=== PATIENT | female | born 1970 | race Caucasian/White ===

== ENCOUNTER 2018-08-04 09:17 | Outpatient (CLI) | payer MEDICAID, SELFPAY ==
[2018-08-04 11:33] LABS: ALT 27 U/L (12-78); AST 22 U/L (15-37); Albumin 4.6 g/dL (3.4-5.0); Alkaline Phosphatase 36 U/L (46-116); Bilirubin, Total 0.3 mg/dL (0.2-1.0); Total Protein 8.3 g/dL (6.4-8.2)
[2018-08-06 09:00] LABS: HCV Genotype 2 (Undetected)
== END 2018-08-04 09:37 ==
LOC: LBO 09:29 → NCHCO 10:03
PROVIDERS: PCP Physician Assistant Medical; Visit Provider Physician Assistant Medical
DX: B19.20 Unspecified viral hepatitis C without hepatic coma (principal)
CPT/HCPCS: 36415; 80076; 87521; 87522

== ENCOUNTER 2018-08-10 09:17 | Outpatient (CLI) | payer MEDICAID, SELFPAY ==
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
== END 2018-08-10 09:37 ==
PROVIDERS: PCP Physician Assistant Medical; Visit Provider Student in an Organized Health Care Education/Training Program
DX: M25.562 Pain in left knee (principal)
CPT/HCPCS: 73562

== ENCOUNTER 2018-08-22 01:55 | Outpatient (CLI) | payer MEDICAID, SELFPAY ==
--- NOTE | 2018-08-22 14:26 | DI.MRI_ITS ---
SYMPTOM/DIAGNOSIS: NEW VISUAL DISTURBANCE, H53.9 BRAIN MRI: Routine noncontrast examination was performed. There are no priors for comparison. There is normal hightower white matter differentiation. No abnormal signal is seen in the brain parenchyma. The diffusion weighted images have a normal appearance. No intracranial hemorrhage is seen. There is a flow void in the [place] of [place]. The pituitary gland is unremarkable as is the suprasellar region. The visualized paranasal sinuses are clear. The left orbit is abnormal in shape with flattening of the contour of the orbit both medially and laterally. There is also decreased size of the lens compared to the right. The extraocular muscles appear symmetric as does the optic nerve. No orbital or retro-orbital soft tissues masses are appreciated. IMPRESSION: Abnormal appearance of the left orbit and decreased size of the left lens. Ophthalmic consult is recommended for further evaluation. No evidence of a left orbital or retro-orbital mass. No evidence of intracranial mass, infarct or hemorrhage.
== END 2018-08-22 02:15 ==
PROVIDERS: PCP Physician Assistant Medical; Visit Provider Nurse Practitioner Adult Health
DX: H53.8 Other visual disturbances (principal); H05.89 Other disorders of orbit; H27.8 Other specified disorders of lens
CPT/HCPCS: 70551

== ENCOUNTER 2018-12-09 01:31 | Outpatient (CLI) | payer MEDICAID, SELFPAY ==
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
== END 2018-12-09 01:51 ==
PROVIDERS: Visit Provider Student in an Organized Health Care Education/Training Program
DX: M23.92 Unspecified internal derangement of left knee (principal); M25.562 Pain in left knee; M22.42 Chondromalacia patellae, left knee
CPT/HCPCS: 73721

== ENCOUNTER 2022-07-14 15:19 | Outpatient (REF) | payer MEDICAID, SELFPAY ==
[2022-07-14 16:05] LABS: ALT 14 U/L (14-59); AST 21 U/L (15-37); Albumin 4.5 g/dL (3.4-5.0); Alkaline Phosphatase 62 U/L (46-116); Anion Gap 9.8 mmol/L (3-11); BUN 11 mg/dL (7-18); Bilirubin, Total 0.3 mg/dL (0.2-1.0); CO2 27.2 mmol/L (21.0-32.0); CREATININE 0.7 mg/dL (0.55-1.02); Calcium 9.6 mg/dL (8.5-10.1); Calculated LDL 185 mg/dL (<100); Chloride 101 mmol/L (98-107); Cholesterol 265 mg/dL (<200); Estimated GFR 104.65 (mL/min/1.73m2); Glucose 97 mg/dL (74-106); HDL Cholesterol 56 mg/dL (40-60); Potassium 4.3 mmol/L (3.5-5.1); Sodium 138 mmol/L (136-145); Total Protein 8.1 g/dL (6.4-8.2); Triglyceride 120 mg/dL (<150)
== END 2022-07-14 15:20 | disposition home or self-care (01) ==
LOC: NCHCN 15:19
PROVIDERS: Visit Provider Physician Assistant Medical
DX: Z13.228 Encounter for screening for other metabolic disorders (principal); E78.89 Other lipoprotein metabolism disorders; Z00.00 Encounter for general adult medical examination without abnormal findings
CPT/HCPCS: 80053; 80061

== ENCOUNTER 2023-01-22 10:09 | Outpatient (REF) | payer MEDICAID, SELFPAY ==
[2023-01-22 16:12] LABS: Vitamin D 25 Total 38.2 ng/mL (30-100)
[2023-01-22 16:19] LABS: Vitamin B12 796 pg/mL (193-986)
== END 2023-01-22 10:10 | disposition home or self-care (01) ==
LOC: NCHCN 10:09
PROVIDERS: PCP Physician Assistant Medical; Visit Provider Physician Assistant Medical
DX: E53.8 Deficiency of other specified B group vitamins (principal); E55.9 Vitamin D deficiency, unspecified
CPT/HCPCS: 82306; 82607

== ENCOUNTER 2024-07-25 15:58 | Outpatient (REF) | payer MEDICAID, SELFPAY ==
--- OUTSIDE RECORDS SUMMARY | 2024-07-25 16:05 | XMS_ITS | Encounter Summary ---
[place] [address] Care Team Providers Care Rn Document Improvement Name Role Phone Unknown Primary Care Provider Unavailabl e Encounter Details Date Type Department Care Team (Late st Contact Info) Description 09/08/2022 Interpretation Only [address] [id number] Doe Jenkins PA [address] [place] [id number] Social History Tobacco Use Types Packs/Day Years Used Date Smoking Tobacco: Every Day Cigarettes 1 18 Smokeless Tobacco: Never Alcohol Use Standard Drinks/Week Comments No 0 (1 standard drink = 0.6 oz pur e alcohol) Sex and Gender Information Value Date Recorded Sex Assigned at Not on file Gender Identity Not on file Sexual Orientation Not on file documented as of this encounter Plan of Treatment Not on file documented as of this encounter Goals Goal Patient Goal Type Associated Problems Recent Progress Patient-Stated? Author [facility] Medication Compliance and Understanding Patient Facing Action Plan No Thania Weston, [facility] Note: SVR12 through treatment with Mavyret. documented as of this encounter Procedures Procedure Name Priority Date/Time Associated Diagnosis Comments MAMMO SCREENING CAD BILATERAL Routine 09/08/2022 9:04 AM EDT documented in this encounter Results * Mammo Screening Cad Bilateral (09/08/2022 9:04 AM EDT) PT CLASS O RAD ADMITDTTM RAD PT RAFI ESCAMILLA INFO [id number]^RA THBURN^GINGER David [facility]SCREEN MAMMO BL INCLUDES CAD^RIS RAD Anatomical Region Laterality Modality Breast Bilateral Mammography Impressions 09/08/2022 2:05 PM EDT BI-RADS ??category 1: negative- No mammographic evidence of malignancy. RECOMMENDATION: * ??Regular screening mammograms starting between age 40 and 50 reduces the risk of from breast cancer. * ??All screening tests have both risks and benefits. These risks and benefits should be assessed for each individual patient through discussion with their provider to determine their preferred breast cancer screening schedule. * ??Women should report any breast changes to a health care provider right away. * ??Some women, because of their family history, a genetic tendency, or other factors, should be screened with annual breast MRI as well as with mammograms. (The number of women who fall into this category is very small). Patients and health care providers should discuss the history of each patient to decide if earlier screening and/or breast MRI are appropriate. * ??Screening should continue as long as a woman is in good health and is expected to live 10 years or longer. * ??Screening mammography may not detect 10-15% of breast cancers. Thank you for letting us participate in the care of this patient. ??If you are a health care provider and have any questions regarding this report, please contact the number below. ??For patients who have questions please contact the health daycare teacher that requested your imaging first. ? Narrative 09/08/2022 2:05 PM EDT EXAMINATION: BREAST SCREEN TOMOSYNTHESIS BI, SCREEN MAMMO BL INCLUDES CAD CLINICAL HISTORY: mammo screening for malignant neoplasm of breast Family history of breast cancer: None Reproductive history: Parous No personal history of breast cancer. COMPARISON: Previous mammograms were reviewed. TECHNIQUE: ??Bilateral MLO and CC digital mammograms were obtained and reviewed with CAD. ?? 2-D and 3-D tomosynthesis images were obtained. FINDINGS: There are no suspicious microcalcifications, masses, or areas of distortion. No changes compared to prior studies. Breast density: The breasts are heterogeneously dense, which may obscure small masses. Procedure Note Felipe Moss MD - 09/08/2022 EXAMINATION: BREAST SCREEN TOMOSYNTHESIS BI, SCREEN MAMMO BL INCLUDESCAD CLINICAL HISTORY: mammo screening for malignant neoplasm of breast Family history of breast cancer: None Reproductive history: Parous No personal history of breast cancer. COMPARISON: Previous mammograms were reviewed. TECHNIQUE: Bilateral MLO and CC digital mammograms were obtained andreviewed with CAD. 2-D and 3-D tomosynthesis images were obtained. FINDINGS: There are no suspicious microcalcifications, masses, or areasof distortion. No changes compared to prior studies. Breast density: The breasts are heterogeneously dense, which may obscuresmall masses. IMPRESSION BI-RADS category 1: negative- No mammographic evidence of malignancy. RECOMMENDATION: * Regular screening mammograms starting between age 40 and 50 reduces therisk of from breast cancer. * All screening tests have both risks and benefits. These risks andbenefits should be assessed for each individual patient through discussion withtheir provider to determine their preferred breast cancer screening schedule. * Women should report any breast changes to a health care provider rightaway. * Some women, because of their family history, a genetic tendency, orother factors, should be screened with annual breast MRI as well as withmammograms. (The number of women who fall into this category is very small). Patientsand health care providers should discuss the history of each patient to decideif earlier screening and/or breast MRI are appropriate. * Screening should continue as long as a woman is in good health and is expected to live 10 years or longer. * Screening mammography may not detect 10-15% of breast cancers. Thank you for letting us participate in the care of this patient. If youare a health care provider and have any questions regarding this report,please contact the number below. For patients who have questions please contactthe health daycare teacher that requested your imaging first. Doe GARY IMG MAMMO ORDERABL ES documented in this encounter Visit Diagnoses Not on filedocumented in this encounter Care Teams Rn Document Improvement Relationship Specialty Start Date End Date Unknown None PCP - General 01/31/20 documented as of this encounter
--- OUTSIDE RECORDS SUMMARY | 2024-07-25 16:05 | XMS_ITS | Encounter Summary ---
Author Organization [facility] [place] [address] Care Team Providers Care Creel Selector Name Role Phone Doe Jenkins Primary Care Provider +1- [phone] Encounter Details Date Type Department Care Team (Late st Contact Info) Description 12/06/2018 External Results [place] [address] Yariel Porter PA [address] [place] [address] [place] [address] Social History Tobacco Use Types Packs/Day Years [...] Type Associated Problems Recent Progress Patient-Stated? Author [facility] Medication Compliance and Understanding Patient Facing Action Plan No Thania Weston, [facility] Note: SVR12 through treatment with Mavyret. documented as of this encounter Procedures Procedure Name Priority Date/Time Associated Diagnosis Comments EXTERNAL LAB CBC CMP THYROID RESULTS PANEL Routine 12/05/2018 EXTERNAL LAB GI RESULTS PANEL Routine 12/05/2018 EXTERNAL LAB GI RESULTS PANEL Routine 11/06/2018 documented in this encounter Results * GI External Results (12/05/2018) Hepatitis B Surface Antigen Negative Historical Provider POINT OF CARE JOSÉ MIGUEL T ORDERABLES * CBC / CMP / Thyroid External Results (12/05/2018) Sodium 139 Potassium 3.9 Chloride 100 Carbon Dioxide 27 Blood Urea Nitrogen 8 Creatinine 0.78 Est Glomerular Filtration Rate 78.83 Glucose 109 Calcium 9.1 Protein, Total 7.7 Albumin 4.3 Bilirubin, Total 0.3 Alkaline Phosphatase 39 Aspartate Aminotransferase 14 Alanine Aminotransferase 12 Historical Provider EXTERNAL LAB ORDE RABLES * GI External Results (11/06/2018) Hepatitis B Surface Antigen Negative HCV Viral Load <15 Comment:not detected Historical Provider POINT OF CARE JOSÉ MIGUEL T ORDERABLES documented in this encounter Visit Diagnoses Not on filedocumented in this encounter Care Teams Creel Selector Relationship Specialty Start Date End Date Doe Jenkins PA [address] [place] [address] PCP - General 08/04/12 01/30/20 documented as of this encounter
--- OUTSIDE RECORDS SUMMARY | 2024-07-25 16:05 | XMS_ITS | Encounter Summary ---
[place] [address] Care Team Providers Care Financial Coach Name Role Phone Doe Jenkins Primary Care Provider [phone]- [phone] Reason for Visit * Reason Comments Medication Management Encounter Details Date Type Department Care Team (Late st Contact Info) Description 12/05/2018 Specialty [place] [phone] Thania Weston [facility] Social History Tobacco Use Types Packs/Day Years Used Date Smoking Tobacco: Every Day Cigarettes 1 18 Smokeless Tobacco: Never Alcohol Use Standard Drinks/Week Comments No 0 (1 standard drink = 0.6 oz pur e alcohol) Sex and Gender Information Value Date Recorded Sex Assigned at Not on file Gender Identity Not on file Sexual Orientation Not on file documented as of this encounter Progress Notes * Thania Jaimes RPH - 12/05/2018 10:08 AM EDT Clinical Management Plan: Transfer of Care/Discharge Specialty Services Specialty Pharmacy Consultation; Thania Jaimes [facility] Comprehensive Medication Management (CMM) Frances Rakesh Peggy [address] [facility] [address] Telephone Information: Work Phone Not on file. Summary: Frances was contacted for end of treatment follow-up on HCV treatment with Mavyret. She finished the treatment on Wed, 12/03 which is right on schedule based on her start date. She did not miss any doses, and says she tolerated the medication well. Frances does not report any changes in her other medications at this time. She got her end of treatment labs done this morning at [facility]. While she was there she inquired about her week 4 labs because she got a letter saying that only one result was received. [facility] told her that all four tests were done on her week 4 labs and they confirmed that all 4 tests were done this morning as well. These results should be coming to the clinic soon. Frances has gotten a new razor, toothbrush, and nail clippers and is aware that her labs willneed to be done again 3 and 6 months post-treatment. This concludes the specialty pharmacy's clinical follow-up schedule with the patient. Is the patient transferring services to a different Specialty Pharmacy or discontinuing the medication? Discontinuing medication- upcoming completion of treatment Medication: Mavyret Reason for discontinuation or transfer: completion of treatment Approximate date of discontinuation or transfer: patient will complete treatment on 12/03/18 Discontinued from Specialty Pharmacy Services on 12/05/18 Patient's response to therapy: End of treatment labs: to be determined Summary of services provided by [facility]: Initial pharmacist consult, day 3 follow-up, refill reminder and follow-up 10 days prior to refill, end of treatment follow-up Summary of on-going needs: Follow lab schedule provided by clinic for upcoming labs 3 and 6 months post-treatment. Referral for additional services (if applicable): n/a Instructions provided to patient about discharge/transfer: yes - patient aware this concludes our follow-up schedule and to reach out with any additional questions/concerns Provider aware of discontinuation or transfer: yes Patient understands no changes to current drug regimen were made at the appointment and that [facility] (summary located at top of note) for provider review and follow up. Thania Jaimes RPH 12/05/18 10:08 AM documented in this encounter Plan of Treatment Not on file documented as of this encounter Goals Goal Patient Goal Type Associated Problems Recent Progress Patient-Stated? Author Home Medication Compliance and Understanding Patient Facing Action Plan Thania Barrios RPH Note: SVR12 through treatment with Mavyret. documented as of this encounter Visit Diagnoses Not on filedocumented in this encounter Care Teams Financial Coach Relationship Specialty Start Date End Date Doe Jenkins PA [address] [place] [address] PCP - General 08/04/12 01/30/20 documented as of this encounter
--- OUTSIDE RECORDS SUMMARY | 2024-07-25 16:05 | XMS_ITS | Encounter Summary ---
[facility] [place] [address] Care Team Providers Care Automobile Parker Name Role Phone Doe Jenkins Primary Care Provider [phone]- [phone] Reason for Visit * Reason Onset Date Comments Prior Authorization 10/03/2018 Mavyret Encounter Details Date Type Department Care Team (Late st Contact Info) Description 10/03/2018 [place] [phone] Narcisa Antony, [facility] Prior Authorization (Mavyret) Social History Tobacco Use Types Packs/Day Years Used Date Smoking Tobacco: Every Day Cigarettes 1 18 Smokeless Tobacco: Never Alcohol Use Standard Drinks/Week Comments No 0 (1 standard drink = 0.6 oz pur e alcohol) Sex and Gender Information Value Date Recorded Sex Assigned at Not on file Gender Identity Not on file Sexual Orientation Not on file documented as of this encounter Miscellaneous Notes * Telephone Encounter - Narcisa Antony - 10/04/2018 12:06 PM EDT [facility], Prior Authorization Approval Medication Name: Mavyret FILLABLE AT [facility]? yes APPROVAL DATES: 10/03/18 - 12/03/18 SPECIFIC INS REQUIREMENT: CASE/REFERENCE # [id number] APPROVAL NOTIFICATION RECEIVED VIA: Fax COPAY: $3.00 COPAY ASSISTANCE NEEDED?: No * Telephone Encounter - Narcisa Antony - 10/03/2018 2:45 PM EDT [facility], Medication Prior Authorization Patient: Frances Woods Patient : 1970 Patient Address: [address] [facility] [address] (home) Medication: Mavyret Subscriber Insurance: [place] Medicaid Physician: Yariel [place] Sent Via: Fax Parikh: Ref/Rayshawn/PA#: Medication Strength Frequency Requested: Mavyret 100-40mg; 3 tablets daily Qty/Day Supply: days New Start: Yes Diagnosis & ICD-10 Code: Chronic hepatitis C without hepatic coma, B18.2 documented in this encounter Plan of Treatment Not on file documented as of this encounter Goals Goal Patient Goal Type Associated Problems Recent Progress Patient-Stated? Author [facility] Medication Compliance and Understanding Patient Facing Action Plan Thania Barrios, [facility] Note: SVR12 through treatment with Mavyret. documented as of this encounter Visit Diagnoses Not on filedocumented in this encounter Care Teams Automobile Parker Relationship Specialty Start Date End Date Doe Jenkins PA [address] [place] [address] PCP - General 08/04/12 01/30/20 documented as of this encounter
--- OUTSIDE RECORDS SUMMARY | 2024-07-25 16:05 | XMS_ITS | Encounter Summary ---
[place] [address] Care Team Providers Care Brine Maker Name Role Phone Doe Jenkins Primary Care Provider +1- [phone] Encounter Details Date Type Department Care Team (Late st Contact Info) Description 10/13/2018 Orders [place] [address] Yariel Porter PA [address] [place] [address] [place] [address] Chronic hepatitis C without hepatic coma; Exposure to hepatitis B Social History Tobacco Use Types Packs/Day Years [...] Type Associated Problems Recent Progress Patient-Stated? Author [facility] Medication Compliance and Understanding Patient Facing Action Plan No Thania Weston, [facility] Note: SVR12 through treatment with Mavyret. documented as of this encounter Visit Diagnoses Diagnosis Chronic hepatitis C without hepatic coma Exposure to hepatitis B Contact with or exposure to other viral diseases documented in this encounter Care Teams Brine Maker Relationship Specialty Start Date End Date Doe Jenkins PA [address] [place] [address] PCP - General 08/04/12 01/30/20 documented as of this encounter
--- OUTSIDE RECORDS SUMMARY | 2024-07-25 16:05 | XMS_ITS | Encounter Summary ---
Author Organization [facility] [place] [address] Care Team Providers Care Rooming House Inspector Name Role Phone Doe Jenkins Primary Care Provider +1- [phone] Reason for Visit * Reason Onset Date Comments Medication Refill 10/03/2018 Encounter Details Date Type Department Care Team (Late st Contact Info) Description 10/03/2018 Ref[place] [phone] Yariel Porter PA [address] [place] [address] Chronic hepatitis C without hepatic coma Social History Tobacco Use Types Packs/Day Years [...] encounter Miscellaneous Notes * Telephone Encounter - Annette Pringle RN - 10/03/2018 11:46 AM EDT HCV pt ready for treatment with Mavyret x 8 weeks: GT 2 VL 2,474,612 IU/mL on 08/04/18 F0-F1 on Fibroscan F0 on liver fibrosis panel HIV neg HBcAb pos - will need HBsAg testing She was denied due to low fibrosis back in 2017. She would like treatment labs done at [facility]. documented in this encounter Plan of Treatment Not on file documented as of this encounter Goals Goal Patient Goal Type Associated Problems Recent Progress Patient-Stated? Author [facility] Medication Compliance and Understanding Patient Facing Action Plan Thania Barrios, [facility] Note: SVR12 through treatment with Mavyret. documented as of this encounter Visit Diagnoses Diagnosis Chronic hepatitis C without hepatic coma documented in this encounter Care Teams Rooming House Inspector Relationship Specialty Start Date End Date Doe Jenkins PA [address] [place] [address] PCP - General 08/04/12 01/30/20 documented as of this encounter
--- OUTSIDE RECORDS SUMMARY | 2024-07-25 16:05 | XMS_ITS | Encounter Summary ---
Author Organization [facility] [place] [address] Care Team Providers Care Bell Neck Hammerer Name Role Phone Doe Jenkins Primary Care Provider +1- [phone] Encounter Details Date Type Department Care Team (Late st Contact Info) Description 03/02/2019 External [place] [phone] Yariel Porter PA [address] [place] [address] [place] [address] Social History Tobacco Use Types Packs/Day Years [...] Type Associated Problems Recent Progress Patient-Stated? Author [facility] Medication Compliance and Understanding Patient Facing Action Plan No Thania Weston, [facility] Note: SVR12 through treatment with Mavyret. documented as of this encounter Procedures Procedure Name Priority Date/Time Associated Diagnosis Comments EXTERNAL LAB CBC CMP THYROID RESULTS PANEL Routine 02/24/2019 EXTERNAL LAB GI RESULTS PANEL Routine 02/24/2019 documented in this encounter Results * GI External Results (02/24/2019) Bilirubin, Total 0.3 Alkaline Phosphatase 33 Aspartate Aminotransferase 12 Alanine Aminotransferase 10 HCV Viral Load <15 Comment:not detected Historical Provider POINT OF CARE JOSÉ MIGUEL T ORDERABLES * CBC / CMP / Thyroid External Results (02/24/2019) Sodium 142 Potassium 4.5 Chloride 104 Carbon Dioxide 30 Blood Urea Nitrogen 11 Creatinine 0.79 Est Glomerular Filtration Rate 77.68 Glucose 114 Calcium 9.8 Historical Provider EXTERNAL LAB JEFFERSON CRARENO documented in this encounter Visit Diagnoses Not on filedocumented in this encounter Care Teams Bell Neck Hammerer Relationship Specialty Start Date End Date Doe Jenkins PA [address] [place] [address] PCP - General 08/04/12 01/30/20 documented as of this encounter
--- OUTSIDE RECORDS SUMMARY | 2024-07-25 16:05 | XMS_ITS | Encounter Summary ---
Author Organization [facility] [place] [address] Care Team Providers Care Datapower Developer Name Role Phone Doe Jenkins Primary Care Provider [phone]- [phone] Reason for Visit * Reason Comments Medication Management Encounter Details Date Type Department Care Team (Late st Contact Info) Description 10/04/2018 Specialty Pharmacy [place] [phone] Thania Weston [facility] Social History Tobacco Use Types Packs/Day Years [...] Progress Notes * Thania Jaimes RPH - 10/04/2018 4:44 PM EDT Specialty Pharmacy Consultation; Thania Jaimes Angie Comprehensive Medication Management (CMM) Frances J Peggy Diagnosis: Hepatitis C Therapy Start Date: to be determined Contact in person or via telephone:telephone Ms. Frances Woods is a 47 y.o. (1970) female who was contacted in regard to specialty medication. Spoke with patient regarding Mavyret . A review of the medication therapy was performed. The medication was filled as scheduled, and all medication related questions and concerns were addressed. The specialty pharmacy staff will follow up with the patient around day 3 of therapy to assess tolerability and adherence. Is the patient willing to proceed with the Clinical Assessment? Yes Summary and Recommendations: Frances was contacted for initial review of the HepC treatment process with Mavyret. She seems very eager to start and was happy it was approved for her. We discussed the dosage of three tablets taken at once at the same time each day, with food. I recommended using a phone alarm or reminder to help with adherence. Frances seems as if she will be committed to the treatment. We reviewed common side effects and mitigation strategies. We reviewed to stay well hydrated and that acetaminophen in doses <2000mg/day is safe to take if needed while on treatment. She says she drinks water and juice often throughout the day so this should not be a problem for her. We also discussed the lab schedule and she would like to get the labs done at [facility] in [place], [place]. She was HepB coreAb positive so surface antigen will need to be monitored with labs. Frances will notify the pharmacyor clinic when she starts and we will follow-up with her about 3-5 days later. No recommendations at this time. Clinic Follow-up needed: no Allergies and Drug intolerance: Allergies Allergen Reactions ??? Prochlorperazine Special Dietary or Hydration Requirements: no There is no height or weight on file to calculate BMI. Medication Reconciliation Discrepancies (compared to [facility] med list) -not taking topiramate - Proair only as needed - takes Vitamin C 1000mg once daily Medication Adherence Demonstrates understanding of importance of adherence: yes Informant: patient Reliability of informant: reliable Provider-estimated medication adherence level: 90-100% Reasons for non-adherence: no problems identified Adherence tools used: directed education Support network for adherence: healthcare provider Confirmed plan for next specialty medication refill: delivery by pharmacy Refills needed for supportive medications: not needed Medication List: Current Outpatient Medications Medication Sig Note Dispense Refill ??? glecaprevir-pibrentasvir (MAVYRET) 100-40 mg Tablet Take 3 tablets by mouth daily. 84 tablet 1 ??? zolpidem (AMBIEN CR) 6.25 mg Tablet, Multiphasic Release TAKE ONE TABLET BY MOUTH EVERY DAY AT BEDTIME NEEDED FOR SLEEP 0 ??? prednisoLONE acetate (PRED FORTE) 1 % Drops, Suspension INSTILL 1 DROP INTO THE LEFT EYE TWO TIMES A DAY 3 ??? fish oil-omega-3 fatty acids 1,000 mg Capsule Take 2 g by mouth daily. ??? PROAIR HFA 90 mcg/actuation HFA Aerosol Inhaler INHALE TWO PUFFS BY MOUTH EVERY 4 TO 6 HOURS 10/04/2018: As needed only. 2 ??? topiramate (TOPAMAX) 25 mg Tablet TAKE ONE TABLET BY MOUTH EVERY DAY AT BEDTIME 10/04/2018: Not taking. 1 ??? NICOTROL 10 mg Cartridge USE ONE CARTRIDGE DIRECTED NEEDED WITH A MAXIMUM OF 16 CARTRIDGES PER DAY 0 ??? ibuprofen (ADVIL;MOTRIN) 400 mg Tablet Take 400 mg by mouth every 6 hours as needed for Pain. No current facility-administered medications for this visit. Most Recent Vitals: Ht Readings from Last 1 Encounters: 09/30/18 175.3 cm (5' 9) Wt Readings from Last 3 Encounters: 09/30/18 67.3 kg (148 lb 6.4 oz) 01/26/17 66 kg (145 lb 9.6 oz) 09/21/16 68.9 kg (152 lb) Temp Readings from Last 3 Encounters: 09/21/16 36.3 ??C (97.3 ??F) (Temporal) 04/03/13 37 ??C (98.6 ??F) (Oral) 11/14/12 36.6 ??C (97.9 ??F) BP Readings from Last 3 Encounters: 09/30/18 116/63 01/26/17 110/60 09/21/16 113/62 Pulse Readings from Last 3 Encounters: 09/30/18 79 01/26/17 59 09/21/16 93 Pertinent Lab values: Lab Results Component Value Date NA 141 09/30/2018 K 4.0 09/30/2018 CL 101 09/30/2018 CO2 27 09/30/2018 BUN 13 09/30/2018 CREATININE 0.67 (L) 09/30/2018 GLUCOSE 87 09/30/2018 CALCIUM 9.4 09/30/2018 Lab Results Component Value Date ALT 21 09/30/2018 AST 19 09/30/2018 ALKPHOS 33 (L) 09/30/2018 BILITOT 0.3 09/30/2018 BILIDIR 0.1 07/01/2012 ALBUMIN 4.7 09/30/2018 PROT 7.5 09/30/2018 Lab Results Component Value Date WBC 6.0 09/30/2018 HGB 13.5 09/30/2018 HCT 41.1 09/30/2018 MCV 88.0 09/30/2018 PLATELET 151 09/30/2018 No results found for: HA1C There is no immunization history on file for this patient. Assessment and Recommendations: Title Type of Medication Management: chronic disease management, targeted medication review Referred By: provider Recipient: beneficiary Provider: plan sponsor pharmacist [place] [facility] [place] Method of Contact: by telephone Cognitive Ability: good Drug Interactions Provided the patient with educational material regarding drug interactions: yes Patient Counseling Counseled the patient on the following: reviewed medication changes since last visit, medication safety precautions education provided, drug interaction education provided to patient, doses and administration discussed, safe handling, storage, and disposal discussed, possible adverse effects and management discussed, possible drug and prescription drug interactions discussed, possible drug and OTC drug and food interactions discussed, lab monitoring and follow-up discussed, therapeutic rationale discussed, cost of medications and cost implications discussed, adherence and missed doses discussed, pharmacy contact information discussed, health goals discussed, monitoring medication discussed, over the counter products discussed, preventative care discussed, self-monitoring discussed, start medication discussed, timing of medications discussed, lifestyle modification education Drug Medication Management Summary Topics discussed: reviewed medication changes since last visit, medication safety precautions education provided, drug interaction education provided to patient, doses and administration discussed, safe handling, storage, and disposal discussed, possible adverse effects and management discussed, possible drug and prescription drug interactions discussed, possible drug and OTC drug and food interactions discussed, lab monitoring and follow-up discussed, therapeutic rationale discussed, cost of medications and cost implications discussed, adherence and missed doses discussed, pharmacy contact information discussed, health goals discussed, monitoring medication discussed, over the counter products discussed, preventative care discussed, self-monitoring discussed, start medication discussed, timing of medications discussed, lifestyle modification education Time spent: 16-30 min Treatment Outcomes No data found. Reviewed in detail with patient: Dose appropriateness based on recommended standard dosing Current medication list including OTC medications Medication and disease problems Allergies Comorbid conditions/ Problem List Past adverse events if any Special needs of the patient including physical and cognitive limitations Goals of therapy and management strategies Warnings, precautions, and contraindications Side effects Drug-drug and drug-food interactions Administration instructions including dose, frequency and method Handling, storage, and disposal of the medication Relevant lab data Patient verbalizes understanding and is able to read-back instructions on self-administration/injection, proper storage, drug stability, importance of adherence and management strategies, side effectavoidance and mitigation strategies, and interruptions in therapy: yes Physical Assessment: Functional limitations identified: no Cognitive limitations identified: no Concern regarding orientation/memory: no Concern with reasoning/judgement: no Is patient a fall risk: no Other needed information: no Social Assessment: Does the patient have a primary team primary care physician? no Patient has emergency contact on file: Yes Does patient need referral to social sciences department chair: No Does patient need referral to advocacy group: No Physical and Home Health Assessment: Is the patient able to store their medication as directed? Yes Is the patient in a safe home environment? Yes Do you have a support network? Yes Reviewed potential home safety hazards: Yes Economic Assessment: Patient is agreeable to medication copay: Yes Copay Amount: $3 Day Supply: 28 Date Needed: as soon as possible- new start Copay assistance required: no Therapy Assessment: Current Medication Dosing/Route/Frequency: Mavyret 3 tab po qd x 8 weeks Appropriate Therapy: Yes Genotype: 2 Treatment Naive/Experienced: naive Fibrosis Score: F0-F1 on fibroscan HX of liver transplant: no HBV Coinfection: no but HepB core Ab positive- will need to monitor HepB surface Ag during treatment HIV Coinfection: no Lab schedule reviewed: Yes Educational information or adherence tools provided? Yes HCV therapy adherence: Yes HCV treatment response: Yes Verbalized understanding to call office before start: Yes Patient experienced change in condition that affects treatment: no Patient's Problems/Needs: Treatment of HepC - adherence to medication regimen and lab monitoring schedule Patient's goals: Patient's specific desired goal:??SVR12 Measured by:??HepC viral load 12 weeks post-treatment Time-frame to meet goal:??12 weeks post-treatment Expected Outcome: SVR12 Plan of Care Reviewed and Approved by Pharmacist and Patient: Yes Monitoring requirements for prescribed medication: Monitor efficacy, safety, tolerability Monitor CBC, CMP, HepC viral load week 4, end of treatment, 3 and 6 months post-treatment Interventions (if applicable): No Additional care/services needed: no Pharmacist Follow-up needed: Yes Informed patient of specialty pharmacy services: Yes -Patient will be provided with welcome packet: Yes Date to be provided: 10/04/18 Delivery Method: mail -Patient will be provided with Rights & Responsibilities: Yes Date to be provided: 10/04/18 Delivery Method: mail -Patient is aware a licensed pharmacist is available 24 hours a day, 7 days a week to discuss medication-related questions or concerns: Yes -Patient verbalizes understanding of the common side effect profile of their medication. The patient is able to call 911 or seek urgent care if signs/symptoms of allergy or harmful adverse reactions occur: Yes Patient understands no changes to current drug regimen were made at the appointment and that [facility] (summary located at top of note) for provider review and follow up. Thania Jaimes RPH 10/04/18 4:48 PM documented in this encounter Plan of Treatment Not on file documented as of this encounter Goals Goal Patient Goal Type Associated Problems Recent Progress Patient-Stated? Author DH Home Medication Compliance and Understanding Patient Facing Action Plan No Thania Weston RPH Note: SVR12 through treatment with Mavyret. documented as of this encounter Visit Diagnoses Not on filedocumented in this encounter Care Teams Datapower Developer Relationship Specialty Start Date End Date Doe Jenkins PA [address] [place] [address] PCP - General 08/04/12 01/30/20 documented as of this encounter
--- OUTSIDE RECORDS SUMMARY | 2024-07-25 16:05 | XMS_ITS | Encounter Summary ---
Author Organization [facility] [place] [address] Care Team Providers Care Furnace Worker Name Role Phone Doe Jenkins Primary Care Provider [phone]- [phone] Encounter Details Date Type Department Care Team (Latest Contact Info) Description 02/24/2019 9:27 PM EDT - 02/24/2019 11:59 PM EDT Hospital [place] [phone] Discharge Disposition: Home Social History Tobacco Use Types Packs/Day Years Used Date Smoking Tobacco: Every Day Cigarettes 1 18 Smokeless Tobacco: Never Alcohol Use Standard Drinks/Week Comments No 0 (1 standard drink = 0.6 oz pur e alcohol) Sex and Gender Information Value Date Recorded Sex Assigned at Not on file Gender Identity Not on file Sexual Orientation Not on file documented as of this encounter Medications at Time of Discharge Medication Sig Dispensed Refills Start Date End Date ascorbic acid, vitamin C, (VITAMIN C) 1,000 mg Tablet Take 1,000 mg by mouth daily. glecaprevir-pibrentasvi r (MAVYRET) 100-40 mg TabletIndications:Chron ic hepatitis C without hepatic coma Take 3 tablets by mouth daily. 84 tablet 1 10/03/2018 zolpidem (AMBIEN CR) 6.25 mg Tablet, Multiphasic Release TAKE ONE TABLET BY MOUTH EVERY DAY AT BEDTIME NEEDED FOR SLEEP 0 09/11/2018 prednisoLONE acetate (PRED FORTE) 1 % Drops, Suspension INSTILL 1 DROP INTO THE LEFT EYE TWO TIMES A DAY 3 09/14/2018 fish oil-omega-3 fatty acids 1,000 mg Capsule Take 2 g by mouth daily. PROAIR HFA 90 mcg/actuation HFA Aerosol Inhaler INHALE TWO PUFFS BY MOUTH EVERY 4 TO 6 HOURS 2 09/09/2018 topiramate (TOPAMAX) 25 mg Tablet TAKE ONE TABLET BY MOUTH EVERY DAY AT BEDTIME 1 09/08/2018 NICOTROL 10 mg Cartridge USE ONE CARTRIDGE DIRECTED NEEDED WITH A MAXIMUM OF 16 CARTRIDGES PER DAY 0 07/09/2018 ibuprofen (ADVIL;MOTRIN) 400 mg Tablet Take 400 mg by mouth every 6 hours as needed for Pain. documented as of this encounter Plan of Treatment Not on file documented as of this encounter Goals Goal Patient Goal Type Associated Problems Recent Progress Patient-Stated? Author DH Home Medication Compliance and Understanding Patient Facing Action Plan Thania Barrios, [facility] Note: SVR12 through treatment with Mavyret. documented as of this encounter Procedures Procedure Name Priority Date/Time Associated Diagnosis Comments HEPATITIS B SURFACE ANTIGEN Routine 02/24/2019 9:32 AM EDT documented in this encounter Results * Hepatitis B Surface Antigen (02/24/2019 9:32 AM EDT) Hepatitis B Surface Antigen Negative Negative [facility] Blood specimen (specimen) Venous Draw / Unknown 02/24/2019 9:32 AM EDT 02/24/2019 10:10 PM EDT Narrative Resulting Agency Comment Spec In Lab Yariel GARY CHEMISTRY ORDERABLES [facility] [place] [address] documented in this encounter Visit Diagnoses Not on filedocumented in this encounter Care Teams Furnace Worker Relationship Specialty Start Date End Date Doe Jenkins PA [address] [place] [address] PCP - General 08/04/12 01/30/20 documented as of this encounter
--- OUTSIDE RECORDS SUMMARY | 2024-07-25 16:05 | XMS_ITS | Encounter Summary ---
Author Organization [facility] Address [facility] [place] [address] Care Team Providers Care Senior Buyer Planner Name Role Phone Doe Jenkins Primary Care Provider [phone]- [phone] Encounter Details Date Type Department Care Team (Latest Contact Info) Description 11/06/2018 10:15 PM EDT - 11/06/2018 11:59 PM EDT Hospital [place] [phone] Discharge Disposition: Home Social History Tobacco Use [...] Understanding Patient Facing Action Plan Thania Barrios, [facility] Note: SVR12 through treatment with Mavyret. documented as of this encounter Procedures Procedure Name Priority Date/Time Associated Diagnosis Comments HEPATITIS B SURFACE ANTIGEN STAT 11/06/2018 8:49 AM EDT documented in this encounter Results * Hepatitis B Surface Antigen (11/06/2018 8:49 AM EDT) Hepatitis B Surface Antigen Negative Negative [facility] Blood specimen (specimen) Venous Draw / Unknown 11/06/2018 8:49 AM EDT 11/08/2018 10:28 PM EDT Narrative Resulting Agency Comment Spec In Lab Yariel GARY CHEMISTRY ORDERABLES [facility] [place] [address] documented in this encounter Visit Diagnoses Not on filedocumented in this encounter Care Teams Senior Buyer Planner Relationship Specialty Start Date End Date Doe Jenkins PA [address] [place] [address] PCP - General 08/04/12 01/30/20 documented as of this encounter
--- OUTSIDE RECORDS SUMMARY | 2024-07-25 16:05 | XMS_ITS | Clinical Summary ---
Author Organization [facility] Address One [facility] [place] [address] Care Team Providers Care Head Of Insight Name Role Phone Unknown Primary Care Provider Unavailabl e Allergies Active Allergy Reactions Criticality Noted Date Comments Prochlorperazine Medications Medication Sig Dispensed Refills Start Date End Date Status ibuprofen (ADVIL;MOTRIN) 400 mg Tablet Take 400 mg by mouth every 6 hours as needed for Pain. Active zolpidem (AMBIEN CR) 6.25 mg Tablet, Multiphasic Release TAKE ONE TABLET BY MOUTH EVERY DAY AT BEDTIME NEEDED FOR SLEEP 0 09/11/2018 Active prednisoLONE acetate (PRED FORTE) 1 % Drops, Suspension INSTILL 1 DROP INTO THE LEFT EYE TWO TIMES A DAY 3 09/14/2018 Active fish oil-omega-3 fatty acids 1,000 mg Capsule Take 2 g by mouth daily. Active PROAIR HFA 90 mcg/actuation HFA Aerosol Inhaler INHALE TWO PUFFS BY MOUTH EVERY 4 TO 6 HOURS 2 09/09/2018 Active topiramate (TOPAMAX) 25 mg Tablet TAKE ONE TABLET BY MOUTH EVERY DAY AT BEDTIME 1 09/08/2018 Active NICOTROL 10 mg Cartridge USE ONE CARTRIDGE DIRECTED NEEDED WITH A MAXIMUM OF 16 CARTRIDGES PER DAY 0 07/09/2018 Active glecaprevir-pibrenta svir (MAVYRET) 100-40 mg TabletIndications:Ch ronic hepatitis C without hepatic coma Take 3 tablets by mouth daily. 84 tablet 1 10/03/2018 Active ascorbic acid, vitamin C, (VITAMIN C) 1,000 mg Tablet Take 1,000 mg by mouth daily. 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 Plan: Continue the ciloxan drops until the bottle runs out Follow-up in [facility] for ongoing eye care - in 2-3 months Happy to see again if any problems in the future Assessment & Plan (10/29/2016 10:53 AM EDT): Assessment: Choroidal heme resolving and no wound leak today Plan: Continue ciloxan 4x/day until current bottle runs out Return as booked within the next 1-2 weeks FERNANDO if any problems Assessment & Plan (10/26/2016 4:02 PM EDT): Assessment: Now has wound leak from suture removal and developed a limited choroidal hemorrhage for 360 degrees Plan: Keep using the Ciloxan 4x/day to prevent infection and to encourage wound healing (sample given) Return by the end of the week to make sure not getting infected and see if choroidals are beginning to resolve No bending with head below heart and no lifting more than 10 lbs Assessment & Plan (10/23/2016 2:45 PM EDT): Things look good 4 weeks following secondary lens implant surgery in left eye. Remaining two sutures were removed today and cornea should stabilize over the next few weeks Return 2-4 weeks for final refraction Use the ciloxan or gentamycin drops supplied last time in the left eye 4x/day for 3 days Assessment & Plan (10/01/2016 9:51 AM EDT): Assessment: 10 days out from the secondary lens implant Vision still distorted and likely corneal sutures contributing to this Plan: Cut the central suture today to reduce the degree of distortion Use ciloxan drops 4x/day for 3 days to prevent infection (sample given) Assessment & Plan (09/25/2016 2:39 PM EDT): Things look great <=1 week following cataract surgery left eye Stop taking the ketorolac (bella top) and vigamox (beige top) drops at the 1 week higinio starting on Wednesday September 28, 2016 Taper the prednisolone acetate 1% after the 1 week higinio as follows starting on Wednesday September 28, 2016: 3x/day for 1 week 2x/day for 1 week 1x/day for 1 week Then STOP. Return 6 weeks post-op; sooner if vision worse, eye red or pain. Assessment & Plan (09/22/2016 9:12 AM EDT): Things look great 1 day following secondary lens insertion in the left eye Keep taking the Ketorolac (bella top) and Vigamox (beige top) drops 4x/day until the one week higinio on 09/28/16 then STOP Taper the prednisolone acetate 1% as follows: 4x/day for rest of first week then 3x/day for 1 week 2x/day for 1 week 1x/day for 1 week Then STOP. Start Alphagan P 3x daily in the left eye for 3 days Return 1 week post-op; sooner if vision worse, eye red or pain. Endophthalmitis, right eye. Acute. 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 06/23/2012 Resolved Problems Problem Noted Date Diagnosed Date Resolved Date Aphakia, left eye 07/29/2016 09/21/2016 Assessment & Plan (07/29/2016 2:16 PM EST): Assessment: Aphakic following endogenous endophthalmitis left eye Plan: Secondary lens implant into the anterior chamber left eye Warned that vision will not be back to 20/20 but should be much better than it is now Also, won't have image size discrepancy since will have a lens implant instead of glasses PATIENT NOT SEEN 08/10/2012 09/30/2018 Hepatitis C antibody test positive 07/12/2012 09/30/2018 Family History Medical History Relation Comments Diabetes Father Heart Disease Father Diabetes Maternal Aunt Diabetes Maternal Grandmother Cancer Maternal Uncle Diabetes Mother Breast Cancer Neg Hx Glaucoma Neg Hx Macular Degeneration Neg Hx Relation Status Comments Father Maternal Aunt Maternal Grandmother Maternal Uncle Mother Social History Tobacco Use Types Packs/Day Years Used Date Smoking Tobacco: Every Day Cigarettes 1 18 Smokeless Tobacco: Never Tobacco Cessation:Ready to Q uit: No; Counseling Given: Yes Alcohol Use Standard Drinks/Week Comments No 0 (1 standard drink = 0.6 oz pur e alcohol) Sex and Gender Information Value Date Recorded Sex Assigned at Not on file Gender Identity Not on file Sexual Orientation Not on file Last Filed Vital Signs Vital Sign Reading Time Taken Comments Blood Pressure 116/63 09/30/2018 1:53 PM EDT Pulse 79 09/30/2018 1:53 PM EDT Temperature 36.3 ??C (97.3 ??F) 09/21/2016 9:05 AM ED T Respiratory Rate 18 09/21/2016 9:10 AM EDT Oxygen Saturation 99% 09/21/2016 9:10 AM EDT Inhaled Oxygen Concentration - - Weight 67.3 kg (148 lb 6.4 oz) 09/30/2018 1:53 P M EDT Height 175.3 cm (5' 9) 09/30/2018 1:53 PM EDT Body Mass Index 21.91 09/30/2018 1:53 PM EDT Plan of Treatment Health Maintenance Due Date Last Done Comments CT Colonography 1970 Colonoscopy 1970 Colorectal Cancer Screening 1970 FIT DNA 1970 FIT 1970 Sigmoidoscopy (10 year) with FIT yearly 1970 Sigmoidoscopy 1970 Pneumoccocal Vaccine: 50+ (1 of 2 - PCV) 1989 Tetanus/Diphtheria/Pertussis Vaccines (1 - Tdap) 1989 HPV test 2000 PAP Smear 2000 Breast Cancer Share Decision Needed 2010 Zoster vaccine (1 of 2) 2020 Lipid Screening 01/04/2022 01/04/2017 Covid-19 Vaccine (1 - season) 2024 Influenza (Flu) vaccine (1 o f 1 - Influenza standard series) 02/13/2024 Breast Cancer screening 09/08/2024 09/09/19 23, 09/08/2022, 01/04/2017 HIV screen Completed 09/30/2018, 07/01/2012 Goals Goal Patient Goal Type Associated Problems Recent Progress Patient-Stated? Author Home Medication Compliance and Understanding Patient Facing Action Plan Thania Barrios, [facility] Note: SVR12 through treatment with Mavyret. Medical Devices Implanted Type Area Range Management Specialist Device Identifier Shelf Expiration Date Model / Serial / Lot Component,Buckl ing,#72 ([id number]) - [id number] Implanted:Qty: 1 on 09/01/2012 by Arjun Lockhart MD at [facility] IMPLANTS Left: Eye [employer] [facility] - [id number] 07/14/2019 [id number] / / [id number] Component,Buckl ing,#42 ([id number]) - [id number] Implanted:Qty: 1 on 09/01/2012 by Arjun Lockhart MD at [facility] IMPLANTS Left: Eye [employer] [facility] - [id number] 05/13/2019 [id number] / / [id number] Iol,Mta4u0,22.5 ([id number]) ([employer]) - [id number] Implanted:Qty: 1 on 09/21/2016 by Leonardo Castorena MD at [facility] IMPLANTS Left: Eye [employer] - [id number] 03/13/2020 MTA4U0 22.5 / [id number] / Procedures Procedure Name Priority Date/Time Associated Diagnosis Comments MAMMO SCREENING CAD BILATERAL Routine 09/08/2022 9:04 AM EDT HIV SCREEN, 4TH GENERATION ([facility] [place]PE RFORMABLE Routine 09/30/2018 2:45 PM EDT Chronic hepatitis C without hepatic coma LIPID PANEL (REFLEX DIRECT LDL) Routine 01/04/2017 11:15 AM EDT from Last 3 Months or Most Recently Relevant to Health Maintenance Results * Mammo Screening Cad Bilateral (09/08/2022 9:04 AM EDT) PT CLASS O RAD ADMITDTTM RAD PT RAD INFO [id number]^RA THBURN^JENIAN E RAD EXAM DESC [facility]^SCREEN MAMMO BL INCLUDES CAD^[facility] RAD Anatomical Region Laterality Modality Breast Bilateral [...] who have questions please contact the health vocational childcare teacher that requested your imaging first. ? [...] patients who have questions please contactthe health vocational childcare teacher that requested your imaging first. Doe GARY IMG MAMMO ORDERABL ES * HIV Screen, 4th Generation (09/30/2018 2:45 PM EDT) HIV Ab/Ag Screen Negative Negative [facility] Comment: This 4th Generation HIV test screens for the presence of the HIV-1 p24 antigen as well as antibodies reactive against HIV-1 and HIV-2. A negative screen does not rule out an acute HIV infection. If acute HIV infection is suspected, testing should be repeated in 2 - 3 weeks or HIV nucleic acid testing performed. Blood specimen (specimen) 09/30/2018 2:45 PM EDT 09/30/2018 3:06 PM EDT Narrative Resulting Agency Comment Spec In Lab Beata Rogers MD CHEMISTRY ORDERABLES [facility] [place] [id number] * Lipid Panel (01/04/2017 11:15 AM EDT) Cholesterol, Total 168 <=239 mg/dL [facility] Triglyceride 58 <=199 mg/dL [facility] HDL Cholesterol 49 >=40 mg/dL [facility] LDL Cholesterol 107 <=190 mg/dL [facility] Cholesterol/HDL Ratio 3.4 ratio [facility] Lipid Interpretation See Note [facility] Comment: Lipid management should be guided by a patient? s ASCVD risk, goals and preferences. ACC/AHA Guidelines recommend high intensity statin if clinical ASCVD or LDL greater than or equal to 190 mg/dL. http://NewCellurl.com/FVB-HMZ-Zecbdenao Adults aged 40-75 with LDL 70-189 mg/dL should have their 10 year ASCVD risk estimated with the ACC/AHA ASCVD risk agriculture science teacher http://tools.acc.org/EKPEB-Zqsj-Bqqrmkrzx/ Statin should be discussed if risk greater than or equal to 7.5% in non-diabetics. With diabetes, moderate intensity statin is recommended if risk less than 7.5%, high intensity if risk greater than or equal to 7.5%. Annual lipid monitoring on statins is not necessary. Evaluate secondary causes of Triglycerides greater than 500 mg/dL or LDL greater than 190 mg/dL: See table 6 of ACC/AHA Guideline. Lifestyle modification is a critical component of ASCVD risk reduction. Blood specimen (specimen) Venous Draw / Unknown 01/04/2017 11:15 AM EDT 01/04/2017 11:18 AM EDT Narrative Resulting Agency Comment Spec In Lab Doe GARY CHEMISTRY ORDERABL ES [facility] [place] [address] from Last 3 Months or Most Recently Relevant to Health Maintenance Care Teams Head Of Insight Relationship Specialty Start Date End Date Unknown None PCP - General 01/31/20
--- OUTSIDE RECORDS SUMMARY | 2024-07-25 16:05 | XMS_ITS | Encounter Summary ---
[facility] [place] [address] Care Team Providers Care Drivability Technician Name Role Phone Doe Jenkins Primary Care Provider +1- [phone] Reason for Visit * Reason Comments Medication Management Encounter Details Date Type Department Care Team (Late st Contact Info) Description 10/11/2018 Specialty [place] [phone] Thania Weston [facility] Social History Tobacco Use Types [...] Progress Notes * Thania Jaimes RPH - 10/11/2018 3:14 PM EDT Specialty Pharmacy Consultation; Thania Jaimes Angie Comprehensive Medication Management (CMM) Frances Sumnerpeyton Diagnosis: Hepatitis C Therapy Start Date: 10/08 Ms. Frances Woods is a 47 y.o. (1970) female who was contacted in regard to specialty medication. Spoke with patient regarding Mavyret. A review of the medication therapy was performed. Allmedication related questions and concerns were addressed. The specialty pharmacy staff will follow up with the patient 10 days prior to next refill. Is the patient willing to proceed with the Clinical Assessment? Yes Summary and Recommendations: Frances was contacted for early follow-up on treatment with Mavyret. She takes the medication daily at 7:30pm with food and has not missed any doses. Frances reports that other than some fatigue she has been tolerating the medication well. She says the fatigue is tolerable at this point and she is staying well hydrated. Frances would like lab orders sent to [facility] for her week four labs. We will be reaching out around day 18 of treatment for early refill reminder and lab reminder. No recommendations at this time. Clinic Follow-up needed: no Barriers to Adherence: no Adherence Tools Used by Patient: directed education Proper Hydration: Yes Side Effects: no Side Effect Mitigation Strategies Discussed: Yes Changes in other medications: no Interventions (if applicable): no n/a Any changes to the care plan? no Patient Satisfaction with Therapy: yes - patient seems satisfied with the treatment at this point. She says it is tolerable and she is staying on track with adherence. Patient understands no changes to current drug regimen were made at the appointment and that [facility] is[facility] (summary located at top of note) for provider review and follow up. Thania Jaimes RPH 10/11/18 3:15 PM documented in this encounter Plan of Treatment Not on file documented as of this encounter Goals Goal Patient Goal Type Associated Problems Recent Progress Patient-Stated? Author DH Home Medication Compliance and Understanding Patient Facing Action Plan Thania Barrios [facility] Note: SVR12 through treatment with Mavyret. documented as of this encounter Visit Diagnoses Not on filedocumented in this encounter Care Teams Drivability Technician Relationship Specialty Start Date End Date Doe eJnkins PA [address] [place] [address] PCP - General 08/04/12 01/30/20 documented as of this encounter
--- OUTSIDE RECORDS SUMMARY | 2024-07-25 16:05 | XMS_ITS | Encounter Summary ---
Author Organization [facility] [place] [address] Care Team Providers Care Adjunct Professor Of Law Name Role Phone Doe Jenkins Primary Care Provider +1- [phone] Encounter Details Date Type Department Care Team (Late st Contact Info) Description 03/10/2019 Telephone Gastroenterology at [facility] [place] [phone] Yariel Porter PA [address] [place] [address] [place] [address] Social History Tobacco Use Types Packs/Day Years [...] encounter Miscellaneous Notes * Telephone Encounter - Yariel Porter PA - 03/10/2019 10:23 AM EDT Called patient to review lab results from [facility] on 02/24 to establish SVR12. HCV RNA was undetected, LFTs were all slightly below normal range. She appreciates the call. She has it witting on her calendar to return in May for final blood draw, which is due after May 20 to confirm a cure. She would like labs mailed to her for her records. DG documented in this encounter Plan of Treatment [...] on filedocumented in this encounter Care Teams Adjunct Professor Of Law Relationship Specialty Start Date End Date Doe Jenkins PA [address] [place] [address] PCP - General 08/04/12 01/30/20 documented as of this encounter
--- OUTSIDE RECORDS SUMMARY | 2024-07-25 16:05 | XMS_ITS | Encounter Summary ---
Author Organization [facility] Address [facility] [place] [address] Care Team Providers Care Checkering Machine Adjuster Name Role Phone Doe Jenkins Primary Care Provider +1- [phone] Encounter Details Date Type Department Care Team (Latest Contact Info) Description 12/05/2018 9:40 PM EDT - 12/05/2018 11:59 PM EDT [place] [phone] Discharge Disposition: Home Social History Tobacco Use [...] Patient Facing Action Plan Thania Barrios, [facility] Note: SVR12 through treatment with Mavyret. documented as of this encounter Procedures Procedure Name Priority Date/Time Associated Diagnosis Comments HEPATITIS B SURFACE ANTIGEN Routine 12/05/2018 7:59 AM EDT documented in this encounter Results * Hepatitis B Surface Antigen (12/05/2018 7:59 AM EDT) Hepatitis B Surface Antigen Negative Negative [facility] Blood specimen (specimen) Venous Draw / Unknown 12/05/2018 7:59 AM EDT 12/05/2018 9:45 PM EDT Narrative Resulting Agency Comment Spec In Lab Yariel GARY CHEMISTRY ORDERABLES [facility] [place] [address] documented in this encounter Visit Diagnoses Not on filedocumented in this encounter Care Teams Checkering Machine Adjuster Relationship Specialty Start Date End Date Doe Jenkins PA [address] [place] [address] PCP - General 08/04/12 01/30/20 documented as of this encounter
--- OUTSIDE RECORDS SUMMARY | 2024-07-25 16:05 | XMS_ITS | Encounter Summary ---
[place] [address] Care Team Providers Care Vehicle Body Maker Name Role Phone Unknown Primary Care Provider Unavailabl e Encounter Details Date Type Department Care Team (Late st Contact Info) Description 09/08/2022 Interpretation Only [address] [phone] Doe Jenkins PA [address] [place] [address] Social History Tobacco Use Types Packs/Day Years [...] Type Associated Problems Recent Progress Patient-Stated? Author [facility] Medication Compliance and Understanding Patient Facing Action Plan No Thania Weston, [facility] Note: SVR12 through treatment with Mavyret. documented as of this encounter Procedures Procedure Name Priority Date/Time Associated Diagnosis Comments MAMMO SCREENING CAD AND BEN BILATERAL Routine 09/08/2022 9:04 AM EDT documented in this encounter Results * Mammo Screening Cad and Ben Bilateral (09/08/2022 9:04 AM EDT) PT CLASS O RAD ADMITDTTM RAD PT RAFI ESCAMILLA INFO [id number]^KRYSTEN RN^DOE RAD EXAM DESC [facility]^BREAST SCREEN TOMOSYNTHESIS BI^RIS RAD Anatomical Region Laterality Modality Breast Bilateral [...] who have questions please contact the health director of home care hospice that requested your imaging first. ? Electronically signed by: Felipe Moss MD, [facility] ([phone]), at 09/08/2022 2:05 PM Narrative 09/08/2022 2:05 PM EDT EXAMINATION: BREAST [...] patients who have questions please contactthe health director of home care hospice that requested your imaging first. Doe GARY IMG MAMMO ORDERABL ES documented in this encounter Visit Diagnoses Not on filedocumented in this encounter Care Teams Vehicle Body Maker Relationship Specialty Start Date End Date Unknown None PCP - General 01/31/20 documented as of this encounter
--- OUTSIDE RECORDS SUMMARY | 2024-07-25 16:05 | XMS_ITS | Encounter Summary ---
Author [facility] [place] [address] Care Team Providers Care Organic Chemistry Professor Name Role Phone Doe Jenkins Primary Care Provider +1- [phone] Encounter Details Date Type Department Care Team (Late st Contact Info) Description 12/21/2018 External Results [place] [phone] Yariel Porter PA [address] [place] [address] [place] [address] Social History Tobacco Use Types Packs/Day Years [...] Patient Facing Action Plan No Thania Weston, [facility] Note: SVR12 through treatment with Mavyret. documented as of this encounter Procedures Procedure Name Priority Date/Time Associated Diagnosis Comments EXTERNAL LAB GI RESULTS PANEL Routine 12/07/2018 documented in this encounter Results * GI External Results (12/07/2018) HCV Viral Load <15 Comment:not detected Historical Provider POINT OF CARE JOSÉ MIGUEL T ORDERABLES documented in this encounter Visit Diagnoses Not on filedocumented in this encounter Care Teams Organic Chemistry Professor Relationship Specialty Start Date End Date Doe Jenkins PA [address] [place] [address] PCP - General 08/04/12 01/30/20 documented as of this encounter
--- OUTSIDE RECORDS SUMMARY | 2024-07-25 16:05 | XMS_ITS | Encounter Summary ---
[facility] Organization [facility] [place] [address] Care Team Providers Care Oven Unloader Name Role Phone Doe Jenkins Primary Care Provider [phone]- [phone] Reason for Visit * Reason Comments Medication Management Encounter Details Date Type Department Care Team (Late st Contact Info) Description 10/26/2018 Specialty [place] [phone] Thania Weston [facility] Social History Tobacco Use Types Packs/Day [...] Progress Notes * Thania Jaimes RPH - 10/26/2018 11:13 AM EDT Specialty Pharmacy Consultation; Thania Jaimes Angie Comprehensive Medication Management (CMM) Frances Cameron Peggy Diagnosis: Hepatitis C Therapy Start Date: 10/08 Ms. Frances Woods is a 47 y.o. (1970) female who was contacted in regard to specialty medication. Spoke with patient regarding Mavyret. A review of the medication therapy was performed. Themedication was Refilled as scheduled, and all medication related questions and concerns were addressed. The specialty pharmacy staff will follow up with the patient toward end of treatment to review lab schedule and assess adherence. Is the patient willing to proceed with the Clinical Assessment? Yes Summary and Recommendations: Frances was contacted for refill reminder and follow-up on HCV treatment with Mavyret. She is taking the Mavyret each night and she has not missed any doses. Frances reports that she is tired, her joints feel achy, and her legs seem very heavy. She has been having trouble sleeping but that was a problem even before she started taking the Mavyret. She does not like melatonin because she feels that after a few days of taking it, it becomes ineffective for her and she has to take a higher dose. She describes herself as more grouchy than normal, which could in part be related to her fatigue anddifficulty sleeping. Overall though, she says that she is still committed to the treatment and feels these adverse effects are tolerable. We reviewed to stay hydrated, take brief rests during the dayif needed, and get regular exercise which could help minimize fatigue and help with sleeping pattern. She was reminded of her week four labs which she will have done either late next week (due 11/05) or early the following week at [facility]. We are refilling the Mavyret and mailing it out to her. No further recommendations at this time. Clinic Follow-up needed: no Allergies and Drug intolerance: Allergies Allergen Reactions ??? Prochlorperazine Special Dietary Requirements: no There is no height or weight on file to calculate BMI. Medication Reconciliation Discrepancies (compared to [facility] med list) -none Medication Adherence Patient reported X missed doses in the last month: 0 Any gaps in refill history greater than 2 weeks in the last 3 months: no Demonstrates understanding of importance of adherence: yes Informant: patient Reliability of informant: reliable Provider-estimated medication adherence level: 90-100% Reasons for non-adherence: no problems identified Adherence tools used: directed education Support network for adherence: healthcare provider Confirmed plan for next specialty medication refill: delivery by pharmacy Refills needed for supportive medications: not needed Medication List: Current Outpatient Medications Medication Sig Note Dispense Refill ??? ascorbic acid, vitamin C, (VITAMIN C) 1,000 mg Tablet Take 1,000 mg by mouth daily. ??? glecaprevir-pibrentasvir (MAVYRET) 100-40 mg Tablet Take [...] beneficiary Provider: plan sponsor pharmacist Visit Type: [facility] Follow-up Method of Contact: by telephone Cognitive [...] the counter products discussed, preventative care discussed, reminder to refill or sheepskin pickler medication discussed, self-monitoring discussed, timing of medications discussed, lifestyle modification [...] the counter products discussed, preventative care discussed, reminder to refill or sheepskin pickler medication discussed, self-monitoring discussed, timing of medications discussed, lifestyle modification education Time spent: 1-15 min Treatment Outcomes No data found. Reviewed [...] and mitigation strategies, and interruptions in therapy: Yes Physical Assessment: Functional limitations identified: no Cognitive limitations identified: no Concern regarding orientation/memory: no Concern with reasoning/judgement: no Is patient a fall risk: no Other needed information: no Social Assessment: Does the patient have a primary primary care sales representative? no Patient has emergency contact on file: Yes Does patient need referral to social services analyst: No Does patient need referral to advocacy [...] Amount: $3 Day Supply: 28 Date Needed: 11/05 Copay assistance required: no Patient's Problems/Needs: Treatment of HepC - adherence to medication regimen and lab monitoring schedule Therapy Assessment: Current Medication Dosing/Route/Frequency: Mavyret 3 tab po qd x 8 weeks Appropriate Therapy: Yes Genotype: 2 Treatment Naive/Experienced: naive Fibrosis Score: F0-F1 on fibroscan HX of liver transplant: no HBV Coinfection: no but HepB core Ab positive- will need to monitor HepB surface Ag during treatment HIV Coinfection: no Lab schedule reviewed: Yes Upcoming Lab Reminder Given: Yes Personal Hygiene Device Disposal Reminder Given: Yes Side Effects From Medication: yes fatigue, achiness in joints Side Effect Mitigation Strategies Discussed: Yes Proper Hydration: Yes Missed Doses: no Barriers to Adherence: no Adherence Tools Used by Patient: routine schedule Number of Days Supply Remaining from Prior Fill: 10 Recent Changes to Supplemental Medications: no Effectiveness: TBD Educational information or adherence tools provided? Yes HCV therapy adherence: Yes HCV treatment response: Yes Patient experienced change in condition that affects treatment: no Patient's goals: Patient's specific desired goal:??SVR12 Measured by:??HepC viral load 12 weeks post-treatment Time-frame to meet goal:??12 weeks post-treatment Is the patient on track to achieve goals of therapy? Yes Expected Outcome: SVR12 Plan of Care Reviewed and Approved by Patient: Yes Did Care Plan Change? No Interventions (if applicable): No n/a Additional care/services needed: no Pharmacist Follow-up needed: Yes Informed patient of specialty pharmacy services: Yes -Patient received welcome packet: Yes Date received: 10/08 Delivery Method: mail -Patient received and returned Rights & Responsibilities: Yes patient received, not returned yet Date received: 10/08 Delivery Method: mail -Patient is aware a licensed pharmacist is available 24 hours a day, 7 days a week to discuss medication-related questions or concerns: Yes -Patient verbalizes understanding of the common side effect profile of their medication. The patient is able to call 911 or seek urgent care if signs/symptoms of allergy or harmful adverse reactions occur: Yes Patient Satisfaction with Therapy: yes - Frances is experiencing fatigue, however she is committedto finishing the treatment. Patient understands no changes to current drug regimen were made at the appointment and that [facility] (summary located at top of note) for provider review and follow up. Thania Jaimes RPH 10/26/18 11:14 AM documented in this encounter Plan of Treatment Not on file documented as of this encounter Goals Goal Patient Goal Type Associated Problems Recent Progress Patient-Stated? Author DH Home Medication Compliance and Understanding Patient Facing Action Plan No Thania Weston RPH Note: SVR12 through treatment with Mavyret. documented as of this encounter Visit Diagnoses Not on filedocumented in this encounter Care Teams Oven Unloader Relationship Specialty Start Date End Date Doe Jenkins PA [address] [place] [address] PCP - General 08/04/12 01/30/20 documented as of this encounter
--- OUTSIDE RECORDS SUMMARY | 2024-07-25 16:06 | XMS_ITS | Encounter Summary ---
Author Organization [facility] [place] [address] Care Team Providers Care Special [employer] Medical Sergeant Name Role Phone Doe Jenkins Primary Care Provider +1- [phone] Encounter Details Date Type Department Care Team (Late st Contact Info) Description 09/20/2013 Telephone [place] [address] Arjun Lockhart MD [facility] [address] [place] [address] Social History Tobacco Use Types Packs/Day Years Used Date Smoking Tobacco: Every Day Cigarettes 1 18 Alcohol Use Standard Drinks/Week Comments Yes 0 (1 standard drink = 0.6 oz pur e alcohol) rarely Sex and Gender Information Value Date Recorded Sex Assigned at Not on file Gender Identity Not on file Sexual Orientation Not on file documented as of this encounter Miscellaneous Notes * Telephone Encounter - Eleonora De La Cruz - 09/20/2013 11:51 AM EDT She called today for an appointment with [facility]. [facility] told me that she should see Dr. Melara in [facility].He just doesn't have time to see her. documented in this encounter Plan of Treatment Not on file documented as of this encounter Visit Diagnoses Not on filedocumented in this encounter Care Teams [employer] Medical Sergeant Relationship Specialty Start Date End Date Doe Jenkins PA [address] [place] [address] PCP - General 08/04/12 01/30/20 documented as of this encounter
--- OUTSIDE RECORDS SUMMARY | 2024-07-25 16:06 | XMS_ITS | Encounter Summary ---
[facility] [place] [address] Care Team Providers Care Log Rafter Name Role Phone Doe Jenkins Primary Care Provider +1- [phone] Encounter Details Date Type Department Care Team (Latest Contact Info) Description 01/05/2017 10:47 AM EDT - 01/05/2017 11:59 PM EDT Hospital [place] [phone] Edwin Contreras MD Abnormal finding on breast imaging Discharge Disposition: Home Social History Tobacco Use Types Packs/Day Years Used Date Smoking Tobacco: Every Day Cigarettes 1 18 Alcohol Use Standard Drinks/Week Comments No 0 (1 standard drink = 0.6 oz pur e alcohol) Sex and Gender Information Value Date Recorded Sex Assigned at Not on file Gender Identity Not on file Sexual Orientation Not on file documented as of this encounter Medications at Time of Discharge Medication Sig Dispensed Refills Start Date End Date moxifloxacin (VIGAMOX) 0.5 % Drops 1 drop 4 times daily. 2016 acetaminophen (TYLENOL) 325 mg tablet Take 325 mg by mouth every 4 hours as needed. Reported on 09/25/2016 01/26/2017 documented as of this encounter Plan of Treatment Not on file documented as of this encounter Procedures Procedure Name Priority Date/Time Associated Diagnosis Comments MAMMO CALL BACK DIAGNOSTIC GRISELDA WITHOUT CAD LEFT Routine 01/05/2017 11:15 AM EDT Abnormal finding on breast imaging documented in this encounter Results * Mammo Call Back Dx Extra View Griselda Without Cad Left (01/05/2017 11:15 AM EDT) Anatomical Region Laterality Modality Breast Left Mammography Narrative 01/05/2017 12:14 PM EDT EXAMINATION: MAMMO CALL BACK DIGITAL DX EXTRA VIEW GRISELDA WITHOUT CAD LEFT, MAMMO BREAST US LIMITED LEFT DIAGNOSTIC MAMMOGRAPHY AND ULTRASOUND OF THE LEFT BREAST CLINICAL HISTORY: left axilla callback. ??2 cm of questionable asymmetric breast parenchyma LEFT axillary tail TECHNIQUE AND VIEWS OBTAINED: Images acquired with direct digital capture LEFT mL, LEFT MLO spot, LEFT X CC L spot. ??Tomographic imaging was performed The exam was evaluated by CAD version 8.3.17.. ??Ultrasound was performed of the upper and upper outer Quadrant COMPARISONS: None BREAST DENSITY: The breasts are extremely dense, which lowers the sensitivity of mammography FINDINGS: The questionable abnormality in the LEFT axillary tail effaced with the additional views and has the appearance of normal asymmetric breast parenchyma. Normal small prepectoral lymph nodes Ultrasound of the 12 to 2:00 position was normal. INTERPRETATION: BIRADS 1. Normal RECOMMENDATION: The [employer] and The Society of Breast Imaging recommend annual screening beginning at age 40 for the general female population. Screening should continue as long as a woman is in good health and is expected to live 10 more years or longer. All women should be familiar with the known benefits, limitations, and potential harms linked to breast cancer screening. They also should know how their breasts normally look and feel and report any breast changes to a health care provider right away. Some women, because of their family history, a genetic tendency, or certain other factors, should be screened with MRIs along with mammograms. (The number of women who fall into this category is very small.) The patient and health care provider should discuss the patient history and decide if earlier screening and breast MRI are appropriate. Edwin Contreras MD IMG MAMMO ORDERABLES documented in this encounter Visit Diagnoses Diagnosis Abnormal finding on breast imaging Other (abnormal) findings on radiological examination of breast documented in this encounter Care Teams Log Rafter Relationship Specialty Start Date End Date Doe Jenkins PA [address] [place] [address] PCP - General 08/04/12 01/30/20 documented as of this encounter
--- OUTSIDE RECORDS SUMMARY | 2024-07-25 16:06 | XMS_ITS | Encounter Summary ---
[facility] [place] [address] Care Team Providers Care Kiln Charger Name Role Phone Doe Jenkins Primary Care Provider +1- [phone] Reason for Visit * Reason Comments Aphakia OS Encounter Details Date Type Department Care Team (Late st Contact Info) Description 07/29/2016 1:15 PM EST Office [place] [phone] Leonardo Castorena MD Aphakia, left eye (Primary Dx) Social History Tobacco Use Types Packs/Day Years Used Date Smoking Tobacco: Every Day Cigarettes 1 18 Alcohol Use Standard Drinks/Week Comments Yes 0 (1 standard drink = 0.6 oz pur e alcohol) rarely Sex and Gender Information Value Date Recorded Sex Assigned at Not on file Gender Identity Not on file Sexual Orientation Not on file documented as of this encounter Patient Instructions * Patient Instructions* Leonardo Castorena MD - 07/29/2016 1:15 PM EST HPI Aphakia Additional comments: OS Comments Patient sent by Dr. Lockhart for anterior chamber cataract surgery left eye Patient states that the vision left eye is still awful New complaint of dry eyes, but this is minor Patient notes has very difficult time reading at near and distance, complains of light sensitivity right eye, walks around with sunglasses all the time Complains of problems with glare Denies eye pain NOTE: History of IV drug abuse, endogenous endophthalmitis both eyes Last edited by Leonardo Castorena MD on 07/29/2016 2:13 PM. 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 (Search for Glaucoma Patient Group and then ask to join.) documented in this encounter Progress Notes * Leonardo Castorena MD - 07/29/2016 1:15 PM EST Aphakia, left eye Assessment: Aphakic following endogenous endophthalmitis left eye Plan: Secondary lens implant into the anterior chamber left eye Warned that vision will not be back to 20/20 but should be much better than it is now Also, won't have image size discrepancy since will have a lens implant instead of glasses documented in this encounter Miscellaneous Notes * Assessment & Plan Note - Leonardo Castorena MD - 07/29/2016 2:15 PM EST Associated Problem(s): Aphakia, left eye (Resolved 09/21/2016) Assessment: Aphakic following endogenous endophthalmitis left eye Plan: Secondary lens implant into the anterior chamber left eye Warned that vision will not be back to 20/20 but should be much better than it is now Also, won't have image size discrepancy since will have a lens implant instead of glasses documented in this encounter Plan of Treatment Pending Results Name Type Priority Associated Diagnoses Date /Time [id number] CALC BY LASER [id number] H EYES Ophthalmology Routine Aphakia, left eye 09/08/2016 2:36 PM EDT Scheduled Orders Name Type Priority Associated Diagnoses Orde r Schedule [id number] CALC BY LASER [id number] H EYES Ophthalmology Routine Aphakia, left eye Expected: 08/28/2016 (Approximate), Expires: 07/29/2017 documented as of this encounter Procedures Procedure Name Priority Date/Time Associated Diagnosis Comments IOL INSERTION, SECONDARY Routine 07/29/2016 2:20 PM EST Aphakia, left eye documented in this encounter Visit Diagnoses Diagnosis Aphakia, left eye- Primary Aphakia documented in this encounter Care Teams Kiln Charger Relationship Specialty Start Date End Date Doe Jenkins PA [address] [place] [address] PCP - General 08/04/12 01/30/20 documented as of this encounter
--- OUTSIDE RECORDS SUMMARY | 2024-07-25 16:06 | XMS_ITS | Encounter Summary ---
[place] [address] Care Team Providers Care Web Communications Specialist Name Role Phone Doe Jenkins Primary Care Provider +1- [phone] Encounter Details Date Type Department Care Team (Late st Contact Info) Description 01/04/2017 11:10 AM EDT Laboratory Appointment Lab [address] [place] [id number] Social History Tobacco Use Types Packs/Day Years [...] Procedure Name Priority Date/Time Associated Diagnosis Comments LIPID PANEL (REFLEX DIRECT LDL) Routine 01/04/2017 11:15 AM EDT COMPREHENSIVE METABOLIC PANEL Routine 01/04/2017 11:15 AM EDT HEPATITIS C RNA, QUANTITATIVE, PCR Routine 01/04/2017 10:55 AM EDT documented in this encounter Results * Lipid Panel (01/04/2017 11:15 AM EDT) Cholesterol, Total 168 <=239 mg/dL [facility] Triglyceride 58 <=199 mg/dL [facility] HDL Cholesterol 49 >=40 mg/dL [facility] LDL Cholesterol 107 <=190 mg/dL [facility] Cholesterol/HDL Ratio 3.4 ratio [facility] Lipid Interpretation See Note [facility] Comment: Lipid management should be guided by a patient? s ASCVD risk, goals and preferences. ACC/AHA Guidelines recommend high intensity statin if clinical ASCVD or LDL greater than or equal to 190 mg/dL. [email or web address] Adults aged 40-75 with LDL 70-189 mg/dL should have their 10 year ASCVD risk estimated with the ACC/AHA ASCVD risk truck repair service estimator http://tools.acc.org/BNAOZ-Vjlx-Pgyckagmm/ Statin should be discussed if risk greater [...] In Lab Doe GARY CHEMISTRY ORDERABL ES [facility] [place] [address] * (ABNORMAL) Comprehensive metabolic panel (non-fasting) (01/04/2017 11:15 AM EDT) Glucose 99 65 - 199 mg/dL [facility] Comment:Diabetes: >=200 mg/d L plus symptoms Blood Urea Nitrogen 8 8 - 18 mg/dL [facility] Creatinine 0.65(L) 0.70 - 1.20 mg/dL [facility] Comment: Please note that the pediatric reference intervals supplied above were not validated at [facility]. Results from pediatric patients should be interpreted in conjunction to the patient's age, height and muscle mass. Sodium 140 135 - 145 mmol/L [facility] Potassium 4.0 3.5 - 5.0 mmol/L [facility] Comment: Please note: ??Patients with WBC >100,000 may have falsely elevated Potassium levels. ??For accurate Potassium quantification in these patients send serum separator tube (gold top) for subsequent determinations. ??Contact the Clinical Chemistry Laboratory if there are any questions. Chloride 101 98 - 107 mmol/L [facility] Carbon Dioxide 24 22 - 31 mmol/L [facility] Anion Gap 15 5 - 15 mmol/L [facility] Calcium 9.3 8.5 - 10.5 mg/dL [facility] Protein, Total 7.8 6.1 - 8.0 gm/dL [facility] Albumin 4.6 3.2 - 5.2 gm/dL [facility] Aspartate Aminotransferase 21 0 - 30 unit/L [facility] Alanine Aminotransferase 21 0 - 30 unit/L [facility] Alkaline Phosphatase 34(L) 40 - 104 unit/L [facility] Bilirubin, Total 0.3 0.2 - 1.3 mg/dL [facility] Est Glomerular Filtration Rate >60 >=60 [facility] Comment: This estimated GFR (eGFR) value was calculated using the MDRD equation which has been validated on patients between the ages of 18 and 70. The MDRD should not be used to assess kidney function in patients < 18 years of age or in patients with extremes of body mass, or in patients with acute kidney failure. This value should be multiplied by 1.2 for patients. For further information please copy and paste the following links into your internet browser. [email or web address] Blood specimen (specimen) Venous Draw / Unknown 01/04/2017 11:15 AM EDT 01/04/2017 11:18 AM EDT Narrative Resulting Agency Comment Spec In Lab Doe GARY CHEMISTRY ORDERABL ES Performing Organization Address [facility] Co de Phone Number [facility] [place] [address] * Hepatitis C RNA, quantitative, PCR (01/04/2017 10:55 AM EDT) HCV Viral Load 7,379,751 IU/mL [facility] HCV Viral Load Result: [id number] IU/mL Indication for Study: Hepatitis C Infection Analysis: A quantitiative real time reverse transcriptase PCR assay was performed on extracted viral RNA for the purpose of quantification. Sample: plasma (1 mL minimum volume) Method: Deonna Christiana TaqMAN 48 HCV Linear Range: 15 IU/mL - 100,000,000IU/mL (95% CI) Note: This assay is being performed in the [facility] Molecular Pathology Laboratory. Bry Hess, Ph.D. Director, Molecular Pathology [facility] Comment: [VERIFIED DATE]01.08.17 Verified By:Jhonathan Cha (Electronic Signature) Blood specimen (specimen) Venous Draw / Unknown 01/04/2017 10:55 AM EDT 01/06/2017 4:09 PM EDT Narrative Resulting Agency Comment Spec In Lab Doe GARY MOLECULAR ORDERABL ES Performing Organization Address [facility] Co de Phone Number [facility] [place] [address] documented in this encounter Visit Diagnoses Not on filedocumented in this encounter Care Teams Web Communications Specialist Relationship Specialty Start Date End Date Doe Jenkins PA [address] [place] [address] PCP - General 08/04/12 01/30/20 documented as of this encounter
--- OUTSIDE RECORDS SUMMARY | 2024-07-25 16:06 | XMS_ITS | Encounter Summary ---
[place] [address] Care Team Providers Care Trade Mark Attorney Name Role Phone Doe Jenkins Primary Care Provider [phone]- [phone] Reason for Visit * Reason Comments Post Op 3 day ck s/p CEIOL O S done 09/21/16, pt here today with red, swollen, irritated OS since Wednesday Encounter Details Date Type Department Care Team (Late st Contact Info) Description 10/26/2016 2:45 PM EDT Office [place] [address] Conner Castorena MD Secondary lens implant with Tramaine MTA4UO 22.5D AC IOL left eye 09/21/2016 Social History Tobacco Use Types Packs/Day Years [...] this encounter Patient Instructions * Patient Instructions* Conner Castorena MD - 10/26/2016 2:45 PM EDT HPI Post Op Additional comments: 3 day ck s/p CEIOL OS done 09/21/16, pt here today with red, swollen, irritatedOS since Wednesday Comments Patient was here on Wednesday and had 2 stitches removed from left eye Wednesday patient reports left eye is swollen, red, scratchy, burning and irritated. 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 I performed the above scribed service and agree with the accuracy of the documentation in this encounter. Last edited by Conner Castorena MD on 10/26/2016 3:46 PM. (History) Secondary lens implant with Tramaine MTA4UO 22.5D AC IOL left eye 09/21/2016 Assessment: Now has wound leak from suture removal and developed a limited choroidal hemorrhage for 360 degrees Plan: Keep using the Ciloxan 4x/day to prevent infection and to encourage wound healing (sample given) Return by the end of the week to make sure not getting infected and see if choroidals are beginningto resolve No bending with head below heart and no lifting more than 10 lbs For additional information about eye conditions, visit the Eye Facts portion of my website at http://HOSTING/eye-education/ and I also started a Glaucoma Patient Group on [employer] (htt [email or web address]/[email or web address]) for patients to seek help from one another. (Search for Glaucoma Patient Group and then ask to join.) documented in this encounter Progress Notes * Conner Castorena MD - 10/26/2016 2:45 PM EDT Secondary lens implant with Tramaine MTA4UO 22.5D AC IOL left eye 09/21/2016 Assessment: Now has wound leak from suture removal and developed a limited choroidal hemorrhage for 360 degrees Plan: Keep using the Ciloxan 4x/day to prevent infection and to encourage wound healing (sample given) Return by the end of the week to make sure not getting infected and see if choroidals are beginningto resolve No bending with head below heart and no lifting more than 10 lbs documented in this encounter Miscellaneous Notes * Assessment & Plan Note - Conner Castorena MD - 10/26/2016 3:57 PM EDT Associated Problem(s): Secondary lens implant with Tramaine MTA4UO 22.5D AC IOL left eye 09/21/2016 Assessment: Now has wound leak from suture removal and developed a limited choroidal hemorrhage for 360 degrees Plan: Keep using the Ciloxan 4x/day to prevent infection and to encourage wound healing (sample given) Return by the end of the week to make sure not getting infected and see if choroidals are beginningto resolve No bending with head below heart and no lifting more than 10 lbs documented in this encounter Plan of Treatment Not on file documented as of this encounter Visit Diagnoses Diagnosis Secondary lens implant with Tramaine MTA4UO 22.5D AC IOL left eye 09/21/2016 Lens replaced by other means documented in this encounter Care Teams Trade Mark Attorney Relationship Specialty Start Date End Date Doe Jenkins PA [address] [place] [address] PCP - General 08/04/12 01/30/20 documented as of this encounter
--- OUTSIDE RECORDS SUMMARY | 2024-07-25 16:06 | XMS_ITS | Encounter Summary ---
Author Organization [facility] [place] [address] Care Team Providers Care Corrosion Control Fitter Name Role Phone Doe Jenkins Primary Care Provider +1- [phone] Reason for Visit * Reason Comments Blurred Vision Patient presents wit h a chief complaint of postoperative pain and for followup. JUSTIN Moralez Encounter Details Date Type Department Care Team (Late st Contact Info) Description 11/09/2012 12:30 PM EDT Office [place] [address] Arjun Lockhart MD [facility] [place] [address] Tooth abscess following dental extraction 1-1/2 months ago per patient history (Primary Dx); Smoker; Retinal detachment, left; Hepatitis C antibody test positive; Cocaine use; Endophthalmitis, left eye. Left eye. Vitreous . Endogenous; Pain Discharge Disposition: Home Social History Tobacco Use Types Packs/Day Years Used Date Smoking Tobacco: Every Day Alcohol Use Standard Drinks/Week Comments Yes 0 (1 standard drink = 0.6 oz pur e alcohol) rarely Sex and Gender Information Value Date Recorded Sex Assigned at Not on file Gender Identity Not on file Sexual Orientation Not on file documented as of this encounter Progress Notes * Arjun Lockhart MD - 11/09/2012 1:20 PM EDT Patient is currently stable after retinal detachment repair in silicone oil placement. Small amountof epiretinal proliferation. Given pain and discomfort recommend removal of oil and membrane peeling under general anesthesia within the next 3-5 days especially given discomfort. Percocet provided. Pred forte and Cosopt twice a day. Return immediately for severe pain or other problems The extremely guarded prognosis was carefully reviewed with the patient including the risks and benefits of surgery. She understands applying this may develop antisepsis. She also understands that her prognosis is especially guarded. Opportunity secure second or third opinion [place] was also reviewed with the patient or with Dr. Montoya documented in this encounter Plan of Treatment Not on file documented as of this encounter Visit Diagnoses Diagnosis Tooth abscess following dental extraction 1-1/2 months ago per patient history- Primary Periapical abscess without sinus Smoker Tobacco use disorder Retinal detachment, left Unspecified retinal detachment Hepatitis C antibody test positive Other and unspecified nonspecific immunological findings Cocaine use Cocaine abuse, unspecified Endophthalmitis, left eye. Left eye. Vitreous . Endogenous Purulent endophthalmitis, unspecified Pain Generalized pain documented in this encounter Care Teams Corrosion Control Fitter Relationship Specialty Start Date End Date Doe Jenkins PA [address] [place] [address] PCP - General 08/04/12 01/30/20 documented as of this encounter
--- OUTSIDE RECORDS SUMMARY | 2024-07-25 16:06 | XMS_ITS | Encounter Summary ---
Author Organization [facility] [place] [address] Care Team Providers Care Reconditioner Name Role Phone Doe Jenkins Primary Care Provider +1- [phone] Encounter Details Date Type Department Care Team (Late st Contact Info) Description 08/05/2016 Telephone Ophthalmology at [facility] [place] [id number] Leonardo Castorena MD Social History Tobacco Use Types Packs/Day Years [...] encounter Miscellaneous Notes * Telephone Encounter - Dc Rodrigez - 08/05/2016 3:44 PM EST The Patient has left several messages the past few days to schedule surgery with Dr. Castorena, Sheknows the Police Manager was out on vacation. Can someone please call to follow up with her? Thank you for your help. documented in this encounter Plan of Treatment Not on file documented as of this encounter Visit Diagnoses Not on filedocumented in this encounter Care Teams Reconditioner Relationship Specialty Start Date End Date Doe Jenkins PA [address] [place] [address] PCP - General 08/04/12 01/30/20 documented as of this encounter
--- OUTSIDE RECORDS SUMMARY | 2024-07-25 16:06 | XMS_ITS | Encounter Summary ---
Author Organization [facility] [place] [address] Care Team Providers Care Computing Architect Name Role Phone Doe Jenkins Primary Care Provider +1- [phone] Reason for Visit * Reason Comments Blurred Vision The patient presents for postoperative evaluation. Arjun Lockhart M.D. Encounter Details Date Type Department Care Team (Late st Contact Info) Description 01/03/2013 2:15 PM EDT Office [place] [address] Arjun Lockhart MD [facility] [place] [address] Tooth abscess following dental extraction 1-1/2 months ago per patient history (Primary Dx); Smoker; Pain; Endophthalmitis, left eye. Left eye. Vitreous . Endogenous; Cocaine use Discharge Disposition: Home Social History Tobacco Use [...] Progress Notes * Arjun Lockhart MD - 01/03/2013 9:17 PM EDT January 03, 2013 Hay Melara M.D. Ophthalmology [address] [place] [address], [address] [place] [address] RE: Frances Woods A#: [id number] Dear Hay, I had the opportunity to evaluate Frances Woods for followup evaluation on 01/03/2013. 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 The abscess resulted in resultant tractional detachment for which complex membrane peeling and vitrectomy were performed. She also required removal of her intraocular lens and silicone oil was placed. She is now status post silicone oil removal and at least anatomically, she is perfectly stable. Frances presented today measuring 20/20 in the right eye. In the left eye, she measured count fingers at one foot. Intraocular pressures were 14 in the right eye and 11 in the left eye. Slit-lamp examination revealed deep, quiet, and clear anterior segment anatomy. In the left eye, she is aphakic with a patent peripheral iridectomy at 5:30. The vitreous cavity is quiet. Posteriorly, there is good buckle support with laser photocoagulation. The retina is perfectly attached and there are no signs of cystoidal macular edema or epiretinal membrane formation. A mild pallor of the optic nerve is seen. Impression: 1. 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 2. Secondary tractional retinal detachment status post complex repair including scleral buckle placement. 3. Status post pars plana lensectomy and silicone oil removal. 4. Guarded visual prognosis. Discussion: I have reviewed with Frances all of my findings and concerns today. From a retina vantage point, she is now perfectly stable. I explained to Frances that a contact lens or an intraocular lens might help, but that she should see you for continuity of care in the next three to four weeks. Throughout this year, I have explained to Frances that her visual prognosis is extremely guarded by virtue of the endogenous endophthalmitis and abscess, which occurred in her left eye. Nevertheless, she would like to do everything possible for visual zoroastrian. From a retina vantage point, there is nothing further, which requires management. I am confident that she will remain attached indefinitely in the left eye after her vitrectomy surgery and a buckle placement. I would be pleased to see her if there are specific retinal issues only. Respectfully, Arjun Lockhart M.D. documented in this encounter Plan of Treatment Not on file documented as of this encounter Visit Diagnoses Diagnosis Tooth abscess following dental extraction 1-1/2 months ago per patient history- Primary Periapical abscess without sinus Smoker Tobacco use disorder Pain Generalized pain Endophthalmitis, left eye. Left eye. Vitreous . Endogenous Purulent endophthalmitis, unspecified Cocaine use Cocaine abuse, unspecified documented in this encounter Care Teams Computing Architect Relationship Specialty Start Date End Date Doe Jenkins PA [address] [place] [address] PCP - General 08/04/12 01/30/20 documented as of this encounter
--- OUTSIDE RECORDS SUMMARY | 2024-07-25 16:06 | XMS_ITS | Encounter Summary ---
Author Organization [facility] Address [facility] [place] [address] Care Team Providers Care Technical Aid Name Role Phone Doe Jenkins Primary Care Provider +1- [phone] Reason for Visit * Reason Comments Spots and/or Floaters The patient presen for followup evaluation of her endogenous endophthalmitis in the right eye. CBC M.D. Flashes Of Light OU Encounter Details Date Type Department Care Team (Late st Contact Info) Description 04/03/2013 9:15 AM EDT [place] [address] Arjun Lockhart MD [facility] [address] [place] [address] Endophthalmitis, right eye. Acute. Possible bacterial versus fungal (Primary Dx); Endophthalmitis, left eye. Left eye. Vitreous . Endogenous; Hepatitis C antibody test positive; IV drug abuse Last 6 years ago; Cocaine use; Retinal detachment, left Discharge Disposition: Home Social History Tobacco Use [...] Progress Notes * Arjun Lockhart MD - 04/03/2013 10:10 AM EDT Followup ophthalmology consult note- expedited brief communication The patient returns here today for followup for her endogenous endophthalmitis in the right eye. She is noted a few more floaters in the right eye but no change in central visual acuity. Importantly,she had shaking chills and a migraine headache and fever several days ago. The macular infiltrate has not changed ODand there are no signs of vitreous involvement. Multiple small lesions are becoming more prominent at the level of the choroid and retinal pigment epithelium.The pattern is suggestive for fungal endogenous endophthalmitis but a bacterial process cannot be excluded. Examination is neither sensitive nor specific so as to distinguish between bacterial or fungal source of infection. There are no signs of vitreous involvement and therefore a diagnostic vitrectomy and intravitreal therapy is not warranted at t and is doing this very Joe rodríguez this regard gets a thorough K. time. Return to retina service one week Fundus photographs today Consultation today in the infectious disease clinic with strong consideration of antifungal and antibiotic therapy Addendum The best way to reach the patient for laboratory tests and other management concerns is best accomplished with her cell phone Patient failed to return for fundus photographs as planned documented in this encounter Plan of Treatment Not on file documented as of this encounter Visit Diagnoses Diagnosis Endophthalmitis, right eye. Acute. Possible bacterial versus fungal- Primary Purulent endophthalmitis, unspecified Endophthalmitis, left eye. Left eye. Vitreous . Endogenous Purulent endophthalmitis, unspecified Hepatitis C antibody test positive Other and unspecified nonspecific immunological findings IV drug abuse Last 6 years ago Other, mixed, or unspecified nondependent drug abuse, unspecified Cocaine use Cocaine abuse, unspecified Retinal detachment, left Unspecified retinal detachment documented in this encounter Care Teams Technical Aid Relationship Specialty Start Date End Date Doe Jenkins PA [address] [place] [address] PCP - General 08/04/12 01/30/20 documented as of this encounter
--- OUTSIDE RECORDS SUMMARY | 2024-07-25 16:06 | XMS_ITS | Encounter Summary ---
Author Organization [facility] [place] [address] Care Team Providers Care Newspaper Carrier Name Role Phone Doe Jenkins Primary Care Provider [phone] Encounter Details Date Type Department Care Team (Late st Contact Info) Description 11/14/2012 3:00 PM EDT - 11/14/2012 4:49 PM EDT Surgery [place] [id number] Bruno Osorio MD [facility] [place] [address] REMOVAL IMPLANTED MATERIAL, POSTERIOR SEGMENT, INTRAOCULAR (WRVU 12.25) Social History Tobacco Use Types Packs/Day Years Used Date Smoking Tobacco: Every Day Alcohol Use Standard Drinks/Week Comments Yes 0 (1 standard drink = 0.6 oz pur e alcohol) rarely Sex and Gender Information Value Date Recorded Sex Assigned at Not on file Gender Identity Not on file Sexual Orientation Not on file documented as of this encounter Last Filed Vital Signs Vital Sign Reading Time Taken Comments Blood Pressure 117/71 11/14/2012 4:36 PM EDT Pulse 73 11/14/2012 4:36 PM EDT Temperature 36.6 ??C (97.9 ??F) 11/14/2012 4:36 PM ED T Respiratory Rate 16 11/14/2012 4:36 PM EDT Oxygen Saturation 100% 11/14/2012 4:36 PM EDT Inhaled Oxygen Concentration - - Weight 67.1 kg (148 lb) 11/14/2012 1:36 PM EDT Height 175.3 cm (5' 9) 11/14/2012 1:36 PM EDT Body Mass Index 21.86 11/14/2012 1:36 PM EDT documented in this encounter Discharge Instructions * Discharge Instructions* Sai Lindo RN - 11/14/2012 5:08 PM EDT POST ANESTHESIA INSTRUCTIONS Go home, rest, use caution on stairs. Change positions slowly. Do not smoke if you are alone. Diet light to regular as tolerated today. If nausea occurs start with clear liquids and progress slowly. No driving, operating machinery, alcoholic beverages and no important decisions for 24 hours. Monitor IV site for signs and symptoms of infection: increasing redness, swelling, foul drainage, if occurs contact M.D. Patients who have had endotrachial tubes (this tube, used by anesthesia department, is passed down your throat after you are asleep, to ensure safe air passage during your operation). A sore throat is normal due to the tube. Cold liquids or soothing lozenges will help ease the discomfort. The generalized muscle aches are due to the medication given to you just before the tube is inserted. As the medication wears off, you may develop muscle soreness, which usually goes away in 12-24 hours. * Patient Instructions* Gregoria Viera PA - 11/14/2012 4:15 PM EDT Please keep patch and shield on operated eye until follow up appointment tomorrow. Ice packs over patch and shield as needed for pain. Tylenol 500 mg every four hours as needed for pain. Please bring eye kit and all eye drops to tomorrow's appointment. Call [phone] for all questions concerns. Right side down 95% of time. May ambulate to eat and use restroom. documented in this encounter Medications at Time of Discharge Medication Sig Dispensed Refills Start Date End Date HYDROmorphone (DILAUDID) 2 mg tablet Take 1 tablet by mouth every 3 hours as needed for Pain. 30 tablet 0 11/14/2012 11/22/2012 OXYcodone-acetaminophen (PERCOCET) 7.5-325 mg per tabletIndications:Pain Take 1 tablet by mouth every 6 hours as needed for Pain. 25 tablet 0 11/09/2012 11/22/2012 acetaminophen (TYLENOL) 325 mg tablet Take 325 mg by mouth every 4 hours as needed. Reported on 09/25/2016 01/26/2017 DILAUDID 2 mg tablet Take 1 tablet by mouth every 4 hours as needed for Pain. 20 tablet 0 09/14/2012 11/22/2012 dorzolamide-timolol (COSOPT) 2-0.5 % ophthalmic solution Place 1 drop into the left eye 2 times daily. 09/02/2012 03/28/2013 prednisoLONE acetate (PRED FORTE) 1 % ophthalmic suspension Place 1 drop into the left eye 4 times daily. 11/15/2012 03/28/2013 documented as of this encounter H&P Notes * Gregoria Viera PA - 11/14/2012 1:58 PM EDT No change from previous H+P. Source Note - Gregoria Viera PA - 11/14/2012 1:57 PM EDT Patient Name: Frances Woods Patient Age: 41 y.o. Birthdate: 1970 Admit date: 11/14/2012 Attending Physician: Bruno Osorio, * 41 year old female with multiple medical issues here for silicone oil removal. No current facility-administered medications on file prior to encounter. Current Outpatient Prescriptions on File Prior to Encounter Medication Sig Dispense Refill ??? OXYcodone-acetaminophen (PERCOCET) 7.5-325 mg per tablet Take 1 tablet by mouth every 6 hours as needed for Pain. 25 tablet 0 ??? dorzolamide-timolol (COSOPT) 2-0.5 % ophthalmic solution Place 1 drop into the left eye 2 timesdaily. ??? prednisoLONE acetate (PRED FORTE) 1 % ophthalmic suspension Place 1 drop into the left eye 2 times daily. ??? acetaminophen (TYLENOL) 325 mg tablet Take 325 mg by mouth every 4 hours as needed. ??? DILAUDID 2 mg tablet Take 1 tablet by mouth every 4 hours as needed for Pain. 20 tablet 0 Allergies Allergen Reactions ??? Prochlorperazine Past Medical History Diagnosis Date ??? Retinal detachment, left 08/23/2012 Past Surgical History Procedure Date ??? Intravitreal injection 06/23/2012 OS for endophthalmitis ??? Vitrectomy,mechanical 08/04/2012 VITRECTOMY, MECHANICAL PARS PLANA APPROACH performed by Bruno Osorio MD at [facility] MAIN OR ??? Retinal detachment surgery 09/01/12 OS cbc ??? Remove lens material; phacofragmentation technique, w aspiration 09/01/2012 REMOVE LENS MATERIAL, PHACOFRAGMENTATION performed by Bruno Osorio MD at [facility] MAIN OR ? ? Repair complex retina detach vitrectomy & memb peel 09/01/2012 REPAIR COMPLEX RETINAL DETACHMENT, W/ VITRECTOMY, MEMBRANE PEELING performed by Bruno Osorio MD at [facility] MAIN OR Review of Systems Constitutional: Negative for fever and chills. HENT: Negative for congestion. Eyes: Positive for visual disturbance. Negative for pain and discharge. Respiratory: Negative for shortness of breath and wheezing. Cardiovascular: Negative for chest pain and palpitations. Gastrointestinal: Negative for abdominal pain, diarrhea and constipation. Musculoskeletal: Negative for myalgias and joint swelling. Skin: Negative for rash. Neurological: Negative for dizziness and headaches. Hematological: Negative for adenopathy. Physical Exam Constitutional: She is oriented to person, place, and time. She appears well- developed and well-nourished. Eyes: EOM are normal. Pupils are equal, round, and reactive to light. Neck: Normal range of motion. Neck supple. Cardiovascular: Normal rate, regular rhythm and normal heart sounds. Exam reveals no gallop and no friction rub. No murmur heard. Pulmonary/Chest: Breath sounds normal. She has no wheezes. She has no rales. Abdominal: Soft. Bowel sounds are normal. She exhibits no mass. No tenderness. Musculoskeletal: Normal range of motion. Lymphadenopathy: She has no cervical adenopathy. Neurological: She is alert and oriented to person, place, and time. No cranial nerve deficit. Skin: Skin is warm and dry. No rash noted. Psychiatric: She has a normal mood and affect. Her behavior is normal. Judgment and thought contentnormal. 41 year old female stable for surgery. * Gregoria Viera PA - 11/14/2012 1:57 PM EDT Patient Name: Frances Woods Patient Age: 41 y.o. Birthdate: 1970 Admit date: 11/14/2012 Attending Physician: Bruno Osorio, * 41 year old female with multiple medical issues here for silicone oil removal. No current facility-administered medications on file prior to encounter. Current Outpatient Prescriptions on File Prior to Encounter Medication Sig Dispense Refill ??? OXYcodone-acetaminophen (PERCOCET) 7.5-325 mg per tablet Take 1 tablet by mouth every 6 hours as needed for Pain. 25 tablet 0 ??? dorzolamide-timolol (COSOPT) 2-0.5 % ophthalmic solution Place 1 drop into the left eye 2 timesdaily. ??? prednisoLONE acetate (PRED FORTE) 1 % ophthalmic suspension Place 1 drop into the left eye 2 times daily. ??? acetaminophen (TYLENOL) 325 mg tablet Take 325 mg by mouth every 4 hours as needed. ??? DILAUDID 2 mg tablet Take 1 tablet by mouth every 4 hours as needed for Pain. 20 tablet 0 Allergies Allergen Reactions ??? Prochlorperazine Past Medical History Diagnosis Date ??? Retinal detachment, left 08/23/2012 Past Surgical History Procedure Date ??? Intravitreal injection 06/23/2012 OS for endophthalmitis ??? Vitrectomy,mechanical 08/04/2012 VITRECTOMY, MECHANICAL PARS PLANA APPROACH performed by Bruno sOorio MD at [facility] MA[facility] OR ??? Retinal detachment surgery 09/01/12 OS cbc ??? Remove lens material; phacofragmentation technique, w aspiration 09/01/2012 REMOVE LENS MATERIAL, PHACOFRAGMENTATION performed by Bruno Osorio MD at [facility] MA[facility] OR ? ? Repair complex retina detach vitrectomy & memb peel 09/01/2012 REPAIR COMPLEX RETINAL DETACHMENT, W/ VITRECTOMY, MEMBRANE PEELING performed by Bruno Osorio MD at [facility] OR Review of Systems Constitutional: Negative for fever and chills. HENT: Negative for congestion. Eyes: Positive for visual disturbance. Negative for pain and discharge. Respiratory: Negative for shortness of breath and wheezing. Cardiovascular: Negative for chest pain and palpitations. Gastrointestinal: Negative for abdominal pain, diarrhea and constipation. Musculoskeletal: Negative for myalgias and joint swelling. Skin: Negative for rash. Neurological: Negative for dizziness and headaches. Hematological: Negative for adenopathy. Physical Exam Constitutional: She is oriented to person, place, and time. She appears well- developed and well-nourished. Eyes: EOM are normal. Pupils are equal, round, and reactive to light. Neck: Normal range of motion. Neck supple. Cardiovascular: Normal rate, regular rhythm and normal heart sounds. Exam reveals no gallop and no friction rub. No murmur heard. Pulmonary/Chest: Breath sounds normal. She has no wheezes. She has no rales. Abdominal: Soft. Bowel sounds are normal. She exhibits no mass. No tenderness. Musculoskeletal: Normal range of motion. Lymphadenopathy: She has no cervical adenopathy. Neurological: She is alert and oriented to person, place, and time. No cranial nerve deficit. Skin: Skin is warm and dry. No rash noted. Psychiatric: She has a normal mood and affect. Her behavior is normal. Judgment and thought contentnormal. 41 year old female stable for surgery. documented in this encounter Miscellaneous Notes * Miscellaneous - Provider, Scanning - 11/14/2012 11:18 PM EDT * Miscellaneous - Provider, Scanning - 11/14/2012 11:14 PM EDT * Op Note - Bruno Osorio MD - 11/14/2012 4:22 PM EDT [facility] Operative Note Patient Name: Frances Woods : [id number] MR#: [id number] Case Date: 11/14/2012 Surgeon: Surgeon(s) and Role: * Bruno Osorio MD - Primary * Gregoria Viera PA - Resident-Aircraft Engine Assembler SURGICAL STAFF/ASSISTANTS BRUNO OSORIO M.D. 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 OPERATIONS PERFORMED: 1. Membrane peeling, meticulous and complex, including delamination and segmentation of severe diffuse epiretinal membrane with contracted fold inferotemporally and central macular adhesion. 2. Pars plana vitrectomy. 3. Removal of silicone oil. 4. Peripheral iridectomy. 5. Fluid-air exchange. 6. Air-gas exchange (16% SF6). OPERATIVE INDICATIONS: The patient is a lady with endogenous endophthalmitis who later developed tractional detachment and has now manifested severe pain from silicone oil. Given the presence of preretinal fibrotic (chanel-silicone oil proliferation), she has given informed consent to proceed with vitrectomy and membrane peeling and related procedures to maximize visual outcome despite her guarded prognosis. All questions were answered satisfactorily. She understands the risks of glaucoma, endophthalmitis, redetachment,and any and all rare and unforeseen complications as well. OPERATIVE TECHNIQUE: The patient was ushered in the operating room. General anesthesia was safely established. A time-out was performed collectively by the surgical and anesthesia team with the second time-out after the drape was placed over the left eye. A divided three-port pars plana vitrectomy setup was accomplished and the silicone oil was removed using a trocar canula system. The retina was attached, however, a tractional detachment inferonasally was defined with the star fold, but no rhegmatogenous component could be ascertained. Using a Kahlil pick and Don forceps, the membrane was carefully and circumferentially removed slowly but despite this a small focal adhesion in the fovea created a small crescentic defect/break surrounding the central fovea. No subretinal fluid migration or hemorrhage was encountered. The membrane was removed in its entirety with excellent relaxation of the contracted folds and tractional detachment inferotemporally. Please note that this was meticulous and careful dissection which was very complex and required methodical dissection and undermining of complex PVR tissue. Inspection revealed no retained foreign body, silicone oil, or iatrogenic breaks at each sclerotomy site. There appeared to be good buckle support with marked preretinal fibrosis well supported. A fluid-air exchange was performed. Peripheral iridectomy was fashioned at about 6 o'clock and air-gas exchange was then performed using 16% SF6 to facilitate tamponade of the small crescentic foveal break. The dilution of the gas was monitored by the surgeon. The gas was then administered by the surgeon and diluted by the surgeon with a final closing pressure between 8 and 10 mm. With each sclerotomy site closed, 7-0 Vicryl suture was used to close the eye. Subconjunctival injection of supplement anesthetic was delivered followed by subconjunctival injections of dexamethasone and Ancef. Maxitrol was placed followed by Cosopt and Maxitrol ointment. Sterile eye patch and shield were placed. The patient is now being extubated and will be discharged to recovery room for observation. She is to return here postoperative day one. She is to not lie on the bed. Airway safety and venous thrombosis were carefully reviewed. She is not to use narcotics unless specifically directed to do so by a physician with great care and attention to airway safety to prevent obstructive apnea. She is to perform ankle exercises to minimize the risk of deep venous thrombosis in the postoperative period. She is to call the eye physician on-call with any questions or concerns including nausea, vomiting, pain, or other related concerns. She will return here tomorrow postoperative day one. Operating time, 3:24 p.m. until exactly 4:24 p.m., total operating time [id number] 60 minutes. General Estimated Blood Loss: 0 Drains: 0 Disposition: awakened from anesthesia, extubated and taken to the recovery room in a stable condition, having suffered no apparent untoward event. Condition: doing well without problems (Please see the Surgical Encounter Summary for any Implant and Specimen details pertinent to this patient.) * OR Attestation - Bruno Osorio MD - 11/14/2012 4:22 PM EDT Attestation: Case Date: 11/14/2012 I performed this procedure without the involvement of a resident. BRUNO OSORIO MD 11/14/2012 * Brief Op Note - Bruno Osorio MD - 11/14/2012 4:21 PM EDT Brief Operative Note Patient Name: Frances Woods : [id number] MR#: [id number] Case Date: 11/14/2012 Surgeon: Surgeon(s) and Role: * Bruno Osorio MD - Primary * Gregoria Viera PA - Resident-Aircraft Engine Assembler Preoperative diagnosis: Retinal detachment Postoperative diagnosis: retinal detachment and severe PVR Procedure(s): VITRECTOMY, W/ MEMBRANE STRIPPING REMOVAL IMPLANTED MATERIAL, POSTERIOR SEGMENT, INTRAOCULAR Anesthesia: General Findings: PVR Complications: 0 Fluids: 0 Estimated Blood Loss: 0 Drains: 0 Disposition: awakened from anesthesia, extubated and taken to the recovery room in a stable condition, having suffered no apparent untoward event. Condition: doing well without problems (Please see the Surgical Encounter Summary for any Implant and Specimen details pertinent to this patient.) * Miscellaneous - Brice, Priyanka - 11/14/2012 1:39 PM EDT * Brief Op Note - Bruno Osorio MD - 11/14/2012 11:37 AM EDT Brief Operative Note Patient Name: Frances Woods : [id number] MR#: [id number] Case Date: 11/14/2012 Surgeon: Surgeon(s) and Role: * Bruno Osorio MD - Primary Preoperative diagnosis: Retinal detachment Postoperative diagnosis: attached retina Procedure(s): VITRECTOMY Anesthesia: GA Findings:Attached Complications: 0 Fluids: LR 850cc Estimated Blood Loss: 0 Drains: 0 Disposition: awakened from anesthesia, extubated and taken to the recovery room in a stable condition, having suffered no apparent untoward event. Condition: doing well without problems (Please see the Surgical Encounter Summary for any Implant and Specimen details pertinent to this patient.) * OR Attestation - Bruno Osorio MD - 11/14/2012 11:37 AM EDT Attestation: Case Date: 11/14/2012 I performed this procedure without the involvement of a resident. BRUNO OSORIO MD 11/14/2012 documented in this encounter Plan of Treatment Not on file documented as of this encounter Procedures Procedure Name Priority Date/Time Associated Diagnosis Comments REPAIR COMPLEX RETINAL DETACH W/VITRECTOMY, MEMBRANE PEELING, DRAINAGE (WRVU 19) Yes 11/14/2012 2:51 PM EDT retinal detachment REMOVAL IMPLANTED MATERIAL, POSTERIOR SEGMENT, INTRAOCULAR (WRVU 12.25) Yes 11/14/2012 2:51 PM EDT retinal detachment documented in this encounter Visit Diagnoses Not on filedocumented in this encounter Administered Medications Inactive Administered Medications - up to 3 most recent administrations Medication Order MAR Action Action Date Dose Rate Site acetaminophen (TYLENOL) tablet 650 mg 650 mg, Oral, EVERY 4 HOURS PRN, Starting on Wed11/14/12 at 1614, Until Wed11/14/12 at 1933, Pain, for MILD pain, Do not exceed 4,000 mg in 24 hours, Routine Given 11/14/2012 5:00 PM EDT 650 mg atropine 1 % ophthalmic solution 1 drop 1 drop, Right Eye, EVERY 5 MIN, 3 doses, First dose on Wed11/14/12 at 1400, Last dose on Wed11/14/12 at 1410, Day of Surgery (Day of Procedure), Routine Given 11/14/2012 2:07 PM EDT 1 drop Given 11/14/2012 2:05 PM EDT 1 drop Given 11/14/2012 1:57 PM EDT 1 drop balanced salt (BSS PLUS) irrigation solution ONCE PRN, Starting on Wed11/14/12 at 1527, Until Wed11/14/12 at 1933, Intra-Operative (Intra-Procedure), Routine Given 11/14/2012 3:27 PM EDT 1 Bottle 19- Surgical Site balanced salt (BSS) irrigation solution ONCE PRN, Starting on Wed11/14/12 at 1527, Until Wed11/14/12 at 1933, Intra-Operative (Intra-Procedure), Routine Given 11/14/2012 3:27 PM EDT 3 mLs 19- Surgical Site balanced salt (BSS) irrigation solution ONCE PRN, Starting on Wed11/14/12 at 1527, Until Wed11/14/12 at 1933, Intra-Operative (Intra-Procedure), Routine Given 11/14/2012 3:27 PM EDT 1 Bottle 19- Surgical Site BUpivacaine (PF) (MARCAINE) 0.75 % (7.5 mg/mL) injection ONCE PRN, Starting on Wed11/14/12 at 1630, Until Wed11/14/12 at 1933, Intra-Operative (Intra-Procedure), Routine Given 11/14/2012 4:30 PM EDT 3.5 mLs 19- Surgical Site ceFAZolin (ANCEF) injection ONCE PRN, Starting on Wed11/14/12 at 1528, Until Wed11/14/12 at 1933, Intra-Operative (Intra-Procedure), Routine Given 11/14/2012 3:28 PM EDT 100 mg 19- Surgical Site dexamethasone (DECADRON) injection ONCE PRN, Starting on Wed11/14/12 at 1528, Until Wed11/14/12 at 1933, Intra-Operative (Intra-Procedure), Routine Given 11/14/2012 3:28 PM EDT 2 mg 19- Surgical Site dorzolamide-timolol (COSOPT) 2-0.5 % ophthalmic solution ONCE PRN, Starting on Wed11/14/12 at 1528, Until Wed11/14/12 at 1933, Intra-Operative (Intra-Procedure), Routine Given 11/14/2012 3:28 PM EDT 1 drop epiNEPHrine (PF) injection Soln ONCE PRN, Starting on Wed11/14/12 at 1528, Until Wed11/14/12 at 1933, Intra-Operative (Intra-Procedure), Routine Given 11/14/2012 3:28 PM EDT 0.5 mg 19- Surgical Site HYDROmorphone (DILAUDID) tablet 2 mg 2 mg, Oral, EVERY 4 HOURS PRN, Starting on Wed11/14/12 at 1614, Until Wed11/14/12 at 1933, Pain, May repeat once in 60 minutes if pain not relieved., Routine Given 11/14/2012 5:00 PM EDT 2 mg lidocaine (XYLOCAINE) 20 mg/mL (2 %) injection ONCE PRN, Starting on Wed11/14/12 at 1630, Until Wed11/14/12 at 1933, Intra-Operative (Intra-Procedure), Routine Given 11/14/2012 4:30 PM EDT 3.5 mLs 19- Surgical Site moxifloxacin (VIGAMOX) 0.5 % ophthalmic solution 1 drop 1 drop, Right Eye, EVERY 5 MIN, 3 doses, First dose on Wed11/14/12 at 1400, Last dose on Wed11/14/12 at 1410, Day of Surgery (Day of Procedure), Routine Given 11/14/2012 2:08 PM EDT 1 drop Given 11/14/2012 2:00 PM EDT 1 drop Given 11/14/2012 1:53 PM EDT 1 drop tlsbgovm-tsqpazofq-jukhknpuhfear (DEXACINE) 3.5-10,000-0.1 mg-unit/g-% ophthalmic ointment ONCE PRN, Starting on Wed11/14/12 at 1529, Until Wed11/14/12 at 1933, Intra-Operative (Intra-Procedure), Routine Given 11/14/2012 3:29 PM EDT 1 Tube PHENYLephrine (MYDFRIN) 2.5 % ophthalmic solution 1 drop 1 drop, Right Eye, EVERY 5 MIN, 3 doses, First dose on Wed11/14/12 at 1400, Last dose on Wed11/14/12 at 1410, Day of Surgery (Day of Procedure), Routine Given 11/14/2012 2:08 PM EDT 1 drop Given 11/14/2012 2:01 PM EDT 1 drop Given 11/14/2012 1:50 PM EDT 1 drop PHENYLephrine (MYDFRIN) 2.5 % ophthalmic solution 1 dose, Starting on Wed11/14/12 at 1348, Until Wed11/14/12 at 1350, MALIA MARES: cabinet override povidone-iodine 5 % ophthalmic solution ONCE PRN, Starting on Wed11/14/12 at 1529, Until Wed11/14/12 at 1933, Irritation, Intra-Operative (Intra-Procedure), Routine Given 11/14/2012 3:29 PM EDT 30 mLs 19- Surgical Site prednisoLONE acetate (PRED FORTE) 1 % ophthalmic suspension 1 drop 1 drop, Right Eye, ONCE, 1 dose, On Wed11/14/12 at 1400, Day of Surgery (Day of Procedure), Routine Given 11/14/2012 1:51 PM EDT 1 drop documented in this encounter Active and Recently Administered Medications Times are shown in EDT. Scheduled Medication Order 11/12/2012 11/13/2012 11/14/2012 atropine 1 % ophthalmic solution 1 drop (COMPLETED) 1 drop, Right Eye, EVERY 5 MIN, 3 doses, First dose on Wed11/14/12 at 1400, Last dose on Wed11/14/12 at 1410, Day of Surgery (Day of Procedure), Routine 1357 (Given - Provid er: Malia Mares RN - Comment: Left eye)1405 (Given - Provider: Malia Mares RN - Comment: LEFT EYE)1407 (Given - Provider: Malia Mares RN - Comment: LEFT EYE) moxifloxacin (VIGAMOX) 0.5 % ophthalmic solution 1 drop (COMPLETED) 1 drop, Right Eye, EVERY 5 MIN, 3 doses, First dose on Wed11/14/12 at 1400, Last dose on Wed11/14/12 at 1410, Day of Surgery (Day of Procedure), Routine 1353 (Given - Provid er: Malia Mares RN - Comment: placed in Left eye per pt and clarification with Carisa GARY)1400 (Given - Provider: Malia Mares RN - Comment: Left eye)1408 (Given - Provider: Malia Mares RN - Comment: LEFT EYE) PHENYLephrine (MYDFRIN) 2.5 % ophthalmic solution 1 drop (COMPLETED) 1 drop, Right Eye, EVERY 5 MIN, 3 doses, First dose on Wed11/14/12 at 1400, Last dose on Wed11/14/12 at 1410, Day of Surgery (Day of Procedure), Routine 1350 (Given - Provid er: Malia Mares RN - Comment: lEFT EYE)1401 (Given - Provider: Malia Mares RN - Comment: LEFT EYE)1408 (Given - Provider: Malia Mares RN - Comment: LEFT EYE) prednisoLONE acetate (PRED FORTE) 1 % ophthalmic suspension 1 drop (COMPLETED) 1 drop, Right Eye, ONCE, 1 dose, On Wed11/14/12 at 1400, Day of Surgery (Day of Procedure), Routine 1351 (Given - Provid er: Malia Mares RN - Comment: LEFT EYE) PRN Medication Order 11/12/2012 11/13/2012 11/14/2012 acetaminophen (TYLENOL) tablet 650 mg (CANCELED) 650 mg, Oral, EVERY 4 HOURS PRN, Starting on Wed11/14/12 at 1614, Until Wed11/14/12 at 1933, Pain, for MILD pain, Do not exceed 4,000 mg in 24 hours, Routine 1700 (Given - Provid er: Sai Lindo RN) balanced salt (BSS PLUS) irrigation solution (CANCELED) ONCE PRN, Starting on Wed11/14/12 at 1527, Until Wed11/14/12 at 1933, Intra-Operative (Intra-Procedure), Routine 1527 (Given - Provid er: Bruno Osorio MD) balanced salt (BSS) irrigation solution (CANCELED) ONCE PRN, Starting on Wed11/14/12 at 1527, Until Wed11/14/12 at 1933, Intra-Operative (Intra-Procedure), Routine 152 (Given - Provid er: Bruno Osorio MD) balanced salt (BSS) irrigation solution (CANCELED) ONCE PRN, Starting on Wed11/14/12 at 1527, Until Wed11/14/12 at 1933, Intra-Operative (Intra-Procedure), Routine 1527 (Given - Provid er: Bruno Osorio MD) BUpivacaine (PF) (MARCAINE) 0.75 % (7.5 mg/mL) injection (CANCELED) ONCE PRN, Starting on Wed11/14/12 at 1630, Until Wed11/14/12 at 1933, Intra-Operative (Intra-Procedure), Routine 1630 (Given - Provid er: Bruno Osorio MD) ceFAZolin (ANCEF) injection (CANCELED) ONCE PRN, Starting on Wed11/14/12 at 1528, Until Wed11/14/12 at 1933, Intra-Operative (Intra-Procedure), Routine 1528 (Given - Provid er: Bruno Osorio MD - Comment: sc post op) dexamethasone (DECADRON) injection (CANCELED) ONCE PRN, Starting on Wed11/14/12 at 1528, Until Wed11/14/12 at 1933, Intra-Operative (Intra-Procedure), Routine 1528 (Given - Provid er: Bruno Osorio MD) dorzolamide-timolol (COSOPT) 2-0.5 % ophthalmic solution (CANCELED) ONCE PRN, Starting on Wed11/14/12 at 1528, Until Wed11/14/12 at 1933, Intra-Operative (Intra-Procedure), Routine 152 (Given - Provid er: Bruno Osorio MD) epiNEPHrine (PF) injection Soln (CANCELED) ONCE PRN, Starting on Wed11/14/12 at 1528, Until Wed11/14/12 at 1933, Intra-Operative (Intra-Procedure), Routine 152 (Given - Provid er: Bruno Osorio MD) HYDROmorphone (DILAUDID) tablet 2 mg (CANCELED) 2 mg, Oral, EVERY 4 HOURS PRN, Starting on Wed11/14/12 at 1614, Until Wed11/14/12 at 1933, Pain, May repeat once in 60 minutes if pain not relieved., Routine 1700 (Given - Provid er: Sai Lindo RN) lidocaine (XYLOCAINE) 20 mg/mL (2 %) injection (CANCELED) ONCE PRN, Starting on Wed11/14/12 at 1630, Until Wed11/14/12 at 1933, Intra-Operative (Intra-Procedure), Routine 1630 (Given - Provid er: Bruno Osorio MD) evinbvoz-mpaqckivf-nbtgajbfykrt e (DEXACINE) 3.5-10,000-0.1 mg-unit/g-% ophthalmic ointment (CANCELED) ONCE PRN, Starting on Wed11/14/12 at 1529, Until Wed11/14/12 at 1933, Intra-Operative (Intra-Procedure), Routine 152 (Given - Provid er: Bruno Osorio MD - Comment: 0.25 ml) povidone-iodine 5 % ophthalmic solution (CANCELED) ONCE PRN, Starting on Wed11/14/12 at 1529, Until Wed11/14/12 at 1933, Irritation, Intra-Operative (Intra-Procedure), Routine 1529 (Given - Provid er: Bruno Osorio MD) documented in this encounter Care Teams [employer] Relationship Specialty Start Date End Date Doe Jenkins PA [address] [place] [address] PCP - General 08/04/12 01/30/20 documented as of this encounter
--- OUTSIDE RECORDS SUMMARY | 2024-07-25 16:06 | XMS_ITS | Encounter Summary ---
[facility] [place] [address] Care Team Providers Care [employer] Name Role Phone Doe Jenkins Primary Care Provider [phone] Encounter Details Date Type Department Care Team (Latest Contact Info) Description 01/05/2017 10:47 AM EDT - 01/05/2017 11:59 PM EDT Hospital [place] [id number] Edwin Contreras MD Abnormal finding on breast [...] Name Priority Date/Time Associated Diagnosis Comments MAMMO BREAST US LIMITED LEFT Routine 01/05/2017 11:42 AM EDT Abnormal finding on breast imaging documented in this encounter Results * Mammo Breast Us Limited Left (01/05/2017 11:42 AM EDT) Anatomical Region Laterality Modality Breast [...] normal. INTERPRETATION: BIRADS 1. Normal RECOMMENDATION: [employer] of [...] breast documented in this encounter Care Teams [employer] Relationship Specialty Start Date End Date Doe Jenkins PA [address] [place] [address] PCP - General 08/04/12 01/30/20 documented as of this encounter
--- OUTSIDE RECORDS SUMMARY | 2024-07-25 16:06 | XMS_ITS | Encounter Summary ---
[place] [address] Care Team Providers Care Mental Health Aide Name Role Phone Doe Jenkins Primary Care Provider [phone] Reason for Visit * Reason Comments GI Problem * Consultation (Routine) - Closed Specialty Diagnoses / Procedures Referred By Nanette downey Referred To Contact Gastroenterology Diagnoses Hepatitis C Doe Jenkins PA [address] [place] [address] [facility] [place] [address] [address] Referral ID Status Reason Start Date Expiration Date V isits Requested Visits Authorized [id number] Closed Consult, Test & Treat Connection Center 01/14/2017 01/14/2018 1 1 Encounter Details Date Type Department Care Team ([facility] st Contact Info) Description 01/26/2017 3:30 PM EDT Office Visit [place] [address] Yariel Porter PA [address] [place] [address] [place] [address] Chronic hepatitis C without hepatic coma (Primary Dx); Opioid abuse, in remission Social History Tobacco Use Types Packs/Day Years [...] Sign Reading Time Taken Comments Blood Pressure 110/60 01/26/2017 3:46 PM EDT Pulse 59 01/26/2017 3:46 PM EDT Temperature - - Respiratory Rate - - Oxygen Saturation - - Inhaled Oxygen Concentration - - Weight 66 kg (145 lb 9.6 oz) 01/26/2017 3:46 PM EDT w/ shoes Height 175.3 cm (5' 9) 01/26/2017 3:46 PM EDT Body Mass Index 21.5 01/26/2017 3:46 PM EDT documented in this encounter Progress Notes * Yariel Porter PA - 01/26/2017 3:30 PM EDT HEPATOLOGY NEW PATIENT CONSULTATION Patient: Frances Woods Sex: female Date of : 1970 HAIR BALER: Yariel Porter PA-C PCP: ABDIRAHMAN Valenzuela Requesting Provider: Doe Jenkins 01/26/17 REASON FOR CONSULTATION: Chronic hepatitis C infection, evaluation for treatment LIVER HISTORY: Chronic hepatitis C - Risk factors include IVDU, intranasal drug use, homemade tattoos - RNA [id number],608 on 07/14/2012 - Updated RNA 7,379,751 on 01/04/17 - Unknown genotype PROBLEM LIST Patient Active Problem List Diagnosis Code ??? Endophthalmitis, left eye. Left eye. Vitreous . Endogenous H44.002 ??? Hepatitis C antibody test positive R76.8 ??? PATIENT NOT SEEN ??? Retinal detachment, left H33.22 ??? Cocaine use F14.10 ??? Smoker F17.200 ??? Pain R52 ??? Endophthalmitis, right eye. Acute. Possible bacterial versus fungal H44.001 ??? IV drug abuse Last 6 years ago F19.10 ??? Secondary lens implant with Tramaine [id number] 22.5D AC IOL left eye 09/21/2016 Z96.1 HISTORY OF PRESENT ILLNESS Frances Woods is a 46 y.o. female referred to hepatology clinic for evaluation for treatment of hepatitis C. She also has endogenous endophthalmitis and is followed closely by ophthlamology hereat [place]. Ms. Woods states that she learned of her hepatitis C diagnosis a few years ago. She believes thisis from a history of intravenous drug use. She has been clean for approximately three years now after going through a rehab program. She decided recently with her PCP that now is the time to treat this infection before it causes significant damage to her liver. Her parents were both infected with HCV and she knows of the complications, as her father 3 years ago from liver cancer. She has never had a liver problem in the past, although had her gallbladder removed. She denies anysignificant icteric illness involving abdominal pain, nausea, vomiting, jaundice, raza-colored stools, and/or dark urine. She's never been treated in the past for hepatitis C. She is thinking about starting a daily multivitamin. REVIEW OF SYSTEMS General: Denies weight loss, fatigue, poor sleep, fever, chills, night sweats Skin: Denies new rashes, easy bruising, jaundice EENT: Admits chronic visual disturbance, hearing loss, sinus problems, dry eyes or mouth Endocrine: Denies change in tolerance to heat or cold, excessive thirst Cardiovascular: Denies chest pain, palpitations or irregular heart beat, pain in legs with walking,swelling in feet Pulmonary: Admits chronic cough, denies SOB, coughing up blood, asthma or wheezing Gastrointestinal: Admits some heartburn, denies poor appetite, abdominal pain, trouble swallowing, diarrhea, constipation, nausea/vomitting, rectal bleeding or blood in stools. Musculoskeletal: Denies pain in joints, back pain, neck or shoulder pain, muscle cramping, movementof legs at night. Neurologic: Denies blackouts or loss of consciousness, headache, weakness or numbness in legs or arms, tremor, worsening memory and concentration Genitourinary: Denies frequent urination, blood in urine Psychiatric: Denies changes in mood or behavior, anxiety MEDICATIONS Current Outpatient Prescriptions Medication Sig Dispense Refill ??? ibuprofen (ADVIL;MOTRIN) 400 mg Tablet Take 400 mg by mouth every 6 hours as needed for Pain. No current facility-administered medications for this visit. ALLERGIES Allergies Allergen Reactions ??? Prochlorperazine SOCIAL HISTORY Occupation: Unemployed Marital status: Single, in long-term relationship Smokin-1.5 ppd Alcohol: 4-6 beers per week Other drug: Marijuana daily Hepatitis C Risk Factors: IV drugs? Yes on and off couple years, last used 3 years ago Intranasal drugs? Yes, last used 3 years ago Tattoos? Yes, two, both homemade service? None Blood transfusions? None Close contact/relationship with known hepatitis? Both parents had HCV FAMILY HISTORY Negative except as noted below Medical problem Family member Medical Problem Family member Medical Problem Family member Alcohol drug Problem Both parents with drug addiction Kidney disease None Mental illness Anemia or Blood Disease Liver disease Parents had HCV Depression Diabetes Father Liver cancer Father, 3 years ago Seizure High blood pressure Stroke Lung disease Heart disease Father Clotting problems Colon Cancer High cholesterol Immune disorders Other Cancer Brother with lung cancer, ister with esophageal cancer PHYSICAL EXAM Vitals: 01/26/17 1546 BP: 110/60 Pulse: 59 Weight: 66 kg (145 lb 9.6 oz) Height: 175.3 cm (5' 9) Body mass index is 21.5 kg/(m^2). Constitutional: Well appearing, appropriate, no acute distress Skin: No cyanosis, no palmar erythema, no jaundice, no spider angiomata Head: Left pupil nonreactive (prior lens implant), normocephalic, sclerae anicteric, oropharynx within normal limits Neck: No adenopathy or thyromegaly CVS: RRR, normal S1/S2, no murmurs, rubs, or gallops, equal pulses in bilateral upper and lower extremities Lungs: Clear to auscultation bilaterally, no dullness to percussion, no wheezes, rales, or rhonci Abdomen: Liver palpable approx 1 cm below costal margin, positive bowel sounds, nontender, nondistended, no hepatosplenomegaly, no masses, no fluid wave, no umbilical hernia, no caput medussae Back: No pain with palpation of the vertebrae, no CVA tenderness Neurologic: Alert and oriented x 3, no asterixis or tremor Extremities: No edema, no clubbing, no muscle wasting, no joint swelling RESULTS Non-DH Laboratory: 01/04/17: HCV RNA 7,379,751 Ref. Range 01/04/2017 Sodium Latest Ref Range: 135 - 145 mmol/L 140 Potassium Latest Ref Range: 3.5 - 5.0 mmol/L 4.0 Chloride Latest Ref Range: 98 - 107 mmol/L 101 CO2 Latest Ref Range: 22 - 31 mmol/L 24 Anion Gap Latest Ref Range: 5 - 15 mmol/L 15 BUN Latest Ref Range: 8 - 18 mg/dL 8 Creatinine Latest Ref Range: 0.70 - 1.20 mg/dL 0.65 (L) Estimated GFR Latest Ref Range: >=60 >60 Glucose Lvl Latest Ref Range: 65 - 199 mg/dL 99 Calcium Latest Ref Range: 8.5 - 10.5 mg/dL 9.3 Total Protein Latest Ref Range: 6.1 - 8.0 gm/dL 7.8 Albumin Latest Ref Range: 3.2 - 5.2 gm/dL 4.6 Total Bilirubin Latest Ref Range: 0.2 - 1.3 mg/dL 0.3 Alk Phos Latest Ref Range: 40 - 104 unit/L 34 (L) AST Latest Ref Range: 0 - 30 unit/L 21 ALT Latest Ref Range: 0 - 30 unit/L 21 Imaging: No recent abdominal imaging on file Fibroscan Results: Mean kPa: 5.4 Mean IQR: 9% (goal is <30 %) Success rate: 100% (goal is >60%) Predicted fibrosis stage: F0-F1 ASSESSMENT/PLAN Frances Woods is a 46 y.o. female with chronic hepatitis C infection, recent viral load [id number],751, unknown genotype, treatment-naive, here for evaluation for treatment. Recent LFTs suggest no active inflammation with normal AST/ALT levels and Fibroscan suggests minimal fibrosis if present. Liver fibrosis panel will be performed to support this result. She likely acquired her infection from past IVDU. She is clean now of all drugs for 3 years. This patient is a candidate to begin direct-acting antiviral therapy now. We would like to treat the patient's chronic infection in order to prevent progression of any preexisting liver damage and decrease risk of developing other chronic diseases such as diabetes. We discussed the importance of abs tinence from all drug and alcohol use, as well as adherence to treatment regimen, once approved, with regular lab work, phone calls with nursing staff, and follow-up appointments post-treatment. Plan: - Labs today - HCV genotype, CBC, CMP, PT/INR, HAV Ab, HBsAg, HBsAb, HBcAb, liver fibrosis panel - Update abdominal imaging with RUQ ultrasound to be performed externally at [facility], with results faxed to [facility]. - Plan to submit for prior authorization for direct-acting antiviral therapy once all testing has returned. - Follow-up with primary care as needed 50 of this 60 minute visit was in [id number] discussion regarding disease, prognosis and treatment. This is exclusive of the time spent performing the Fibroscan procedure. Yariel Porter PA-C Section of Gastroenterology [place] [address] Copy: ABDIRAHMAN Valenzuela documented in this encounter Procedure Notes * Yariel Porter PA - 01/26/2017 3:30 PM EDTAssociated Order(s): FIBROSCAN Procedure(s): FIBROSCAN Pre-Procedure Diagnose(s): Chronic hepatitis C without hepatic coma [facility] Liver Fibrosis Assessment Report Indication: Chronic hepatitis C infection Performed by: ABDIRAHMAN Colunga Procedure: Vibration Controlled Transient Elastography (VCTE) or Fibroscan [place] Protocol: Patient's identity, procedure and site were verified, confirmatory pause performed. Discussed procedure including risks and potential complications. Questions answered. Patient verbalizes understanding and wishes to proceed with Fibroscan assessment. Patient was placed in the supine position with right arm in maximum abduction to allow optimal exposure of right lateral abdomen. Patient was briefly assessed. Testing was performed in the mid-axillary location. 50Hz Shear Wave pulses were applied and the resulting Shear Wave and Propagation Speed was detected with a 3.5MHz ultrasonic signal, using the Fibroscan probe. Skin to liver capsule distance and liver parenchyma were accessed during the entire examination with the Fibroscan probe. Patient was instructed to breathe normally and abstain from sudden movements during the procedure. At least ten Sheer Waves were produced; individual measurements of each Shear Wave were calculated. Patient tolerated the procedure well with no complications. Fibroscan Results: Median kPa: 5.4 Mean IQR: 9% (goal is <30 %) Number of valid measurements: 10 (at least 10 required) Number of invalid measurements: 0 Predicted fibrosis stage: F0-F1 Interpretation: Based on this Fibroscan result, history, clinical examination and review of laboratory and radiological data, this patient likely has stage F0-F1 liver fibrosis. documented in this encounter Plan of Treatment Pending Results Name Type Priority Associated Diagnoses Date /Time Hepatitis C genotype Lab Routine Chronic hepatitis C without hepatic coma 01/26/2017 5:42 PM EDT Scheduled Orders Name Type Priority Associated Diagnoses Orde r Schedule Hepatitis C genotype Lab Routine Chronic hepatitis C without hepatic coma Expected: 01/26/2017 (Approximate), Expires: 07/28/2017 documented as of this encounter Procedures Procedure Name Priority Date/Time Associated Diagnosis Comments LAVENDER TUBE HOLD Routine 01/26/2017 5: 42 PM EDT LIVER FIBROSIS PANEL Routine 01/26/2017 5:39 PM EDT Chronic hepatitis C without hepatic coma HEMOGRAM Routine 01/26/2017 5:39 PM EDT Chronic hepatitis C without hepatic coma DIFFERENTIAL, AUTOMATED Routine 01/26/2017 5:39 PM EDT Chronic hepatitis C without hepatic coma HEPATITIS A ANTIBODY, TOTAL Routine 01/26/2017 5:39 PM EDT Chronic hepatitis C without hepatic coma HEPATITIS B CORE ANTIBODY, TOTAL Routine 01/26/2017 5:39 PM EDT Chronic hepatitis C without hepatic coma HEPATITIS B SURFACE ANTIBODY Routine 01/26/2017 5:39 PM EDT Chronic hepatitis C without hepatic coma HEPATITIS B SURFACE ANTIGEN Routine 01/26/2017 5:39 PM EDT Chronic hepatitis C without hepatic coma PROTHROMBIN TIME Routine 01/26/2017 5:39 PM EDT Chronic hepatitis C without hepatic coma CBC (WITH DIFF) Routine 01/26/2017 5:39 PM EDT Chronic hepatitis C without hepatic coma COMPREHENSIVE METABOLIC PANEL Routine 01/26/2017 5:39 PM EDT Chronic hepatitis C without hepatic coma [id number] Routine 01/26/2017 5:30 PM EDT Chronic hepatitis C without hepatic coma documented in this encounter Results * Lavender Tube HOLD (01/26/2017 5:42 PM EDT) Pathologist [facility] Lavender Hold Sample in lab. [facility] Blood specimen (specimen) No Charge / Unknown 01/26/2017 5:42 PM EDT 01/26/2017 5:46 PM EDT Yariel GARY HEMATOLOGY ORDERABLE S [facility] [place] [address] * Differential, Automated (01/26/2017 5:39 PM EDT) Pathologist [facility] Neutrophil % 43.6 % [facility] Neutrophil Absolute 2.59 1.70 - 6.10 x10(3)/[facility] Lymph % 50.0 % [facility] Lymphocytes Abs 3.0 0.9 - 3.2 x10(3)/[facility] Monocyte % 4.7 % [facility] Monocyte Abs 0.3 0.3 - 0.9 x10(3)/[facility] Eos % 1.0 % [facility] Eosinophils Abs 0.1 0.0 - 0.4 x10(3)/[facility] Basophil % 0.5 % [facility] Baso Absolute 0.0 0.0 - 0.1 x10(3)/[facility] Immature Gran % 0.20 % [facility] Comment: Immature granulocytes(IG's)percentage and absolute count will include metamyelocytes, myelocytes, and promyelocytes. Blood smears from CBCs yielding IG's will be scanned manually for concordance. If this scan disagrees with the automated IG or if promyelocytes are noted, a manual differential will be performed. Immature Gran Absolute 0.01 0.00 - 0.04 x10(3)/[facility] Blood specimen (specimen) 01/26/2017 5:39 PM EDT 01/26/2017 5:46 PM EDT Narrative Resulting Agency Comment Spec In Lab Beata Rogers MD HEMATOLOGY ORDERABLE S [facility] [place] [address] * (ABNORMAL) Hemogram (01/26/2017 5:39 PM EDT) White Blood Cell 5.9 4.0 - 9.5 x10(3)/mc L [facility] Red Blood Cell 4.53 4.00 - 5.21 x10(6)/mc L [facility] Hemoglobin 13.2 11.7 - 15.5 gm/dL [facility] Hematocrit 39.3 35.7 - 45.8 % [facility] Mean Cell Volume 86.8 82.6 - 94.4 fL [facility] Mean Cell Hemoglobin 29.1 27.1 - 32.0 pg [facility] Mean Cell Hemoglobin Concentration 33.6 31.7 - 35.0 gm/dL [facility] Platelet 128(L) 145 - 357 x10(3)/mc L [facility] RDW Standard Deviation 42.8 37.0 - 46.0 [facility] RDW coefficient of variation 13.5 11.5 - 14.1 % [facility] Mean Platelet Volume 10.6 7.6 - 12.9 fL [facility] NRBC% auto 0.0 % [facility] NRBC Absolute 0.000 0.000 - 0.000 x10(3)/mc L [facility] Blood specimen (specimen) 01/26/2017 5:39 PM EDT 01/26/2017 5:46 PM EDT Narrative Resulting Agency Comment Spec In Lab Beata Rogers MD HEMATOLOGY ORDERABLE S [facility] [place] [address] * Prothrombin Time (01/26/2017 5:39 PM EDT) [facility] Prothrombin Time 14.0 12.0 - 15.0 sec [facility] Comment: An INR <2.0 indicates adequate procoagulant activity for hemostasis in most patients without underlying bleeding disorders, though the INR may not adequately reflect hemostatic capacity in patients with liver disease and synthetic impairment. The recommended target INR range for therapeutic anticoagulation is 2.0 ? 3.0 for most applications, though lower and higher ranges may be appropriate depending on clinical circumstances. International Normalization Ratio 1.0 0.9 - 1.1 [facility] Blood specimen (specimen) 01/26/2017 5:39 PM EDT 01/26/2017 5:46 PM EDT Narrative Resulting Agency Comment Spec In Lab Beata Rogers MD HEMATOLOGY ORDERABLE S Performing Organization Address [facility] Co de Phone Number [facility] [place] [address] * (ABNORMAL) Comprehensive metabolic panel (non-fasting) (01/26/2017 5:39 PM EDT) [facility] Glucose 84 65 - 199 mg/dL [facility] Comment:Diabetes: >=200 mg/d L plus symptoms Blood Urea Nitrogen 10 8 - 18 mg/dL [facility] Creatinine 0.73 0.70 - 1.20 mg/dL [facility] Comment: Please note that the pediatric reference intervals supplied above were not validated at [facility]. Results from pediatric patients should be interpreted in conjunction to the patient's age, height and muscle mass. Sodium 136 135 - 145 mmol/L [facility] Potassium 3.9 3.5 - 5.0 mmol/L [facility] Comment: Please note: ??Patients with WBC >100,000 may have falsely elevated Potassium levels. ??For accurate Potassium quantification in these patients send serum separator tube (gold top) for subsequent determinations. ??Contact the Clinical Chemistry Laboratory if there are any questions. Chloride 99 98 - 107 mmol/L [facility] Carbon Dioxide 23 22 - 31 mmol/L [facility] Anion Gap 14 5 - 15 mmol/L [facility] Calcium 9.8 8.5 - 10.5 mg/dL [facility] Protein, Total 8.1(H) 6.1 - 8.0 gm/dL [facility] Albumin 4.7 3.2 - 5.2 gm/dL [facility] Aspartate Aminotransferase 22 0 - 30 unit/L [facility] Alanine Aminotransferase 23 0 - 30 unit/L [facility] Alkaline Phosphatase 32(L) 40 - 104 unit/L [facility] Bilirubin, Total 0.5 0.2 - 1.3 mg/dL [facility] Est Glomerular Filtration Rate >60 >=60 [facility] Comment: This estimated GFR (eGFR) value [...] the following links into your internet browser. [email or web address] Blood specimen (specimen) 01/26/2017 5:39 PM EDT 01/26/2017 5:46 PM EDT Narrative Resulting Agency Comment Spec In Lab Beata Rogers MD CHEMISTRY ORDERABLES [facility] [place] [address] * Liver Fibrosis Panel (01/26/2017 5:39 PM EDT) Liver Fibrosis Panel FLEXITEST 3 [facility] Comment: FLEXITEST 3 TESTS RESULTS--------UNITS--REF. RANGE--- Fibrosis Score ? 0.12 Fibrosis Stage ? F0 Fibrosis Interpretation ? SEE NOTE no fibrosis Fibro Test Score ?? Metavir Score 0.00-0.21 ?F0 ? no fibrosis 0.22-0.27 ?F0-F1 0.28-0.31 ?F1 ? minimal fibrosis 0.32-0.48 ?F1-F2 0.49-0.58 ?F2 ? moderate fibrosis 0.59-0.72 ?F3 ? advanced fibrosis 0.73-0.74 ?F3-F4 0.75-1.00 ?F4 ? severe fibrosis Necroinflammat Act Score ? 0.06 Necroinflammat Act Grade ? A0 Necroinflammat Interp ? SEE NOTE no activity ActiTest Score ? Metavir Score 0.00-0.17 ?A0 ? no activity 0.18-0.29 ?A0-A1 0.30-0.36 ?A1 ? minimal activity 0.37-0.52 ?A1-A2 0.53-0.60 ?A2 ? significant activity 0.61-0.62 ?A2-A3 0.63-1.00 ?A3 ? severe activity [id number]-[id number] ? 215 ?mg/dL ??106-279 Haptoglobin ? 141 ?mg/dL ??43-212 Apolipoprotein A1 ? 151 ?mg/dL ??101-198 Total Bilirubin ? 0.5 ?mg/dL ??0.2-1.2 GGT ?14 ?U/L ??3- 55 ALT ?19 ?U/L ??6- 29 Reference ID ?[id number] Footnote ?SEE NOTE The reliability of results is dependent on compliance with the preanalytical and analytical conditions recommended by [employer]. The tests have to be deferred for: acute hemolysis, acute hepatitis, acute inflammation, extra hepatic cholestasis. The advice of a specialist should be sought for interpretation in chronic hemolysis and Gilbert's syndrome. The test interpretation is not validated in liver transplant patients. Isolated extreme values of one of the components should lead to caution in interpreting the results. In case of discordance between a biopsy result and a test, it is recommended to seek the advice of a specialist. The causes of these discordances could be due to a flaw of the test or to a flaw in the biopsy: i.e. a liver biopsy has a 33% variability rate for one fibrosis stage. FibroTest is interpretable for chronic hepatitis B and C, alcoholic and non alcoholic steatosis. ActiTest is interpretable for chronic hepatitis B and C. The performance characteristics have been determined by [employer], [place]. It has not been cleared or approved by the U.S. Food and Drug Administration. Performance characteristics refer to the analytical performance of the test. [employer], the associated logo, [employer] and all associated [employer] garrett are the registered trademarks of [employer]. All third alliance party garrett - (R) and (TM) - are the property of their respective owners. (C) [id number] [employer]. All rights reserved. Test performed by: ? [employer] ? [address] [facility] [place] ? [place] [address] ? Phone: ??[phone] Director: ??Gray Guillen M.D. Test Reported by [employer], [employer], [address] [place], [place] Jesus Pulido M.D., Ph.D., Director of Laboratories , [facility] [id number] Blood specimen (specimen) 01/26/2017 5:39 PM EDT 01/27/2017 11:28 AM EDT Narrative Resulting Agency Comment Spec In Lab Beata Rogers MD LAB SEND OUT ORDERAB LES [facility] [place] [address] * (ABNORMAL) Hepatitis B Core Antibody, Total (01/26/2017 5:39 PM EDT) Hepatitis B Core Antibody Positive(A ) Negative [facility] Blood specimen (specimen) 01/26/2017 5:39 PM EDT 01/26/2017 5:46 PM EDT Narrative Resulting Agency Comment Spec In Lab Beata Rogers MD CHEMISTRY ORDERABLES Performing Organization Address City/[facility]/ZIP Co de Phone Number [facility] [place] [address] * Hepatitis B Surface Antigen (01/26/2017 5:39 PM EDT) Hepatitis B Surface Antigen Negative Negative [facility] Blood specimen (specimen) 01/26/2017 5:39 PM EDT 01/26/2017 5:46 PM EDT Narrative Resulting Agency Comment Spec In Lab Beata Rogers MD CHEMISTRY ORDERABLES Performing Organization Address [facility] Co de Phone Number [facility] [place] [address] * Hepatitis B Surface Antibody (01/26/2017 5:39 PM EDT) Hepatitis B Surface Antibody, Quantitative 442.8 IU/L [facility] Comment: HepB Surface Ab Quant: Unvaccinated: < 8.5 IU/L Vaccinated: > 11.5 IU/L Hepatitis B Surface Antibody Positive [facility] Comment: Patient is considered to be immune to HBV infection. Expected Results: Vaccinated: Positive Unvaccinated: Negative Blood specimen (specimen) 01/26/2017 5:39 PM EDT 01/26/2017 5:46 PM EDT Narrative Resulting Agency Comment Spec In Lab Beata Rogers MD CHEMISTRY ORDERABLES Performing Organization Address City/[facility] Co de Phone Number [facility] [place] [address] * Hepatitis A Antibody, Total (01/26/2017 5:39 PM EDT) Hepatitis A ANTIBODY, TOTAL Negative Negative [facility] Blood specimen (specimen) 01/26/2017 5:39 PM EDT 01/26/2017 5:46 PM EDT Narrative Resulting Agency Comment Spec In Lab Beata Rogers MD CHEMISTRY ORDERABLES [facility] [place] [address] * [id number] (01/26/2017 5:30 PM EDT) Narrative Yariel Porter PA - 01/26/2017 5:30 PM EDT Yariel Porter PA ? 01/26/2017 ??5:30 PM [facility] Liver Fibrosis Assessment Report Indication: ?? Chronic hepatitis C infection Performed by: ??ABDIRAHMAN Colunga Procedure: Vibration Controlled Transient Elastography (VCTE) or Fibroscan [place] Protocol: Patient's identity, procedure and site were verified, confirmatory pause performed. Discussed procedure including risks and potential complications. Questions answered. Patient verbalizes understanding and wishes to proceed with Fibroscan assessment. Patient was placed in the supine position with right arm in maximum abduction to allow optimal exposure of right lateral abdomen. Patient was briefly assessed. Testing was performed in the mid-axillary location. 50Hz Shear Wave pulses were applied and the resulting Shear Wave and Propagation Speed was detected with a 3.5MHz ultrasonic signal, using the Fibroscan probe. Skin to liver capsule distance and liver parenchyma were accessed during the entire examination with the Fibroscan probe. Patient was instructed to breathe normally and abstain from sudden movements during the procedure. At least ten Sheer Waves were produced; individual measurements of each Shear Wave were calculated. Patient tolerated the procedure well with no complications. Fibroscan Results: Median kPa: 5.4 Mean IQR: 9% (goal is <30 %) Number of valid measurements: 10 (at least 10 required) Number of invalid measurements: 0 Predicted fibrosis stage: F0-F1 Interpretation: Based on this Fibroscan result, history, clinical examination and review of laboratory and radiological data, this patient likely has stage F0-F1 liver fibrosis. Beata Rogers MD PROCEDURE/MINOR SURG ICAL ORDERABLES documented in this encounter Visit Diagnoses Diagnosis Chronic hepatitis C without hepatic coma- Primary Opioid abuse, in remission documented in this encounter Care Teams Mental Health Aide Relationship Specialty Start Date End Date Doe Jenkins PA [address] [place] [address] PCP - General 08/04/12 01/30/20 documented as of this encounter
--- OUTSIDE RECORDS SUMMARY | 2024-07-25 16:06 | XMS_ITS | Encounter Summary ---
Author Organization [facility] [place] [address] Care Team Providers Care Litigation Secretary Name Role Phone Doe Jenkins Primary Care Provider +1- [phone] Reason for Visit * Reason Comments Post Op Encounter Details Date Type Department Care Team (Late st Contact Info) Description 10/29/2016 10:15 AM EDT Office [place] [id number] Leonardo Castorena MD Secondary lens implant with Tramaine [...] * Patient Instructions* Leonardo Castorena MD - 10/29/2016 10:15 AM EDT HPI Patient back 3 days post wound leak with choroidal hemorrhage after removing sutures from secondarylens implant that had been performed 09/21/2016 Not as scratchy feeling and vision slowly improving again Last edited by Leonardo Castorena MD on 10/29/2016 10:48 AM. Secondary lens implant with Tramaine MTA4UO 22.5D AC IOL left eye 09/21/2016 Assessment: Choroidal heme resolving and no wound leak today Plan: Continue ciloxan 4x/day until current bottle runs out Return as booked within the next 1-2 weeks FERNANDO if any problems For additional information about eye conditions, visit the Eye Facts portion of my website at [email or web address] and I also started a Glaucoma Patient Group on [employer] (htt ps://[employer].com/groups/glaucomapatientgroup) for patients to seek help from one another. (Search for Glaucoma Patient Group and then ask to join.) documented in this encounter Progress Notes * Leonardo Castorena MD - 10/29/2016 10:15 AM EDT Secondary lens implant with Tramaine MTA4UO 22.5D AC IOL left eye 09/21/2016 Assessment: Choroidal heme resolving and no wound leak today Plan: Continue ciloxan 4x/day until current bottle runs out Return as booked within the next 1-2 weeks FERNANDO if any problems documented in this encounter Miscellaneous Notes * Assessment & Plan Note - Leonardo Castorena MD - 10/29/2016 10:52 AM EDT Associated Problem(s): Secondary lens implant with Tramaine MTA4UO 22.5D AC IOL left eye 09/21/2016 Assessment: Choroidal heme resolving and no wound leak today Plan: Continue ciloxan 4x/day until current bottle runs out Return as booked within the next 1-2 weeks FERNANDO if any problems documented in this encounter Plan of Treatment Not on file documented as of this encounter Visit Diagnoses Diagnosis Secondary lens implant with Tramaine MTA4UO 22.5D AC IOL left eye 09/21/2016 Lens replaced by other means documented in this encounter Care Teams Litigation Secretary Relationship Specialty Start Date End Date Doe Jenkins PA [address] [place] [address] PCP - General 08/04/12 01/30/20 documented as of this encounter
--- OUTSIDE RECORDS SUMMARY | 2024-07-25 16:06 | XMS_ITS | Encounter Summary ---
Author Organization [facility] Address [facility] [place] [address] Care Team Providers Care Hot Metal Mixer Operator Helper Name Role Phone Doe Jenkins Primary Care Provider +1- [phone] Encounter Details Date Type Department Care Team (Late st Contact Info) Description 11/21/2012 [place] [address] Arjun Lockhart MD [facility] [address] [place] [address] Social History Tobacco Use Types Packs/Day Years [...] encounter Miscellaneous Notes * Telephone Encounter - Stephanie Mcbride, COT - 11/21/2012 4:05 PM EDT Pt called and spoke with Conor, reporting that her OS is swollen shut, has been tearing a lot, hasa yellowish d/c and the patient has noted a decrease in her energy level x 2-[address] Lockhart-have pt re-start/start vigamox 4xday OS, see Saritha today or come in tomorrow first thing in the am. Per Conor-Pt can not come in tomorrow due to transportation issues but is able to get to Saritha's office today. She will call and schedule an appt with Saritha and call us tomorrow to let us know what he says. documented in this encounter Plan of Treatment Not on file documented as of this encounter Visit Diagnoses Not on filedocumented in this encounter Care Teams Hot Metal Mixer Operator Helper Relationship Specialty Start Date End Date Doe Jenkins PA [address] [place] [address] PCP - General 08/04/12 01/30/20 documented as of this encounter
--- OUTSIDE RECORDS SUMMARY | 2024-07-25 16:06 | XMS_ITS | Encounter Summary ---
[place] [address] Care Team Providers Care Patient Accounts Coordinator Name Role Phone Doe Jenkins Primary Care Provider +1- [phone] Encounter Details Date Type Department Care Team (Late st Contact Info) Description 01/28/2017 Orders [place] [address] Yariel Porter PA [address] [place] [address] [place] [address] Chronic hepatitis C without hepatic coma Social [...] coma documented in this encounter Care Teams Patient Accounts Coordinator Relationship Specialty Start Date End Date Doe Jenkins PA [address] [place] [address] PCP - General 08/04/12 01/30/20 documented as of this encounter
--- OUTSIDE RECORDS SUMMARY | 2024-07-25 16:06 | XMS_ITS | Encounter Summary ---
Author Organization [facility] Address [facility] [place] [address] Care Team Providers Care Directional Driller Name Role Phone Doe Jenkins Primary Care Provider +1- [phone] Reason for Visit * Reason Comments Loss of Vision Encounter Details Date Type Department Care Team (Late st Contact Info) Description 04/03/2013 10:00 AM EDT Follow-[place] [address] Jaime Gomes MD [facility] [place] [address] Endophthalmitis, acute (Primary Dx); Hepatitis C; jail current use of antibiotics Discharge Disposition: Home Social History Tobacco Use Types Packs/Day Years Used Date Smoking Tobacco: Every Day Cigarettes 1 18 Tobacco Cessation:Ready to Q uit: No; Counseling Given: Yes Alcohol Use Standard Drinks/Week Comments Yes 0 (1 standard drink = 0.6 oz pur e alcohol) rarely Sex and Gender Information Value Date Recorded Sex Assigned at Not on file Gender Identity Not on file Sexual Orientation Not on file documented as of this encounter Last Filed Vital Signs Vital Sign Reading Time Taken Comments Blood Pressure 114/73 04/03/2013 10:28 AM EDT Pulse 71 04/03/2013 10:28 AM EDT Temperature 37 ??C (98.6 ??F) 04/03/2013 10:28 AM EDT Respiratory Rate - - Oxygen Saturation 100% 04/03/2013 10:28 AM EDT Inhaled Oxygen Concentration - - Weight 64.4 kg (142 lb) 04/03/2013 10:28 AM EDT Height 175.3 cm (5' 9) 04/03/2013 10:28 AM EDT Body Mass Index 20.97 04/03/2013 10:28 AM EDT documented in this encounter Progress Notes * Jaime Gomes MD - 04/03/2013 10:49 AM EDT Subjective: Patient ID: Frances Woods is a 42 y.o. female seen at request of Dr. Lockhart for new endophthalmitis. HPI Prior therapy for endophthalmitis, was seen in this clinic previously, this is a new problem. Her right eye is now involved, left eye had 3 surgeries. Prior dental infection. Denies any recent dental work lately, no painful teeth, no recent infections. This developed a couple of weeks ago. She developed tenderness of the right eye and it was tender. Came back to Dr. Lockhart. Began to lose vision. Was examined and found to have new abscess and endophthalmitis. This is progressively worse objectively and by examination. She denies recent infection.She developed floaters today. Lives in [facility]. 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 She lives in a house with a few dogs. Denies cat exposure, recently, but lived with acat at her prior appt. a few months ago. Denies any support system. Got here by [facility]. She has children, a son who is 18 years old. Denies any travel. No tb risks other than she was in a homeless snf in [place] for a while, about 2 weeks. About a month ago, she had the flu, and has a persistent cough. This has persisted. She brings upphlegm, mixed. Improved since ill, but persistent. When she had the flu, she had aches, cough, low grade fevers. Had ill contacts. Denies any mold exposures, no gardening. She has had some chills at night, a migraine [place]. Some sweats at night also. No episodes since. No rash. Not sexually active currently, a few months. Usually used protection, unless with longtime partner. Med hx, pmhx, social, fhx reviewed and updated. Review of Systems Constitutional: Positive for diaphoresis (one night, improved). HENT: Positive for postnasal drip. Eyes: Positive for visual disturbance (as in HPI). Respiratory: Positive for cough. Cardiovascular: Negative. Gastrointestinal: Negative. Genitourinary: Negative. Musculoskeletal: Negative. Skin: Negative. Neurological: Positive for headaches (migraines, typical. ). Hematological: Negative. Psychiatric/Behavioral: Positive for dysphoric mood (situational). Objective: Physical Exam Constitutional: She is oriented to person, place, and time. She appears well- developed and well-nourished. No distress. HENT: Mouth/Throat: Oropharynx is clear and moist. Eyes: Conjunctivae normal are normal. Pupils are equal, round, and reactive to light. No scleral icterus. Neck: Normal range of motion. Neck supple. Cardiovascular: Normal rate, regular rhythm and normal heart sounds. Exam reveals no gallop and no friction rub. No murmur heard. Pulmonary/Chest: Effort normal and breath sounds normal. No respiratory distress. She has no wheezes. She has no rales. Abdominal: Soft. Bowel sounds are normal. She exhibits no distension. There is no tenderness. Musculoskeletal: Normal range of motion. She exhibits no edema. Lymphadenopathy: She has no cervical adenopathy. Neurological: She is alert and oriented to person, place, and time. No cranial nerve deficit. Skin: Skin is warm and dry. No rash noted. Blood and fungal cultures negative to date. 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 She denies drug use adamantly. Nevertheless, this is her second episode this year, now affecting both eyes. She is at risk to lose her sight. Unfortunately we are unable to get good samples so we have no idea what the organism is. We will have to treat empirically. Concern for fungal, staph, MRSA, strep and possibly gram negatives or nocardia. I have written for Voriconazole, moxifloxacin and also bactrim (for MRSA and nocardia) . I am being aggressive due to her potential for blindness. I have ordered an ECHO, repeat blood cultures, to be held for fastidius organisms and alsowritten for fungitel and galactomannan tests. I ordered a cxr due to her cough. She states that shecannot stay here for these tests, so I gave her the orders and she plans to get the test at [facility] int next day or so. I would like to have the labs done so I can see how her LFT's are doing with her chronic hep c, given that I have prescribed voriconazole and bactrim. There is also the possibility of noninfectious etiologies, but we cannot make that call with the information we have. Spoke withDr. Lockhart about her also, reviewed all records. She was quite teary, and this is a major stress on her life, she lives on a couch, has no resources, had to quit her job, etc. It would be nice to get her set up with some social support. There is a high risk for failure due to her social situation. She gave me the following phone for messages, but I called it and the person who answered had no idea who Frances was. Her cell phone is disconnected. MESSAGE PHONE [phone]. Plan Blood Cx x 2 - to be held CBC, CRP, ESR, CMP, fungitel, galactomannan ECHO CXR Start: voriconazole 400bid for the first day followed by 200mg bid moxifloxacin 400mg po daily Bactrim DS 2 tabs bid Will need to follow labs on therapy. Addendum, day after visit: tried to reach her to discuss meds, getting labs, etc. Unable to get in contact. documented in this encounter Plan of Treatment Not on file documented as of this encounter Visit Diagnoses Diagnosis Endophthalmitis, acute- Primary Acute endophthalmitis Hepatitis C Unspecified viral hepatitis C without hepatic coma exterminator termite current use of antibiotics Encounter for long-term (current) use of antibiotics documented in this encounter Care Teams Directional Driller Relationship Specialty Start Date End Date Doe Jenkins PA [address] [place] [address] PCP - General 08/04/12 01/30/20 documented as of this encounter
--- OUTSIDE RECORDS SUMMARY | 2024-07-25 16:06 | XMS_ITS | Encounter Summary ---
Author Organization [facility] [address] Care Team Providers Care Sales Promotion Officer Name Role Phone Doe Jenkins Primary Care Provider +1- [phone] Encounter Details Date Type Department Care Team (Late st Contact Info) Description 11/14/2012 1:23 PM EDT - 11/14/2012 5:30 PM EDT Hospital Encounter [place] [id number] Bruno Osorio MD [facility] [address] [place] [address] Discharge Disposition: Home Social History Tobacco Use [...] Sign Reading Time Taken Comments Blood Pressure 127/71 11/14/2012 5:01 PM EDT Pulse 74 11/14/2012 5:01 PM EDT Temperature 36.6 ??C (97.9 ??F) 11/14/2012 4:36 PM ED T Respiratory Rate 16 11/14/2012 5:01 PM EDT Oxygen Saturation 100% 11/14/2012 5:01 PM EDT Inhaled Oxygen Concentration - - [...] all eye drops to tomorrow's appointment. Call [phone] for all questions concerns. Right side down [...] APPROACH performed by Bruno Osorio MD at [facility] MA[facility] OR ??? Retinal detachment surgery 09/01/12 OS cbc ??? Remove lens material; phacofragmentation technique, w aspiration 09/01/2012 REMOVE LENS MATERIAL, PHACOFRAGMENTATION performed by Bruno Osorio MD at [facility] MAIN OR ? ? Repair complex retina detach vitrectomy & memb peel 09/01/2012 REPAIR COMPLEX RETINAL DETACHMENT, W/ VITRECTOMY, MEMBRANE PEELING performed by Bruno Osorio MD at [facility] MAIN OR Review of Systems Constitutional: Negative [...] APPROACH performed by Bruno Osorio MD at [facility] MA[facility] OR ??? Retinal detachment surgery 09/01/12 OS cbc ??? Remove lens material; phacofragmentation technique, w aspiration 09/01/2012 REMOVE LENS MATERIAL, PHACOFRAGMENTATION performed by Bruno Osorio MD at [facility] MA[facility] OR ? ? Repair complex retina detach vitrectomy & memb peel 09/01/2012 REPAIR COMPLEX RETINAL DETACHMENT, W/ VITRECTOMY, MEMBRANE PEELING performed by Bruno Osorio MD at [facility] MA[facility] OR Review of Systems Constitutional: Negative [...] Osorio MD - 11/14/2012 4:22 PM EDT [facility] [place] Patient Name: Frances Woods : [id number] MR#: [id number] Case Date: 11/14/2012 Surgeon: Surgeon(s) and Role: * Bruno Osorio MD - Primary * Gregoria Viera PA - Resident-Cutting Machine Fixer SURGICAL STAFF/ASSISTANTS BRUNO OSORIO M.D. ABDIRAHMAN GRESHAM [...] until exactly 4:24 p.m., total operating time [id number] 60 minutes. General Estimated Blood Loss: 0 [...] PM EDT Brief Operative Note Patient Name: Frnaces Woods : [id number] MR#: [id number] Case Date: 11/14/2012 Surgeon: Surgeon(s) and Role: * Bruno Osorio MD - Primary * Gregoria Viera PA - Resident-Cutting Machine Fixer Preoperative diagnosis: Retinal detachment Postoperative diagnosis: retinal [...] pertinent to this patient.) * Miscellaneous - Provider, Priyanka - 11/14/2012 1:39 PM EDT * Brief Op Note - Bruno Osorio MD - 11/14/2012 11:37 AM EDT Brief Operative Note Patient Name: Frances Woods : [id number] MR#: [id number] Case Date: 11/14/2012 Surgeon: Surgeon(s) and Role: [...] Given 11/14/2012 1:57 PM EDT 1 drop HYDROmorphone (DILAUDID) tablet 2 mg 2 mg, Oral, EVERY 4 HOURS PRN, Starting on Wed11/14/12 at 1614, Until Wed11/14/12 at 1933, Pain, May repeat once in 60 minutes if pain not relieved., Routine Given 11/14/2012 5:00 PM EDT 2 mg moxifloxacin (VIGAMOX) 0.5 % ophthalmic solution 1 drop 1 drop, Right Eye, EVERY 5 MIN, 3 doses, First dose on Wed11/14/12 at 1400, Last dose on Wed11/14/12 at 1410, Day of Surgery (Day of Procedure), Routine Given 11/14/2012 2:08 PM EDT 1 drop Given 11/14/2012 2:00 PM EDT 1 drop Given 11/14/2012 1:53 PM EDT 1 drop PHENYLephrine (MYDFRIN) 2.5 [...] 1348, Until Wed11/14/12 at 1350, MALIA MARES: estella override prednisoLONE acetate (PRED FORTE) 1 % ophthalmic [...] Until Wed11/14/12 at 1933, Intra-Operative (Intra-Procedure), Routine 163 (Given - Provid er: Bruno Osorio MD) [...] (Given - Provid er: Bruno Osorio MD) hgqkxeao-bgnjgyjdk-qpviuzjroqdv e (DEXACINE) 3.5-10,000-0.1 mg-unit/g-% ophthalmic ointment (CANCELED) ONCE PRN, Starting on Wed11/14/12 at 1529, Until Wed11/14/12 at 1933, Intra-Operative (Intra-Procedure), Routine 1529 (Given - Provid er: Bruno Osorio MD - Comment: 0.25 ml) povidone-iodine 5 % ophthalmic solution (CANCELED) ONCE PRN, Starting on Wed11/14/12 at 1529, Until Wed11/14/12 at 1933, Irritation, Intra-Operative (Intra-Procedure), Routine 1529 (Given - Provid er: Bruno Osorio MD) documented in this encounter Care Teams Sales Promotion Officer Relationship Specialty Start Date End Date Doe Jenkins PA [address] [place] [address] PCP - General 08/04/12 01/30/20 documented as of this encounter
--- OUTSIDE RECORDS SUMMARY | 2024-07-25 16:06 | XMS_ITS | Encounter Summary ---
[place] [address] Care Team Providers Care Rod Filler Name Role Phone Doe Jenkins Primary Care Provider [phone]- [phone] Encounter Details Date Type Department Care Team (Latest Contact Info) Description 09/21/2016 6:42 AM EDT - 09/21/2016 9:35 AM EDT Hospital Encounter [place] [id number] Conner Castorena MD Aphakia, left eye Discharge Disposition: Home Social History Tobacco Use [...] Sign Reading Time Taken Comments Blood Pressure 113/62 09/21/2016 9:10 AM EDT Pulse 93 09/21/2016 9:10 AM EDT Temperature 36.3 ??C (97.3 ??F) 09/21/2016 9:05 AM ED T Respiratory Rate 18 09/21/2016 9:10 AM EDT Oxygen Saturation 99% 09/21/2016 9:10 AM EDT Inhaled Oxygen Concentration - - Weight 68.9 kg (152 lb) 09/21/2016 6:50 AM EDT Height 175.3 cm (5' 9) 09/21/2016 6:50 AM EDT Body Mass Index 22.45 09/21/2016 6:50 AM EDT documented in this encounter Discharge Instructions * Discharge Instructions* Thania Barber RN - 09/21/2016 9:11 AM EDT Instructions for the first day following CATARACT surgery Conner Castorena MD, [facility], [facility] Section of ophthalmology [facility] [phone] - Wear either the eye shield or glasses of any kind 24 hours per day for the first week following surgery. - The surgery center nurses should confirm time of your follow up appointment for tomorrow with . This appointment will be at the [facility] in the main building at [facility]. - Mild discomfort is normal, but if you have any severe eye pain or bleeding call [phone] and ask to speak to the eye doctor technology applications consultant. - Call you Primary Care Doctor or the Emergency Room for any non eye related medical issues. - Your eye will be red tomorrow - this is normal. - Start your post-op drops in 2 hours. Your post-op drops to take while awake are prednisolone acetate 1% (pink), Vigamox (grove) and Ketorolac (bella) each four times daily. - Be sure to wait 5 minutes between each drop so that they don't dilute each other. - The prednisolone acetate drops (pink) need to be shaken 30 times. - Some of the drops, especially the Ketorolac (bella), may sting. It can be helpful to refrigerate them to make them more comfortable. - If you are on glaucoma drops, it is very important that you keep taking these as usual. - After the first week, stop the vigamox and ketorolac drops and begin tapering your prednisolone drops to 3x/day for 1 week, then 2x/day for 1 week, then 1x/day for 1 week, then STOP. - Bring your Eye Kit to all postoperative visits. Moderate Sedation You may have received medication before and/or during your procedure, which affects your judgement and reaction time. Do not drive, operate machinery, drink alcoholic beverages, or make any legal decisions for 24 hours. Be careful on stairs, as you may be unsteady on your feet. You may eat a regular diet as tolerated. Do not smoke if you are alone. IV site -- slight redness, or tenderness is normal, you can use a warm compress. If tenderness and redness increases or foul drainage occurs, please contact your M. D. Questions or problems after 5pm or on a weekend: Call the [facility] rivet machine operator and ask for the physician technology applications consultant covering for your doctor. documented in this encounter Medications at Time of Discharge Medication Sig Dispensed Refills Start Date End Date acetaminophen (TYLENOL) 325 mg tablet Take 325 mg by mouth every 4 hours as needed. Reported on 09/25/2016 01/26/2017 documented as of this encounter H&P Notes * Conner Castorena MD - 09/21/2016 7:08 AM EDT Images from the original note were not included. Frances Woods was examined in the preoperative area. She reports no new symptoms or other change in her health since her preoperative history and physical exam was performed less than 30 days ago. Her exam reveals no significant changes. She is breathing comfortably, without cyanosis or use of accessory muscles. Vital signs are within acceptable parameters. The eyes are quiet without discharge or other signs of active infection. [place]amp[place]: 1 ASA: ii The sedation plan was reviewed with Frances Woods and she expressed understanding and agreement. REFERENCES: ASA Score: I. Patient is a completely healthy fit patient. II. Patient has mild systemic disease. III. Patient has severe systemic disease that is not incapacitating. IV. Patient has incapacitating disease that is a constant threat to life. V. A moribund patient who is not expected to live 24 hour with or without surgery. Source Note - Conner Castorena MD - 09/20/2016 5:17 PM EDT Patient Name: Frances Woods Patient Age: 45 y.o. Birthdate: 1970 Admit date: (Not on file) Attending Physician: Conner Castorena MD Patient seen 08/31/2016 for pre-op H & P by Doe Jenkins PA-C at [facility] and cleared for today's secondary lens implant surgery left eye with planned 22.5D Tramaine MTA4UO. * Conner Castorena MD - 09/20/2016 5:17 PM EDT Patient Name: Frances Woods Patient Age: 45 y.o. Birthdate: 1970 Admit date: (Not on file) Attending Physician: Conner Castorena MD Patient seen 08/31/2016 for pre-op H & P by Doe Jenkins PA-C at [facility] and cleared for today's secondary lens implant surgery left eye with planned 22.5D Tramaine MTA4UO. documented in this encounter Miscellaneous Notes * Op Note - Conner Castorena MD - 09/21/2016 8:59 AM EDT [facility] Operative Note Patient Name: Frances Woods : [id number] MR#: [id number] Case Date: 09/21/2016 Surgeon: Surgeon(s) and Role: * Conner Castorena MD - Primary Preoperative diagnosis: aphakia left Postoperative diagnosis: aphakia left Procedure(s) (LRB): IOL INSERTION, SECONDARY (WRVU 9.98) (Left) Anesthesia: General Estimated Blood Loss: nil Specimens removed during surgery: None Drains: nil Surgical Closure: Primary Closure - closure of ALL tissue levels during the original surgery regardless of wires, wickes, drains, or other devices extruding through the incision Disposition: awakened from anesthesia, extubated and taken to the recovery room in a stable condition, having suffered no apparent untoward event. 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 A lid speculum was inserted into the interperpebral fissure, lidocaine jellywas applied to the eye, a paracentesis was created infratemporally and a temporal clear corneal wound was fashioned. A 5.5mm beveled temporal clear corneal wound was created and a lens glide was inserted into the anterior chamber. The Tramaine MTA4UO 22.5D AC IOL SN [id number] was then placed atop the lens glide which was then pulled from the eye and the trailing haptic was then placed into the proximal angle. The wound was sutured with three 10-0 nylon sutures and the viscoelastic was flushed from the eye by injecting BSS on a canula. Six attempts were needed to get the central suture to not break, only succeeding after changing tying forceps. The speculum was removed and betadine, vigamox,and maxitrol were instilled into the eye. Infection Bundle used? N/A Attestation: Case Date: 09/21/2016 I performed this procedure without the involvement of a resident. CONNER CASTORENA MD 09/21/2016 documented in this encounter Plan of Treatment Not on file documented as of this encounter Procedures Procedure Name Priority Date/Time Associated Diagnosis Comments IOL INSERTION, SECONDARY (WRVU 9.98) 09/21/2016 8:12 AM EDT Aphakia, left eye documented in this encounter Visit Diagnoses Diagnosis Aphakia, left eye Aphakia Secondary lens implant with Tramaine MTA4UO 22.5D AC IOL left eye Lens replaced by other means documented in this encounter Administered Medications Inactive Administered Medications - up to 3 most recent administrations Medication Order MAR Action Action Date Dose Rate Site acetaminophen (TYLENOL) tablet 650 mg 650 mg, Oral, ONCE PRN, 1 dose, Starting on Wed09/21/16 at 0911, Until Wed09/21/16 at 0920, Pain, Maximum dose of acetaminophen is 4000 mg from all sources in 24 hours., Recovery (Recovery-Hospital Unit), Routine Given 09/21/2016 9:20 AM EDT 650 mg ketorolac tromethamine (ACULAR) 0.5 % ophthalmic solution 1 drop 1 drop, Left Eye, ONCE, 1 dose, On Wed09/21/16 at 0730, 1 drop to the operative eye once, start on day of surgery, Day of Surgery (Day of Procedure), Routine Given 09/21/2016 7:18 AM EDT 1 drop moxifloxacin (VIGAMOX) 0.5 % ophthalmic solution 1 drop 1 drop, Left Eye, EVERY 5 MIN, 3 doses, First dose on Wed09/21/16 at 0730, Last dose on Wed09/21/16 at 0740, 1 drop to the operative eye every 5 minutes times 3. Start on the day of surgery., Day of Surgery (Day of Procedure), Routine Given 09/21/2016 7:35 AM EDT 1 drop Given 09/21/2016 7:30 AM EDT 1 drop Given 09/21/2016 7:18 AM EDT 1 drop pilocarpine (PILOCAR) 2 % ophthalmic solution 1 drop 1 drop, Left Eye, EVERY 5 MIN, 3 doses, First dose on Wed09/21/16 at 0730, Last dose on Wed09/21/16 at 0740, Day of Surgery (Day of Procedure), Routine Given 09/21/2016 7:35 AM EDT 1 drop Given 09/21/2016 7:30 AM EDT 1 drop Given 09/21/2016 7:19 AM EDT 1 drop prednisoLONE acetate (PRED FORTE) 1 % ophthalmic suspension 1 drop 1 drop, Left Eye, ONCE, 1 dose, On Wed09/21/16 at 0730, 1 drop to the operative eye once, start on day of surgery, Day of Surgery (Day of Procedure), Routine Given 09/21/2016 7:18 AM EDT 1 drop documented in this encounter Active and Recently Administered Medications Times are shown in EDT. Scheduled Medication Order 09/19/2016 09/20/2016 09/21/2016 ketorolac tromethamine (ACULAR) 0.5 % ophthalmic solution 1 drop (COMPLETED) 1 drop, Left Eye, ONCE, 1 dose, On Wed09/21/16 at 0730, 1 drop to the operative eye once, start on day of surgery, Day of Surgery (Day of Procedure), Routine 07 (Given - Provid er: Thania Barber RN) moxifloxacin (VIGAMOX) 0.5 % ophthalmic solution 1 drop (COMPLETED) 1 drop, Left Eye, EVERY 5 MIN, 3 doses, First dose on Wed09/21/16 at 0730, Last dose on Wed09/21/16 at 0740, 1 drop to the operative eye every 5 minutes times 3. Start on the day of surgery., Day of Surgery (Day of Procedure), Routine 717 (Given - Provid er: Thania Barber RN)0730 (Given - Provider: Thania Barber RN)0735 (Given - Provider: Thania Barber RN) pilocarpine (PILOCAR) 2 % ophthalmic solution 1 drop (COMPLETED) 1 drop, Left Eye, EVERY 5 MIN, 3 doses, First dose on Wed09/21/16 at 0730, Last dose on Wed09/21/16 at 0740, Day of Surgery (Day of Procedure), Routine 718 (Given - Provid er: Thania Barber RN)07 (Given - Provider: Thania Barber RN)0735 (Given - Provider: Thania Barber RN) prednisoLONE acetate (PRED FORTE) 1 % ophthalmic suspension 1 drop (COMPLETED) 1 drop, Left Eye, ONCE, 1 dose, On Wed09/21/16 at 0730, 1 drop to the operative eye once, start on day of surgery, Day of Surgery (Day of Procedure), Routine 717 (Given - Provid er: Thania Barber RN) Continuous Medication Order 09/19/2016 09/20/2016 09/21/2016 lactated ringers infusion 1,000 mL (CANCELED) 1,000 mL, at 100 mL/hr, Intravenous, CONTINUOUS, Starting on Wed09/21/16 at 0730, Until Wed09/21/16 at 0912, Day of Surgery (Day of Procedure) 08 (New Bag - Prov ider: Annette Fields CRNA)09 (Stopped - Provider: Annette Fields CRNA) PRN Medication Order 09/19/2016 09/20/2016 09/21/2016 acetaminophen (TYLENOL) tablet 650 mg (COMPLETED) 650 mg, Oral, ONCE PRN, 1 dose, Starting on Wed09/21/16 at 0911, Until Wed09/21/16 at 0920, Pain, Maximum dose of acetaminophen is 4000 mg from all sources in 24 hours., Recovery (Recovery-Hospital Unit), Routine 919 (Given - Provid er: Thania Barber, BERNARDA) documented in this encounter Care Teams Rod Filler Relationship Specialty Start Date End Date Doe Jenkins PA [address] [place] [address] PCP - General 08/04/12 01/30/20 documented as of this encounter
--- OUTSIDE RECORDS SUMMARY | 2024-07-25 16:06 | XMS_ITS | Encounter Summary ---
Author Organization [facility] Address [place] [address] Care Team Providers Care Neurology Professor Name Role Phone Doe Jenkins Primary Care Provider [phone]- [phone] Reason for Visit * Reason Comments Eye Pain The patient notes th e acute onset of vision loss in the right eye beginning about 7 days ago. CBC M.D. Blurred Vision Encounter Details Date Type Department Care Team (Late st Contact Info) Description 03/28/2013 1:15 PM EDT [place] [address] Arjun Osorio MD [facility] [place] [address] Endophthalmitis, right eye. Acute-03/28/13. Possible bacterial versus fungal. One definite infiltrate with probable evolving constellation of multiple deep infiltrates (Primary Dx); Endophthalmitis, left eye. Left eye. Vitreous . Endogenous; Tooth abscess following dental extraction. late 2011; Smoker; IV drug abuse Last 6 years ago; Retinal detachment, left; Hepatitis C antibody test positive; Cocaine use Discharge Disposition: Home Social History [...] of this encounter Progress Notes * Arjun Osorio MD - 03/28/2013 2:12 PM EDT Dear Hay; Ish presents today for emergency evaluation of a subretinal infiltrate in the right eye which is similar to that which occurred in the left eye earlier this year. She has resultant poor vision in the left eye as a result of this u defined inflammatory infectious scar .The lesion in the right is a discrete small subretinal infiltrate without retinitis, vasculitis or vitreous seeding. This is clearly not a primary ocular process such as one of the white dot syndromes and appears to be an early fungal process or bacterial process. I've spoken with one of our infectious disease specialists who concurred that we should secure blood cultures including blood fungal cultures with fungal isolato r. They will help secure infectious disease consultation within the next 24-48 hours. Review of the patient's color photographs there signs be subretinal abscess just superonasal to themacula but there also appears to be an evolving constellation of subretinal infiltrates as well. I will forward to copies of these color photographs Given the absence of vitritis, a diagnostic vitreous biopsy would be negative or noncontributory atthis time. Also, the lesion is located in the subretinal space and systemic therapy appears to be the best therapeutic option. However, vitreous biopsy and intravitreal antibiotics or antifungal agents could be considered depending upon her clinical course. Patient will be returning to see me in 5 days. I've asked the patient to see me immediately if there are any problems or challenges Respectfully Arjun Impression: 41 F with h/o IVDU (last about 7 months ago ) and recent tooth extraction followed by febrile illness , now seen for subacute left sided visual changes and the findings of endopthalmitis , concerningfor endogenous endophthalmitis . # Blood cultures as well as cultures from eye ( including g/s, bacterial and fungal ) have remainednegative so far , with no evidence of endocarditis on TTE . Her symptoms remain stable save for thepain /photophobia , which opth is aware of . Overall Her endophthalmitis is unlikely to be infectious (considering negative work up so far ) and we will wait input from repeat opthalmology exam and f/u next week . If there are any signs of worsening she will need repeat cultures etc. # Hep C positive , with ALT 36 - PCR is pending , will plan further work up and f/u appointment based on the quant results Dr. Montoya is one Last note to referring physician I had the opportunity to evaluate Ish Frost for followup evaluation on 01/03/2013. As you [...] at least anatomically, she is perfectly stable. Ish presented today measuring 20/20 in the right [...] visual prognosis. Discussion: I have reviewed with Ish all of my findings and concerns today. From a retina vantage point, she is now perfectly stable. I explained to Ish that a contact lens or an intraocular lens might help, but that she should see you for continuity of care in the next three to four weeks. Throughout this year, I have explained to Ish that her visual prognosis is extremely guarded by virtue of the endogenous endophthalmitis and abscess, which occurred in her left eye. Nevertheless, she would like to do everything possible for visual taoism. From a retina vantage point, there is nothing further, which requires management. I am confident that she will remain attached indefinitely in the left eye after her vitrectomy surgery and a buckle placement. I would be pleased to see her if there are specific retinal issues only. documented in this encounter Plan of Treatment Not on file documented as of this encounter Procedures Procedure Name Priority Date/Time Associated Diagnosis Comments OCT RETINA - OU - BOTH EYES Routine 03/28/2013 10:45 PM EDT Endophthalmitis, right eye. Acute-03/28/13. Possible bacterial versus fungal. One definite infiltrate with probable evolving constellation of multiple deep infiltrates Endophthalmitis, left eye. Left eye. Vitreous . Endogenous FUNDUS PHOTOS - OU- BOTH EYES Routine 03/28/2013 10:45 PM EDT Endophthalmitis, right eye. Acute-03/28/13. Possible bacterial versus fungal. One definite infiltrate with probable evolving constellation of multiple deep infiltrates Endophthalmitis, left eye. Left eye. Vitreous . Endogenous BLOOD CULTURE STAT 03/28/2013 3:30 PM EDT Endophthalmitis, right eye. Acute-03/28/13. Possible bacterial versus fungal. One definite infiltrate with probable evolving constellation of multiple deep infiltrates FUNGUS CULTURE, BLOOD STAT 03/28/2013 3:30 PM EDT Endophthalmitis, right eye. Acute-03/28/13. Possible bacterial versus fungal. One definite infiltrate with probable evolving constellation of multiple deep infiltrates documented in this encounter Results * FUNDUS PHOTOS - OU- BOTH EYES (03/28/2013 10:45 PM EDT) Anatomical Region Laterality Modality Other Narrative 03/28/2013 10:45 PM EDT These photographs reveal a definite subretinal infiltrate just supranasal to the macula. There also appears to be an evolving pattern of multiple infiltrates surrounding the macula as well. Arjun Osorio M.D. Procedure Note Arjun Osorio MD - 03/28/2013 These photographs reveal a definite subretinal infiltrate just supranasalto the macula. There also appears to be an evolving pattern of multipleinfiltrates surrounding the macula as well. Arjun Osorio M.D. Arjun Osorio MD OPHTHALMOLOGY S [facility] ORDERABLES * OCT Olvykm-XP-LDOT EYES (03/28/2013 10:45 PM EDT) Anatomical Region Laterality Modality Other Arjun Osorio MD OPHTHALMOLOGY S [facility] ORDERABLES * Fungus Culture, Blood Blood (03/28/2013 3:30 PM EDT) Fungus Culture Blood ? Patient Name: ISH FROST ?Ordered By: VIGNESH OSORIO ? MR#: [id number] ?LOC: ??4B ? /Sex: ??1970 (42 years), ? Female ? PROCEDURE: Fungus Culture Blood ?SOURCE: Blood ? COLLECTED: 03/28/2013 15:30 ? STARTED: 03/28/2013 15:56 ? FINAL REPORT ? Final Report ? Verified:2012 07:24 ? No Fungus isolated ? PRELIMINARY REPORT ? Preliminary Report ? Verified:2012 07:57 ? No Fungus isolated to date ? [facility] Blood specimen (specimen) 03/28/2013 3:30 PM EDT 03/28/2013 3:56 PM EDT Narrative Resulting Agency Comment Spec In Lab Arjun Osorio MD MICROBIOLOGY - GENERAL ORDERABLES [facility] * Blood culture (03/28/2013 3:30 PM EDT) Blood Culture ? Patient Name: ISH FROST ?Ordered By: VIGNESH OSORIO ? MR#: [id number] ?LOC: ??4B ? /Sex: ??1970 (42 years), ? Female ? PROCEDURE: Blood Culture ?SOURCE: Blood ? COLLECTED: 03/28/2013 15:30 ? STARTED: 03/28/2013 15:56 ? FINAL REPORT ? Final Report ? Verified:2012 15:01 ? No growth at 5 days. ? PRELIMINARY REPORT ? Preliminary Report ? Verified:2012 23:01 ? No growth at 4 days. ? [facility] Blood specimen (specimen) 03/28/2013 3:30 PM EDT 03/28/2013 3:56 PM EDT Narrative Resulting Agency Comment Spec In Lab Arjun Osorio MD MICROBIOLOGY - BLOOD ORDERABLES [facility] documented in this encounter Visit Diagnoses Diagnosis Endophthalmitis, right eye. Acute-03/28/13. Possible bacterial versus fungal. One definite infiltrate with probable evolving constellation of multiple deep infiltrates- Primary Purulent endophthalmitis, unspecified Endophthalmitis, left eye. Left eye. Vitreous . Endogenous Purulent endophthalmitis, unspecified Tooth abscess following dental extraction. late 2011 Periapical abscess without sinus Smoker Tobacco use disorder IV drug abuse Last 6 years ago Other, mixed, or unspecified nondependent drug abuse, unspecified Retinal detachment, left Unspecified retinal detachment Hepatitis C antibody test positive Other and unspecified nonspecific immunological findings Cocaine use Cocaine abuse, unspecified documented in this encounter Care Teams Neurology Professor Relationship Specialty Start Date End Date Doe Jenkins PA [address] [place] [address] PCP - General 08/04/12 01/30/20 documented as of this encounter
--- OUTSIDE RECORDS SUMMARY | 2024-07-25 16:06 | XMS_ITS | Encounter Summary ---
[place] [address] Care Team Providers Care Boat Worker Name Role Phone Doe Jenkins Primary Care Provider [phone]- [phone] Reason for Visit * Reason Onset Date Comments Follow-up 04/12/2013 Encounter Details Date Type Department Care Team (Late st Contact Info) Description 04/12/2013 Telephone [place] [id number] Michelle Mccullough RN Follow-up Social History Tobacco Use Types Packs/Day Years [...] encounter Miscellaneous Notes * Telephone Encounter - Michelle Woods RN - 04/14/2013 12:49 PM EDT Have not heard back from Frances. Tried calling her emergency contacts. The number listed under a friend, Marlon, is on longer in service. The number listed under her child, Isaac, no one answered and there was no vm/answering machine. I will send a letter to her last known address on file. I will inform Dr. Gomes I was unable to get in touch with her. If she resurfaces, I will meet with her and provider her resources for social worker school. * Telephone Encounter - Michelle Woods RN - 04/12/2013 4:29 PM EDT Requested by Dr. Gomes to follow up with Frances for a no show today. I called the home, mobile, and alternate phone numbers listed in her chart. I was able to leave a message on her home and mobile phones and spoke with a friend at the alternate number. The friend informed me she had been living with her, but was not longer there at that her phone was out of minutes. I left my name and number with the friend and she was going to try and contact the patient through Facebook. At this point her living situation is unknown, but if I do not hear from her in the next two day I will send a letter out to her last known address. documented in this encounter Plan of Treatment Not on file documented as of this encounter Visit Diagnoses Not on filedocumented in this encounter Care Teams Boat Worker Relationship Specialty Start Date End Date Doe Jenkins PA [address] [place] [address] PCP - General 08/04/12 01/30/20 documented as of this encounter
--- OUTSIDE RECORDS SUMMARY | 2024-07-25 16:06 | XMS_ITS | Encounter Summary ---
[facility] [place] [address] Care Team Providers Care Permanent Mold Supervisor Name Role Phone Doe Jenkins Primary Care Provider +1- [phone] Reason for Visit * Reason Comments Post Op S/p AC IOL OS 017 Encounter Details Date Type Department Care Team (Late st Contact Info) Description 10/01/2016 9:15 AM EDT Office [place] [phone] Conner Castorena MD Secondary lens implant with [...] this encounter Patient Instructions * Patient Instructions* Connre Castorena MD - 10/01/2016 9:15 AM EDT HPI Post Op Additional comments: S/p AC IOL OS 09/21/2016 Comments Patient here today for 2 week check status post cataract surgery left eye done 09/21/16 (anterior chamber lens) Patient reports left eye is very irritated and tender to touch. No eye pain, but rates the discomfort at 5/10. She has more frequent headaches over the left eye increasing over past several days, and she is discouraged because nothing is any better. No vision improvement, and her eye is discolored. Currently using: prednisolone left eye 3 times daily, no other drops QUINN Cisneros has performed the documentation for this encounter acting as a scribe for CONNER CASTORENA MD. I performed the above scribed service and agree with the accuracy of the documentation in this encounter Last edited by Conner Castorena MD on 10/01/2016 9:49 AM. (History) Secondary lens implant with Tramaine MTA4UO 22.5D AC IOL left eye 09/21/2016 Assessment: 10 days out from the secondary lens implant Vision still distorted and likely corneal sutures contributing to this Plan: Cut the central suture today to reduce the degree of distortion Use ciloxan drops 4x/day for 3 days to prevent infection (sample given) For additional information about eye conditions, visit the Eye Facts portion of my website at http://[employer]/eye-education/ and I also started a Glaucoma Patient Group on [employer] (htt ps://[employer]/groups/glaucomapatientgroup) for patients to seek help from one another. (Search for Glaucoma Patient Group and then ask to join.) documented in this encounter Progress Notes * Conner Castorena MD - 10/01/2016 9:15 AM EDT Secondary lens implant with Tramaine MTA4UO 22.5D AC IOL left eye 09/21/2016 Assessment: 10 days out from the secondary lens implant Vision still distorted and likely corneal sutures contributing to this Plan: Cut the central suture today to reduce the degree of distortion Use ciloxan drops 4x/day for 3 days to prevent infection (sample given) documented in this encounter Miscellaneous Notes * Assessment & Plan Note - Conner Castorena MD - 10/01/2016 9:50 AM EDT Associated Problem(s): Secondary lens implant with Tramaine MTA4UO 22.5D AC IOL left eye 09/21/2016 Assessment: 10 days out from the secondary lens implant Vision still distorted and likely corneal sutures contributing to this Plan: Cut the central suture today to reduce the degree of distortion Use ciloxan drops 4x/day for 3 days to prevent infection (sample given) documented in this encounter Plan of Treatment Not on file documented as of this encounter Visit Diagnoses Diagnosis Secondary lens implant with Tramaine MTA4UO 22.5D AC IOL left eye 09/21/2016 Lens replaced by other means documented in this encounter Care Teams Permanent Mold Supervisor Relationship Specialty Start Date End Date Doe Jenkins PA [address] [place] [address] PCP - General 08/04/12 01/30/20 documented as of this encounter
--- OUTSIDE RECORDS SUMMARY | 2024-07-25 16:06 | XMS_ITS | Encounter Summary ---
Author Organization [facility] Address [facility] [place] [address] Care Team Providers Care Database Designer Name Role Phone Doe Jenkins Primary Care Provider +1- [phone] Encounter Details Date Type Department Care Team (Latest Contact Info) Description 02/03/2017 - 02/03/2017 11:59 PM EDT Hospital Encounter [facility] [place] [phone] Beata Rogers MD [facility] [address] Pain Discharge Disposition: Home Social History Tobacco [...] Sig Dispensed Refills Start Date End Date ibuprofen (ADVIL;MOTRIN) 400 mg Tablet Take 400 mg by mouth every 6 hours as needed for Pain. documented as of this encounter Plan of Treatment Not on file documented as of this encounter Procedures Procedure Name Priority Date/Time Associated Diagnosis Comments FILM LIBRARY STORAGE ONLY ULTRASOUND STUDY Routine 02/03/2017 12:00 AM EDT Pain documented in this encounter Results * Film Library- Storage Only Ultrasound Study (02/03/2017 12:00 AM EDT) Narrative [facility] - 02/03/2017 3:48 PM EDT This exam is for storage only and is auto-finalizing. Beata Rogers MD IMG FILM LIBRARY ORD ERABLES Performing Organization Address City/State/[facility] Co de Phone Number [place], [place] documented in this encounter Visit Diagnoses Diagnosis Pain Generalized pain documented in this encounter Care Teams Database Designer Relationship Specialty Start Date End Date Doe Jenkins PA [address] [place] [address] PCP - General 08/04/12 01/30/20 documented as of this encounter
--- OUTSIDE RECORDS SUMMARY | 2024-07-25 16:06 | XMS_ITS | Encounter Summary ---
[place] [address] Care Team Providers Care Analytical Lead Name Role Phone Doe Jenkins Primary Care Provider +1- [phone] Reason for Visit * Reason Onset Date Comments Eye Problem 09/30/2016 Patient s/p Seco ndary AC IOP OS 09/21/16 calling with continued symptoms Encounter Details Date Type Department Care Team (Late st Contact Info) Description 09/30/2016 [place] [address] Leonardo Castorena MD Eye Problem (Patient s/p Secondary AC IOP OS 09/21/16 calling with continued symptoms) Social History Tobacco Use Types Packs/Day Years [...] encounter Miscellaneous Notes * Telephone Encounter - Maria Victoria Roach COT - 09/30/2016 12:38 PM EDT Patient concerned as vision LE has not improved and reports increased redness with achy feeling. Scheduled appointment with Dr. Castorena for tomorrow, 10/01/16. * Telephone Encounter - Maria Victoria Roach COT - 09/30/2016 11:16 AM EDT Patient calling to report, vision LE continues to be blurred with new achy feeling and irritation. Leonardo Castorena MD at 09/25/2016 ??1:45 PM ? Author Type: Physician Status: Signed Luster Repairer: Leonardo Castorena MD (Physician) ?? Secondary lens implant with Tramaine MTA4UO 22.5D AC IOL left eye 09/21/2016 Things look great <=1 week following cataract surgery left eye ?? Stop taking the ketorolac (bella top) and vigamox (beige top) drops at the 1 week higinio starting on Wednesday September 28, 2016 Taper the prednisolone acetate 1% after the 1 week higinio as follows starting on Wednesday September 28, 2016: 3x/day for 1 week 2x/day for 1 week 1x/day for 1 week Then STOP. ?? Return 6 weeks post-op; sooner if vision worse, eye red or pain. documented in this encounter Plan of Treatment Not on file documented as of this encounter Visit Diagnoses Not on filedocumented in this encounter Care Teams Analytical Lead Relationship Specialty Start Date End Date Doe Jenkins PA [address] [place] [address] PCP - General 08/04/12 01/30/20 documented as of this encounter
--- OUTSIDE RECORDS SUMMARY | 2024-07-25 16:06 | XMS_ITS | Encounter Summary ---
Author Organization [facility] Address [facility] [place] [address] Care Team Providers Care Scaffold Erector Name Role Phone Doe Jenkins Primary Care Provider +1- [phone] Reason for Visit * Reason Onset Date Comments Post-op Problem 10/26/2016 Encounter Details Date Type Department Care Team (Late st Contact Info) Description 10/26/2016 Telephone [place] [phone] Jhonathan Tuttle MD [facility] [address] Post-op Problem Social History Tobacco Use Types Packs/Day Years [...] encounter Miscellaneous Notes * Telephone Encounter - Jhonathan Tuttle MD - 10/26/2016 8:39 AM EDT DOC call on Wednesday to report FBS OS follow suture removal on 10/23. Vision is stable. No excessivetearing. I explained that this is likely epithelial disruption following suture removal and discussed the possibility of a wound leak, but she strongly affirmed that there was not fluid coming out ofthe eye. I offered to see her but she indicated that she was reassured and would continue with current plan for follow up with Dr. Castorena and continue on ciloxan drops as instructed. Discussed with Schertzer documented in this encounter Plan of Treatment Not on file documented as of this encounter Visit Diagnoses Not on filedocumented in this encounter Care Teams Scaffold Erector Relationship Specialty Start Date End Date Doe Jenkins PA [address] [place] [address] PCP - General 08/04/12 01/30/20 documented as of this encounter
--- OUTSIDE RECORDS SUMMARY | 2024-07-25 16:06 | XMS_ITS | Encounter Summary ---
Author Organization [facility] [place] [address] Care Team Providers Care Director Private Music Therapy Agency Name Role Phone Doe Jenkins Primary Care Provider +1- [phone] Reason for Visit * Reason Comments Blurred Vision The patient presents for postoperative do want evaluation and has minimal pain only.. Very comfortable. JUSTIN Moralez Encounter Details Date Type Department Care Team (Late st Contact Info) Description 11/15/2012 10:00 AM EDT Office [place] [address] Arjun Lockhart MD [facility] 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 This was followed by gas exchange and creation of an additional peripheral iridectomy. I reviewed with the patient possible iatrogenic injury to the macula from membrane peeling with small crescenteric defect. Stable today. Pred forte and Vigamox each 4 times a day. Cosopt twice a day Position 75% a day for 7 days. Do not lay flat on back. Call if pain nausea vomiting. Patient to return in: 1 week For: dilate OS documented in this encounter Plan of Treatment Not on file documented as of this encounter Visit Diagnoses Diagnosis Endophthalmitis, left eye. Left eye. Vitreous . Endogenous- Primary Purulent endophthalmitis, unspecified Retinal detachment, left Unspecified retinal detachment Tooth abscess following dental extraction 1-1/2 months ago per patient history Periapical abscess without sinus Smoker Tobacco use disorder documented in this encounter Care Teams Director Private Music Therapy Agency Relationship Specialty Start Date End Date Doe Jenkins PA [address] [place] [address] PCP - General 08/04/12 01/30/20 documented as of this encounter
--- OUTSIDE RECORDS SUMMARY | 2024-07-25 16:06 | XMS_ITS | Encounter Summary ---
Author Organization [facility] Address [facility] [place] [address] Care Team Providers Care Bond Clerk Name Role Phone Doe Jenkins Primary Care Provider +1- [phone] Reason for Visit * Reason Comments Blurred Vision OS * Consultation (Routine) - Specialty Diagnoses / Procedures Referred By Nanette downey Referred To Contact Ophthalmology Diagnoses aphakic pt interpred in iol Procedures consult, test & treat Siva [place], OD [address] [place] [address] Arjun Lockhart MD [facility] [address] [place] [address] Referral ID Status Reason Start Date Expiration Date V isits Requested Visits Authorized [id number] 03/09/2016 03/09/2017 1 1 Encounter Details Date Type Department Care Team (Late st Contact Info) Description 04/28/2016 3:45 PM EST [place] [address] Arjun Lockhart MD [facility] [address] 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 Acute. Possible bacterial versus fungal; Retinal detachment, left Social History Tobacco Use Types Packs/Day Years [...] Progress Notes * Arjun Lockhart MD - 04/28/2016 3:45 PM EST History of endogenous endophthalmitis 2012 Small focal scar supranasal to macula right eye. Stable Left eye status post vitrectomy and intravitreal therapy for peripapillary abscess extending into central macular with folds. Excised surgically. Subsequent severe and profound PVR followed by complex surgery including membrane peeling silicone oil and lensectomy ultimately brought under control. Silicone oil removed. History of IV drug abuse and smoking history In the right eye, the patient is perfectly stable and no new pathology or complex anatomy as defined. In the left eye, remarkably, she remains attached without signs of recurrent membrane formation. Heis currently aphakic. The retinas perfectly attached and the macular anatomy looks quite good on examination as well as judged by spectral domain imaging. No edema or membrane is identified Visual potential is unclear, but will have the patient see one of our colleagues here for possible anterior chamber lens placement if benefits outweigh the risks. If anterior chamber lens surgery is not indicated, then the patient could return to see you for contact lens placement 41 F with h/o IVDU (last about 7 months ago ) and recent tooth extraction followed by febrile illness , now seen for subacute left sided visual changes and the findings of endopthalmitis , concerningfor endogenous endophthalmitis . ?? # Blood cultures as well as cultures [...] worsening she will need repeat cultures etc. ?? # Hep C positive , with ALT 36 - PCR is pending , will plan further work up and f/u appointment based on the quant results Dr. Montoya is one This patient was not seen in this encounter. 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 Acute. Possible bacterial versus fungal Retinal detachment, left documented in this encounter Results * OCT [id number] EYES (05/03/2016 1:12 PM EST) Anatomical Region Laterality Modality Other Narrative 05/03/2016 1:12 PM EST Good contour defined right eye but no evidence of macular pucker. Left eye surprisingly good contour despite removal of peripapillary abscess. No edema or membrane Arjun Lockhart MD OPHTHALMOLOGY S [facility] ORDERABLES documented in this encounter Visit Diagnoses Diagnosis IV drug abuse Last 6 years ago Other, mixed, or unspecified nondependent drug abuse, unspecified Endophthalmitis, left eye. Left eye. Vitreous . Endogenous Purulent endophthalmitis, unspecified Endophthalmitis, right eye. Acute. Possible bacterial versus fungal Purulent endophthalmitis, unspecified Retinal detachment, left Unspecified retinal detachment documented in this encounter Care Teams Bond Clerk Relationship Specialty Start Date End Date Doe Jenkins PA [address] [place] [address] PCP - General 08/04/12 01/30/20 documented as of this encounter
--- OUTSIDE RECORDS SUMMARY | 2024-07-25 16:06 | XMS_ITS | Encounter Summary ---
Author Organization [facility] [place] [address] Care Team Providers Care Traveling Storekeeper Name Role Phone Doe Jenkins Primary Care Provider +1- [phone] Reason for Visit * Reason Onset Date Comments Appointment 09/19/2018 Encounter Details Date Type Department Care Team (Late st Contact Info) Description 09/19/2018 Telephone [place] [phone] Eloisa Torrez Appointment Social History Tobacco Use Types Packs/Day Years [...] encounter Miscellaneous Notes * Telephone Encounter - Eloisa Torrez - 09/19/2018 10:20 AM EDT Caller and relationship to patient (if other than patient): PCP Office Best time to reach caller: Anytime Message or Reason for Call: Please contact patient at above number to schedule appointment, referral sent 08/17/18. Appt Needed and Reason: Yes Hepatitis Provider: TBD documented in this encounter Plan of Treatment Not on file documented as of this encounter Goals Goal Patient Goal Type Associated Problems Recent Progress Patient-Stated? Author [facility] Medication Compliance and Understanding Patient Facing Action Plan No Thania Weston, [facility] Note: SVR12 through treatment with Mavyret. documented as of this encounter Visit Diagnoses Not on filedocumented in this encounter Care Teams Traveling Storekeeper Relationship Specialty Start Date End Date Doe Jenkins PA [address] [place] [address] PCP - General 08/04/12 01/30/20 documented as of this encounter
--- OUTSIDE RECORDS SUMMARY | 2024-07-25 16:06 | XMS_ITS | Encounter Summary ---
[place] [address] Care Team Providers Care Billing Adjudicator Name Role Phone Doe Jenkins Primary Care Provider +1- [phone] Encounter Details Date Type Department Care Team (Late st Contact Info) Description 09/30/2018 2:00 PM EDT Office Visit [place] [id number] Yariel Porter PA [address] [place] [address] [place] [address] Chronic hepatitis C without hepatic coma (Primary Dx); Low serum alkaline phosphatase; Opioid abuse, in remission Social History Tobacco [...] Pulse 79 09/30/2018 1:53 PM EDT Temperature - - Respiratory Rate - - Oxygen Saturation - - Inhaled Oxygen Concentration - - Weight 67.3 kg (148 lb 6.4 oz) 09/30/2018 1:53 P M EDT Height 175.3 cm (5' 9) 09/30/2018 1:53 PM EDT Body Mass Index 21.91 09/30/2018 1:53 PM EDT documented in this encounter Progress Notes * Yariel Porter PA - 09/30/2018 2:00 PM EDT Images from the original note were not included. Gastroenterology and Hepatology Follow Up Note Patient: Frances Woods Sex: female : 1970 Provider: Yariel Porter PA-C PCP: ABDIRAHMAN Valenzuela LIVER HISTORY Chronic hepatitis C infection - Genotype 2 - Risk factors include IVDU, intranasal drug use, homemade tattoos, HCV+ parents - Clean from illicit drugs approximately 5 years - RNA 4,954,608 on 07/14/2012 - RNA 7,379,751 on 01/04/17 - Fibroscan 01/26/17: 5.4 kPa, 9% IQR; c/w F0-F1 fibrosis - F0 on liver fibrosis panel 01/26/17 - Additional infectious workup 01/26/17: HAV Ab neg, HBsAb pos, HBsAg neg, HBcAb pos (indicating prior natural infection/exposure) - Ultrasound 02/03/17 showed normal liver - Updated HCV RNA 08/04/18 = 2,474,612 IU/mL PROBLEM LIST Patient Active Problem List Diagnosis Code ??? Endophthalmitis, left eye. Left eye. Vitreous . Endogenous H44.002 ??? Retinal detachment, left H33.22 ??? Cocaine use F14.90 ??? Smoker F17.200 ??? Pain R52 ??? Endophthalmitis, right eye. Acute. Possible bacterial versus fungal H44.001 ??? Opioid abuse, in remission F11.11 ??? Secondary lens implant with Tramaine MTA4UO 22.5D AC IOL left eye 09/21/2016 Z96.1 ??? Chronic hepatitis C without hepatic coma B18.2 Interval History: Ms. Frances Woods is 47 y.o. with a history of chronic hepatitis C infection who returns to Hepatology clinic for follow-up regarding treatment options. I met with Ms. Woods in January 2017 forinitial consultation and unfortunately she was denied insurance coverage at that time for treatmentdue to low fibrosis. She states that she finally feels like she is getting effects from her infection. She is tired all the time no matter how long she sleeps, her hair is starting to fall out, and her headaches have been worsening. She recently saw a neurologist for her headaches as well as her visual issues and was advised to start Topamax though she is concerned that this might cause worsening vision so she has not started it yet. She is hoping that if she does start it that it would be safe to use if she is treated for her infection. She also notes that she has some issues with grabbing objects at times that her arm freezes up and she cannot grasp. She has not had any alcohol in the last 1-1/2 months, though she does think that she would have some beer here and there this summer because of the nice weather. She is still smoking marijuana, though she has a plan to quit next month on Mother's Day, since this would be the 5-year anniversary of her being sober from opiates. MEDICATIONS: Current Outpatient Medications Medication Sig Dispense Refill ??? zolpidem (AMBIEN CR) 6.25 mg Tablet, Multiphasic Release TAKE ONE TABLET BY MOUTH EVERY DAY AT BEDTIME NEEDED FOR SLEEP 0 ??? prednisoLONE acetate (PRED FORTE) 1 % Drops, Suspension INSTILL 1 DROP INTO THE LEFT EYE TWO TIMES A DAY 3 ??? fish oil-omega-3 fatty acids 1,000 mg Capsule Take 2 g by mouth daily. ??? ibuprofen (ADVIL;MOTRIN) 400 mg Tablet Take 400 mg by mouth every 6 hours as needed for Pain. ??? PROAIR HFA 90 mcg/actuation HFA Aerosol Inhaler INHALE TWO PUFFS BY MOUTH EVERY 4 TO 6 HOURS 2 ??? topiramate (TOPAMAX) 25 mg Tablet TAKE ONE TABLET BY MOUTH EVERY DAY AT BEDTIME 1 ??? NICOTROL 10 mg Cartridge USE ONE CARTRIDGE DIRECTED NEEDED WITH A MAXIMUM OF 16 CARTRIDGES PER DAY 0 No current facility-administered medications for this visit. ALLERGIES/ADR Allergies Allergen Reactions ??? Prochlorperazine PHYSICAL EXAMINATION: Vitals: 09/30/18 1353 BP: 116/63 Pulse: 79 Weight: 67.3 kg (148 lb 6.4 oz) Height: 175.3 cm (5' 9) Body mass index is 21.91 kg/m??. Constitutional: Well appearing, appropriate, no acute distress Skin: No cyanosis, no palmar erythema, no jaundice, no spider angiomata Head: Left pupil nonreactive (prior lens implant), normocephalic, sclerae anicteric, oropharynx within normal limits Abdomen: Nontender, nondistended Neurologic: Alert and oriented x 3, no tremor Extremities: No edema, no clubbing, no muscle wasting, no joint swelling PERTINENT LABS AND IMAGING: Recent Results (from the past 24 hour(s)) Ceruloplasmin Result Value Ref Range Ceruloplasmin 25.0 16.0 - 45.0 mg/dL HIV Screen, 4th Generation Result Value Ref Range HIV-1/2 Ab and Ag Negative Negative Comprehensive metabolic panel (non-fasting) Result Value Ref Range Glucose Lvl 87 65 - 199 mg/dL BUN 13 8 - 18 mg/dL Creatinine 0.67 (L) 0.70 - 1.20 mg/dL Sodium 141 135 - 145 mmol/L Potassium 4.0 3.5 - 5.0 mmol/L Chloride 101 98 - 107 mmol/L CO2 27 22 - 31 mmol/L Anion Gap 13 5 - 15 mmol/L Calcium 9.4 8.5 - 10.5 mg/dL Total Protein 7.5 6.1 - 8.0 gm/dL Albumin 4.7 3.2 - 5.2 gm/dL AST 19 0 - 30 unit/L ALT 21 0 - 30 unit/L Alk Phos 33 (L) 40 - 104 unit/L Total Bilirubin 0.3 0.2 - 1.3 mg/dL eGFR 105 >=60 mL/min/1.73 m?? eGFR 121 >=60 mL/min/1.73 m?? Hemogram Result Value Ref Range WBC 6.0 4.0 - 9.5 x10(3)/mcL RBC 4.67 4.00 - 5.21 x10(6)/mcL Hemoglobin 13.5 11.7 - 15.5 gm/dL Hematocrit 41.1 35.7 - 45.8 % MCV 88.0 82.6 - 94.4 fL MCH 28.9 27.1 - 32.0 pg MCHC 32.8 31.7 - 35.0 gm/dL Platelets 151 145 - 357 x10(3)/mcL RDWSD 43.4 37.0 - 46.0 fL RDWCV 13.4 11.5 - 14.1 % MPV 10.8 7.6 - 12.9 fL nRBC % Auto 0.0 % nRBC Abs Auto 0.000 0.000 - 0.000 x10(3)/mcL Differential, Automated Result Value Ref Range Neutrophils % 44.5 % Neutr Abs (ANC) 2.68 1.70 - 6.10 x10(3)/mcL Lymphocytes % 47.7 % Lymphocytes Abs 2.9 0.9 - 3.2 x10(3)/mcL Monocytes % 6.3 % Monocyte Abs 0.4 0.3 - 0.9 x10(3)/mcL Eosinophils % 0.8 % Eosinophils Abs 0.0 0.0 - 0.4 x10(3)/mcL Basophils % 0.5 % Basophils Abs 0.0 0.0 - 0.1 x10(3)/mcL Immature Gran % 0.20 % Karlene Gran Abs 0.01 0.00 - 0.04 x10(3)/mcL 08/04/18 @ [facility]: Imaging: Ultrasound 02/03/17 @ [facility]: ASSESSMENT & PLAN: Frances Woods is a 47 y.o. female with known chronic hepatitis C infection, genotype 2, with recent viral load in July of 2.74 million IU/mL. She was previously denied coverage through her insurance in 2017 due to low fibrosis. Fortunately, there have been changes in medication coverage and I do think that we will be successful in getting her approved now. She is continue to remain soberfrom all illicit drug use and has even cut out alcohol. She seems very much dedicated to this treatment and now is an appropriate time to treat her because she is now starting to feel clear symptoms of this infection with fatigue, headaches, and possible hair loss. We would like to treat the patient's chronic infection in order to prevent progression of any preexisting liver damage, and decrease risk of developing other chronic diseases such as diabetes. We discussed the importance of abstinence from all drug and alcohol use, as well as adherence to treatment regimen, once approved, with regular lab work, phone calls with nursing staff, and follow-up appointments post-treatment. The majority of pretreatment laboratory workup has been completed, notable for positive hep B core antibody though positive hep B surface antibody indicating possible exposure/infection with natural immunity. We will need to check hep B surface antigen test during treatment. An HIV screen today wasnegative. I also checked a ceruloplasmin level today to screen for Sam disease given her history of low alkaline phosphatase levels and neurologic issues such as neuropathy, headaches, and ocular inflammation. This was normal and so she does not need any further workup. Plan: -Submit prior authorization for direct acting antiviral therapy. This will very likely be an 8-weekcourse of glecaprevir (300 mg)/pibrentasvir (120 mg) (Mavyret) given genotype 2, treatment na??ve, and no cirrhosis. -Continue alcohol and drug abstinence. -Okay to start Topamax from a liver perspective and throughout treatment. -Provided contact and treatment process information today including laboratory schedule. She would [facility] go to [facility] for her treatment labs. -Follow-up with primary care as needed/planned. 23 of this 25 minute visit was in [id number] discussion regarding disease, prognosis and treatment. ABDIRAHMAN Cullen-C Section of Gastroenterology [place] [address] Cc: ABDIRAHMAN Valenzuela @[email or web address]@ documented in this encounter Plan of Treatment Not on file documented as of this encounter Procedures Procedure Name Priority Date/Time Associated Diagnosis Comments HEMOGRAM Routine 09/30/2018 2:45 PM EDT Chronic hepatitis C without hepatic coma DIFFERENTIAL, AUTOMATED Routine 09/30/2018 2:45 PM EDT Chronic hepatitis C without hepatic coma CERULOPLASMIN Routine 09/30/2018 2:45 PM EDT Low serum alkaline phosphatase HIV SCREEN, 4TH GENERATION ([facility]/CGP/APD/NLH)PERF ORMABLE Routine 09/30/2018 2:45 PM EDT Chronic hepatitis C without hepatic coma CBC (WITH DIFF) Routine 09/30/2018 2:45 PM EDT Chronic hepatitis C without hepatic coma COMPREHENSIVE METABOLIC PANEL Routine 09/30/2018 2:45 PM EDT Chronic hepatitis C without hepatic coma documented in this encounter Results * Differential, Automated (09/30/2018 2:45 PM EDT) Pathologist [facility] Neutrophil % 44.5 % [facility] Neutrophil Absolute 2.68 1.70 - 6.10 x10(3)/[facility] Lymph % 47.7 % [facility] Lymphocytes Abs 2.9 0.9 - 3.2 x10(3)/[facility] Monocyte % 6.3 % [facility] Monocyte Abs 0.4 0.3 - 0.9 x10(3)/[facility] Eos % 0.8 % [facility] Eosinophils Abs 0.0 0.0 - 0.4 x10(3)/[facility] Basophil % 0.5 % [facility] Baso Absolute 0.0 0.0 - 0.1 x10(3)/[facility] Immature Gran % 0.20 % [facility] Comment: Immature granulocytes(IG's)percentage and absolute count will include metamyelocytes, myelocytes, and promyelocytes. Blood smears from CBCs yielding IG's will be scanned manually for concordance. If this scan disagrees with the automated IG or if promyelocytes are noted, a manual differential will be performed. Immature Gran Absolute 0.01 0.00 - 0.04 x10(3)/[facility] Blood specimen (specimen) 09/30/2018 2:45 PM EDT 09/30/2018 3:06 PM EDT Narrative Resulting Agency Comment Spec In Lab Yariel GARY HEMATOLOGY ORDERABLE S [facility] [place] [address] * Hemogram (09/30/2018 2:45 PM EDT) Pathologist [facility] White Blood Cell 6.0 4.0 - 9.5 x10(3)/[facility] Red Blood Cell 4.67 4.00 - 5.21 x10(6)/[facility] Hemoglobin 13.5 11.7 - 15.5 gm/dL [facility] Hematocrit 41.1 35.7 - 45.8 % [facility] Mean Cell Volume 88.0 82.6 - 94.4 fL [facility] Mean Cell Hemoglobin 28.9 27.1 - 32.0 pg [facility] Mean Cell Hemoglobin Concentration 32.8 31.7 - 35.0 gm/dL [facility] Platelet 151 145 - 357 x10(3)/[facility] RDW Standard Deviation 43.4 37.0 - 46.0 fL [facility] RDW coefficient of variation 13.4 11.5 - 14.1 % [facility] Mean Platelet Volume 10.8 7.6 - 12.9 fL [facility] NRBC% auto 0.0 % [facility] NRBC Absolute 0.000 0.000 - 0.000 x10(3)/[facility] Blood specimen (specimen) 09/30/2018 2:45 PM EDT 09/30/2018 3:06 PM EDT Narrative Resulting Agency Comment Spec In Lab Yariel GARY HEMATOLOGY ORDERABLE S Performing Organization Address City/[facility]/ZIP Co de Phone Number [facility] [place] [address] * Ceruloplasmin (09/30/2018 2:45 PM EDT) Ceruloplasmin 25.0 16.0 - 45.0 mg/dL [facility] Blood specimen (specimen) 09/30/2018 2:45 PM EDT 09/30/2018 3:06 PM EDT Narrative Resulting Agency Comment Spec In Lab Beata Rogers MD CHEMISTRY ORDERABLES [facility] [place] [address] * HIV Screen, 4th Generation (09/30/2018 2:45 PM EDT) Pathologist [facility] HIV Ab/Ag Screen Negative Negative [facility] Comment: This 4th Generation HIV [...] In Lab Beata Rogers MD CHEMISTRY ORDERABLES [facility] [place] [address] * (ABNORMAL) Comprehensive metabolic panel (non-fasting) (09/30/2018 2:45 PM EDT) Pathologist [facility] Glucose 87 65 - 199 mg/dL [facility] Comment:Diabetes: >=200 mg/d L plus symptoms Blood Urea Nitrogen 13 8 - 18 mg/dL [facility] Creatinine 0.67(L) 0.70 - 1.20 mg/dL [facility] Sodium 141 135 - 145 mmol/L [facility] Potassium 4.0 3.5 - 5.0 mmol/L [facility] Comment: Please note: ??Patients with WBC >100,000 may have falsely elevated Potassium levels. ??For accurate Potassium quantification in these patients send serum separator tube (gold top) for subsequent determinations. ??Contact the Clinical Chemistry Laboratory if there are any questions. Chloride 101 98 - 107 mmol/L [facility] Carbon Dioxide 27 22 - 31 mmol/L [facility] Anion Gap 13 5 - 15 mmol/L [facility] Calcium 9.4 8.5 - 10.5 mg/dL [facility] Protein, Total 7.5 6.1 - 8.0 gm/dL [facility] Albumin 4.7 3.2 - 5.2 gm/dL [facility] Aspartate Aminotransferase 19 0 - 30 unit/L [facility] Alanine Aminotransferase 21 0 - 30 unit/L [facility] Alkaline Phosphatase 33(L) 40 - 104 unit/L [facility] Bilirubin, Total 0.3 0.2 - 1.3 mg/dL [facility] Est Glomerular Filtration Rate 105 >=60 mL/min/1. 73 m?? [facility] Comment: The eGFR was calculated using the CKD-EPI equation. As with all creatinine based estimates of kidney function, eGFR values calculated with the CKD-EPI equation are not accurate in patients with acute kidney failure, extremes of body mass or the acutely ill. http://[employer] Networknkf eGFR 121 >=60 mL/min/1. 73 m?? [facility] Comment: The eGFR was calculated using the CKD-EPI equation. As with all creatinine based estimates of kidney function, eGFR values calculated with the CKD-EPI equation are not accurate in patients with acute kidney failure, extremes of body mass or the acutely ill. http://[employer]/[facility]nkf Blood specimen (specimen) 09/30/2018 2:45 PM EDT 09/30/2018 3:06 PM EDT Narrative Resulting Agency Comment Spec In Lab Beata Rogers MD CHEMISTRY ORDERABLES [facility] [place] [address] documented in this encounter Visit Diagnoses Diagnosis Chronic hepatitis C without hepatic coma- Primary Low serum alkaline phosphatase Opioid abuse, in remission documented in this encounter Care Teams Billing Adjudicator Relationship Specialty Start Date End Date Doe Jenkins PA [address] [place] [address] PCP - General 08/04/12 01/30/20 documented as of this encounter
--- OUTSIDE RECORDS SUMMARY | 2024-07-25 16:06 | XMS_ITS | Encounter Summary ---
[place] [address] Care Team Providers Care Motor Electrician Name Role Phone Doe Jenkins Primary Care Provider +1- [phone] Encounter Details Date Type Department Care Team (Late st Contact Info) Description 09/21/2016 8:10 AM EDT - 09/21/2016 9:03 AM EDT Surgery [facility] [place] [id number] Conner Castorena MD IOL INSERTION, SECONDARY (WRVU 9.98) Social History Tobacco Use Types Packs/Day Years [...] Sign Reading Time Taken Comments Blood Pressure 110/70 09/21/2016 6:50 AM EDT Pulse 76 09/21/2016 6:50 AM EDT Temperature 37.1 ??C (98.8 ??F) 09/21/2016 6:50 AM ED T Respiratory Rate 18 09/21/2016 6:50 AM EDT Oxygen Saturation 100% 09/21/2016 6:50 AM EDT Inhaled Oxygen Concentration - - Weight 68.9 kg (152 lb) 09/21/2016 6:50 AM EDT Height 175.3 cm (5' 9) 09/21/2016 6:50 AM EDT Body Mass Index 22.45 09/21/2016 6:50 AM EDT documented in this encounter Discharge Instructions * Discharge Instructions* Thania Barber RN - 09/21/2016 9:11 AM EDT Instructions for the first day following CATARACT surgery Conner Castorena MD, [facility], [facility] Section of ophthalmology [facility] [phone] - Wear either the eye shield or glasses of any kind 24 hours per day for the first week following surgery. - The surgery center nurses should confirm time of your follow up appointment for tomorrow with . This appointment will be at the [facility] in the main building at [facility]. - Mild discomfort is normal, but if you have any severe eye pain or bleeding call [phone] and ask to speak to the eye doctor carbon brusher assembler. - Call you Primary Care Doctor or [...] 5pm or on a weekend: Call the [facility] heavy mobile equipment operator and ask for the physician carbon brusher assembler covering for your doctor. documented in this [...] Castorena MD - 09/21/2016 8:59 AM EDT [facility] Operative Note Patient Name: Frances Woods : [id number] MR#: [id number] Case Date: 09/21/2016 Surgeon: Surgeon(s) and Role: [...] The Tramaine MTA4UO 22.5D AC IOL SN [id number] was then placed atop the lens [...] Visit Diagnoses Diagnosis Aphakia, left eye Aphakia Aphakia, left eye Aphakia documented in this encounter Administered Medications Inactive [...] 717 (Given - Provid er: Thania Barber RN)07 (Given - Provider: Thania Barber RN)0735 (Given - Provider: Thania Barber, RN) pilocarpine (PILOCAR) 2 % ophthalmic solution 1 drop (COMPLETED) 1 drop, Left Eye, EVERY 5 MIN, 3 doses, First dose on Wed09/21/16 at 0730, Last dose on Wed09/21/16 at 0740, Day of Surgery (Day of Procedure), Routine 718 (Given - Provid er: Thania Barber RN)729 (Given - Provider: Thania Barber RN)07 (Given - Provider: Thania Barber RN) prednisoLONE [...] Routine 919 (Given - Provid er: Thania Barber RN) documented in this encounter Care Teams Motor Electrician Relationship Specialty Start Date End Date Doe Jenkins PA [address] [place] [address] PCP - General 08/04/12 01/30/20 documented as of this encounter
--- OUTSIDE RECORDS SUMMARY | 2024-07-25 16:06 | XMS_ITS | Encounter Summary ---
Author Organization [facility] [place] [address] Care Team Providers Care Golf Manager Name Role Phone Doe Jenkins Primary Care Provider +1- [phone] Reason for Visit * Reason Onset Date Comments Eye Problem 3 mo ck Endophth almitis OD Patient Not Seen 07/07/2013 Encounter Details Date Type Department Care Team (Late st Contact Info) Description 07/07/2013 8:00 AM EST Follow-[place] [address] Arjun Lockhart MD [facility] [place] [address] PATIENT NOT SEEN (Primary Dx) Discharge Disposition: Home Social History Tobacco Use [...] Progress Notes * Arjun Lockhart MD - 07/07/2013 9:22 AM EST This patient was not seen in this encounter. This patient was not seen in this encounter. documented in this encounter Plan of Treatment Not on file documented as of this encounter Visit Diagnoses Diagnosis PATIENT NOT SEEN- Primary documented in this encounter Care Teams Golf Manager Relationship Specialty Start Date End Date Doe Jenkins PA [address] [place] [address] PCP - General 08/04/12 01/30/20 documented as of this encounter
--- OUTSIDE RECORDS SUMMARY | 2024-07-25 16:06 | XMS_ITS | Encounter Summary ---
Author Organization [facility] Address [facility] [place] [address] Care Team Providers Care Wind Power Project Manager Name Role Phone Doe Jenkins Primary Care Provider +1- [phone] Reason for Visit * Reason Comments Post Op Encounter Details Date Type Department Care Team (Late st Contact Info) Description 10/07/2012 10:15 AM EDT [place] [address] Arjun Lockhart MD [facility] [place] [address] Retinal detachment, left (Primary Dx); Tooth abscess following dental extraction 1-1/2 months ago per patient history; Hepatitis C antibody test positive; Endophthalmitis, left eye. Left eye. Vitreous . [...] Progress Notes * Arjun Lockhart MD - 10/07/2012 11:30 AM EDT Stable under oil. Watch for PVR especially inferiorly Patient to return in: 4 weeks For:Dilated exam documented in this encounter Plan of Treatment Not on file documented as of this encounter Visit Diagnoses Diagnosis Retinal detachment, left- Primary Unspecified retinal detachment Tooth abscess following dental extraction 1-1/2 months ago per patient history Periapical abscess without sinus Hepatitis C antibody test positive Other and unspecified nonspecific immunological findings Endophthalmitis, left eye. Left eye. Vitreous . Endogenous Purulent endophthalmitis, unspecified Cocaine use Cocaine abuse, unspecified documented in this encounter Care Teams Wind Power Project Manager Relationship Specialty Start Date End Date Doe Jenkins PA [address] [place] [address] PCP - General 08/04/12 01/30/20 documented as of this encounter
--- OUTSIDE RECORDS SUMMARY | 2024-07-25 16:06 | XMS_ITS | Encounter Summary ---
[place] [address] Care Team Providers Care Load Out Supervisor Name Role Phone Doe Jenkins Primary Care Provider +1- [phone] Reason for Visit * Reason Onset Date Comments Eye Problem 10/26/2016 Patient calling to report increased irritation, redness swelling LE Encounter Details Date Type Department Care Team (Late st Contact Info) Description 10/26/2016 [place] [phone] Leonardo Castorena MD Eye Problem (Patient calling to report increased irritation, redness swelling LE) Social History Tobacco Use Types Packs/Day Years [...] Encounter - Maria Victoria Roach COT - 10/26/2016 11:35 AM EDT Patient confirmed 2:45PM with Dr. Castorena. * Telephone Encounter - Maria Victoria Roach COT - 10/26/2016 10:45 AM EDT LM for call back, will add to GIORGIO scheduled today at 2:45PM. Spoke with GIORGIO, if here before end of AM, will see then. * Telephone Encounter - Maria Victoria Roach COT - 10/26/2016 9:15 AM EDT Jhonathan Tuttle MD at 10/26/2016 ??8:39 AM ? Status: Signed ?? DOC call on Wednesday to report FBS [...] and continue on ciloxan drops as instructed. ?? Discussed with Leonardo Card MD at 10/23/2016 ??1:45 PM ? Author Type: Physician Status: Signed Helper Animal Laboratory: Leonardo Castorena MD (Physician) ?? Secondary lens implant with Tramaine MTA4UO 22.5D AC IOL left eye 09/21/2016 Things look good 4 weeks following secondary lens implant surgery in left eye. Remaining two sutures were removed today and cornea should stabilize over the next few weeks Return 2-4 weeks for final refraction Use the ciloxan or gentamycin drops supplied last time in the left eye 4x/day for 3 days ? documented in this encounter Plan of Treatment Not on file documented as of this encounter Visit Diagnoses Not on filedocumented in this encounter Care Teams Load Out Supervisor Relationship Specialty Start Date End Date Doe Jenkins PA [address] [place] [address] PCP - General 08/04/12 01/30/20 documented as of this encounter
--- OUTSIDE RECORDS SUMMARY | 2024-07-25 16:06 | XMS_ITS | Encounter Summary ---
Author Organization [facility] [place] [address] Care Team Providers Care State Archivist Name Role Phone Doe Jenkins Primary Care Provider +1- [phone] Encounter Details Date Type Department Care Team (Late st Contact Info) Description 11/14/2012 2:59 PM EDT Anesthesia Event [place] [phone] Jhonathan Harris MD [facility] [place] [address] Xiomara Suarez CRNA Anesthesia Record Procedure Summary Procedure Name Responsible Anesthesiologist Anesthesia Start Time Anesthesia Stop Time REMOVAL IMPLANTED MATERIAL, POSTERIOR SEGMENT, INTRAOCULAR (WRVU 12.25) (Left: Eye) Jhonathan Harris MD 11/14/12 1459 11/14/12 1641 Events Date Time Event Comment 11/14/2012 1351 1459 Start 1503 AN Verify 1503 An Start Data 1506 An Induction 1507 An Intubation 1511 Anesthesia Ready 1628 Extubation/LMA Out 1630 an stop data 1641 Stop Meds Name Total Midazolam 2 mg fentaNYL 100 mcg propofol 200 mg ePHEDrine 20 mg Ondansetron 4 mg Dexamethasone 4 mg lactated ringers 700 mL * Agents Name O2 Air Sevoflurane (et) * Blood No blood administrations on file. Lines, Drains, and Airways Type Details Placement Removal Incision 08/04/12; 1537; eye; 02/09/22 (LDA cleanup utility RA#[id number]); 1715 (LDA cleanup utility RA#[id number]) 08/04/12 1537 by Franklyn Guevara RN 02/09/22 1715 by Magali Reyes Incision 09/01/12; 1608; eye; 02/09/22 (LDA cleanup utility RA#[id number]); 1715 (LDA cleanup utility RA#[id number]) 09/01/12 1608 by Maliha Machuca RN 02/09/22 1715 by Magali Reyes Incision 11/14/12; eye; 02/09/22 (LDA cleanup utility RA#[id number]); 1715 (LDA cleanup utility RA#[id number]) 11/14/12 0000 by Kait Hernandez RN 02/09/22 1715 by Magali Reyes (RETIRED) Peripheral IV Line - Single Lumen 11/14/12 (placed by Erika Julien RN); 1355; 11/14/12; 1719 11/14/12 1355 by Malia Mares RN 11/14/12 1719 by Sai Lindo RN documented in this encounter Social History Tobacco Use Types Packs/Day Years Used Date Smoking Tobacco: Every Day Alcohol Use Standard Drinks/Week Comments Yes 0 (1 standard drink = 0.6 oz pur e alcohol) rarely Sex and Gender Information Value Date Recorded Sex Assigned at Not on file Gender Identity Not on file Sexual Orientation Not on file documented as of this encounter OR Notes * Anesthesia Postprocedure Evaluation - Jhonathan Harris MD - 11/14/2012 6:05 PM EDT Patient: Frances Woods Procedure(s) Performed: Procedure(s): REMOVAL IMPLANTED MATERIAL, POSTERIOR SEGMENT, INTRAOCULAR REPAIR COMPLEX RETINAL DETACHMENT, W/ VITRECTOMY, MEMBRANE PEELING Actual Anesthetic: general Patient location: PACU Post-op pain: Adequate analgesia Post-op nausea: no nausea or vomiting Last Vitals: Filed Vitals: 11/14/12 1701 BP: 127/71 Pulse: 74 Temp: Resp: 16 Post-op cardiovascular and respiratory status: is stable Level of consciousness: awake, alert and oriented Complications: no apparent complications and tolerated the procedure well Fluid Status: normal Happy with her anesthesia care * Anesthesia Preprocedure Evaluation - Jhonathan Harris MD - 11/14/2012 1:34 PM EDT Pre-Anesthesia Evaluation for: Frances Woods a 41 y.o. female. Procedure(s): VITRECTOMY, W/ MEMBRANE STRIPPING Patient Active Problem List Diagnoses ??? Pain ??? Cocaine use ??? Smoker ??? Retinal detachment, left ??? NO SHOW ??? Hepatitis C antibody test positive ??? Tooth abscess following dental extraction 1-1/2 months ago per patient history ??? 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 Retinal detachment, left 08/23/2012 Past Surgical History Procedure Date ??? Intravitreal injection 06/23/2012 OS for endophthalmitis ??? Vitrectomy,mechanical 08/04/2012 VITRECTOMY, MECHANICAL PARS PLANA APPROACH performed by Arjun Lockhart MD at [facility] MAIN OR ??? Retinal detachment surgery 09/01/12 OS cbc ??? Remove lens material; phacofragmentation technique, w aspiration 09/01/2012 REMOVE LENS MATERIAL, PHACOFRAGMENTATION performed by Arjun Lockhart MD at [facility] MAIN OR ? ? Repair complex retina detach vitrectomy & memb peel 09/01/2012 REPAIR COMPLEX RETINAL DETACHMENT, W/ VITRECTOMY, MEMBRANE PEELING performed by Arjun Lockhart MD at [facility] MAIN OR History Substance Use Topics ??? Smoking status: Current Everyday Smoker ??? Smokeless tobacco: Not on file ??? Alcohol Use: Yes rarely Allergies Allergen Reactions ??? Prochlorperazine Medications: MAR and/or home medications have been reviewed. Physical Exam: There were no vitals filed for this visit. There is no height or weight on file to calculate BMI. Airway Assessment: Mallampati: II TM distance: >3 FB Neck ROM: full Cardiovascular Assessment: Rhythm: regular Rate: normal Pulmonary Assessment: breath sounds clear to auscultation Dental Assessment: Misc Assessment: IV access: Peripheral line Anesthesia Plan: ASA 2 general, with a(n) intravenous induction Hx HEP C, Remote drug abuse hx, 1PPD smoker with hx left retinal detachment presents for left eye surgery Appropriately NPO No CP, SOB or recent URI, No GERD Risks and benefits of GA discussed with patient and all questions answered Plan: GA with LMA Informed Consent: Anesthetic plan and risks discussed with patient. Plan discussed with LEONOR. [facility]. Assessment: documented in this encounter Plan of Treatment Not on file documented as of this encounter Visit Diagnoses Not on filedocumented in this encounter Administered Medications Inactive Administered Medications - up to 3 most recent administrations Medication Order MAR Action Action Date Dose Rate Site dexamethasone (DECADRON) injection PRN, Starting on Wed11/14/12 at 1620, Until Wed11/14/12 at 1641, Anesthesia Intra-op, Routine Given 11/14/2012 4:20 PM EDT 4 mg ePHEDrine Sulfate in sodium chloride 0.9% (PF) 50 mg/10 mL (5 mg/mL) injection Syrg PRN, Starting on Wed11/14/12 at 1537, Until Wed11/14/12 at 1641, Anesthesia Intra-op Given 11/14/2012 3:39 PM EDT 10 mg Given 11/14/2012 3:37 PM EDT 10 mg fentaNYL 50mcg/mL injection PRN, Starting on Wed11/14/12 at 1517, Until Wed11/14/12 at 1641, Pain, Anesthesia Intra-op, Routine Given 11/14/2012 3:19 PM EDT 50 mcg Given 11/14/2012 3:17 PM EDT 50 mcg lactated ringers infusion CONTINUOUS PRN, Starting on Wed11/14/12 at 1459, Until Wed11/14/12 at 1641, Anesthesia Intra-op New Bag 11/14/2012 2:59 PM EDT mL midazolam (VERSED) injection PRN, Starting on Wed11/14/12 at 1503, Until Wed11/14/12 at 1641, Sleep, Anesthesia Intra-op, Routine Given 11/14/2012 3:03 PM EDT 2 mg ondansetron (ZOFRAN) injection PRN, Starting on Wed11/14/12 at 1620, Until Wed11/14/12 at 1641, Nausea, Anesthesia Intra-op, Routine Given 11/14/2012 4:20 PM EDT 4 mg propofol (DIPRIVAN) 10 mg/mL bolus injection (Anesthesia) PRN, Starting on Wed11/14/12 at 1506, Until 11/14/12 at 1641, Anesthesia Intra-op Given 11/14/2012 3:06 PM EDT 200 mg documented in this encounter Care Teams State Archivist Relationship Specialty Start Date End Date Doe Jenkins PA [address] [place] [address] PCP - General 08/04/12 01/30/20 documented as of this encounter
--- OUTSIDE RECORDS SUMMARY | 2024-07-25 16:06 | XMS_ITS | Encounter Summary ---
[place] [address] Care Team Providers Care Store Group Manager Name Role Phone Doe Jenkins Primary Care Provider +1- [phone] Reason for Visit * Reason Comments Procedure POM only Encounter Details Date Type Department Care Team (Late st Contact Info) Description 09/08/2016 1:15 PM EDT Procedure [place] [phone] Aphakia, left eye Social History Tobacco Use Types Packs/Day Years [...] as of this encounter Plan of Treatment Pending Results Name Type Priority Associated Diagnoses Date /Time [id number] CALC BY LASER [id number] H EYES Ophthalmology Routine Aphakia, left eye 09/08/2016 2:36 PM EDT documented as of this encounter Visit Diagnoses Diagnosis Aphakia, left eye Aphakia documented in this encounter Care Teams Store Group Manager Relationship Specialty Start Date End Date Doe Jenkins PA [address] [place] [address] PCP - General 08/04/12 01/30/20 documented as of this encounter
--- OUTSIDE RECORDS SUMMARY | 2024-07-25 16:06 | XMS_ITS | Encounter Summary ---
[place] [address] Care Team Providers Care Musical String Maker Name Role Phone Doe Jenkins Primary Care Provider +1- [phone] Reason for Visit * Reason Comments Post Op 5 day ck s/p CEIOL O S done 09/21/16 Encounter Details Date Type Department Care Team (Late st Contact Info) Description 09/25/2016 1:45 PM EDT Office [place] [phone] Conner Castorena MD Secondary lens implant with [...] * Patient Instructions* Conner Castorena MD - 09/25/2016 1:45 PM EDT HPI Post Op Additional comments: 5 day ck s/p CEIOL OS done 09/21/16 Comments Patient here for 5 day check status post insertion anterior intraocular lens left eye done 09/21/16 Patient complains that vision is still blurry Denies eye pain/headache Compliant with all surgical drops QUINN Cisneros has performed the documentation for this encounter acting as a scribe for CONNER CASTORENA MD. I performed the above scribed service and agree with the accuracy of the documentation in this encounter. Last edited by Conner Castorena MD on 09/25/2016 2:35 PM. (History) Secondary lens implant with Tramaine [...] if vision worse, eye red or pain. For additional information about eye conditions, visit the Eye Facts portion of my website at http://[employer]/eye-education/ and I also started a Glaucoma Patient Group on [employer] (htt [email or web address]/[email or web address]) for patients to seek help from one another. (Search for Glaucoma Patient Group and then ask to join.) documented in this encounter Progress Notes * Conner Castorena MD - 09/25/2016 1:45 PM EDT Secondary lens implant with Tramaine [...] red or pain. documented in this encounter Miscellaneous Notes * Assessment & Plan Note - Conner Castorena MD - 09/25/2016 2:36 PM EDT Associated Problem(s): Secondary lens implant [...] means documented in this encounter Care Teams Musical String Maker Relationship Specialty Start Date End Date Doe Jenkins PA [address] [place] [address] PCP - General 08/04/12 01/30/20 documented as of this encounter
--- OUTSIDE RECORDS SUMMARY | 2024-07-25 16:06 | XMS_ITS | Encounter Summary ---
Author Organization [facility] [place] [address] Care Team Providers Care Online Marketing Manager Name Role Phone Doe Jenkins Primary Care Provider +1- [phone] Reason for Visit * Reason Comments Eye Pain The patient presents for postoperative evaluation with chief complaint of pain in the left eye. JUSTIN ESCAMILLA Encounter Details Date Type Department Care Team (Late st Contact Info) Description 11/22/2012 8:00 AM EDT Follow-[place] [address] Arjun Lockhart MD [facility] [place] [address] Tooth abscess following dental extraction 1-1/2 months ago per patient history (Primary Dx); Smoker; Retinal detachment, left; Pain; Hepatitis C antibody test positive; Endophthalmitis, left [...] Progress Notes * Arjun Lockhart MD - 11/22/2012 9:02 AM EDT The patient is stable status post vitrectomy for silicone oil removal and membrane peeling of severe PVR. Stable with gas bubble. Normal surgical injection. Pain medicine 1 week Stat prn Tobradex qid ointment documented in this encounter Plan of Treatment Not on file documented as of this encounter Visit Diagnoses Diagnosis Tooth abscess following dental extraction 1-1/2 months ago per patient history- Primary Periapical abscess without sinus Smoker Tobacco use disorder Retinal detachment, left Unspecified retinal detachment Pain Generalized pain Hepatitis C antibody test positive Other and unspecified nonspecific immunological findings Endophthalmitis, left eye. Left eye. Vitreous . Endogenous Purulent endophthalmitis, unspecified Cocaine use Cocaine abuse, unspecified documented in this encounter Care Teams Online Marketing Manager Relationship Specialty Start Date End Date Doe Jenkins PA [address] [place] [address] PCP - General 08/04/12 01/30/20 documented as of this encounter
--- OUTSIDE RECORDS SUMMARY | 2024-07-25 16:06 | XMS_ITS | Encounter Summary ---
[place] [address] Care Team Providers Care Wire Coiner Name Role Phone Doe Jenkins Primary Care Provider +1- [phone] Encounter Details Date Type Department Care Team (Latest Contact Info) Description 01/04/2017 10:33 AM EDT - 01/04/2017 11:59 PM EDT Hospital [place] [phone] Doe Jenkins PA [address] [place] [address] Encounter for screening mammogram for malignant neoplasm of breast Discharge Disposition: Home Social History Tobacco Use [...] MAMMO SCREENING CAD AND BEN BILATERAL Routine 01/04/2017 10:50 AM EDT Encounter for screening mammogram for malignant neoplasm of breast documented in this encounter Results * Mammo Screen CAD and Ben Bilat (Generic) (01/04/2017 10:50 AM EDT) Anatomical Region Laterality Modality Breast Bilateral Mammography Impressions 01/04/2017 11:27 AM EDT BIRADS CATEGORY 0: Additional imaging required. Diagnostic imaging of the left breast/axilla, as above. Narrative 01/04/2017 11:27 AM EDT REASON FOR EXAM: Screening TECHNIQUE: CC and MLO views were obtained of the bilateral breasts. Computer aided detection was used. 3D tomosynthesis images were obtained in addition to 2D images. FINDINGS: Breast density: The breasts are extremely dense, which lowers the sensitivity of mammography. Right breast. ??There are no suspicious microcalcifications, masses, or areas of distortion. The Left breast is abnormal and additional imaging is required. There is a subtle asymmetry overlying the axilla on the MLO view, and not visualized on the CC view. While this favors accessory breast tissue, needs confirmation via diagnostic imaging. Doe GARY IMG MAMMO ORDERABL ES documented in this encounter Visit Diagnoses Diagnosis Encounter for screening mammogram for malignant neoplasm of breast Other screening mammogram documented in this encounter Care Teams Wire Coiner Relationship Specialty Start Date End Date Doe Jenkins PA [address] [place] [address] PCP - General 08/04/12 01/30/20 documented as of this encounter
--- OUTSIDE RECORDS SUMMARY | 2024-07-25 16:06 | XMS_ITS | Encounter Summary ---
Author Organization [facility] [place] [address] Care Team Providers Care Solder Sprayer Name Role Phone Doe Jenkins Primary Care Provider +1- [phone] Reason for Visit * Reason Comments Post Op 1 mo ck s/p ACIOL OS done 09/21/16 Encounter Details Date Type Department Care Team (Late st Contact Info) Description 11/17/2016 11:00 AM EDT [place] [phone] Leonardo Castorena MD Secondary lens implant with [...] * Patient Instructions* Leonardo Castorena MD - 11/17/2016 11:00 AM EDT HPI Post Op Additional comments: 1 mo ck s/p ACIOL OS done 09/21/16 Comments Frances Woods is a 45 year old female presenting today for a 6 week check status post Anterior Chamber Intraocular Lens Implant left eye done 09/21/16. Patient states that the vision is slowly improving, disappointed at first but happy it is getting better. Denies any kind of eye pain or ache, has a slight irritation/itchy feeling. Currently using Vigamox left eye 4 times daily, last drop was around 8:30ish Last edited by Leonardo Castorena MD on 11/17/2016 12:10 PM. 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 Plan: Continue the ciloxan drops until the bottle runs out Follow-up in [facility] for ongoing eye care - in 2-3 months Happy to see again if any problems in the future documented in this encounter Miscellaneous Notes * Assessment & Plan Note - Leonardo Castorena MD - 11/17/2016 12:13 PM EDT Associated Problem(s): Secondary lens implant with Tramaine MTA4UO 22.5D AC IOL left eye 09/21/2016 Assessment: Now two months since secondary lens implant left eye After suture lysis developed a wound leak that was treated with ciloxan In the end vision minimally improved with the lens implant therefore must have 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 Plan: Continue the ciloxan drops until the bottle runs out Follow-up in [facility] for ongoing eye care - in 2-3 months Happy to see again if any problems in the future documented in this encounter Plan of Treatment Not on file documented as of this encounter Visit Diagnoses Diagnosis Secondary lens implant with Tramaine MTA4UO 22.5D AC IOL left eye 09/21/2016 Lens replaced by other means documented in this encounter Care Teams Solder Sprayer Relationship Specialty Start Date End Date Doe Jenkins PA [address] [place] [address] PCP - General 08/04/12 01/30/20 documented as of this encounter
--- OUTSIDE RECORDS SUMMARY | 2024-07-25 16:06 | XMS_ITS | Encounter Summary ---
[place] [address] Care Team Providers Care First Aid Director Name Role Phone Doe Jenkins Primary Care Provider +1- [phone] Encounter Details Date Type Department Care Team (Late st Contact Info) Description 09/21/2016 8:13 AM EDT Anesthesia Event [facility] [place] [phone] Pastor Graff MD Ticknor, Ruth L, CRNA Anesthesia Record Procedure Summary Procedure Name Responsible Anesthesiologist Anesthesia Start Time Anesthesia Stop Time IOL INSERTION, SECONDARY (WRVU 9.98) (Left: Eye) Pastor Graff MD 09/21/16 0813 09/21/16 0906 Events Date Time Event Comment 09/21/2016 0708 0813 AN Verify 0813 Start 0813 An Start Data 0813 An Induction 0816 An Intubation 0818 Anesthesia Ready 0829 Procedure Start 0903 an stop data 0906 Stop 0908 Recovery or ICU Handoff Marta ent care was transferred to the destination unit staff after review of the patient's medical history, current anesthetic/surgical status and plan, according to the Provider Handoff Checklist. Meds Name Total Midazolam 2 mg IV Lidocaine 20 mg Propofol 200 mg Propofol INF 172.5 mg Dexamethasone 4 mg Ondansetron 4 mg ePHEDrine 15 mg lactated ringers infusion 1,000 mL 700 m L * Agents Name O2 Air N2O Sevoflurane (et) * Blood No blood administrations on file. Lines, Drains, and Airways Type Details Placement Removal Supraglottic Mask Ventilation: No t Attempted (0); LMA Type: air-Q; Inserted by: LEONOR Bell 09/21/16 0816 by Annette Fields, DIRECTOR OPERATIONS Incision 08/04/12; 1537; eye; 02/09/22 (LDA cleanup utility RA#[id number]); 1715 (LDA cleanup utility RA#[id number]) 08/04/12 1537 by Franklyn Guevara RN 02/09/22 1715 by Magali Reyes Incision 09/01/12; 1608; eye; 02/09/22 (LDA cleanup utility RA#[id number]); 1715 (LDA cleanup utility RA#[id number]) 09/01/12 1608 by Maliha Machuca RN 02/09/22 1715 by Magali Reyes L Incision 11/14/12; eye; 02/09/22 (LDA cleanup utility RA#[id number]); 1715 (LDA cleanup utility RA#[id number]) 11/14/12 0000 by Kait Hernandez RN 02/09/22 1715 by Magali Reyes Incision 09/21/16; eye; 02/09/22 (LDA cleanup utility RA#[id number]); 1715 (LDA cleanup utility RA#[id number]) 09/21/16 0000 by Maria Victoria Riggins RN 02/09/22 1715 by Magali Reyes (RETIRED) Peripheral IV Line - Single Lumen 09/21/16; 0809; metacarpal vein (top of hand), right; [id number] catheter system; 22 gauge; 09/21/16; 0912 09/21/16 0809 by Annette Fields, DIRECTOR OPERATIONS 09/21/16 0912 by Thania Barber RN documented in this encounter Social History [...] OR Notes * Anesthesia Postprocedure Evaluation - Pastor Graff MD - 09/21/2016 9:29 AM EDT [facility] Department of Anesthesiology Post-procedure Note Patient: Frances Woods Procedure Summary Date Anesthesia Start Anesthesia Stop Room / Location 09/21/16 0813 0906 [facility] OR [address] [place] [address] [facility] Procedure Diagnosis Surgeon Responsible Provider IOL INSERTION, SECONDARY (WRVU 9.98) (Left Eye) Aphakia, left eye (aphakia left) Leonardo Castorena MD Arbogast, John W, MD All Anesthesia Providers: Anesthesiologist: Pastor Graff MD DIRECTOR OPERATIONS: Annette Fields CRNA Last (1hr) Vitals: BP 98/56 (09/21/16904) Temp 36.3 ??C (97.3 ??F) (09/21/16904) Pulse 70 (09/21/16904) Resp 16 (09/21/16904) SpO2 99 % (09/21/16904) Patient Location: PACU/[facility] Level of Consciousness: Awake and Alert Pain Management: Satisfactory Analgesia PONV: None Cardiovascular Status: At Baseline and Hemodynamically Stable Respiratory Status: At Baseline and Room Air Postoperative Fluid Status: Intravascular EUvolemia Possible Anesthetic Complications: NONE apparent at time of evaluation Final Primary Anesthesia Type: General (The anesthetic type performed was the same as planned.) Comments: PASTOR GRAFF MD * Anesthesia Preprocedure Evaluation - Pastor Graff MD - 09/21/2016 7:07 AM EDT Pre-Anesthesia Evaluation for: Frances Woods a 45 y.o. female. Procedure(s): IOL INSERTION, SECONDARY (WRVU 9.98) Patient Active Problem List Diagnosis ??? Aphakia, left eye ??? Endophthalmitis, right eye. Acute. Possible bacterial versus fungal ??? IV drug abuse Last 6 years ago ??? Pain ??? Cocaine use ??? Smoker ??? Retinal detachment, left ??? PATIENT NOT SEEN ??? Hepatitis C antibody test positive ??? 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 Allergic state ??? Retinal detachment, left 08/23/2012 Past Surgical History: Procedure Laterality Date ??? INTRAVITREAL INJECTION 06/23/2012 OS for endophthalmitis ??? PRO REMOVE LENS MATERIAL; PHACOFRAGMENTATION TECHNIQUE, W ASPIRATION 09/01/2012 REMOVE LENS MATERIAL, PHACOFRAGMENTATION performed by Arjun Lockhart MD at [facility] OR ??? PRO REMV POST EYE IMPLNT MATER,INTRAOCUL 11/14/2012 REMOVAL IMPLANTED MATERIAL, POSTERIOR SEGMENT, INTRAOCULAR performed by Arjun Lockhart MD at [facility] OR ? ? PRO REPAIR COMPLEX RETINA DETACH VITRECTOMY & MEMB PEEL 09/01/2012 REPAIR COMPLEX RETINAL DETACHMENT, W/ VITRECTOMY, MEMBRANE PEELING performed by Arjun Lockhart MD at [facility] OR ? ? PRO REPAIR COMPLEX RETINA DETACH VITRECTOMY & MEMB PEEL 11/14/2012 REPAIR COMPLEX RETINAL DETACHMENT, W/ VITRECTOMY, MEMBRANE PEELING performed by Arjun Lockhart MD at [facility] OR ??? PRO VITRECTOMY,MECHANICAL 08/04/2012 VITRECTOMY, MECHANICAL PARS PLANA APPROACH performed by Arjun Lockhart MD at [facility] OR ??? RETINAL DETACHMENT SURGERY 09/01/12 OS cbc Social History Substance Use Topics ??? Smoking status: Current Every Day Smoker Packs/day: 1.00 Years: 18.00 Types: Cigarettes ??? Smokeless tobacco: Not on file ??? Alcohol use No History Drug Use ??? 7.00 per week ??? Special: Marijuana Allergies Allergen Reactions ??? Prochlorperazine Medications: MAR and/or home medications have been reviewed. Physical Exam: Vitals: 09/21/16 0650 BP: 110/70 Pulse: 76 Resp: 18 Temp: 37.1 ??C (98.8 ??F) Body mass index is 22.45 kg/(m^2). Height: 175.3 cm (5' 9) Weight - Scale: 68.9 kg (152 lb) Airway Assessment: Mallampati: I TM distance: >3 FB Neck ROM: full Cardiovascular Assessment: Pulmonary Assessment: Dental Assessment: Misc Assessment: Anesthesia Plan: ASA 2 general, with a(n) intravenous induction Anxious LMA Region - Other Informed Consent: Plan discussed with DIRECTOR OPERATIONS. PAT Staff Note documented in this encounter Plan of Treatment Not on file documented as of this encounter Visit Diagnoses Not on filedocumented in this encounter Administered Medications Inactive Administered Medications - up to 3 most recent administrations Medication Order MAR Action Action Date Dose Rate Site dexamethasone (DECADRON) injection PRN, Starting on Wed09/21/16 at 0820, Until Wed09/21/16 at 0908, Anesthesia Intra-op, Routine Given 09/21/2016 8:20 AM EDT 4 mg ePHEDrine 5 mg/mL multi-dose injection PRN, Starting on Wed09/21/16 at 0835, Until Wed09/21/16 at 0908, Anesthesia Intra-op, Routine Given 09/21/2016 8:47 AM EDT 5 mg Given 09/21/2016 8:35 AM EDT 10 mg lactated ringers infusion 1,000 mL 1,000 mL, at 100 mL/hr, Intravenous, CONTINUOUS, Starting on Wed09/21/16 at 0730, Until Wed09/21/16 at 0912, Day of Surgery (Day of Procedure) New Bag 09/21/2016 8:13 AM EDT lidocaine (PF) (XYLOCAINE) 100 mg/5 mL (2 %) injection PRN, Starting on Wed09/21/16 at 0813, Until Wed09/21/16 at 0908, Anesthesia Intra-op, Routine Given 09/21/2016 8:13 AM EDT 20 mg midazolam (PF) (VERSED) 1 mg/mL multi-dose injection PRN, Starting on Wed09/21/16 at 0813, Until Wed09/21/16 at 0908, Sleep, Anesthesia Intra-op, Routine Given 09/21/2016 8:13 AM EDT 2 mg ondansetron (ZOFRAN) injection PRN, Starting on Wed09/21/16 at 0820, Until Wed09/21/16 at 0908, Nausea, Anesthesia Intra-op, Routine Given 09/21/2016 8:20 AM EDT 4 mg propofol (DIPRIVAN) 10 mg/mL bolus injection (Anesthesia) PRN, Starting on Wed09/21/16 at 0814, Until Wed09/21/16 at 0908, Anesthesia Intra-op Given 09/21/2016 8:14 AM EDT 200 mg propofol (DIPRIVAN) infusion CONTINUOUS PRN, Starting on Wed09/21/16 at 0820, Until Wed09/21/16 at 0908, Anesthesia Intra-op, Routine Rate/Dose Change 09/21/2016 8:33 AM EDT 50 mcg/kg/min 20.7 mL/hr New Bag 09/21/2016 8:20 AM EDT 100 mcg/kg/min 41.4 mL/h r documented in this encounter Care Teams First Aid Director Relationship Specialty Start Date End Date Doe Jenkins PA [address] [place] [address] PCP - General 08/04/12 01/30/20 documented as of this encounter
--- OUTSIDE RECORDS SUMMARY | 2024-07-25 16:06 | XMS_ITS | Encounter Summary ---
Author Organization [facility] [place] [address] Care Team Providers Care Leveling Machine Operator Name Role Phone Doe Jenkins Primary Care Provider +1- [phone] Reason for Visit * Reason Comments Post Op Encounter Details Date Type Department Care Team (Late st Contact Info) Description 09/22/2016 8:15 AM EDT Office [place] [phone] Conner Castorena MD Secondary lens implant with [...] * Patient Instructions* Conner Castorena MD - 09/22/2016 8:15 AM EDT HPI Frances Woods is a 45 y.o. female here for a [address] day [address] visit [address] Dr. Castorena following secondary lens insertion of the left eye yesterday, as she was aphakic following endogenous endophthalmitis. She reports her vision was poor last night but is better this morning, and reports a tensions headache last night and a little bit today, but no pain. Current Drops (Post op, left eye): -Pred Forte QID OS (4x daily, left eye) -Vigamox QID OS (4x daily, left eye) -Ketorolac QID OS (4x daily, left eye) Patient denies any ocular pain or discomfort at today's visit. TAY Muro has performed the documentation for this encounter in the presence of and acting as a scribe for CONNER CASTORENA MD. I performed the above scribed service and agree with the accuracy of the documentation in this encounter. Last edited by Conner Castorena MD on 09/22/2016 9:04 AM. Secondary lens implant with Tramaine MTA4UO 22.5D AC IOL left eye 09/21/2016 Things look great 1 day following secondary [...] Eye Facts portion of my website at http://[email or web address]/eye-education/ and I also started a Glaucoma Patient Group on [employer] (htt [email or web address].com/groups/glaucomapatientgroup) for patients to seek help from one another. (Search for Glaucoma Patient Group and then ask to join.) documented in this encounter Progress Notes * Conner Castorena MD - 09/22/2016 8:15 AM EDT Secondary lens implant with Tramaine MTA4UO 22.5D AC IOL left eye 09/21/2016 Things look great 1 day following secondary [...] documented in this encounter Miscellaneous Notes * Addendum Note - Conner Castorena MD - 09/22/2016 10:07 AM EDTAddended by: CONNER CASTORENA on: 09/22/2016 10:07 AM Modules accepted: Orders * Assessment & Plan Note - Conner Castorena MD - 09/22/2016 9:01 AM EDT Associated Problem(s): Secondary lens implant with Tramaine MTA4UO 22.5D AC IOL left eye 09/21/2016 Things look great 1 day following secondary [...] means documented in this encounter Care Teams Leveling Machine Operator Relationship Specialty Start Date End Date Doe Jenkins PA [address] [place] [address] PCP - General 08/04/12 01/30/20 documented as of this encounter
--- OUTSIDE RECORDS SUMMARY | 2024-07-25 16:06 | XMS_ITS | Encounter Summary ---
[place] [address] Care Team Providers Care Ore Smelter Name Role Phone Doe Jenkins Primary Care Provider +1- [phone] Reason for Visit * Reason Comments Post Op 1 mo ck s/p secondar y lens implant ACIOL OS done 09/21/16 Encounter Details Date Type Department Care Team (Late st Contact Info) Description 10/23/2016 1:45 PM EDT Office [place] [address] Conner Castorena MD Secondary lens implant with [...] * Patient Instructions* Conner Castorena MD - 10/23/2016 1:45 PM EDT HPI Post Op Additional comments: 1 mo ck s/p secondary lens implant ACIOL OS done 09/21/16 Comments Patient here for 1 month check status post secondary anterior chamber intraocular lens left eye done 09/21/16 Things are no sharper at present with left eye. Things are all crooked and blurry. Keeps eye shut most of the day. Denies eye pain Done with all surgical drops Dinora Ramsay COA has performed the documentation for this encounter acting as a scribe for CONNER CASTORENA MD. I performed the above scribed service and agree with the accuracy of the documentation in this encounter Last edited by Conner Castorena MD on 10/23/2016 2:29 PM. (History) Secondary lens implant with Tramaine [...] the left eye 4x/day for 3 days For additional information about eye conditions, visit the Eye Facts portion of my website at http://[employer]/eye-education/ and I also started a Glaucoma Patient Group on [employer] (htt ps://[employer]/groups/glaucomapatientgroup) for patients to seek help from one another. (Search for Glaucoma Patient Group and then ask to join.) documented in this encounter Progress Notes * Conner Castorena MD - 10/23/2016 1:45 PM EDT Secondary lens implant with [...] the left eye 4x/day for 3 days documented in this encounter Miscellaneous Notes * Assessment & Plan Note - Conner Castorena MD - 10/23/2016 2:44 PM EDT Associated Problem(s): Secondary lens implant [...] the left eye 4x/day for 3 days documented in this encounter Plan of Treatment Not on file documented as of this encounter Visit Diagnoses Diagnosis Secondary lens implant with Tramaine MTA4UO 22.5D AC IOL left eye 09/21/2016 Lens replaced by other means documented in this encounter Care Teams Ore Smelter Relationship Specialty Start Date End Date Doe Jenkins PA [address] [place] [address] PCP - General 08/04/12 01/30/20 documented as of this encounter
--- OUTSIDE RECORDS SUMMARY | 2024-07-25 16:07 | XMS_ITS | Encounter Summary ---
Author Organization [facility] [place] [address] Care Team Providers Care Interior Design Professional Name Role Phone Doe Jenkins Primary Care Provider +1- [phone] Encounter Details Date Type Department Care Team (Late st Contact Info) Description 08/04/2012 3:00 PM EST Anesthesia Event [place] [phone] Jose L Fuentes MD Whittaker, [facility] [place] [address] Anesthesia Record Procedure Summary Procedure Name Responsible Anesthesiologist Anesthesia Start Time Anesthesia Stop Time VITRECTOMY, MECHANICAL PARS PLANA APPROACH (WRVU 12.13) (Left: Eye) Jose L Fuentes MD 08/04/12 1500 08/04/12 1648 Events Date Time Event Comment 08/04/2012 1431 1500 Start 1648 Stop Meds * Agents No agents on file. * Blood No blood administrations on file. Lines, Drains, and Airways Type Details Placement Removal Incision 08/04/12; 1537; eye; 02/09/22 (LDA cleanup utility RA#[id number]); 1715 (LDA cleanup utility RA#[id number]) 08/04/12 1537 by Franklyn Guevara RN 02/09/22 1715 by Magali Reyes documented in this encounter Social History Tobacco [...] OR Notes * Anesthesia Postprocedure Evaluation - Jose L Fuentes MD - 08/05/2012 7:16 AM EST Patient: Frances Woods Procedure(s) Performed: Procedure(s): VITRECTOMY, MECHANICAL PARS PLANA APPROACH Patient location: Telemetry/Step Down Unit Post-op pain: Adequate analgesia Post-op nausea: no nausea or vomiting Last Vitals: Filed Vitals: 08/04/12 1700 BP: 134/74 Pulse: 72 Temp: Resp: 16 Post-op cardiovascular and respiratory status: is stable Level of consciousness: awake Complications: no apparent complications Fluid Status: normal * Anesthesia Preprocedure Evaluation - Jose L Fuentes MD - 08/04/2012 8:16 AM EST Images from the original note were not included. Today I evaluated Frances Woods a 41 y.o. female. Procedure(s): VITRECTOMY, MECHANICAL PARS PLANA APPROACH Patient Active Problem List Diagnoses ??? Hepatitis C antibody test positive ??? Tooth abscess following dental extraction 1-1/2 months ago per patient history ??? 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 Past Surgical History Procedure Date ??? Intravitreal injection 06/23/2012 OS for endophthalmitis History Substance Use Topics ??? Smoking status: Current Everyday Smoker ??? Smokeless tobacco: Not on file ??? Alcohol Use: Yes Allergies Allergen Reactions ??? Prochlorperazine Medications: MAR and/or home medications have been reviewed. Physical Exam: There were no vitals filed for this visit. There is no height or weight on file to calculate BMI. Airway Assessment: Mallampati: II TM distance: >3 FB Neck ROM: full Cardiovascular Assessment: cardiovascular exam normal Pulmonary Assessment: pulmonary exam normal Dental Assessment: Misc Assessment: Anesthesia Plan: ASA 2 general and MAC, with a(n) intravenous induction 41yo for vitrectomy, mechanical [place] PMH: Hep C, tobacco abuse PSH: cholecystectomy, hysterectomy, laparoscopy Plan: GA Informed Consent: Anesthetic plan and risks discussed with patient. Use of blood products discussed with patient whom consented to blood products. Plan discussed with HERBARIUM CURATOR. Misc. Assessment: documented in this encounter Miscellaneous Notes * Addendum Note - Eloisa Bateman - 08/05/2012 9:54 AM EST Addendum created 08/05/12 0954 by Eloisa Bateman Modules edited:Anesthesia Events, Anesthesia Responsible Staff, SmartForms SmartFormsVN Section for SmartForms 266 documented in this encounter Plan of Treatment Not on file documented as of this encounter Visit Diagnoses Not on filedocumented in this encounter Care Teams Interior Design Professional Relationship Specialty Start Date End Date Doe Jenkins PA [address] [place] [address] PCP - General 08/04/12 01/30/20 documented as of this encounter
--- OUTSIDE RECORDS SUMMARY | 2024-07-25 16:07 | XMS_ITS | Encounter Summary ---
Author Organization [facility] [place] [address] Care Team Providers Care Quality Cloth Tester Name Role Phone Doe Jenkins Primary Care Provider +1- [phone] Reason for Visit * Reason Comments Post Op post op retinal deta chment repair OS Encounter Details Date Type Department Care Team (Late st Contact Info) Description 09/14/2012 11:15 AM EDT Office [place] [phone] Arjun Lockhart MD [facility] [address] [place] [address] Retinal detachment, left. The patient is stable after complex retinal detachment repair as of 09/14/12 (Primary Dx); Cocaine use; Endophthalmitis, left eye. Left eye. Vitreous . Endogenous; Hepatitis C antibody test positive; Smoker; Tooth abscess following dental extraction 1-1/2 months ago per patient history Discharge Disposition: Home Social History Tobacco Use [...] Progress Notes * Arjun Lockhart MD - 09/14/2012 9:26 PM EDT The patient is anatomically stable. A good silicone oil fill is noted. No inflammatory changes are evident No more narcotics after September 19. Will need to see primary care physician for this. Pred forte twice a day and Cosopt twice a day Return of severe pain or other related changes Dilated exam next visit documented in this encounter Plan of Treatment Not on file documented as of this encounter Visit Diagnoses Diagnosis Retinal detachment, left. The patient is stable after complex retinal detachment repair as of 09/14/12- Primary Unspecified retinal detachment Cocaine use Cocaine abuse, unspecified Endophthalmitis, left eye. Left eye. Vitreous . Endogenous Purulent endophthalmitis, unspecified Hepatitis C antibody test positive Other and unspecified nonspecific immunological findings Smoker Tobacco use disorder Tooth abscess following dental extraction 1-1/2 months ago per patient history Periapical abscess without sinus documented in this encounter Care Teams Quality Cloth Tester Relationship Specialty Start Date End Date Doe Jenkins PA [address] [place] [address] PCP - General 08/04/12 01/30/20 documented as of this encounter
--- OUTSIDE RECORDS SUMMARY | 2024-07-25 16:07 | XMS_ITS | Encounter Summary ---
Author Organization [facility] Address [facility] [place] [address] Care Team Providers Care Operations Coordinator Name Role Phone Doe Jenkins Primary Care Provider +1- [phone] Reason for Visit * Reason Onset Date Comments Eye Problem 07/11/2012 Encounter Details Date Type Department Care Team (Late st Contact Info) Description 07/11/2012 [place] [address] Arjun Lockhart MD [facility] [place] [address] Eye Problem Social History Tobacco Use Types Packs/Day [...] encounter Miscellaneous Notes * Telephone Encounter - Tali Gusman, QUINN - 07/11/2012 3:53 PM EST Called pt back, stating she woke up with red, swollen, pain to the touch 11 on a 10 scale. Pt states she using PF q2, ciloxan qid, homatropine qd. Talked to Dr. Ko advised pt to come in, pt stated she has no ride and she can not drive herself, she stated she is going to call [facility] to see if they have a Dr. outbound call center representative. She has an appointment tomorrow morning with Dr. Saritha at 9:00 * Telephone Encounter - Berenice Gtz - 07/11/2012 2:25 PM EST Frances Woods is a 41 y.o. female please call patient [phone] OS very red, very painful (1-10 = 11), woke up like this today. No discharge, has been using drops as prescribed documented in this encounter Plan of Treatment Not on file documented as of this encounter Visit Diagnoses Not on filedocumented in this encounter Care Teams Operations Coordinator Relationship Specialty Start Date End Date Doe Jenkins PA [address] [place] [address] PCP - General 08/04/12 01/30/20 documented as of this encounter
--- OUTSIDE RECORDS SUMMARY | 2024-07-25 16:07 | XMS_ITS | Encounter Summary ---
Author Organization [facility] [place] [address] Care Team Providers Care Hvac Project Engineer Name Role Phone Jaime Matos MD Primary Care Provider +1 -[phone] Encounter Details Date Type Department Care Team (Late st Contact Info) Description 07/12/2012 Orders Only Infectious Disease at [address] [address] Elisa Mistry MD HIV disease (Primary Dx) Social History Tobacco Use Types Packs/Day Years Used Date Smoking Tobacco: Every Day Alcohol Use Standard Drinks/Week Comments Yes 0 (1 standard drink = 0.6 oz pur e alcohol) Sex and Gender Information Value Date Recorded Sex Assigned at Not on file Gender Identity Not on file Sexual Orientation Not on file documented as of this encounter Progress Notes * Elisa Mistry MD - 07/12/2012 11:14 AM ESTAddended by: ELISA MISTRY on: 07/12/2012 11:14 AM Modules accepted: Orders documented in this encounter Plan of Treatment Not on file documented as of this encounter Visit Diagnoses Diagnosis HIV disease- Primary Human immunodeficiency virus [HIV] disease documented in this encounter Care Teams Hvac Project Engineer Relationship Specialty Start Date End Date Jaime Matos MD [address] [place] [address] PCP - General 05/06/10 08/03/12 documented as of this encounter
--- OUTSIDE RECORDS SUMMARY | 2024-07-25 16:07 | XMS_ITS | Encounter Summary ---
Author Organization [facility] Address [facility] [place] [address] Care Team Providers Care Drafter Marine Name Role Phone Jaime Matos MD Primary Care Provider [phone] [phone] Encounter Details Date Type Department Care Team (Latest Contact Info) Description 07/14/2012 10:36 AM EST - 07/14/2012 11:59 PM EST Hospital Encounter [place] [id number] CARDIO, ECHO SIXTY MIN APPT None Uzair Bunch MD [facility] [place] [address] Discharge Disposition: Home Social History Tobacco Use [...] Sig Dispensed Refills Start Date End Date ciprofloxacin (CILOXAN) 0.3 % ophthalmic solution 1 drop every 4 hours. Administer 1 drop, every 2 hours, while awake, for 2 days. Then 1 drop, every 4 hours, while awake, for the next 5 days. 07/22/2012 atropine 1 % ophthalmic ointment daily. 08/05/2012 prednisoLONE acetate (PRED FORTE) 1 % ophthalmic suspension Place 1 drop into the left eye 4 times daily. 11/15/2012 03/28/2013 documented as of this encounter Plan of Treatment Not on file documented as of this encounter Procedures Procedure Name Priority Date/Time Associated Diagnosis Comments ECHOCARDIOGRAM TRANSTHORACIC Routine 07/14/2012 11:51 AM EST Endophthalmitis left eye documented in this encounter Results * Echo Transthoracic (Complete) (07/14/2012 11:51 AM EST) EF 65 HEARTLAB SYSTEM Anatomical Region Laterality Modality Other 07/14/2012 Narrative 07/14/2012 11:57 AM EST Procedure: ? Transthoracic Echocardiogram Patient: ? SANTOSH Cameron ? (Age): 1970(41) Med Rec#: ?[id number] ? Sex: ?F ? Site Loc: ?[facility] ? Ht / Wt: ??175(cm)/61(kg) Pt. Loc: ? Echo Lab ? BSA: ?1.72 Study Date: ?07/14/2012 ? Pt. Type: Outpatient Tape: ? Referring: Uzair Bunch Lightout Examiner: Eleonora Tovar Diagnosis:CPT Code(s): ??Echo Full (05542), ??Spectral Doppler (06497), Color Doppler (55138), Indication(s): ??Endocarditis Rhythm: Sinus SUMMARY: 1. No valvular vegetations noted. Suggest a HUGH if clinically indicated. 2. Left ventricular chamber size, wall thickness, global and segmental systolic function are within normal limits. Ejection fraction is estimated to be 65%. 3. Right ventricular chamber size, wall thickness, and systolic function are within normal limits. 4. The cardiac valves appear structurally and functionally normal. 5. See remainder of report for additional findings. FINDINGS: Left Ventricle ?Left ventricular chamber size, wall thickness, global and segmental systolic function are within normal limits. Ejection fraction is estimated to be 65%. ?There are no left ventricular segmental wall motion abnormalities. ?Doppler assessment is consistent with normal left sided filling pressure. Left Atrium ?The left atrium is normal in size. Right Ventricle ?Right ventricular chamber size, wall thickness, and systolic function are within normal limits. ?The estimated pulmonary artery systolic pressure is 33 mmHg. ?The estimated right atrial pressure is 8 mmHg. Right Atrium ?The right atrium is normal in size. Aortic Valve ?The aortic valve is trileaflet. The leaflets are thin with normal excursion. There is no aortic stenosis or regurgitation present. ?No vegetation is observed on the aortic valve. Mitral Valve ?The mitral valve appears normal in structure and function. ?There is trace mitral regurgitation present. ?No vegetation is observed on the mitral valve. Tricuspid Valve ?The tricuspid valve appears normal in structure and function. ?There is trace tricuspid regurgitation present. ?No vegetation is observed on the tricuspid valve. Pulmonic Valve ?The pulmonic valve appears normal in structure and function. ?There is trace pulmonic regurgitation present. ?No vegetation is observed on the pulmonic valve. Pericardium ?The pericardium appears normal and there is no evidence of a pericardial effusion. Aorta ?The aortic root is normal in size. ?The ascending aorta is normal in size. Pulmonary Artery ?The main pulmonary artery appears normal. Venous ?The inferior vena cava appears dilated. ?There is a greater than 50% respiratory change in the inferior vena cava dimension. Misc ?The cardiac valves appear structurally and functionally normal. ?See remainder of report for additional findings. ?Two-dimensional echo, spectral Doppler and color Doppler performed. Wall Motion: Segment Name ?Rest ? Base-Anteroseptal ?? Normal ? Base-Anterior ? Normal ? Base-Anterolateral ??Normal ? Base-Posterolateral Normal ? Base-Inferior ? Normal ? Base-Inferoseptal ?? Normal ? Mid-Anteroseptal ?Normal ? Mid-Anterior ?Normal ? Mid-Anterolateral ?? Normal ? Mid-Posterolateral ??Normal ? Mid-Inferior ?Normal ? Mid-Inferoseptal ?Normal ? Desdemona-Septal ? Normal ? Desdemona-Anterior ? Normal ? Desdemona-Lateral ?Normal ? Desdemona-Inferior ? Normal ? Desdemona-Tip ?Normal ? Chambers ?Value ?Units (Range) ? LV EF Est ? 65 ? % (55 to 80) ? IVSd 2D ? 0.6 ?cm ? LVIDd 2D ?5.1 ?cm ? PWd 2D ?0.7 ?cm ? LVIDs 2D ?3.3 ?cm ? LVFS 2D ? 35 ? % ? LA area ? 20 ? cm2 (<21) ? RA area ? 17 ? cm2 (<18) ? Ao root ? 2.8 ?cm (2.1 to 3.6) ? Asc Ao ?2.6 ?cm (2 to 3.5) ? Mitral Valve ?Value ?Units (Range) ? E peak ?0.76 ? m/sec ? E/A ratio ? 1.7 ?ratio ? MVDT ?215 ?msec ? E1 ?0.14 ? m/sec ? E/E1 ?5 ?ratio ? Tricuspid/Pulmonic Valves ?Value ?Units (Range) ? TR peak luis fernando ? 2.5 ?m/sec ? RAP ? 8 ?mmHg ? RVSP/PASP ? 33 ? mmHg ? This report has been electronically signed by: Edwin Cali M.D. ? 07/14/2012 11:56:36 Images reviewed and interpretation verified [facility] Cardiac Ultrasound Laboratory Procedure Note Edwin Cali MD - 07/14/2012 Procedure: Transthoracic Echocardiogram Patient: SANTOSH CABRERA(Age): 1970(41) Med Rec#: [id number] Sex: F Site Loc: [facility] Ht / Wt: 175(cm)/61(kg) Pt. Loc: Echo Lab BSA: 1.72 Study Date: 07/14/2012 Pt. Type: Outpatient Tape: Referring: Uzair Bunch Lightout Examiner: Eleonora Tovar Diagnosis:CPT Code(s): Echo Full (29614), Spectral Doppler (43676), Color Doppler (17426), Indication(s): Endocarditis Rhythm: Sinus SUMMARY: 1. No valvular vegetations noted. Suggest a HUGH if clinically indicated. 2. Left ventricular chamber size, wall thickness, global and segmental systolic function are within normal limits. Ejection fraction is estimated to be 65%. 3. Right ventricular chamber size, wall thickness, and systolic function are within normal limits. 4. The cardiac valves appear structurally and functionally normal. 5. See remainder of report for additional findings. FINDINGS: Left Ventricle Left ventricular chamber size, wall thickness, global and segmental systolic function are within normal limits. Ejection fraction is estimated to be 65%. There are no left ventricular segmental wall motion abnormalities. Doppler assessment is consistent with normal left sided filling pressure. Left Atrium The left atrium is normal in size. Right Ventricle Right ventricular chamber size, wall thickness, and systolic function are within normal limits. The estimated pulmonary artery systolic pressure is 33 mmHg. The estimated right atrial pressure is 8 mmHg. Right Atrium The right atrium is normal in size. Aortic Valve The aortic valve is trileaflet. The leaflets are thin with normal excursion. There is no aortic stenosis or regurgitation present. No vegetation is observed on the aortic valve. Mitral Valve The mitral valve appears normal in structure and function. There is trace mitral regurgitation present. No vegetation is observed on the mitral valve. Tricuspid Valve The tricuspid valve appears normal in structure and function. There is trace tricuspid regurgitation present. No vegetation is observed on the tricuspid valve. Pulmonic Valve The pulmonic valve appears normal in structure and function. There is trace pulmonic regurgitation present. No vegetation is observed on the pulmonic valve. Pericardium The pericardium appears normal and there is no evidence of a pericardial effusion. Aorta The aortic root is normal in size. The ascending aorta is normal in size. Pulmonary Artery The main pulmonary artery appears normal. Venous The inferior vena cava appears dilated. There is a greater than 50% respiratory change in the inferior vena cava dimension. Misc The cardiac valves appear structurally and functionally normal. See remainder of report for additional findings. Two-dimensional echo, spectral Doppler and color Doppler performed. Wall Motion: Segment Name Rest Base-Anteroseptal Normal Base-Anterior Normal Base-Anterolateral Normal Base-Posterolateral Normal Base-Inferior Normal Base-Inferoseptal Normal Mid-Anteroseptal Normal Mid-Anterior Normal Mid-Anterolateral Normal Mid-Posterolateral Normal Mid-Inferior Normal Mid-Inferoseptal Normal Desdemona-Septal Normal Desdemona-Anterior Normal Desdemona-Lateral Normal Desdemona-Inferior Normal Desdemona-Tip Normal Chambers Value Units (Range) LV EF Est 65 % (55 to 80) IVSd 2D 0.6 cm LVIDd 2D 5.1 cm PWd 2D 0.7 cm LVIDs 2D 3.3 cm LVFS 2D 35 % LA area 20 cm2 (<21) RA area 17 cm2 (<18) Ao root 2.8 cm (2.1 to 3.6) Asc Ao 2.6 cm (2 to 3.5) Mitral Valve Value Units (Range) E peak 0.76 m/sec E/A ratio 1.7 ratio MVDT 215 msec E1 0.14 m/sec E/E1 5 ratio Tricuspid/Pulmonic Valves Value Units (Range) TR peak luis fernando 2.5 m/sec RAP 8 mmHg RVSP/PASP 33 mmHg This report has been electronically signed by: Edwin Cali M.D. 07/14/2012 11:56:36 Images reviewed and interpretation verified [facility] Cardiac Ultrasound Laboratory Uzair Bunch MD ECHO ORDERABLES documented in this encounter Visit Diagnoses Not on filedocumented in this encounter Care Teams Drafter Marine Relationship Specialty Start Date End Date Jaime Matos MD [address] [place] [address] PCP - General 05/06/10 08/03/12 documented as of this encounter
--- OUTSIDE RECORDS SUMMARY | 2024-07-25 16:07 | XMS_ITS | Encounter Summary ---
[facility] [place] [address] Care Team Providers Care Reticle Printer Name Role Phone Jaime Matos MD Primary Care Provider [phone] [phone] Reason for Visit * Reason Comments Procedure vit tap/endoph injec tions OS Encounter Details Date Type Department Care Team (Late st Contact Info) Description 06/23/2012 11:30 AM EST Procedure [place] [address] Bruno Osorio MD [facility] DR OPHTHALMOLOGY [place] [address] Endophthalmitis, left eye. Left eye. Vitreous . Endogenous (Primary Dx); Endophthalmitis; Tooth abscess following dental extraction 1-1/2 months [...] as of this encounter Progress Notes * Bruno Osorio MD - 06/23/2012 6:52 PM EST PREOPERATIVE DIAGNOSIS: Endogenous endophthalmitis, left eye. POSTOPERATIVE DIAGNOSIS: Endogenous endophthalmitis, left eye. SURGEON: BRUNO OSORIO M.D. ANESTHESIA: Topical lidocaine 4%. OPERATION PERFORMED: 1. Vitreous aspiration with 20-gauge needle. 2. Intravitreal injections of voriconazole 100 mcg combined with ceftazidime 2.25 mg and vancomycin 1.0 mg. OPERATIVE INDICATIONS: The patient is a lady who had a tooth extracted followed by spontaneous resolution of abscess by her account. She has noted progressive vision loss since May. She now presents with few days of more acute visual loss. Examination findings were notable for vitritis and a vitreous infiltrate, but no discrete retinal abscess or seeding site was ascertained. After thorough review of the guarded prognosis as well as the risks and benefits of such surgery including retinal detachment, glaucoma, cataract, lack of therapeutic response, and other benson considerations, she was given informed consent after demonstrating excellent insight and having answered all questions satisfactorily. OPERATIVE TECHNIQUE: The patient was ushered to the treatment suite. She was prepped and draped in the usual sterile manner for ophthalmic surgery including Betadine solution and sterile field technique. The left eye was addressed with a sterile draped and lid speculum. Anesthesia was tested and found to be adequate. A site 4.0 mm posterior to the surgical limbus on the inferotemporal quadrant was selected and an MVR blade was placed into the anterior vitreous cavity directing the MVR blade towards the very central of the eye. This was followed by introduction of a 20-gauge needle which allowed for removal of greater than or equal to 0.1 mL of essentially clear intraocular fluid but liquefied. This was aspirated very carefully under controlled aspiration. The specimen was set aside carefully for microbiologic preparation. Following this, a 30-gauge needle was used to inject 100 mcg of voriconazole followed by ceftazidime 2.25 mg and vancomycin 1.0 mg each in the volume of 0.1 mL. This was performed atraumatically. Final intraocular pressure was approximately 10 mm. Good perfusion was confirmed and there were no complications. The eye was patched with antibiotic ointment and she was discharged home with instructions regarding medication to begin tomorrow and follow up with Dr. Funez. She will return here in four to five days. Please note also that the infectious disease attending was contacted regarding followup and they will contact the patient for followup visit within the next several days. The patient is to call immediately with any ocular systemic side effects or problems or issues including fever, shortness of breath, severe eye pain or other related issues. Please note that the microbiological specimens were carefully prepared and four standard plates were used. Thioglycolate was also used. Two microbiologic slides were prepared for Gram stain and examination for yeast or hyphae. The plates included a Chocolate, blood, C-G blood, and Sabouraud. DISPOSITION: The patient was discharged to home in excellent condition with proper instructions and indications for followup as well as plan followup. documented in this encounter Plan of Treatment Not on file documented as of this encounter Procedures Procedure Name Priority Date/Time Associated Diagnosis Comments INTRAVITREAL INJECTION PHARMACOLOGIC AGENT - OS - LEFT EYE Routine 06/23/2012 6:52 PM EST Endophthalmitis FUNGAL STAIN Routine 06/23/2012 2:05 PM EST FUNGUS CULTURE Routine 06/23/2012 2:05 PM EST EYE CULTURE Routine 06/23/2012 2:01 PM EST Endophthalmitis documented in this encounter Results * Intravitreal Injection of Pharmacologic Agent - OS - LEFT EYE (06/23/2012 6:52 PM EST) Anatomical Region Laterality Modality Other Narrative 06/23/2012 6:52 PM EST See dictated operative report from 06/23/12. Procedure Note Bruno Osorio MD - 06/23/2012 See dictated operative report from 06/23/12. Bruno Osorio MD OPHTHALMOLOGY [facility] ORDERABLES * Calcofluor White Stain (06/23/2012 2:05 PM EST) Calcofluor White Stain ? Patient Name: ISH FROST ?Ordered By: VIGNESH OSORIO ? MR#: [id number] ?LOC: ??4B ? /Sex: ??1970 (41 years), ? Female ? PROCEDURE: Calcofluor White Stain ?SOURCE: Eye Fl ? COLLECTED: 06/23/2012 14:05 ? BODY SITE: Left Eye ? STARTED: 06/23/2012 14:05 ? STAINS / PREPARATIONS ? Calcofluor Stain Report ? Verified: 013 00:00 ? Calcofluor White Preparation: Negative ? CLAIR PI[facility]A Structure of aqueous humor (body structure) LEFT EYE STRUCTURE / Unknown 06/23/2012 2:05 PM EST 06/23/2012 2:05 PM EST Narrative Resulting Agency Comment Spec In Lab Bruno Osorio MD MICROBIOLOGY - GENERAL ORDERABLES CLAIR [facility]A * Fungus culture (06/23/2012 2:05 PM EST) Fungus Culture ? Patient Name: ISH FROST ?Ordered By: VIGNESH OSORIO ? MR#: [id number] ?LOC: ??4B ? /Sex: ??1970 (41 years), ? Female ? PROCEDURE: Fungus Culture ?SOURCE: Eye Fl ? COLLECTED: 06/23/2012 14:05 ? BODY SITE: Left Eye ? STARTED: 06/23/2012 14:05 ? FINAL REPORT ? Final Report ? Verified:2012 08:11 ? No Fungus isolated ? PRELIMINARY REPORT ? Preliminary Report ? Verified:2012 08:00 ? No Fungus isolated to date ? CLAIR PI[facility]A Structure of aqueous humor (body structure) LEFT EYE STRUCTURE / Unknown 06/23/2012 2:05 PM EST 06/23/2012 2:05 PM EST Narrative Resulting Agency Comment Spec In Lab Bruno Osorio MD MICROBIOLOGY - GENERAL ORDERABLES [facility] * Eye culture Intraocular Fluid; Eye, Left (06/23/2012 2:01 PM EST) Eye Culture ? Patient Name: ISH FROST ?Ordered By: VIGNESH OSORIO ? MR#: [id number] ?LOC: ??4B ? /Sex: ??1970 (41 years), ? Female ? PROCEDURE: Eye Culture ?SOURCE: Eye Fl ? COLLECTED: 06/23/2012 14:01 ? BODY SITE: Left Eye ? STARTED: 06/23/2012 14:01 ? STAINS / PREPARATIONS ? Gram Stain Report ? Verified: 3 16:48 ? Few White Blood Cells seen ? No microorganisms seen. ? FINAL REPORT ? Final Report ? Verified: 3 10:28 ? No growth ? PRELIMINARY REPORT ? Preliminary Report ? Verified: 3 08:55 ? No growth to date. ? ___ ? CLAIR PI[facility]A Structure of aqueous humor (body structure) LEFT EYE STRUCTURE / Unknown 06/23/2012 2:01 PM EST 06/23/2012 2:01 PM EST Narrative Resulting Agency Comment Spec In Lab Bruno Osorio MD MICROBIOLOGY - GENERAL ORDERABLES CLAIR [place]A documented in this encounter Visit Diagnoses Diagnosis Endophthalmitis, left eye. Left eye. Vitreous . Endogenous- Primary Purulent endophthalmitis, unspecified Endophthalmitis Purulent endophthalmitis, unspecified Tooth abscess following dental extraction 1-1/2 months ago per patient history Periapical abscess without sinus documented in this encounter Administered Medications Inactive Administered Medications - up to 3 most recent administrations Medication Order MAR Action Action Date Dose Rate Site ceftaZIDime 2.25mg/ 0.1mL Endophthalmitis Protocol 2.25 mg, Intravitreal, ONCE, 1 dose, On Sara 06/23/12 at 1015, Syringe contains 0.1mL of overfill, STAT, Indication for (Active or Suspected): Other (See Comment) / endophthalmitis Given 06/23/2012 10:15 AM EST 2.25 mg Left Eye vancomycin 1mg/ 0.1mL Endophthalmitis Protocol 1 mg, Intravitreal, ONCE, 1 dose, On Sara 06/23/12 at 1015, Syringe contains 0.1mL of overfill, STAT, Indication for (Active or Suspected): Other (See Comment) / endophthalmitis Given 06/23/2012 10:15 AM EST 1 mg Left Eye voriconazole (VFEND) 100 mcg/0.1 mL Endophthalmitis 100 mcg, Intravitreal, ONCE, 1 dose, On Sara 06/23/12 at 1015, Syringe contains 0.1 mL of overfill, STAT, Indication for (Active or Suspected): Other (See Comment) / endophthalmitis Given 06/23/2012 10:15 AM EST 100 mcg Left Eye documented in this encounter Care Teams Reticle Printer Relationship Specialty Start Date End Date Jaime Matos MD [address] [place] [address] PCP - General 05/06/10 08/03/12 documented as of this encounter
--- OUTSIDE RECORDS SUMMARY | 2024-07-25 16:07 | XMS_ITS | Encounter Summary ---
Author Organization [facility] [place] [address] Care Team Providers Care Saw Operator Name Role Phone Doe Jenkins Primary Care Provider +1- [phone] Encounter Details Date Type Department Care Team (Late st Contact Info) Description 09/01/2012 3:30 PM EDT Anesthesia Event [place] [id number] Edwin Black MD Birner, Brian P, CRNA Anesthesia Record Procedure Summary Procedure Name Responsible Anesthesiologist Anesthesia Start Time Anesthesia Stop Time REMOVE LENS MATERIAL, PHACOFRAGMENTATION (WRVU 10.55) (Left: Eye) Edwin Balck MD 09/01/12 1530 09/01/12 1845 Events Date Time Event Comment 09/01/2012 1530 Start 1845 Stop Meds * Agents No agents on file. * Blood No blood administrations on file. Lines, Drains, and Airways Type Details Placement Removal Incision 08/04/12; 1537; eye; 02/09/22 (LDA cleanup utility RA#[id number]); 1715 (LDA cleanup utility RA#[id number]) 08/04/12 1537 by Franklyn Guevara RN 02/09/22 1715 by Magali Reyes (RETIRED) Peripheral IV Line - Single Lumen 09/01/12; 1426; 09/01/12; 1857 09/01/12 1426 by Malia Mares RN 09/01/12 1857 by Negrita Sarabia RN Incision 09/01/12; 1608; eye; 02/09/22 (LDA cleanup utility RA#[id number]); 1715 ([facility] cleanup utility RA#[id number]) 09/01/12 1608 by Maliha Machuca RN 02/09/22 1715 by Magali Reyes documented [...] OR Notes * Anesthesia Postprocedure Evaluation - Edwin Black MD - 09/02/2012 6:55 AM EDT Patient: Frances Woods Procedure(s) Performed: Procedure(s): REMOVE LENS MATERIAL, PHACOFRAGMENTATION REPAIR COMPLEX RETINAL DETACHMENT, W/ VITRECTOMY, MEMBRANE PEELING Patient location: PACU Post-op pain: Adequate analgesia Post-op nausea: no nausea or vomiting Last Vitals: Filed Vitals: 09/01/12 1835 BP: 123/72 Pulse: 98 Temp: 36.8 ??C (98.2 ??F) Resp: 16 Post-op cardiovascular and respiratory status: is stable Level of consciousness: awake Complications: no apparent complications Fluid Status: normal * Anesthesia Preprocedure Evaluation - Edwin Black MD - 09/01/2012 2:02 PM EDT Images from the original note were not included. Today I evaluated Frances Woods a 41 y.o. female. Procedure(s): VITRECTOMY, MECHANICAL PARS PLANA APPROACH Patient Active Problem List Diagnoses ??? Retinal detachment, left ??? NO SHOW [...] APPROACH performed by Arjun Lockhart MD at [facility] MAIN OR History Substance Use Topics ??? [...] abuse PSH: cholecystectomy, hysterectomy, laparoscopy Plan: GA Previous procedure OS 08/04/2012 well tolerated LMA GA Informed Consent: Anesthetic plan and risks discussed with patient. Use of blood products discussed with patient whom consented to blood products. Plan discussed with DEPUTY COMMISSIONER. Misc. Assessment: documented in this encounter Miscellaneous Notes * Addendum Note - Eloisa Bateman - 09/02/2012 11:47 AM EDT Addendum created 09/02/12 1147 by Eloisa Bateman Modules edited:Anesthesia Events, Anesthesia Responsible Staff, SmartForms SmartFormsVN Section for SmartForms 266 documented in this encounter Plan of Treatment Not on file documented as of this encounter Visit Diagnoses Not on filedocumented in this encounter Care Teams Saw Operator Relationship Specialty Start Date End Date Doe Jenkins PA [address] [place] [address] PCP - General 08/04/12 01/30/20 documented as of this encounter
--- OUTSIDE RECORDS SUMMARY | 2024-07-25 16:07 | XMS_ITS | Encounter Summary ---
Author Organization [facility] [address] Care Team Providers Care Field Advisor Name Role Phone Doe Jenkins Primary Care Provider +1- [phone] Reason for Visit * Reason Onset Date Comments Patient Not Seen 09/04/2012 Encounter Details Date Type Department Care Team (Late st Contact Info) Description 09/01/2012 12:45 PM EDT Office [place] [address] Arjun Lockhart MD [facility] [place] [address] NO SHOW (Primary Dx) Discharge Disposition: Home Social History [...] Progress Notes * Arjun Lockhart MD - 09/04/2012 8:45 PM EDT This patient was not seen in this encounter. documented in this encounter Plan of Treatment Not on file documented as of this encounter Visit Diagnoses Diagnosis PATIENT NOT SEEN- Primary documented in this encounter Care Teams Field Advisor Relationship Specialty Start Date End Date Doe Jenkins PA [address] [place] [address] PCP - General 08/04/12 01/30/20 documented as of this encounter
--- OUTSIDE RECORDS SUMMARY | 2024-07-25 16:07 | XMS_ITS | Encounter Summary ---
Author Organization Formerly [facility] [place] [address] Care Team Providers Care Visual Display Associate Name Role Phone Jaime Matos MD Primary Care Provider [phone] Reason for Visit * Reason Comments Post Op 1 week P/O Endogenou s endophthalmitis, OS Encounter Details Date Type Department Care Team (Late st Contact Info) Description 07/01/2012 10:45 AM EST [place] [address] Arjun Lockhart MD [facility] [place] [address] Tooth abscess following dental extraction 1-1/2 months ago per patient history; Endophthalmitis, left eye. Left eye. Vitreous . Endogenous Discharge Disposition: Home Social History Tobacco Use [...] Progress Notes * Arjun Lockhart MD - 07/02/2012 2:40 PM EST The patient is doing very well after vitreous aspiration followed by antibiotic injections with ceftazidime and vancomycin. Patient also received voriconazole. There no signs of progression and thereare no signs of traction. Laboratory studies have been negative or noncontributory. Infectious disease consultation is currently in progress. Return 2 weeks. If slow resolution or signs of early traction strongly consider vitrectomy. Return immediately if severe eye pain or other ocular concerns or complaints documented in this encounter Plan of Treatment Not on file documented as of this encounter Visit Diagnoses Diagnosis Tooth abscess following dental extraction 1-1/2 months ago per patient history Periapical abscess without sinus Endophthalmitis, left eye. Left eye. Vitreous . Endogenous Purulent endophthalmitis, unspecified documented in this encounter Care Teams Visual Display Associate Relationship Specialty Start Date End Date Jaime Matos MD [address] [place] [address] PCP - General 05/06/10 08/03/12 documented as of this encounter
--- OUTSIDE RECORDS SUMMARY | 2024-07-25 16:07 | XMS_ITS | Encounter Summary ---
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 CBC M.D. Eye Pain sent by himanshu fong Encounter Details Date Type Department Care Team (Late st Contact Info) Description 06/23/2012 8:00 AM EST Office [place] [address] Arjun Lockhart MD [facility] [address] [place]AL[place] [address] Endophthalmitis, left eye. Left eye. Vitreous . Endogenous (Primary Dx); Tooth abscess following dental extraction [...] Progress Notes * Arjun Lockhart MD - 06/23/2012 4:57 PM EST The patient demonstrates iris synechiae with 2+ vitreous cell and a vitreous infiltrate hovering over the posterior pole. No jesus abscess is seen and there are no choroidal or retinal infiltrates. No vasculitis or necrosis is seen. The configuration of the infiltrate is not specific for bacterial or fungal infection. This process appears to have been developing slowly over the past several weeks with more acute loss of vision beginning 3 days ago. She denies fever or other systemic symptoms. The risks and benefits of a vitreous tap and antibiotic and antifungal injection were reviewed withthe patient. An adequate specimen from the vitreous in the left eye was secured and sent to microbiology. 4 plates and thioglycolate were sent in addition to 2 Gram stain slides. Voriconazole, ceftazidime and vancomycin were injected without difficulty The patient will leave the patch on until tomorrow. She will begin Pred Forte four. times a day, Vigamox 4 times a day and atropine once a day. She will see Dr. Sawant tomorrow. She will return here in one week or sooner as needed The infectious disease team was contacted and they will arrange for the patient to be seen within the next several days. Arjun Lockhart M.D. documented in this encounter Plan of Treatment Not on file documented as of this encounter Visit Diagnoses Diagnosis Endophthalmitis, left eye. Left eye. Vitreous . Endogenous- Primary Purulent endophthalmitis, unspecified Tooth abscess following dental extraction 1-1/2 months ago per patient history Periapical abscess without sinus documented in this encounter Care Teams Scallop Dredger Relationship Specialty Start Date End Date Jaime Matos MD [address] [place] [address] PCP - General 05/06/10 08/03/12 documented as of this encounter
--- OUTSIDE RECORDS SUMMARY | 2024-07-25 16:07 | XMS_ITS | Encounter Summary ---
Author Organization [facility] [place] [address] Care Team Providers Care Tipping Machine Operator Automatic Name Role Phone Doe Jenkins Primary Care Provider [phone] Reason for Visit * Reason Comments Post Op Patient indicates th at she did not have any pain in the overhead.. JUSTIN Moralez Encounter Details Date Type Department Care Team (Late st Contact Info) Description 08/05/2012 10:30 AM EST Office [place] [address] Arjun Lockhart MD [facility] [place] [address] Tooth abscess following dental extraction 1-1/2 months ago per patient history (Primary Dx); Endophthalmitis, left eye. Left eye. Vitreous . 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 Tooth abscess following dental extraction 1-1/2 months ago per patient history 2. Endophthalmitis, left eye. Left eye. Vitreous . Endogenous 3. Hepatitis C antibody test positive The patient is postop day one status post removal of vitreous membranes and an epipapillary abscess. Anatomically, she is stable and there no complications. Laboratory studies have been negative or noncontributory Atropine once daily for synechiae. Pred forte 4 times a day. Vigamox 4 times a day Return one week or immediately if any pain or decrease in vision documented in this encounter Plan of Treatment Not on file documented as of this encounter Visit Diagnoses Diagnosis Tooth abscess following dental extraction 1-1/2 months ago per patient history- Primary Periapical abscess without sinus Endophthalmitis, left eye. Left eye. Vitreous . Endogenous Purulent endophthalmitis, unspecified Hepatitis C antibody test positive Other and unspecified nonspecific immunological findings documented in this encounter Care Teams Tipping Machine Operator Automatic Relationship Specialty Start Date End Date Doe Jenkins PA [address] [place] [address] PCP - General 08/04/12 01/30/20 documented as of this encounter
--- OUTSIDE RECORDS SUMMARY | 2024-07-25 16:07 | XMS_ITS | Encounter Summary ---
Author Organization [facility] Address [facility] [place] [address] Care Team Providers Care Head Irrigator Name Role Phone Jaime Matos MD Primary Care Provider [phone] Reason for Visit * Reason Comments Illness Encounter Details Date Type Department Care Team (Late st Contact Info) Description 07/01/2012 9:15 AM EST Office [place] [id number] Abena Lopez MD Chapman, Christopher B, MD [facility] [place] [address] Endophthalmitis (Primary Dx); Endocarditis, suspected; Hepatitis C reactive Discharge Disposition: Home Social History Tobacco Use [...] Sign Reading Time Taken Comments Blood Pressure 119/78 07/01/2012 9:00 AM EST Pulse 89 07/01/2012 9:00 AM EST Temperature 36.8 ??C (98.3 ??F) 07/01/2012 9:00 AM ES T Respiratory Rate 16 07/01/2012 9:00 AM EST Oxygen Saturation 100% 07/01/2012 9:00 AM EST Inhaled Oxygen Concentration - - Weight 61.2 kg (135 lb) 07/01/2012 9:00 AM EST Height - - Body Mass Index - - documented in this encounter Progress Notes * Uzair Rick MD - 07/05/2012 11:22 AM EST I interviewed, examined and discussed the patient with Dr. Lopez, with whose findings and recommendations I concur. Very concerning intra-ocular infection of unclear etiology in an otherwise previously healthy woman; and who thus needs very close monitoring and aggressive w/u. No suggestion of viral infection, and negative cultures reassuring for bacterial infection; leaving us quite concerned about fungal infection. Plans as per Dr. Lopez. Uzair Rick MD * Abena Lopez MD - 07/01/2012 10:16 AM EST Outpatient Infectious Disease Consultation Note Consulting Physician: Dr. Lockhart, Ophthalmology Reason for Consultation: Evaluation for endophthalmitis. HPI: This is a 41-year-old female with otherwise no known medical morbidities (IVDU- last use 7 months ago )who was recently seen by Ophthalmology at [facility] for worsening left-sided decreasing vision and floaters and there was a concern of an endophthalmitis for which she is referred to ID for further evaluation. According to the patient, she was in her usual state of health until around gi when she underwent a dental tooth extraction for treatment of dental abscess, which was not responding to oral penicillin for two weeks. Just about a day after her tooth extraction she started having intermittent fevers ranging from 99 to 101 associated with shakes, night sweats, as well as extreme fatigue. She did not seek any medical attention for her fevers. Fevers resolved after about two and a half weeks after which she noted the floaters in her left eye associated with some photophobia and decreased vision. Around the same time she developed a rash on the left side of her scalp. She was evaluated at [facility] where initially she was told that she might have shingles but later she was informed that it was probably folliculitis. There was no involvement of her left eye with any rash or any vesicles. She describes the rash as fluid/vesicle pustules involving the left side of her scalp but no involvement of forehead or eye. There were a few lesions on the right side as well. There were no associated constitutional symptoms at that time. The rash resolved about a week afterwards (No Abx or antivirals given). Since then she has this gradually worsening vision in her left eye associated with photophobia as well as pain. There was no obvious swelling or redness involving the left eye. She was evaluated by Ophthalmology at [facility] and was later sent to [facility] where she was examined by Ophthalmology but no procedures were done and no cultures were obtained. She did not receive any antibiotic treatment (topical or oral at that time). Her vision was not improving so she was sent to [facility] for further evaluation. On June [address] by [address] Lockhart in Ophthalmology where she was noted to have iritis synechiae with 2+ vitreous cells and vitreous infiltrate with no jesus abscess and there was no involvement of corneal or retinal areas noted. No vasculitis or necrosis was noted. She underwent a vitreous sampling and intravitreal Ceftaz, vancomycin and voriconazole. Patient was sent home on steroid as well as ciprofloxacin topical drops. She reports overall improvement in her vision, which she describes as improved from being able to see to about four feet, as compared to 2 feet previously. Her peripheral vision is also improving. Overall, she is not having any more fever, chills, or other systemic complaints. The vitreal cultures obtained on June 23 remain negative for any bacterial or fungal growth. ID consultation is requested for further evaluation of possibility of infectious ideology and ophthalmitis. Patient overall expresses frustration on ongoing events. She still feels weak overall but has no ongoing fever or chills, chest pain, shortness of breath, cough, or rashes. No h/o trauma to eyes. Past Medical History: No known medical problems. She reports three days of ICU stay in [place] after a complicated left-sided dental abscess a few years ago. Medications: Reviewed, steroid, ciprofloxacin, and atropine drops. Allergies to PROCHLORPERAZINE and no known antibiotic allergies. Review of Systems: Detailed review of systems was obtained and as mentioned in HPI and is additionally negative for headaches, ear pain, ear discharge, lymphadenopathy, chest pain, cough, shortness of breath, abdominal pain, nausea, vomiting, diarrhea, loss of appetite, any joint pain or joint swelling, rashes, lower extremity swelling, or pain. No urinary symptoms. Social History: She was born and raised in [place] and then stayed in [place] for some time and is now living in [place] with one of her best friends. She has grown up kids. No international traveling or significant environmental exposures. She has two pet cats at home. She is currently smoking, occasionally drinks alcohol as well as marijuana. She gives a history of IVDU use briefly in the past with reported last use of IV cocaine about seven months ago. Denies any previous infections related to her intravenous drug use. Currently sexually active with a single male partner for about five months. Reports a negative testing for HIV about two years ago. Family History: Mom and had a history of diabetes. Dad also has diabetes. She is unsure of other medical problems in her parents. On examination, vitals are stable. General: Well appearing. No distress. HEENT: Poor oral dental hygiene with dental caries on the left upper molar. No other oral lesions noted. Eyes: No obvious conjunctival injection. Dilated left pupil. Detailed eye examination was not performed. Neck: No JVD or lymphadenopathy. Chest: Bilaterally clear to auscultation. CVS: S1, S2, questionable split second heart sound versus S3. Abdomen: No hepatosplenomegaly noted. Nontender. Nondistended. Extremities: No swelling joint, edema, or rashes. She has a tattoo on the anterior chest as well as a few track garrett on the left arm. Labs: Cultures obtained from the left eye on June 23, gram stain positive for a few WBCs with no microorganisms, no growth on the bacterial cultures, fungal stains negative, no growth on the fungal cultures so far. Assessment and Plan: This is a 41-year-old female with a subacute onset of endophthalmitis in the setting of recent dental extraction followed by fevers as well as history of IV drug use with no current constitutional signs or symptoms of infection, evaluated for possibility of infectious causes of endophthalmitis. Her history is not consistent with exogenous causes of endophthalmitis with no history of traumas or cornea abrasions recently. With the history of her recent dental extraction as well as IV drug use there is a possibility of transient bacteremia/fungemia with the secondary seeding of her left eye. Her eye cultures have remained negative so far and examination was not concerning for viral causes of retinitis. At this point we will check her basic labs including CBC for leukocytosis, CMP including LFTs, ESR, CRP, as well as send off bacterial blood cultures and the fungal blood cultures to rule out any possibility of occult fungemia (very less likely since the patient is asymptomatic). With her above-mentioned history there is a possibility of endocarditis as well so we will check a TTE to rule out any cardiac valvular involvement with secondary involvement of her eye. Patient is having an Ophthalmology appointment today and we will follow up on that. We will see her back in about one week's time and try to coordinate appointments with Ophthalmology. We will test her for HIV and hepatitis C. Patient verbalized understanding of the above said plan. Plan: 1. Check blood for CBC, CMP, ESR, CRP, HIV, and hepatitis C today. 2. TTE for evaluation of possibility of endocarditis. 3. Sent off blood cultures as well as fungal blood cultures. 4. Follow up with ID in one week. Plan was discussed with Dr. Uzair Rick and he is in agreement with the plan. documented in this encounter Plan of Treatment Not on file documented as of this encounter Procedures Procedure Name Priority Date/Time Associated Diagnosis Comments DIFFERENTIAL, AUTOMATED Routine 07/01/2012 12:05 PM EST SEDIMENTATION RATE Routine 07/01/2012 12 :05 PM EST Endophthalmitis CBC (WITH DIFF) Routine 07/01/2012 12:05 PM EST Endophthalmitis FUNGUS CULTURE, BLOOD Routine 07/01/2012 12:05 PM EST Endophthalmitis BLOOD CULTURE Routine 07/01/2012 12:04 PM EST Endophthalmitis HEPATITIS C ANTIBODY Routine 07/01/2012 10:42 AM EST Endophthalmitis HIV SCREEN, 4TH GENERATION ([facility]/CGP/APD/[facility])PERF ORMABLE Routine 07/01/2012 10:42 AM EST Endophthalmitis BLOOD CULTURE Routine 07/01/2012 10:42 AM EST Endophthalmitis CRP, CARDIAC RISK (HS CRP) Routine 07/01/2012 10:42 AM EST Endophthalmitis COMPREHENSIVE METABOLIC PANEL Routine 07/01/2012 10:42 AM EST Endophthalmitis documented in this encounter Results * Echo Transthoracic (Complete) (07/14/2012 11:51 AM EST) EF 65 HEARTLAB SYSTEM Anatomical Region Laterality Modality Other 07/14/2012 Narrative 07/14/2012 11:57 AM EST Procedure: ? Transthoracic Echocardiogram Patient: ? PEGGY Cameron ? (Age): 1970(41) Med Rec#: ?[id number] ? Sex: ?F ? Site Loc: ?[facility] ? Ht / Wt: ??175(cm)/61(kg) Pt. Loc: ? Echo Lab ? BSA: ?1.72 Study Date: ?07/14/2012 ? Pt. Type: Outpatient Tape: ? Referring: Uzair Rick Lead Business Systems Analyst: Eleonora Tovar Diagnosis:CPT Code(s): ??Echo Full (03660), ??Spectral Doppler (82160), Color Doppler (28582), Indication(s): ??Endocarditis Rhythm: Sinus SUMMARY: 1. No [...] ? Mid-Inferior ?Normal ? Mid-Inferoseptal ?Normal ? [place]-Septal ? Normal ? [place]-Anterior ? Normal ? [place]-Lateral ?Normal ? [place]-Inferior ? Normal ? [place]-Tip ?Normal ? Chambers ?Value ?Units (Range) ? [...] 07/14/2012 11:56:36 Images reviewed and interpretation verified [facility] Cardiac Ultrasound Laboratory Procedure Note Edwin Cali MD - 07/14/2012 Procedure: Transthoracic Echocardiogram Patient: PEGGY CABRERA(Age): 1970(41) Med Rec#: [id number] Sex: F Site Loc: [facility] Ht / Wt: 175(cm)/61(kg) Pt. Loc: Echo Lab BSA: 1.72 Study Date: 07/14/2012 Pt. Type: Outpatient Tape: Referring: Uzair Rick Lead Business Systems Analyst: Eleonora Tovar Diagnosis:CPT Code(s): Echo Full (10485), Spectral Doppler (02476), Color Doppler (59110), Indication(s): Endocarditis Rhythm: Sinus SUMMARY: 1. No [...] Normal Mid-Posterolateral Normal Mid-Inferior Normal Mid-Inferoseptal Normal [place]-Septal Normal [place]-Anterior Normal [place]-Lateral Normal [place]-Inferior Normal [place]-Tip Normal Chambers Value Units (Range) LV EF [...] 07/14/2012 11:56:36 Images reviewed and interpretation verified [facility] Cardiac Ultrasound Laboratory Uzair Rick MD ECHO ORDERABLES * (ABNORMAL) Differential, Automated (07/01/2012 12:05 PM EST) Neutrophil % 47.2 34.0 - 71.0 % CERNER MILLENNIUM Neutrophil Absolute 3.94 1.50 - 6.30 x10(3)/mc L CERNER MILLENNIUM Lymph % 47.4 19.0 - 53.0 % CERNER MILLENNIUM Lymphocytes Abs 4.0(H) 1.0 - 3.6 x10(3)/mc L CERNER MILLENNIUM Monocyte % 4.2 4.0 - 13.0 % CERNER MILLENNIUM Monocyte Abs 0.4 0.2 - 1.0 x10(3)/mc L CERNER MILLENNIUM Eos % 0.8 0.0 - 7.0 % CERNER MILLENNIUM Eosinophils Abs 0.1 0.0 - 0.5 x10(3)/mc L CERNER MILLENNIUM Basophil % 0.2 0.0 - 2.0 % CERNER MILLENNIUM Baso Absolute 0.0 0.0 - 0.2 x10(3)/mc L CERNER MILLENNIUM Immature Gran % 0.20 0.00 - 0.66 % CERNER MILLENNIUM Comment: Immature granulocytes(IG's)percentage and absolute count will include metamyelocytes, myelocytes, and promyelocytes. Blood smears from CBCs yielding IG's will be scanned manually for concordance. If this scan disagrees with the automated IG or if promyelocytes are noted, a manual differential will be performed. Immature Gran Absolute 0.02 0.00 - 0.05 x10(3)/mc L CERNER MILLENNIUM Blood specimen (specimen) 07/01/2012 12:05 PM EST 07/01/2012 12:12 PM EST Uzair Rick MD HEMATOLOGY ORDERABLE S Performing Organization Address [facility] de Phone Number CLAIR PIÑA * Sedimentation rate (07/01/2012 12:05 PM EST) Sedimentation Rate Automated 17 0 - 20 mm/hr CERNER MILLENNIUM Blood specimen (specimen) 07/01/2012 12:05 PM EST 07/01/2012 12:12 PM EST Narrative Resulting Agency Comment Spec In Lab Uzair Rick MD HEMATOLOGY ORDERABLE S CLAIR PIÑA * (ABNORMAL) CBC (with Diff) (07/01/2012 12:05 PM EST) White Blood Cell 8.4 4.0 - 10.0 x10(3)/mc L CERNER MILLENNIUM Red Blood Cell 5.07 3.93 - 5.22 x10(6)/mc L CERNER MILLENNIUM Hemoglobin 14.3 11.2 - 15.7 gm/dL CERNER MILLENNIUM Hematocrit 43.3 34.0 - 45.0 % CERNER MILLENNIUM Mean Cell Volume 85.4 79.0 - 94.0 fL CERNER MILLENNIUM Mean Cell Hemoglobin 28.2 26.6 - 32.2 pg CERNER MILLENNIUM Mean Cell Hemoglobin Concentration 33.0 32.0 - 36.5 gm/dL CERNER MILLENNIUM Platelet 226 145 - 370 x10(3)/mc L CERNER MILLENNIUM RDW Standard Deviation 45.8 35.0 - 46.0 fL CERNER MILLENNIUM RDW coefficient of variation 14.8(H) 10.9 - 14.4 % CERNER MILLENNIUM Mean Platelet Volume 10.0 9.0 - 12.0 fL CERNER MILLENNIUM Blood specimen (specimen) 07/01/2012 12:05 PM EST 07/01/2012 12:12 PM EST Narrative Resulting Agency Comment Spec In Lab Uzair Rick MD HEMATOLOGY ORDERABLE S Performing Organization Address [facility] de Phone Number CLAIR PIÑA * Fungus Culture, Blood Blood (07/01/2012 12:05 PM EST) Fungus Culture Blood ? Patient Name: FRANCES FROST ?Ordered By: UZAIR RICK ? MR#: [id number] ?LOC: ??5C ? /Sex: ??1970 (41 years), ? Female ? PROCEDURE: Fungus Culture Blood ?SOURCE: Blood ? COLLECTED: 07/01/2012 12:05 ? STARTED: 07/01/2012 12:23 ? FINAL REPORT ? Final Report ? Verified:2012 10:41 ? No Fungus isolated ? PRELIMINARY REPORT ? Preliminary Report ? Verified:2012 08:24 ? No Fungus isolated to date ? CLAIR JONESIUM Blood specimen (specimen) 07/01/2012 12:05 PM EST 07/01/2012 12:23 PM EST Narrative Resulting Agency Comment Spec In Lab Uzair Rick MD MICROBIOLOGY - GENER AL ORDERABLES [facility] * Blood culture (07/01/2012 12:04 PM EST) Blood Culture ? Patient Name: FRANCES FROST ?Ordered By: UZAIR RICK ? MR#: [id number] ?LOC: ??5C ? /Sex: ??1970 (41 years), ? Female ? PROCEDURE: Blood Culture ?SOURCE: Blood ? COLLECTED: 07/01/2012 12:04 ? STARTED: 07/01/2012 12:33 ? FINAL REPORT ? Final Report ? Verified:2012 15:09 ? No growth at 5 days. ? PRELIMINARY REPORT ? Preliminary Report ? Verified:2012 15:09 ? No growth at 4 days. ? [facility] Blood specimen (specimen) 07/01/2012 12:04 PM EST 07/01/2012 12:33 PM EST Narrative Resulting Agency Comment Spec In Lab Uzair Rick MD MICROBIOLOGY - BLOOD ORDERABLES [facility] * Blood culture (07/01/2012 10:42 AM EST) Blood Culture ? Patient Name: FRANCES FROST ?Ordered By: UZAIR RICK ? MR#: [id number] ?LOC: ??5C ? /Sex: ??1970 (41 years), ? Female ? PROCEDURE: Blood Culture ?SOURCE: Blood ? COLLECTED: 07/01/2012 10:42 ? BODY SITE: Right Arm ? STARTED: 07/01/2012 11:03 ?FREE TEXT SOURCE: Please obtain 2 sets of blood cultures ? FINAL REPORT ? Final Report ? Verified:2012 15:09 ? No growth at 5 days. ? PRELIMINARY REPORT ? Preliminary Report ? Verified:2012 15:09 ? No growth at 4 days. ? [facility] Blood specimen (specimen) STRUCTURE OF RIGHT UPPER LIMB / Unknown 07/01/2012 10:42 AM EST 07/01/2012 11:03 AM EST Comment:PLEASE OBTAIN 2 SETS OF BLOOD CULTURES Narrative Resulting Agency Comment Spec In Lab Uzair Rick MD MICROBIOLOGY - BLOOD ORDERABLES [facility] * High Sensitivity CRP (07/01/2012 10:42 AM EST) C-Reactive Protein High Sensitivity 1.1 mg/L [facility] Comment: Interpretations: 1) For cardiac risk assessment, two values (fasting or nonfasting sample acceptable) taken at least 2 weeks apart, should be averaged to provide a more reliable estimate of marker level. ??This laboratory uses the recommendations from the AHA/CDC Scientific Statement for interpretations of future risks of cardiovascular events: ? <1.0 mg/L: low risk 1.0 - 3.0 mg/L: moderate risk >3.0 mg/L: high risk groups for future cardiovascular events 2) The general reference range of apparently healthy individuals using this test is <5.0 mg/L (derived from the test package insert) A few words of caution: For cardiac assessment, when a value >10 mg/L is encountered, there should be a search for an acute inflammatory condition or infection (in patients with acute inflammation, the concentration can increase to >500 mg/L). ??The >10 mg/L should be discarded if such a situation exists, since the risk for coronary heart disease cannot be provided, and a repeat specimen, taken at least two weeks after resolution of the acute inflammatory condition, may allow for appraisal of coronary risk information. Please note that significantly decreased CRP values may be obtained from samples taken from patients who have been treated with carboxypenicillins. References: 1. Deana CALDWELL et. al. ??AHA/CDC Scientific Statement: Markers of Inflammation and Cardiovascular Disease. ??Circulation 2003; 107:499-511 Ridker PM. ??Clinical applications of C-reactive protein for cardiovascular disease detection and prevention. ??Circulation 2003; 107:363-369 Blood specimen (specimen) 07/01/2012 10:42 AM EST 07/01/2012 10:59 AM EST Narrative Resulting Agency Comment Spec In Lab Uzair Rick MD CHEMISTRY ORDERABLES Performing Organization Address [facility] de Phone Number CLAIR PIÑA * (ABNORMAL) Hepatitis C Antibody (07/01/2012 10:42 AM EST) Hepatitis C Antibody Positive(A ) Negative CLAIR JONESIUM Blood specimen (specimen) 07/01/2012 10:42 AM EST 07/01/2012 10:59 AM EST Narrative Resulting Agency Comment Spec In Lab Uzair Rick MD CHEMISTRY ORDERABLES Performing Organization Address [facility] de Phone Number CLAIR JONESIUM * HIV (07/01/2012 10:42 AM EST) HIV 1/2 Ab Negative CERMI JONESIUM Blood specimen (specimen) 07/01/2012 10:42 AM EST 07/01/2012 10:59 AM EST Narrative Resulting Agency Comment Spec In Lab Uzair Rick MD CHEMISTRY ORDERABLES Performing Organization Address [facility] de Phone Number CALIR JONESIUM * (ABNORMAL) Comprehensive metabolic panel (non-fasting) (07/01/2012 10:42 AM EST) [facility] Glucose 110 60 - 199 mg/dL CERNER MILLENNIUM Comment:Diabetes: >=200 mg/d L plus symptoms Blood Urea Nitrogen 7(L) 8 - 18 mg/dL CERNER MILLENNIUM Creatinine 0.64(L) 0.70 - 1.20 mg/dL CERNER MILLENNIUM Comment: Please note that the pediatric reference intervals supplied above were not validated at [facility]. Results from pediatric patients should be interpreted in conjunction to the patient's age, height and muscle mass. Sodium 137 135 - 145 mmol/L CERNER MILLENNIUM Potassium 4.8 3.5 - 5.0 mmol/L CERNER MILLENNIUM Comment: Please note: ??Patients with WBC >100,000 may have falsely elevated Potassium levels. ??For accurate Potassium quantification in these patients send serum separator tube (gold top) for subsequent determinations. ??Contact the Clinical Chemistry Laboratory if there are any questions. Chloride 104 98 - 107 mmol/L CERNER MILLENNIUM Carbon Dioxide 24 22 - 31 mmol/L CERNER MILLENNIUM Anion Gap 9 5 - 15 mmol/L CERNER MILLENNIUM Calcium 9.4 8.5 - 10.5 mg/dL CERNER MILLENNIUM Protein, Total 7.9 6.4 - 8.3 gm/dL CERNER MILLENNIUM Albumin 4.4 3.2 - 5.2 gm/dL CERNER MILLENNIUM Aspartate Aminotransferase 24 0 - 30 unit/L CERNER MILLENNIUM Alanine Aminotransferase 36(H) 0 - 30 unit/L CERNER MILLENNIUM Alkaline Phosphatase 48 40 - 104 unit/L CERNER MILLENNIUM Bilirubin, Total 0.1(L) 0.2 - 1.3 mg/dL CERNER MILLENNIUM Bilirubin, Direct 0.1 0.0 - 0.3 mg/dL CERNER MILLENNIUM Est Glomerular Filtration Rate >60 >=60 CERNER MILLENNIUM Comment: The National Kidney Disease Education Program (NKDEP) has recommended all laboratories report estimated GFR (eGFR) along with plasma creatinine measurements to assist you with recognition of early kidney disease. Caveats: ??Plasma creatinine should be at steady-state (unchanged within the past week). For patients multiply eGFR by 1.2. The MDRD equation was developed using patients between the ages of 18 and 70 years. ?? The MDRD equation has not been validated for patients < 18 years of age and should not be used to assess renal function in the pediatric population. ??The MDRD eGFR equation will also overestimate the true GFR of patients above the age of 70. ??This overestimation is variable but increases with age. At present, NKDEP does NOT recommend using the MDRD equation for drug dosing purposes and pharmacists should continue to use their current dosing methods. In addition, numerical eGFR values greater than 60 ml/min/1.73 square meters should be treated as > 60, and not an exact number due to greater inaccuracies at these higher values. Per NKDEP, they classify normal renal function as any GFR >60ml/min/1.73 square meters; chronic kidney disease when GFR <60, and renal failure when GFR <15. ??This calculation may not be valid for patients with atypical muscle mass (very lean or obese), acute renal failure, and in patients with diabetic kidney disease. References: http://nkdep.nih.gov/resources/NKDEP_Suggestn4Labs_0606_508.pdf http://www.kidney.org/professionals/kls/pdf/faq_gfr.pdf Aydeeata K, Francia NA, Renae AK, Jose TS, Andres AD, Maral MARCIE. Relative performance of the MDRD and CKD-EPI equations for estimating glomerular filtration rate among patients with varied clinical presentations. Clin J Am Soc Nephrol;6:1963-72. Blood specimen (specimen) 07/01/2012 10:42 AM EST 07/01/2012 10:59 AM EST Narrative Resulting Agency Comment Spec In Lab Uzair Rick MD CHEMISTRY ORDERABLES [facility] documented in this encounter Visit Diagnoses Diagnosis Endophthalmitis- Primary Purulent endophthalmitis, unspecified Endocarditis, suspected Observation for suspected cardiovascular disease Hepatitis C reactive Other and unspecified nonspecific immunological findings documented in this encounter Care Teams Head Irrigator Relationship Specialty Start Date End Date Jaime Matos MD [address] [place] [address] PCP - General 05/06/10 08/03/12 documented as of this encounter
--- OUTSIDE RECORDS SUMMARY | 2024-07-25 16:07 | XMS_ITS | Encounter Summary ---
Author Organization [facility] [place] [address] Care Team Providers Care Medical Support Specialist Name Role Phone Doe Jenkins Primary Care Provider [phone]- [phone] Reason for Visit * Reason Comments Post Op pt here for 1 wk ck s/p PPV/ivta for endophthalmitis OS - Pt of CBC. 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 OS: s/p surgical vitrectomy one week ago. Imp: OS recurrent RD in eye with guarded prognosis for vision. However, the eye was 20/400 recently, now LP. Plan: Referral to retinal surgical center pending. documented in this encounter Plan of Treatment Not on file documented as of this encounter Visit Diagnoses Diagnosis Retinal detachment, left- Primary Unspecified retinal detachment documented in this encounter Care Teams Medical Support Specialist Relationship Specialty Start Date End Date Doe Jenkins PA [address] [place] [address] PCP - General 08/04/12 01/30/20 documented as of this encounter
--- OUTSIDE RECORDS SUMMARY | 2024-07-25 16:07 | XMS_ITS | Encounter Summary ---
Author Organization [facility] [place] [address] Care Team Providers Care Cushion Cover Inspector Name Role Phone Jaime Matos MD Primary Care Provider [phone] [phone] Encounter Details Date Type Department Care Team (Late st Contact Info) Description 07/12/2012 Orders Only Infectious Disease at [facility] [place] [address] Elisa Mistry MD Social History Tobacco Use Types Packs/Day [...] Notes * Elisa Mistry MD - 07/12/2012 11:53 AM ESTAddended by: ELISA MISTRY on: 07/12/2012 11:53 AM Modules accepted: Orders documented in this encounter Plan of Treatment Not on file documented as of this encounter Visit Diagnoses Not on filedocumented in this encounter Care Teams Cushion Cover Inspector Relationship Specialty Start Date End Date Jaime Matos MD [address] [place] [address] PCP - General 05/06/10 08/03/12 documented as of this encounter
--- OUTSIDE RECORDS SUMMARY | 2024-07-25 16:07 | XMS_ITS | Encounter Summary ---
Author Organization [facility] [place] [address] Care Team Providers Care Library Clerk Talking Books Name Role Phone Jaime aMtos MD Primary Care Provider [phone] [phone] Reason for Visit * Reason Comments Follow-up Encounter Details Date Type Department Care Team (Late st Contact Info) Description 07/14/2012 12:45 PM EST Follow-Up Infectious Disease at [facility] [place] [id number] Abena Lopez MD Endophthalmitis left eye ; Hepatitis C Ab reactive Discharge Disposition: Home Social History Tobacco [...] Sign Reading Time Taken Comments Blood Pressure 130/85 07/14/2012 12:18 PM EST Pulse 87 07/14/2012 12:18 PM EST Temperature 37 ??C (98.6 ??F) 07/14/2012 12:18 PM EST Respiratory Rate 16 07/14/2012 12:18 PM EST Oxygen Saturation 98% 07/14/2012 12:18 PM EST Inhaled Oxygen Concentration - - Weight - - Height - - Body Mass Index - - documented in this encounter Progress Notes * Uzair Rick MD - 07/14/2012 4:10 PM ESTAddended by: UZAIR RICK on: 07/14/2012 04:10 PM Modules accepted: Level of Service * Uzair Rick MD - 07/14/2012 4:07 PM EST I interviewed, examined and discussed the patient with Dr. Lopez, with whose findings and recommendations I concur. This remains confusing and concerning since we do not yet have an etiology for theocular process; however, at least we can now exclude endocarditis (based on negative blood culturesand unremarkable TTE) as the cause. Will thus pursue further w/u based on findings at Ophthalmologyappointment on Wednesday; and will pursue further w/u and management of the HCV based on results of pending PCR. Uzair Rick MD * Abena Lopez MD - 07/14/2012 12:41 PM EST ID OUTPATIENT f/u Note ID dx: - left eye endophthalmitis - Hep C reactive - h/o IVDU and recent h/o tooth extraction followed by febrile illness Abx: Cipro (eye drops - ) Intravitreal Vori + Ceftaz +Vanc (06/23) Subjective : Ms Woods reports no significant change in her vision , but has increasing pain in her left eye , for which she contacted opthalmology at [facility] and [facility] and was advised to be seen on 07/11 , but because of transportation issues she could not make to her appointments . She is wondering if some pain medications could be prescribed . Reports that dilaudid has worked in the past . Other lopez her vision is stable , no worsening swelling or eye pain . ROS : Negative for : F/C, N/V/D ,rash , joint pains , jaundice , fatigue , CP, cough , SOB Stable urinary incontinence with no dysuria or burning micturition O/E: Afebrile, tearful, reporting photophobia HEENT: no buccal or mucosal lesions Lungs: B/l CTA , no crepitations CVS: S1, S2, no M/R/G Neuro: Grossly non focal Extremities: No edema, no rash, track garrett Labs + Micro: Reviewed WBC- 8.2 Platelets- 227 BUN/Cr - 7/.64 LFTs-Alt -36 Vitreous cultures : 06/23 - few WBC , no organism on g/s , NGTD , fungal stain and Cx - negative Blood Cx - 07/01 - NGTD Hep C Ab - Positive Hep C Quant : pending Echocardiogram: TTE 07/14- SUMMARY: 1. No valvular vegetations noted. Suggest [...] See remainder of report for additional findings. Impression: 41 F with h/o IVDU (last [...] f/u appointment based on the quant results . Recommendations: - F/u Hep C PCR results - will get in touch with opthalmology regarding the repeat exam findings - pain management as per opthalmology - will schedule f/u depending on the lab results . D/w Dr Rick documented in this encounter Plan of Treatment Not on file documented as of this encounter Procedures Procedure Name Priority Date/Time Associated Diagnosis Comments ECHOCARDIOGRAM TRANSTHORACIC Routine 07/14/2012 11:51 AM EST Endophthalmitis left eye HCV QUANT Routine 07/14/2012 9:38 AM EST Hepatitis C Ab reactive HEPATITIS C RNA, QUANTITATIVE, PCR Routine 07/14/2012 9:38 AM EST Hepatitis C Ab reactive documented in this encounter Results * Echo Transthoracic (Complete) (07/14/2012 11:51 AM EST) EF 65 HEARTLAB SYSTEM Anatomical Region Laterality Modality Other 07/14/2012 Narrative 07/14/2012 11:57 AM EST Procedure: ? Transthoracic Echocardiogram Patient: ? SANTOSH Cameron ? (Age): 1970(41) Med Rec#: ?[id number] ? Sex: ?F ? Site Loc: ?[facility] ? Ht / Wt: ??175(cm)/61(kg) Pt. Loc: ? Echo Lab ? BSA: ?1.72 Study Date: ?07/14/2012 ? Pt. Type: Outpatient Tape: ? Referring: Uzair Rick Non Garment Sewing Machine Operator: Eleonora Tovar Diagnosis:CPT Code(s): ??Echo Full (80940), ??Spectral Doppler (80959), Color Doppler (00156), Indication(s): ??Endocarditis Rhythm: Sinus SUMMARY: 1. No [...] ? Mid-Inferior ?Normal ? Mid-Inferoseptal ?Normal ? [place]-Septal ? Normal ? [place]-Anterior ? Normal ? [place]-Lateral ?Normal ? [place]-Inferior ? Normal ? [place]-Tip ?Normal ? Chambers ?Value ?Units (Range) ? [...] 07/14/2012 11:56:36 Images reviewed and interpretation verified [facility] Cardiac Ultrasound [facility] Procedure Note Edwin Cali MD - 07/14/2012 Procedure: Transthoracic Echocardiogram Patient: SANTOSH Cameron RICK(Age): 1970(41) Med Rec#: [id number] Sex: F Site Loc: [facility] Ht / Wt: 175(cm)/61(kg) Pt. Loc: Echo Lab BSA: 1.72 Study Date: 07/14/2012 Pt. Type: Outpatient Tape: Referring: Uzair Rick Non Garment Sewing Machine Operator: Eleonora Tovar Diagnosis:CPT Code(s): Echo Full (68690), Spectral Doppler (69303), Color Doppler (97682), Indication(s): Endocarditis Rhythm: Sinus SUMMARY: 1. No [...] Normal Mid-Posterolateral Normal Mid-Inferior Normal Mid-Inferoseptal Normal [place]-Septal Normal [place]-Anterior Normal [place]-Lateral Normal [place]-Inferior Normal [place]-Tip Normal Chambers Value Units (Range) LV EF [...] 07/14/2012 11:56:36 Images reviewed and interpretation verified [facility] Cardiac Ultrasound Laboratory Uzair Rick MD ECHO ORDERABLES * HCV Quant Deonna (07/14/2012 9:38 AM EST) HCV Viral Load [id number] IU/mL [facility] HCV Viral Load Result: [id number] Indication for Study: Hepatitis C Infection Analysis: A quantitiative real time reverse transcriptase PCR assay was performed on extracted viral RNA for the purpose of quantification. Sample: plasma (1 mL minimum volume) Method: Deonna Christiana TaqMAN 48 HCV Linear Range: 43IU/mL - 69,000,000IU/mL (95% CI) Interpretation: The result of this analysis is within the limits of detection of the assay. Note: This assay is being performed in the [facility] Molecular Pathology Laboratory. Bry Hess, Ph.D. Director, Molecular Pathology [facility] Comment: [VERIFIED DATE]07.18.12 Verified By:Radha Tang (Electronic Signature) Blood specimen (specimen) 07/14/2012 9:38 AM EST 07/14/2012 9:46 AM EST Narrative Resulting Agency Comment Spec In Lab Uzair Rick MD HEMATOLOGY ORDERABLE S [facility] documented in this encounter Visit Diagnoses Diagnosis Endophthalmitis left eye Purulent endophthalmitis, unspecified Hepatitis C Ab reactive Other and unspecified nonspecific immunological findings documented in this encounter Care Teams Library Clerk Talking Books Relationship Specialty Start Date End Date Jaime Matos MD [address] [place] [address] PCP - General 05/06/10 08/03/12 documented as of this encounter
--- OUTSIDE RECORDS SUMMARY | 2024-07-25 16:07 | XMS_ITS | Encounter Summary ---
Author Organization [facility] [place] [address] Care Team Providers Care Meat Selector Name Role Phone Doe Jenkins Primary Care Provider +1- [phone] Reason for Visit * Reason Onset Date Comments Medication Refill 09/26/2012 dilaudid Encounter Details Date Type Department Care Team (Late st Contact Info) Description 09/26/2012 [place] [address] Arjun Lockhart MD [facility] [place] [address] Medication Refill (dilaudid) Social History Tobacco Use Types Packs/Day Years Used Date Smoking Tobacco: Every Day Alcohol Use Standard Drinks/Week Comments Yes 0 (1 standard drink = 0.6 oz pur e alcohol) Sex and Gender Information Value Date Recorded Sex Assigned at Not on file Gender Identity Not on file Sexual Orientation Not on file documented as of this encounter Miscellaneous Notes * Telephone Encounter - Amadeo Batista COMT - 09/26/2012 2:47 PM EDT Spoke with Dr Lockhart, and then the patient. I expressed to her that Dr Lockhart feels her PCP can best manage her pain med needs. She said that she took some Ibuprofen and it helped. * Telephone Encounter - Eleonora De La Cruz - 09/26/2012 10:44 AM EDT She did call to rescheduled today's appointment. No Ride, she is coming in on Wed. documented in this encounter Plan of Treatment Not on file documented as of this encounter Visit Diagnoses Not on filedocumented in this encounter Care Teams Meat Selector Relationship Specialty Start Date End Date Doe Jenkins PA [address] [place] [address] PCP - General 08/04/12 01/30/20 documented as of this encounter
--- OUTSIDE RECORDS SUMMARY | 2024-07-25 16:07 | XMS_ITS | Encounter Summary ---
Author Organization [facility] [place] [address] Care Team Providers Care Glue Mixer Name Role Phone Jaime Matos MD Primary Care Provider [phone] -[phone] Encounter Details Date Type Department Care Team (Late st Contact Info) Description 07/28/2012 Orders [place] [address] Uzair Bunch MD [facility] [place] [address] Hepatitis C infection (Primary Dx) Social History Tobacco Use Types [...] as of this encounter Visit Diagnoses Diagnosis Hepatitis C infection- Primary Unspecified viral hepatitis C without hepatic coma documented in this encounter Care Teams Glue Mixer Relationship Specialty Start Date End Date Jaime Matos MD [address] [place] [address] PCP - General 05/06/10 08/03/12 documented as of this encounter
--- OUTSIDE RECORDS SUMMARY | 2024-07-25 16:07 | XMS_ITS | Encounter Summary ---
Author Organization [facility] [place] [address] Care Team Providers Care Consumer Lender Name Role Phone Doe Jenkins Primary Care Provider [phone]- [phone] Encounter Details Date Type Department Care Team (Late st Contact Info) Description 08/04/2012 3:00 PM EST - 08/04/2012 4:57 PM EST [place] [id number] Bruno Osorio MD [facility] [place] [address] VITRECTOMY, MECHANICAL PARS PLANA APPROACH (WRVU 12.13) Social History Tobacco Use Types Packs/Day Years [...] Sign Reading Time Taken Comments Blood Pressure 114/74 08/04/2012 4:46 PM EST Pulse 68 08/04/2012 4:46 PM EST Temperature 36.6 ??C (97.9 ??F) 08/04/2012 4:46 PM ES T Respiratory Rate 16 08/04/2012 4:46 PM EST Oxygen Saturation 98% 08/04/2012 4:46 PM EST Inhaled Oxygen Concentration - - Weight 66.2 kg (146 lb) 08/04/2012 1:42 PM EST Height 172.7 cm (5' 8) 08/04/2012 1:42 PM EST Body Mass Index 22.2 08/04/2012 1:42 PM EST documented in this encounter Discharge Instructions * Discharge Instructions* Radha Schmitz RN - 08/04/2012 5:15 PM EST POST ANESTHESIA INSTRUCTIONS Go home, rest, use [...] * Patient Instructions* Gregoria Viera PA - 08/04/2012 4:38 PM EST Please keep patch and shield on operated eye until follow up appointment tomorrow. Ice packs over patch and shield as needed for pain. Tylenol 500 mg every four hours as needed for pain. Please bring eye kit and all eye drops to tomorrow's appointment. Call [phone] for all questions concerns. documented in this encounter Medications at Time of Discharge Medication Sig Dispensed Refills Start Date End Date OXYcodone-acetaminophen (PERCOCET) 5-325 mg per tablet Take 1 tablet by mouth every 6 hours as needed for Pain. 20 tablet 0 08/04/2012 08/31/2012 atropine 1 % ophthalmic ointment daily. 08/05/2012 prednisoLONE acetate (PRED FORTE) 1 % ophthalmic suspension Place 1 drop into the left eye 4 times daily. 11/15/2012 03/28/2013 documented as of this encounter H&P Notes * Gregoria Viera PA - 08/04/2012 1:30 PM EST No change from previous H+P. Source Note - Gregoria Viera PA - 08/04/2012 1:30 PM EST Please see note from 07/14/12 in ambulatory notes. * Gregoria Viera PA - 08/04/2012 1:30 PM EST Please see note from 07/14/12 in ambulatory notes. documented in this encounter Miscellaneous Notes * Miscellaneous - Provider, Scanning - 08/04/2012 10:48 PM EST * Miscellaneous - Provider, Scanning - 08/04/2012 9:19 PM EST * Op Note - Bruno Osorio MD - 08/04/2012 4:39 PM EST [facility] [place] Patient Name: Frances Frost : [id number] MR#: [id number] Case Date: 08/04/2012 Surgeon: Surgeon(s) and Role: * Bruno Osorio MD - Primary * Gregoria Viera PA - Resident-Parts Designer Preoperative diagnosis: ENDOPHTHALMITIS OS Postoperative diagnosis: ENDOPHTHALMITIS OS Procedure(s): VITRECTOMY, MECHANICAL PARS PLANA APPROACH General Estimated Blood Loss: 0 Drains: 0 SURGICAL STAFF/ASSISTANTS BRUNO OSORIO M.D. [facility] LOC[facility] PREOPERATIVE DIAGNOSIS: Status post intravitreal therapy for endogenous endophthalmitis, left eye. POSTOPERATIVE DIAGNOSIS: Status post intravitreal therapy for endogenous endophthalmitis, left eye including epipapillary abscess. ANESTHESIA: General. COMPLICATIONS: None. OPERATION PERFORMED: 1. Pars plana vitrectomy and excision of epipapillary abscess. 2. Indirect laser photocoagulation of attenuated retina at 10 o'clock and 2 o'clock. 3. Pars plana vitrectomy. OPERATIVE INDICATIONS: The patient is lady who developed classic signs and symptoms of endogenous endophthalmitis in the left eye presumably related to a tooth abscess. She now presents with decreased vision and vitreous membranes in organization. The infectious or acute inflammatory activity appears to be over the posterior pole and peripapillary region precluding good visual function and appeared to be eliciting early traction. After careful review of the risks, benefits, precautions, alternatives, indications, she was given informed consent to proceed with surgery today. She understands the risks of retinal detachment, complete loss of the eye, bleeding, infection, poor visual outcome, need for further surgery as well as any and all rare and unforeseen complications. OPERATIVE TECHNIQUE: The patient was ushered into the operating room. Time-out was completed by the surgical and the anesthesia teams collectively. The patient was intubated with LMA general anesthesia. The patient was prepped and draped in the usual sterile manner for ophthalmic surgery including Betadine solution and sterile field technique. A divided three-port pars plana vitrectomy was allowed for removal of vitreous and vitreous membranes. A large epipapillary abscess was then carefully removed with a forceps without difficulty with only minimal trace bleeding. Central macular architecture appeared relatively good at this time. Please note that scleral indentation allowed for removal of the peripheral vitreous and hyaloid and opacified membranes and at least near complete removal was achieved of all of the vitreous opacification as well as the abscess. No new sites or inflammatory activity was defined. The periphery was inspected. No evidence of any retinal holes or tears were noted or dialysis. With the vitreous and abscess having been removed and the abscess of retinal pathology, a laser was then selected to treat the peripheral retina of each sclerotomy site given the large forceps that were required. The view was somewhat compromised by the cataract and synechiae, and therefore laser was applied to prevent any small unrecognized break from developing into a full detachment. Please note that the abscess was collected and sequestered for a microbiologic analysis and will sent shortly. The eye was closed with 7-0 Vicryl suture and pressure titrated between 5 and 10 mm. The conjunctivae and Tenon's were then coapted with 7-0 Vicryl followed by supplemental sub-Tenon's anesthetic. Subconjunctival injections of Ancef and dexamethasone were delivered. Cosopt was placed followed by Maxitrol ointment and placement of the sterile eye patch and shield. Please note also that 4 mg of sub-Tenon's anesthetic was delivered temporally in an attempt to minimize inflammation and to facilitate lysis of the peripheral anterior synechiae. The importance of airway safety and venous thrombosis prevention will be reviewed again with the patient in the postoperative setting. She is to return here postoperative day #1. No alcohol or narcotics are to be used. She is to call in the overnight period with any severe pain, nausea, vomiting, or other related concerns. Please note operating time actual ldhixyny-fp-zqwdjfpj was one hour and five minutes. Disposition: awakened from anesthesia, extubated and taken to the recovery room in a stable condition, having suffered no apparent untoward event. Condition: doing well without problems (Please see the Surgical Encounter Summary for any Implant and Specimen details pertinent to this patient.) * OR Attestation - Bruno Osorio MD - 08/04/2012 4:38 PM EST Attestation: Case Date: 08/04/2012 I performed this procedure without the involvement of a resident. BRUNO OSORIO MD 08/04/2012 * Brief Op Note - Bruno Osorio MD - 08/04/2012 4:38 PM EST Brief Operative Note Patient Name: Frances Frost : [id number] MR#: [id number] Case Date: 08/04/2012 Surgeon: Surgeon(s) and Role: * Bruno Osorio MD - Primary * Gregoria Viera PA - Resident-Parts Designer Preoperative diagnosis: ENDOPHTHALMITIS OS Postoperative diagnosis: ENDOPHTHALMITIS Procedure(s): VITRECTOMY, MECHANICAL PARS PLANA APPROACH Anesthesia: General Findings: Abcess Complications: 0 Fluids:LR Estimated Blood Loss: 0 Drains: 0 Disposition: awakened from anesthesia, extubated and taken to the recovery room in a stable condition, having suffered no apparent untoward event. Condition: doing well without problems (Please see the Surgical Encounter Summary for any Implant and Specimen details pertinent to this patient.) * Miscellaneous - Provider, Scanning - 08/04/2012 2:08 PM EST documented in this encounter Plan of Treatment Not on file documented as of this encounter Procedures Procedure Name Priority Date/Time Associated Diagnosis Comments EYE CULTURE Routine 08/04/2012 6:36 PM EST FUNGAL STAIN Routine 08/04/2012 6:36 PM EST FUNGUS CULTURE Routine 08/04/2012 6:36 PM EST VITRECTOMY, MECHANICAL PARS PLANA APPROACH (WRVU 12.13) Yes 08/04/2012 2:57 PM EST ENDOPHTHALMITIS documented in this encounter Results * Calcofluor White Stain (08/04/2012 6:36 PM EST) Calcofluor White Stain ? Patient Name: FRANCES FROST ?Ordered By: VIGNESH OSORIO ? MR#: [id number] ?LOC: ??SDP ? /Sex: ??1970 (41 years), ? Female ? PROCEDURE: Calcofluor White Stain ?SOURCE: Eye Fl ? COLLECTED: 08/04/2012 18:36 ? BODY SITE: Left Eye ? STARTED: 08/04/2012 18:37 ? STAINS / PREPARATIONS ? Calcofluor Stain Report ? Verified: 013 22:42 ? Calcofluor White Preparation: Negative ? CLAIR PIÑA Structure of aqueous humor (body structure) LEFT EYE STRUCTURE / Unknown 08/04/2012 6:36 PM EST 08/04/2012 6:37 PM EST Narrative Resulting Agency Comment Spec In Lab Bruno Osorio MD MICROBIOLOGY - GENERAL ORDERABLES CLAIR PIÑA * Fungus culture (08/04/2012 6:36 PM EST) Fungus Culture ? Patient Name: FRANCES FROST ?Ordered By: VIGNESH OSORIO ? MR#: [id number] ?LOC: ??SDP ? /Sex: ??1970 (41 years), ? Female ? PROCEDURE: Fungus Culture ?SOURCE: Eye Fl ? COLLECTED: 08/04/2012 18:36 ? BODY SITE: Left Eye ? STARTED: 08/04/2012 18:37 ? FINAL REPORT ? Final Report ? Verified:2012 08:13 ? No Fungus isolated ? PRELIMINARY REPORT ? Preliminary Report ? Verified:2012 07:15 ? No Fungus isolated to date ? CLAIR MILLENNIUM Structure of aqueous humor (body structure) LEFT EYE STRUCTURE / Unknown 08/04/2012 6:36 PM EST 08/04/2012 6:37 PM EST Narrative Resulting Agency Comment Spec In Lab Bruno Osorio MD MICROBIOLOGY - GENERAL ORDERABLES CLAIR PIÑA * Eye culture (08/04/2012 6:36 PM EST) Eye Culture ? Patient Name: FRANCES FROST ?Ordered By: VIGNESH OSORIO ? MR#: [id number] ?LOC: ??SDP ? /Sex: ??1970 (41 years), ? Female ? PROCEDURE: Eye Culture ?SOURCE: Eye Fl ? COLLECTED: 08/04/2012 18:36 ? BODY SITE: Left Eye ? STARTED: 08/04/2012 18:37 ? STAINS / PREPARATIONS ? Gram Stain Report ? Verified: 3 21:57 ? No WBC's seen. ? No microorganisms seen. ? FINAL REPORT ? Final Report ? Verified: 3 08:46 ? No growth ? PRELIMINARY REPORT ? Preliminary Report ? Verified: 3 07:38 ? No growth to date. ? ___ ? CLAIR FLEMINGENNIUM Structure of aqueous humor (body structure) LEFT EYE STRUCTURE / Unknown 08/04/2012 6:36 PM EST 08/04/2012 6:36 PM EST Narrative Resulting Agency Comment Spec In Lab Bruno Osorio MD MICROBIOLOGY - GENERAL ORDERABLES [facility] documented in this encounter Visit Diagnoses Not on filedocumented in this encounter Administered Medications Inactive Administered Medications - up to 3 most recent administrations Medication Order MAR Action Action Date Dose Rate Site atropine 1 % ophthalmic solution 1 drop 1 drop, Left Eye, EVERY 5 MIN, 3 doses, First dose on Wed08/04/12 at 1415, Last dose on Wed08/04/12 at 1425, Day of Surgery (Day of Procedure), Routine Given 08/04/2012 2:25 PM EST 1 drop Given 08/04/2012 2:20 PM EST 1 drop Given 08/04/2012 2:15 PM EST 1 drop balanced salt (BSS PLUS) irrigation solution ONCE PRN, Starting on Wed08/04/12 at 1504, Until Wed08/04/12 at 2041, Intra-Operative (Intra-Procedure), Routine Given 08/04/2012 3:04 PM EST 500 mLs balanced salt (BSS) irrigation solution ONCE PRN, Starting on Wed08/04/12 at 1504, Until Sara 08/04/12 at 2041, Intra-Operative (Intra-Procedure), Routine Given 08/04/2012 3:04 PM EST 45 mLs balanced salt (BSS) irrigation solution ONCE PRN, Starting on Sara 08/04/12 at 1504, Until Sara 08/04/12 at 2041, Intra-Operative (Intra-Procedure), Routine Given 08/04/2012 3:04 PM EST 500 mLs BUpivacaine (PF) (MARCAINE) 0.75 % (7.5 mg/mL) injection ONCE PRN, Starting on Sara 08/04/12 at 1630, Until Sara 08/04/12 at 204, Intra-Operative (Intra-Procedure), Routine Given 08/04/2012 4:30 PM EST 3 mLs 19- Surgical Site ceFAZolin (ANCEF) injection ONCE PRN, Starting on Sara 08/04/12 at 1629, Until Sara 08/04/12 at 204, Intra-Operative (Intra-Procedure), Routine Given 08/04/2012 4:29 PM EST 100 mg 19- Surgical Site dexamethasone (DECADRON) injection ONCE PRN, Starting on Sara 08/04/12 at 1628, Until Sara 08/04/12 at 204, Intra-Operative (Intra-Procedure), Routine Given 08/04/2012 4:28 PM EST 2 mg 19- Surgical Site dextrose 50% injection ONCE PRN, Starting on Sara 08/04/12 at 1504, Until Sara 08/04/12 at 2041, Low blood sugar, Intra-Operative (Intra-Procedure), Routine Given 08/04/2012 3:04 PM EST 3 mLs 19- Surgical Site dorzolamide-timolol (COSOPT) 2-0.5 % ophthalmic solution ONCE PRN, Starting on Sara 08/04/12 at 1635, Until Sara 08/04/12 at 204, Intra-Operative (Intra-Procedure), Routine Given 08/04/2012 4:35 PM EST 1 drop lidocaine (XYLOCAINE) 20 mg/mL (2 %) injection ONCE PRN, Starting on Sara 08/04/12 at 1631, Until Sara 08/04/12 at 204, Intra-Operative (Intra-Procedure), Routine Given 08/04/2012 4:31 PM EST 3 mLs 20-Other (document i n comment section) moxifloxacin (VIGAMOX) 0.5 % ophthalmic solution 1 drop 1 drop, Left Eye, EVERY 5 MIN, 3 doses, First dose on Sara 08/04/12 at 1415, Last dose on Sara 08/04/12 at 1425, Day of Surgery (Day of Procedure), Routine Given 08/04/2012 2:25 PM EST 1 drop Given 08/04/2012 2:20 PM EST 1 drop Given 08/04/2012 2:15 PM EST 1 drop eankgqhx-rykzjarwo-kdzbrlsyxyfza (DEXACINE) 3.5-10,000-0.1 mg-unit/g-% ophthalmic ointment ONCE PRN, Starting on Sara 08/04/12 at 1627, Until Sara 08/04/12 at 2041, Intra-Operative (Intra-Procedure), Routine Given 08/04/2012 4:27 PM EST 1 Tube PHENYLephrine (MYDFRIN) 2.5 % ophthalmic solution 1 drop 1 drop, Left Eye, EVERY 5 MIN, 3 doses, First dose on Sara 08/04/12 at 1415, Last dose on Sara 08/04/12 at 1425, Day of Surgery (Day of Procedure), Routine Given 08/04/2012 2:25 PM EST 1 drop Given 08/04/2012 2:20 PM EST 1 drop Given 08/04/2012 2:15 PM EST 1 drop povidone-iodine 5 % ophthalmic solution ONCE PRN, Starting on Sara 08/04/12 at 1539, Until Sara 08/04/12 at 2041, Irritation, Intra-Operative (Intra-Procedure), Routine Given 08/04/2012 3:39 PM EST 5 mLs prednisoLONE acetate (PRED FORTE) 1 % ophthalmic suspension 1 drop 1 drop, Left Eye, ONCE, 1 dose, On Sara 08/04/12 at 1415, Day of Surgery (Day of Procedure), Routine Given 08/04/2012 2:15 PM EST 1 drop triamcinolone acetonide (KENALOG-40) injection ONCE PRN, Starting on Sara 08/04/12 at 1635, Until Sara 08/04/12 at 2041, Intra-Operative (Intra-Procedure), Routine Given 08/04/2012 4:35 PM EST 4 mg 19- Surgical Site documented in this encounter Active and Recently Administered Medications Times are shown in EST. Scheduled Medication Order 08/02/2012 08/03/2012 08/04/2012 atropine 1 % ophthalmic solution 1 drop (COMPLETED) 1 drop, Left Eye, EVERY 5 MIN, 3 doses, First dose on Sara 08/04/12 at 1415, Last dose on Sara 08/04/12 at 1425, Day of Surgery (Day of Procedure), Routine 1415 (Given - Provid er: Mariela Jo RN)1420 (Given - Provider: Mariela Jo RN)1425 (Given - Provider: Mariela Jo RN) moxifloxacin (VIGAMOX) 0.5 % ophthalmic solution 1 drop (COMPLETED) 1 drop, Left Eye, EVERY 5 MIN, 3 doses, First dose on Sara 08/04/12 at 1415, Last dose on Sara 08/04/12 at 1425, Day of Surgery (Day of Procedure), Routine 1415 (Given - Provid er: Mariela Jo RN)1420 (Given - Provider: Mariela Jo RN)1425 (Given - Provider: Mariela Jo RN) PHENYLephrine (MYDFRIN) 2.5 % ophthalmic solution 1 drop (COMPLETED) 1 drop, Left Eye, EVERY 5 MIN, 3 doses, First dose on Sara 08/04/12 at 1415, Last dose on Sara 08/04/12 at 1425, Day of Surgery (Day of Procedure), Routine 1415 (Given - Provid er: Mariela Jo RN)1420 (Given - Provider: Mariela Jo RN)1425 (Given - Provider: Mariela Jo RN) prednisoLONE acetate (PRED FORTE) 1 % ophthalmic suspension 1 drop (COMPLETED) 1 drop, Left Eye, ONCE, 1 dose, On Sara 08/04/12 at 1415, Day of Surgery (Day of Procedure), Routine 1415 (Given - Provid er: Mariela Jo RN) PRN Medication Order 08/02/2012 08/03/2012 08/04/2012 balanced salt (BSS PLUS) irrigation solution (CANCELED) ONCE PRN, Starting on Sara 08/04/12 at 1504, Until Sara 08/04/12 at 2041, Intra-Operative (Intra-Procedure), Routine 1504 (Given - Provid er: Bruno Osorio MD) balanced salt (BSS) irrigation solution (CANCELED) ONCE PRN, Starting on Sara 08/04/12 at 1504, Until Sara 08/04/12 at 204, Intra-Operative (Intra-Procedure), Routine 1504 (Given - Provid er: Bruno Osorio MD) balanced salt (BSS) irrigation solution (CANCELED) ONCE PRN, Starting on Sara 08/04/12 at 1504, Until Sara 08/04/12 at 204, Intra-Operative (Intra-Procedure), Routine 1504 (Given - Provid er: Bruno Osorio MD) BUpivacaine (PF) (MARCAINE) 0.75 % (7.5 mg/mL) injection (CANCELED) ONCE PRN, Starting on Sara 08/04/12 at 1630, Until Sara 08/04/12 at 2041, Intra-Operative (Intra-Procedure), Routine 1630 (Given - Provid er: Bruno Osorio MD) ceFAZolin (ANCEF) injection (CANCELED) ONCE PRN, Starting on Sara 08/04/12 at 1629, Until Sara 08/04/12 at 204, Intra-Operative (Intra-Procedure), Routine 1629 (Given - Provid er: Bruno Osorio MD - Comment: sc post op) dexamethasone (DECADRON) injection (CANCELED) ONCE PRN, Starting on Sara 08/04/12 at 1628, Until Sara 08/04/12 at 204, Intra-Operative (Intra-Procedure), Routine 1628 (Given - Provid er: Bruno Osorio MD - Comment: sc post op) dextrose 50% injection (CANCELED) ONCE PRN, Starting on Sara 08/04/12 at 1504, Until Sara 08/04/12 at 204, Low blood sugar, Intra-Operative (Intra-Procedure), Routine 1504 (Given - Provid er: Bruno Osorio MD - Comment: added to 500ml BSS Plus) dorzolamide-timolol (COSOPT) 2-0.5 % ophthalmic solution (CANCELED) ONCE PRN, Starting on Sara 08/04/12 at 1635, Until Sara 08/04/12 at 204, Intra-Operative (Intra-Procedure), Routine 1635 (Given - Provid er: Bruno Osorio MD) lidocaine (XYLOCAINE) 20 mg/mL (2 %) injection (CANCELED) ONCE PRN, Starting on Sara 08/04/12 at 1631, Until Sara 08/04/12 at 2041, Intra-Operative (Intra-Procedure), Routine 1631 (Given - Provid er: Bruno Osorio MD) jogirxxy-jyjkdtynl-mljtiveujqgh e (DEXACINE) 3.5-10,000-0.1 mg-unit/g-% ophthalmic ointment (CANCELED) ONCE PRN, Starting on Sara 08/04/12 at 1627, Until Sara 08/04/12 at 204, Intra-Operative (Intra-Procedure), Routine 1627 (Given - Provid er: Bruno Osorio MD - Comment: 0.25 ml) povidone-iodine 5 % ophthalmic solution (CANCELED) ONCE PRN, Starting on Sara 08/04/12 at 1539, Until Sara 08/04/12 at 204, Irritation, Intra-Operative (Intra-Procedure), Routine 1539 (Given - Provid er: Franklyn Guevara RN) triamcinolone acetonide (KENALOG-40) injection (CANCELED) ONCE PRN, Starting on Sara 08/04/12 at 1635, Until Sara 08/04/12 at 204, Intra-Operative (Intra-Procedure), Routine 1635 (Given - Provid er: Bruno Osorio MD) documented in this encounter Care Teams Consumer Lender Relationship Specialty Start Date End Date Doe Jenikns PA [address] [place] [address] PCP - General 08/04/12 01/30/20 documented as of this encounter
--- OUTSIDE RECORDS SUMMARY | 2024-07-25 16:07 | XMS_ITS | Encounter Summary ---
Author Organization [facility] Address [facility] [place] [address] Care Team Providers Care Interlibrary Loan Specialist Name Role Phone Doe Jenkins Primary Care Provider [phone]- [phone] Reason for Visit * Reason Onset Date Comments Eye Problem 06/30/2012 Encounter Details Date Type Department Care Team (Late st Contact Info) Description 06/30/2012 Telephone [place] [address] Arjun Lockhart MD [facility] [place] [address] Eye Problem Social History Tobacco Use Types [...] Encounter - Maria Victoria Roach COT - 06/30/2012 2:39 PM EST Spoke with Dr. Lockhart, Advise patient to call Dr. Sawant and see urgently today. Keep scheduled appointment for tomorrow. * Telephone Encounter - Maria Victoria Roach COT - 06/30/2012 2:27 PM EST Patient is s/p endophalamitis OS, 06/23/12. Saw Dr. Sawant two days ago, go report, some improved VAperipherally. Awoke this AM, unable to open eye, extremely photophobic, tearing, tender to touch with new onset of BLANKENSHIP yesterday. Patient has been using drops as directed. As well as Ibuprofen, Tylenolol etc. Ran out of Hydromorphone about 2 days ago. Describes as 03/23. Pending appointment with CBC and infection disease tomorrow AM * Telephone Encounter - Berenice Gtz - 06/30/2012 2:08 PM EST Frances Woods is a 41 y.o. female please call patient [phone] FERNANDO (OS) Had procedure last with CBC, today has runny eye, red irritated looking, painful (10 pain level) and headache on same side, can't keep eye open, please call her fernando Has appointment tomorrow documented in this encounter Plan of Treatment Not on file documented as of this encounter Visit Diagnoses Not on filedocumented in this encounter Care Teams Interlibrary Loan Specialist Relationship Specialty Start Date End Date Doe Jenkisn PA [address] [place] [address] PCP - General 08/04/12 01/30/20 documented as of this encounter
--- OUTSIDE RECORDS SUMMARY | 2024-07-25 16:07 | XMS_ITS | Encounter Summary ---
Author Organization Formerly [facility] [place] [address] Care Team Providers Care Order Processing Specialist Name Role Phone Doe Jenkins Primary Care Provider [phone] Encounter Details Date Type Department Care Team (Late st Contact Info) Description 09/01/2012 12:10 PM EDT - 09/01/2012 7:04 PM EDT Hospital Encounter [place] [id number] Bruno Osorio MD [facility] [place] [address] Discharge Disposition: Home Social History Tobacco Use [...] Sign Reading Time Taken Comments Blood Pressure 123/72 09/01/2012 6:35 PM EDT Pulse 98 09/01/2012 6:35 PM EDT Temperature 36.8 ??C (98.2 ??F) 09/01/2012 6:35 PM ED T Respiratory Rate 16 09/01/2012 6:35 PM EDT Oxygen Saturation 98% 09/01/2012 6:35 PM EDT Inhaled Oxygen Concentration - - Weight 64.4 kg (142 lb) 09/01/2012 1:32 PM EDT Height 175.3 cm (5' 9) 09/01/2012 1:32 PM EDT Body Mass Index 20.97 09/01/2012 1:32 PM EDT documented in this encounter Discharge Instructions * Discharge Instructions* Negrita Sarabia RN - 09/01/2012 6:46 PM EDT POST ANESTHESIA INSTRUCTIONS Go home, [...] * Patient Instructions* Gregoria Viera PA - 09/01/2012 6:21 PM EDT Please keep patch and shield on operated eye until follow up appointment tomorrow. Ice packs over patch and shield as needed for pain. Tylenol 500 mg every four hours as needed for pain. Please bring eye kit and all eye drops to tomorrow's appointment. Call [phone] for all questions concerns. Left side down 95% of time. May ambulate to eat and use restroom documented in this encounter Medications at Time of Discharge Medication Sig Dispensed Refills Start Date End Date HYDROmorphone (DILAUDID) 2 mg tablet Take 1 tablet by mouth every 4 hours as needed for Pain. 40 tablet 0 09/01/2012 09/14/2012 atropine 1 % ophthalmic solution Place 1 drop into the left eye daily. 08/05/2012 09/02/2012 moxifloxacin (VIGAMOX) 0.5 % ophthalmic solution Place 1 drop into the left eye 4 times daily. 08/05/2012 09/14/2012 prednisoLONE acetate (PRED FORTE) 1 % ophthalmic suspension Place 1 drop into the left eye 4 times daily. 11/15/2012 03/28/2013 documented as of this encounter H&P Notes * Gregoria Viera PA - 09/01/2012 1:51 PM EDT No change from previous H+P. Source Note - Gregoria Viera PA - 09/01/2012 1:50 PM EDT Patient Name: Frances Woods Patient Age: 41 y.o. Birthdate: 1970 Admit date: 09/01/2012 Attending Physician: Bruno Osorio, * Past Medical History Diagnosis Date ??? Retinal detachment, left 08/23/2012 Allergies Allergen Reactions ??? Prochlorperazine No current facility-administered medications on file prior to encounter. Current Outpatient Prescriptions on File Prior to Encounter Medication Sig Dispense Refill ??? atropine 1 % ophthalmic solution Place 1 drop into the left eye daily. ??? moxifloxacin (VIGAMOX) 0.5 % ophthalmic solution Place 1 drop into the left eye 4 times daily. ??? prednisoLONE acetate (PRED FORTE) 1 % ophthalmic suspension Place 1 drop into the left eye 4 times daily. Past Surgical History Procedure Date ??? Intravitreal injection 06/23/2012 OS for endophthalmitis ??? Vitrectomy,mechanical 08/04/2012 VITRECTOMY, MECHANICAL PARS PLANA APPROACH performed by Bruno Osorio MD at [facility] MAIN OR Review of Systems Constitutional: Negative [...] and thought contentnormal. 41 year old female s/p endophthalmitis with new retinal detachment OS for surgery today. Stable. * Gregoria Viera PA - 09/01/2012 1:50 PM EDT Patient Name: Frances Woods Patient Age: 41 y.o. Birthdate: 1970 Admit date: 09/01/2012 Attending Physician: Bruno Osorio, * Past Medical History Diagnosis Date ??? Retinal detachment, left 08/23/2012 Allergies Allergen Reactions ??? Prochlorperazine No current facility-administered medications on file prior to encounter. Current Outpatient Prescriptions on File Prior to Encounter Medication Sig Dispense Refill ??? atropine 1 % ophthalmic solution Place 1 drop into the left eye daily. ??? moxifloxacin (VIGAMOX) 0.5 % ophthalmic solution Place 1 drop into the left eye 4 times daily. ??? prednisoLONE acetate (PRED FORTE) 1 % ophthalmic suspension Place 1 drop into the left eye 4 times daily. Past Surgical History Procedure Date ??? Intravitreal injection 06/23/2012 OS for endophthalmitis ??? Vitrectomy,mechanical 08/04/2012 VITRECTOMY, MECHANICAL PARS PLANA APPROACH performed by Bruno Osorio MD at [facility] MAIN OR Review of Systems Constitutional: Negative [...] and thought contentnormal. 41 year old female s/p endophthalmitis with new retinal detachment OS for surgery today. Stable. documented in this encounter Procedure Notes * Provider, Scanning - 09/01/2012 10:14 PM EDTAssociated Order(s): SCAN DOC: IMPLANTABLE DEVICES documented in this encounter Miscellaneous Notes * Miscellaneous - Provider, Scanning - 09/01/2012 10:14 PM EDT * Miscellaneous - Provider, Scanning - 09/01/2012 10:09 PM EDT * Miscellaneous - Provider, Scanning - 09/01/2012 10:07 PM EDT * Op Note - Bruno Osorio MD - 09/01/2012 6:19 PM EDT [facility] Operative Note Patient Name: Frances Woods : [id number] MR#: [id number] Case Date: 09/01/2012 Surgeon: Surgeon(s) and Role: * Bruno Osorio MD - Primary * Gregoria Viera PA - Resident-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 [facility] PREOPERATIVE DIAGNOSES: 1. 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 2. 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 POSTOPERATIVE DIAGNOSES: 1. 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 2. 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 ANESTHESIA: General. COMPLICATIONS: None. OPERATIONS PERFORMED: 1. Membrane peeling extensively meticulous of PVR membranes including retinectomy. 2. Pars plana lensectomy. 3. Peripheral iridectomy. 4. Pars plana vitrectomy. 5. A 42 band placement and 72 sleeve with conjointment beneath medial rectus muscle. 6. Perfluorocarbon liquid tamponade. 7. Perfluorocarbon liquid air exchange. 8. Air-silicone oil exchange. OPERATIVE INDICATIONS: The patient is a lady, who presented with late manifestations of endogenous endophthalmitis who underwent excision of tractional membranes and an abscess in the left eye several weeks ago. She presented with a tractional detachment and peripheral vitreoretinopathy and surgery has been scheduled today for a complex and definitive repair. After careful review of the extremely guarded prognosis as well as the risks, benefits, precautions, alternatives, and indications, she was given informed consent to proceed with surgery. She would like to do everything possible and understands the surgical procedure including lensectomy, scleral buckle And oil. She understands the risks and benefits of oil versus gas in this situation. We also discussed the extremely guarded prognosis and the high risk of recurrent detachment, bleeding, glaucoma, angle closure, loss of the eye, disfigurement, pain, endophthalmitis as well as any and all rare and unforeseen complications. After demonstrating excellent insight in the clinic setting as well as preoperatively today, she was given a informed consent and signed after answering all of her questions satisfactorily. OPERATIVE TECHNIQUE: The patient was ushered into the operating room and general anesthesia was safely administered. Intubation was carefully accomplished. A time-out was completed collectively by the surgical and the anesthesia teams. The left eye was addressed and prepped and draped in the usual sterile usual sterile manner for ophthalmic surgery including Betadine solution in a sterile field technique. Supplemental sub-Tenon's anesthetic was administered at this time and a divided three-port pars plana vitrectomy setup was accomplished after isolation of each of the rectus muscles with silk suture and anticipation of scleral buckle or band placement. A pars plana vitrectomy was performed removing peripheral vitreous and markedly adherent membranes inferiorly. These were engaged with Kahlil's pike and removed with a Violeta forceps. Contracted tissue was seen temporarily with severe fixed folds and the retinectomy was performed from approximately 12 o'clock to 6 o'clock. These areas were marked with diathermy. Careful inspection did not reveal any other bands or traction. Please note a pars plana lensectomy and capsulectomy was performed given marked synechiae and poor visualization of the membranes. Violeta forceps allowed for removal of the peripheral capsule and markedly adherent membranes. Iris retraction hooks were necessary to provide visualization and removal of the membranes as well. Retinectomy and extensive membrane peeling were performed. The perfluorocarbon liquid was then administered and the retina flattened completely without signs of residual traction. Endolaser was used to treat the retina 360 degrees with at least four to five contiguous rows of moderate laser. Retina remained flat. Nasally, the vitreous was carefully removed and no marked traction was seen, but a 42 band deemed necessary by virtue of the possibility of recurrent traction or incarnation or recurrent PVR formation. A 42 band was placed and harnessed beneath the pre-placed sutures, one in each quadrant and breath each of the rectus muscles with conjointment beneath the medial rectus. Careful imbrication was verified and the band was tightened with no more than moderately so. Perfluorocarbon liquid air exchange was performed with careful removal of the aqueous component followed by the perfluorocarbon liquid. There was no migration of subretinal perfluorocarbon liquid and the retina remained perfectly flat. Peripheral iridectomy was performed at 6 o'clock. 1.0 mg of triamcinolone was administered to the preretinal surface to minimize inflammation and scarring. Silicone oil was then introduced and brought through about the level of the ora len with the final closing pressure between 8 and 10 mm. Each sclerotomy site was closed with 7-0 Vicryl suture. The conjunctivae and Tenon's were coapted with 7-0 Vicryl suture. With the closing pressure between 8 and 10 mm, verified with perfusion being verified directly. With the copious irrigation, the buckle was performed and small silicone droplets were irrigated copiously away from the eye. Supplemental sub-Tenon's anesthetic was administered at this time followed by subconjunctival injections of Ancef and dexamethasone followed by Cosopt and Maxitrol. Sterile patch and shield were placed. The patient is now being gently extubated and will be discharged to recovery room. Appropriate positioning, airway safety, and venous thrombosis prevention will be reviewed. She is to use ice packs and only narcotics if necessary in a sparring manner. She is to contact the eye physician household refrigeration mechanic the overnight period should she experience any severe pain, nausea, vomiting, or other related concerns. Total operating time actual was 2 hours and 20 minutes. General Estimated Blood Loss:0 Drains: 0 Disposition: awakened from anesthesia, extubated and taken to the recovery room in a stable condition, having suffered no apparent untoward event. 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 Condition: doing well without problems (Please see the Surgical Encounter Summary for any Implant and Specimen details pertinent to this patient.) * OR Attestation - Bruno Osorio MD - 09/01/2012 6:18 PM EDT Attestation: Case Date: 09/01/2012 I performed this procedure without the involvement of a resident. BRUNO OSORIO MD 09/01/2012 * Miscellaneous - Provider, Scanning - 09/01/2012 3:35 PM EDT documented in this encounter Plan of Treatment Not on file documented as of this encounter Procedures Procedure Name Priority Date/Time Associated Diagnosis Comments IMPLANTABLE DEVICES SCAN 013 10:14 PM EDT REPAIR COMPLEX RETINAL DETACH W/VITRECTOMY, MEMBRANE PEELING, DRAINAGE (WRVU 19) Yes 09/01/2012 3:25 PM EDT retinal detachment REMOVE LENS MATERIAL, PHACOFRAGMENTATION (WRVU 10.55) Yes 09/01/2012 3:25 PM EDT retinal detachment documented in this encounter Results * SCAN DOC: IMPLANTABLE DEVICES (09/01/2012 10:14 PM EDT) Narrative 09/01/2012 10:14 PM EDT Procedure Note Provider, Scanning - 09/01/2012 10:14 PM EDT Scanning Provider MEDIA MGR SCAN EXT O RDR/RSLT documented in this encounter Visit Diagnoses Not on filedocumented in this encounter Administered Medications Inactive Administered Medications - up to 3 most recent administrations Medication Order MAR Action Action Date Dose Rate Site atropine 1 % ophthalmic solution 1 drop 1 drop, Left Eye, EVERY 5 MIN, 3 doses, First dose on Sara 09/01/12 at 1430, Last dose on Sara 09/01/12 at 1440, Day of Surgery (Day of Procedure), Routine Given 09/01/2012 2:32 PM EDT 1 drop Given 09/01/2012 2:24 PM EDT 1 drop Given 09/01/2012 2:16 PM EDT 1 drop moxifloxacin (VIGAMOX) 0.5 % ophthalmic solution 1 drop 1 drop, Left Eye, EVERY 5 MIN, 3 doses, First dose on Sara 09/01/12 at 1430, Last dose on Sara 09/01/12 at 1440, Day of Surgery (Day of Procedure), Routine Given 09/01/2012 2:34 PM EDT 1 drop Given 09/01/2012 2:27 PM EDT 1 drop Given 09/01/2012 2:17 PM EDT 1 drop PHENYLephrine (MYDFRIN) 2.5 % ophthalmic solution 1 drop 1 drop, Left Eye, EVERY 5 MIN, 3 doses, First dose on Sara 09/01/12 at 1430, Last dose on Sara 09/01/12 at 1440, Day of Surgery (Day of Procedure), Routine Given 09/01/2012 2:37 PM EDT 1 drop Given 09/01/2012 2:25 PM EDT 1 drop Given 09/01/2012 2:16 PM EDT 1 drop prednisoLONE acetate (PRED FORTE) 1 % ophthalmic suspension 1 drop 1 drop, Left Eye, ONCE, 1 dose, On Sara 09/01/12 at 1430, Day of Surgery (Day of Procedure), Routine Given 09/01/2012 2:12 PM EDT 1 drop documented in this encounter Active and Recently Administered Medications Times are shown in EDT. Scheduled Medication Order 08/30/2012 08/31/2012 09/01/2012 atropine 1 % ophthalmic solution 1 drop (COMPLETED) 1 drop, Left Eye, EVERY 5 MIN, 3 doses, First dose on Sara 09/01/12 at 1430, Last dose on Sara 09/01/12 at 1440, Day of Surgery (Day of Procedure), Routine 1416 (Given - Provid er: Malia Mares RN)1424 (Given - Provider: Malia Mares RN)1432 (Given - Provider: Malia Mares RN) moxifloxacin (VIGAMOX) 0.5 % ophthalmic solution 1 drop (COMPLETED) 1 drop, Left Eye, EVERY 5 MIN, 3 doses, First dose on Sara 09/01/12 at 1430, Last dose on Sara 09/01/12 at 1440, Day of Surgery (Day of Procedure), Routine 1417 (Given - Provid er: Malia Mares RN)1427 (Given - Provider: Malia Mares RN)1434 (Given - Provider: Malia Mares RN) PHENYLephrine (MYDFRIN) 2.5 % ophthalmic solution 1 drop (COMPLETED) 1 drop, Left Eye, EVERY 5 MIN, 3 doses, First dose on Sara 09/01/12 at 1430, Last dose on Sara 09/01/12 at 1440, Day of Surgery (Day of Procedure), Routine 1416 (Given - Provid er: Malia Mares RN)1425 (Given - Provider: Malia Mares RN)1437 (Given - Provider: Malia Mares RN) prednisoLONE acetate (PRED FORTE) 1 % ophthalmic suspension 1 drop (COMPLETED) 1 drop, Left Eye, ONCE, 1 dose, On Sara 09/01/12 at 1430, Day of Surgery (Day of Procedure), Routine 1412 (Given - Provid er: Malia Mares RN) PRN Medication Order 08/30/2012 08/31/2012 09/01/2012 bacitracin injection (CANCELED) ONCE PRN, Starting on Sara 09/01/12 at 1620, Until Sara 09/01/12 at 2138, Intra-Operative (Intra-Procedure), Routine 1620 (Given - Provid er: Maliha Machuca RN - Comment: 25,000units/250 ml normal saline for soaking scleral buckle components) balanced salt (BSS PLUS) irrigation solution (CANCELED) ONCE PRN, Starting on Sara 09/01/12 at 1606, Until Sara 3 at 2138, Intra-Operative (Intra-Procedure), Routine 160 (Given - Provid er: Bruno Osorio MD - Comment: with 0.5 ml epinephrine) balanced salt (BSS) irrigation solution (CANCELED) ONCE PRN, Starting on Sara 09/01/12 at 1606, Until Sara 3 at 2138, Intra-Operative (Intra-Procedure), Routine 160 (Given - Provid er: Bruno Osorio MD)1700 (Given - Provider: Bruno Osorio MD) balanced salt (BSS) irrigation solution (CANCELED) ONCE PRN, Starting on Sara 09/01/12 at 1606, Until Sara 3 at 2138, Intra-Operative (Intra-Procedure), Routine 160 (Given - Provid er: Bruno Osorio MD)1739 (Given - Provider: Bruno Osorio MD) BUpivacaine (PF) (MARCAINE) 0.75 % (7.5 mg/mL) injection (CANCELED) ONCE PRN, Starting on Sara 09/01/12 at 1608, Until Sara 3 at 2138, Intra-Operative (Intra-Procedure), Routine 160 (Given - Provid er: Bruno Osorio MD - Comment: mixed with 3 ml 2 % lidocaine) ceFAZolin (ANCEF) injection (CANCELED) ONCE PRN, Starting on Sara 09/01/12 at 1815, Until Sara 3 at 2138, Intra-Operative (Intra-Procedure), Routine 181 (Given - Provid er: Bruno Osorio MD) dexamethasone (DECADRON) injection (CANCELED) ONCE PRN, Starting on Sara 09/01/12 at 1815, Until Sara 3 at 2138, Intra-Operative (Intra-Procedure), Routine 181 (Given - Provid er: Bruno Osorio MD) dorzolamide-timolol (COSOPT) 2-0.5 % ophthalmic solution (CANCELED) ONCE PRN, Starting on Sara 09/01/12 at 1817, Until Sara 09/01/12 at 2138, Intra-Operative (Intra-Procedure), Routine 181 (Given - Provid er: Maliha Machuca RN) epiNEPHrine (PF) injection Soln (CANCELED) ONCE PRN, Starting on Sara 09/01/12 at 1608, Until Sara 09/01/12 at 2138, Intra-Operative (Intra-Procedure), Routine 1608 (Given - Provid er: Bruno Osorio MD) lidocaine (XYLOCAINE) 20 mg/mL (2 %) injection (CANCELED) ONCE PRN, Starting on Sara 09/01/12 at 1608, Until Sara 09/01/12 at 2138, Intra-Operative (Intra-Procedure), Routine 1608 (Given - Provid er: Bruno Osorio MD - Comment: mixed with 3 ml 0.75 % Marcaine) ivndzbyr-jmceewjqr-xkodvbexlvzu e (DEXACINE) 3.5-10,000-0.1 mg-unit/g-% ophthalmic ointment (CANCELED) ONCE PRN, Starting on Sara 09/01/12 at 1817, Until Sara 09/01/12 at 2138, Intra-Operative (Intra-Procedure), Routine 181 (Given - Provid er: Maliha Machuca RN) povidone-iodine 5 % ophthalmic solution (CANCELED) ONCE PRN, Starting on Sara 09/01/12 at 1600, Until Sara 09/01/12 at 2138, Irritation, Intra-Operative (Intra-Procedure), Routine 1600 (Given - Provid er: Bruno Osorio MD) sterile water injection (CANCELED) ONCE PRN, Starting on Sara 09/01/12 at 1600, Until Sara 09/01/12 at 2138, Intra-Operative (Intra-Procedure), Routine 1600 (Given - Provid er: Bruno Osorio MD - Comment: used as dilutent) triamcinolone acetonide (PF) (TRIESENCE) 40 mg/mL ophthalmic suspension (CANCELED) ONCE PRN, Starting on Sara 3/21/13 at 1757, Until Sara 09/01/12 at 2138, Intra-Operative (Intra-Procedure), Routine 1757 (Given - Provid er: Bruno Osorio MD) documented in this encounter Care Teams Order Processing Specialist Relationship Specialty Start Date End Date Doe Jenkins PA [address] [place] [address] PCP - General 08/04/12 01/30/20 documented as of this encounter
--- OUTSIDE RECORDS SUMMARY | 2024-07-25 16:07 | XMS_ITS | Encounter Summary ---
Author Organization [facility] [place] [address] Care Team Providers Care Mailroom Coordinator Name Role Phone Doe Jenkins Primary Care Provider +1- [phone] Encounter Details Date Type Department Care Team (Late st Contact Info) Description 09/01/2012 3:00 PM EDT - 09/01/2012 5:17 PM EDT Surgery [place] [id number] Bruno Osorio MD [facility] [place] [address] REMOVE LENS MATERIAL, PHACOFRAGMENTATION (WRVU 10.55) Social History Tobacco Use Types Packs/Day Years [...] Sign Reading Time Taken Comments Blood Pressure 119/75 09/01/2012 1:32 PM EDT Pulse 69 09/01/2012 1:32 PM EDT Temperature 37.2 ??C (99 ??F) 09/01/2012 1:32 PM EDT Respiratory Rate 16 09/01/2012 1:32 PM EDT Oxygen Saturation 100% 09/01/2012 1:32 PM EDT Inhaled Oxygen Concentration - - Weight 64.4 kg (142 lb) 09/01/2012 1:32 PM EDT Height 175.3 cm (5' 9) 09/01/2012 1:32 PM EDT Body Mass Index 20.97 09/01/2012 1:32 PM EDT documented in this encounter Discharge Instructions * Discharge Instructions* Negrita Saarbia RN - 09/01/2012 6:46 PM EDT POST [...] all eye drops to tomorrow's appointment. Call [phone] for all questions concerns. Left side down [...] 09/01/2012 1:50 PM EDT Patient Name: Frances Woosd Patient Age: 41 y.o. Birthdate: 1970 Admit [...] APPROACH performed by Bruno Osorio MD at [facility] MAIN OR Review of Systems Constitutional: Negative [...] APPROACH performed by Bruno Osorio MD at [facility] MA[facility] OR Review of Systems Constitutional: Negative [...] Osorio MD - 09/01/2012 6:19 PM EDT [facility] – [place] Operative Note Patient Name: Frances Woods : [id number] MR#: [id number] Case Date: 09/01/2012 Surgeon: Surgeon(s) and Role: * Bruno Osorio MD - Primary * Gregoria Viera PA - Resident-Urologist Physician Preoperative diagnosis: RETINAL DETACHMENT with SEVERE PVR [...] She is to contact the eye physician air conditioner installer helper the overnight period should she experience any [...] Operative Note Patient Name: Frances Woods : [id number] MR#: [id number] Case Date: 09/01/2012 Surgeon: Surgeon(s) and Role: * Bruno Osorio MD - Primary * Gregoria Viera PA - Resident-Urologist Physician Preoperative diagnosis: RETINAL DETACHMENT OS Postoperative diagnosis: [...] Given 09/01/2012 2:16 PM EDT 1 drop bacitracin injection ONCE PRN, Starting on Sara 09/01/12 at 1620, Until Sara 09/01/12 at 2138, Intra-Operative (Intra-Procedure), Routine Given 09/01/2012 4:20 PM EDT 25,000 Units balanced salt (BSS PLUS) irrigation solution ONCE PRN, Starting on Sara 09/01/12 at 1606, Until Sara 09/01/12 at 2138, Intra-Operative (Intra-Procedure), Routine Given 09/01/2012 4:06 PM EDT 500 mLs Left Eye balanced salt (BSS) irrigation solution ONCE PRN, Starting on Sara 09/01/12 at 1606, Until Sara 09/01/12 at 2138, Intra-Operative (Intra-Procedure), Routine Given 09/01/2012 5:00 PM EDT 30 mLs Left Eye Given 09/01/2012 4:06 PM EDT 60 mLs Le ft Eye balanced salt (BSS) irrigation solution ONCE PRN, Starting on Sara 09/01/12 at 1606, Until Sara 09/01/12 at 2138, Intra-Operative (Intra-Procedure), Routine Given 09/01/2012 5:39 PM EDT 500 Bottles Left Eye Given 09/01/2012 4:06 PM EDT 500 Bottles L eft Eye BUpivacaine (PF) (MARCAINE) 0.75 % (7.5 mg/mL) injection ONCE PRN, Starting on Sara 09/01/12 at 1608, Until Sara 09/01/12 at 2138, Intra-Operative (Intra-Procedure), Routine Given 09/01/2012 4:08 PM EDT 3 mLs Left Eye ceFAZolin (ANCEF) injection ONCE PRN, Starting on Sara 09/01/12 at 1815, Until Sara 09/01/12 at 2138, Intra-Operative (Intra-Procedure), Routine Given 09/01/2012 6:15 PM EDT 100 mg Left Eye dexamethasone (DECADRON) injection ONCE PRN, Starting on Sara 09/01/12 at 1815, Until Sara 09/01/12 at 2138, Intra-Operative (Intra-Procedure), Routine Given 09/01/2012 6:15 PM EDT 2 mg Left Eye dorzolamide-timolol (COSOPT) 2-0.5 % ophthalmic solution ONCE PRN, Starting on Sara 09/01/12 at 1817, Until Sara 09/01/12 at 2138, Intra-Operative (Intra-Procedure), Routine Given 09/01/2012 6:17 PM EDT 1 drop epiNEPHrine (PF) injection Soln ONCE PRN, Starting on Sara 09/01/12 at 1608, Until Sara 09/01/12 at 2138, Intra-Operative (Intra-Procedure), Routine Given 09/01/2012 4:08 PM EDT 0.5 mg Left Eye lidocaine (XYLOCAINE) 20 mg/mL (2 %) injection ONCE PRN, Starting on Sara 09/01/12 at 1608, Until Sara 09/01/12 at 2138, Intra-Operative (Intra-Procedure), Routine Given 09/01/2012 4:08 PM EDT 3 mLs Left Eye moxifloxacin (VIGAMOX) 0.5 % ophthalmic solution 1 drop 1 drop, Left Eye, EVERY 5 MIN, 3 doses, First dose on Sara 09/01/12 at 1430, Last dose on Sara 09/01/12 at 1440, Day of Surgery (Day of Procedure), Routine Given 09/01/2012 2:34 PM EDT 1 drop Given 09/01/2012 2:27 PM EDT 1 drop Given 09/01/2012 2:17 PM EDT 1 drop orqnhsga-iuannmdgb-dkkafxjwshqlc (DEXACINE) 3.5-10,000-0.1 mg-unit/g-% ophthalmic ointment ONCE PRN, Starting on Sara 09/01/12 at 1817, Until Sara 09/01/12 at 2138, Intra-Operative (Intra-Procedure), Routine Given 09/01/2012 6:17 PM EDT 1 Tube PHENYLephrine (MYDFRIN) 2.5 % ophthalmic solution 1 drop 1 drop, Left Eye, EVERY 5 MIN, 3 doses, First dose on Sara 09/01/12 at 1430, Last dose on Sara 09/01/12 at 1440, Day of Surgery (Day of Procedure), Routine Given 09/01/2012 2:37 PM EDT 1 drop Given 09/01/2012 2:25 PM EDT 1 drop Given 09/01/2012 2:16 PM EDT 1 drop povidone-iodine 5 % ophthalmic solution ONCE PRN, Starting on Sara 09/01/12 at 1600, Until Sara 09/01/12 at 2138, Irritation, Intra-Operative (Intra-Procedure), Routine Given 09/01/2012 4:00 PM EDT 30 drops prednisoLONE acetate (PRED FORTE) 1 % ophthalmic suspension 1 drop 1 drop, Left Eye, ONCE, 1 dose, On Sara 09/01/12 at 1430, Day of Surgery (Day of Procedure), Routine Given 09/01/2012 2:12 PM EDT 1 drop sterile water injection ONCE PRN, Starting on Sara 09/01/12 at 1600, Until Sara 09/01/12 at 2138, Intra-Operative (Intra-Procedure), Routine Given 09/01/2012 4:00 PM EDT 10 mLs triamcinolone acetonide (PF) (TRIESENCE) 40 mg/mL ophthalmic suspension ONCE PRN, Starting on Sara 09/01/12 at 1757, Until Sara 09/01/12 at 2138, Intra-Operative (Intra-Procedure), Routine Given 09/01/2012 5:57 PM EDT 1 mg Left Eye documented in this encounter Active and Recently [...] on Sara 09/01/12 at 1606, Until Sara 09/01/12 at 2138, Intra-Operative (Intra-Procedure), Routine 160 (Given - Provid er: Bruno Osorio MD)1739 (Given - Provider: Bruno Osorio MD) BUpivacaine (PF) (MARCAINE) 0.75 % (7.5 mg/mL) injection (CANCELED) ONCE PRN, Starting on Sara 09/01/12 at 1608, Until Sara 09/01/12 at 2138, Intra-Operative (Intra-Procedure), Routine 160 (Given - Provid er: Bruno Osorio MD - Comment: mixed with 3 ml 2 % lidocaine) ceFAZolin (ANCEF) injection (CANCELED) ONCE PRN, Starting on Sara 09/01/12 at 1815, Until Sara 09/01/12 at 2138, Intra-Operative (Intra-Procedure), Routine 181 (Given - Provid er: Bruno Osorio MD) dexamethasone (DECADRON) injection (CANCELED) ONCE PRN, Starting on Sara 09/01/12 at 1815, Until Sara 3 at 2138, Intra-Operative (Intra-Procedure), Routine 1814 (Given - Provid er: Bruno Osorio MD) dorzolamide-timolol (COSOPT) 2-0.5 % ophthalmic solution (CANCELED) ONCE PRN, Starting on Sara 09/01/12 at 1817, Until Sara 3 at 2138, Intra-Operative (Intra-Procedure), Routine 181 (Given - Provid er: Maliha Machuca RN) epiNEPHrine (PF) injection Soln (CANCELED) ONCE PRN, Starting on Sara 09/01/12 at 1608, Until Sara 3 at 2138, Intra-Operative (Intra-Procedure), Routine 1608 (Given - Provid er: Bruno Osorio MD) lidocaine (XYLOCAINE) 20 mg/mL (2 %) injection (CANCELED) ONCE PRN, Starting on Sara 09/01/12 at 1608, Until Sara 3 at 2138, Intra-Operative (Intra-Procedure), Routine 1608 (Given - Provid er: Bruno Osorio MD - Comment: mixed with 3 ml 0.75 % Marcaine) yzscvadx-adnzselcz-najlswicszfr e (DEXACINE) 3.5-10,000-0.1 mg-unit/g-% ophthalmic ointment (CANCELED) ONCE PRN, Starting on Sara 09/01/12 at 1817, Until Sara 3 at 2138, Intra-Operative (Intra-Procedure), Routine 181 (Given - Provid er: Maliha Machuca RN) povidone-iodine 5 % ophthalmic solution (CANCELED) ONCE PRN, Starting on Sara 09/01/12 at 1600, Until Sara 3 at 2138, Irritation, Intra-Operative (Intra-Procedure), Routine 1600 (Given - Provid er: Bruno Osorio MD) sterile water injection (CANCELED) ONCE PRN, Starting on Sara 09/01/12 at 1600, Until Sara 3 at 2138, Intra-Operative (Intra-Procedure), Routine 1600 (Given - Provid er: Bruno Osorio MD - Comment: used as dilutent) triamcinolone acetonide (PF) (TRIESENCE) 40 mg/mL ophthalmic suspension (CANCELED) ONCE PRN, Starting on Sara 09/01/12 at 1757, Until Sara 09/01/12 at 2138, Intra-Operative (Intra-Procedure), Routine 1757 (Given - Provid er: Bruno Osorio MD) documented in this encounter Care Teams Mailroom Coordinator Relationship Specialty Start Date End Date Doe Jenkins PA [address] [place] [address] PCP - General 08/04/12 01/30/20 documented as of this encounter
--- OUTSIDE RECORDS SUMMARY | 2024-07-25 16:07 | XMS_ITS | Encounter Summary ---
Author Organization [facility] [place] [address] Care Team Providers Care Cigar Sorter Name Role Phone Jaime Matos MD Primary Care Provider [phone] -[phone] Reason for Visit * Reason Comments Eye Problem The patient presents for followup evaluation of for endophthalmitis in the left eye. CBC M.D. Eye Problem shared pt with dr. jose quick Encounter Details Date Type Department Care Team (Late st Contact Info) Description 07/22/2012 3:45 PM EST [place] [address] Arjun Lockhart MD [facility] DR [place]THAL[place] [address] Endophthalmitis, left eye. Left eye. Vitreous . Endogenous; Hepatitis C antibody test positive; Tooth abscess following dental extraction 1-1/2 months [...] Progress Notes * Arjun Lockhart MD - 07/25/2012 10:57 PM EST 1. Endophthalmitis, left eye. Left eye. Vitreous . Endogenous 2. Hepatitis C antibody test positive 3. Tooth abscess following dental extraction 1-1/2 months ago per patient history The patient demonstrates no recurrence of inflammation or new sites of infection. However the medial passages are dense and I am concerned about progressive organization. After careful review of all the risks and benefits of surgery and the guarded visual prognosis, she is given informed consent to proceed with surgery in the left eye. This will involve vitrectomy and related procedures. Repeat diagnostic microbiologic studies. documented in this encounter Plan of Treatment Not on file documented as of this encounter Visit Diagnoses Diagnosis Endophthalmitis, left eye. Left eye. Vitreous . Endogenous Purulent endophthalmitis, unspecified Hepatitis C antibody test positive Other and unspecified nonspecific immunological findings Tooth abscess following dental extraction 1-1/2 months ago per patient history Periapical abscess without sinus documented in this encounter Care Teams Cigar Sorter Relationship Specialty Start Date End Date Jaime Matos MD [address] [place] [address] PCP - General 05/06/10 08/03/12 documented as of this encounter
--- OUTSIDE RECORDS SUMMARY | 2024-07-25 16:07 | XMS_ITS | Encounter Summary ---
Author Organization [facility] [place] [address] Care Team Providers Care Cutter Grinder Operator Name Role Phone Doe Jenkins Primary Care Provider +1- [phone] Encounter Details Date Type Department Care Team (Late st Contact Info) Description 08/04/2012 12:14 PM EST - 08/04/2012 5:45 PM EST Hospital Encounter [place] [id number] Bruno Osorio MD [facility] [place] [address] Endophthalmitis, left eye. Left eye. Vitreous . [...] Sign Reading Time Taken Comments Blood Pressure 134/74 08/04/2012 5:00 PM EST Pulse 72 08/04/2012 5:00 PM EST Temperature 36.6 ??C (97.9 ??F) 08/04/2012 4:46 PM ES T Respiratory Rate 16 08/04/2012 5:00 PM EST Oxygen Saturation 93% 08/04/2012 5:00 PM EST Inhaled Oxygen Concentration - - [...] all eye drops to tomorrow's appointment. Call [phone] for all questions concerns. documented in this [...] Osorio MD - 08/04/2012 4:39 PM EST [facility] [place] Patient Name: Frances Frost : [id number] MR#: [id number] Case Date: 08/04/2012 Surgeon: Surgeon(s) and Role: * Bruno Osorio MD - Primary * Gregoria Viera PA - Resident-Animal Rides Manager Preoperative diagnosis: ENDOPHTHALMITIS OS Postoperative diagnosis: ENDOPHTHALMITIS [...] related concerns. Please note operating time actual aywtfdnf-ig-rhudlvjk was one hour and five minutes. Disposition: [...] Operative Note Patient Name: Frances Frost : [id number] MR#: [id number] Case Date: 08/04/2012 Surgeon: Surgeon(s) and Role: * Bruno Osorio MD - Primary * Gregoria Viera PA - Resident-Animal Rides Manager Preoperative diagnosis: ENDOPHTHALMITIS OS Postoperative diagnosis: ENDOPHTHALMITIS [...] FROST ?Ordered By: VIGNESH OSORIO ? MR#: [id number] ?LOC: ??SDP ? /Sex: ??1970 (41 years), [...] FROST ?Ordered By: VIGNESH OSORIO ? MR#: [id number] ?LOC: ??SDP ? /Sex: ??1970 (41 years), ? Female ? PROCEDURE: Fungus Culture ?SOURCE: Eye Fl ? COLLECTED: 08/04/2012 18:36 ? BODY SITE: Left Eye ? STARTED: 08/04/2012 18:37 ? FINAL REPORT ? Final Report ? Verified:2012 08:13 ? No Fungus isolated ? PRELIMINARY REPORT ? Preliminary Report ? Verified:2012 07:15 ? No Fungus isolated to date ? CLAIR JONESIUM Structure of aqueous humor (body structure) LEFT EYE STRUCTURE / Unknown 08/04/2012 6:36 PM EST 08/04/2012 6:37 PM EST Narrative Resulting Agency Comment Spec In Lab Bruno Osorio MD MICROBIOLOGY - GENERAL ORDERABLES CLAIR PIÑA * Eye culture (08/04/2012 6:36 PM EST) Eye Culture ? Patient Name: FRANCES FROST ?Ordered By: VIGNESH OSORIO ? MR#: [id number] ?LOC: ??SDP ? /Sex: ??1970 (41 years), [...] Purulent endophthalmitis, unspecified documented in this encounter Administered Medications Inactive [...] Given 08/04/2012 2:15 PM EST 1 drop moxifloxacin (VIGAMOX) 0.5 % ophthalmic solution 1 drop 1 drop, Left Eye, EVERY 5 MIN, 3 doses, First dose on Sara 08/04/12 at 1415, Last dose on Sara 08/04/12 at 1425, Day of Surgery (Day of Procedure), Routine Given 08/04/2012 2:25 PM EST 1 drop Given 08/04/2012 2:20 PM EST 1 drop Given 08/04/2012 2:15 PM EST 1 drop PHENYLephrine (MYDFRIN) 2.5 % ophthalmic solution 1 drop 1 drop, Left Eye, EVERY 5 MIN, 3 doses, First dose on Sara 08/04/12 at 1415, Last dose on Sara 08/04/12 at 1425, Day of Surgery (Day of Procedure), Routine Given 08/04/2012 2:25 PM EST 1 drop Given 08/04/2012 2:20 PM EST 1 drop Given 08/04/2012 2:15 PM EST 1 drop prednisoLONE acetate (PRED FORTE) 1 % ophthalmic suspension 1 drop 1 drop, Left Eye, ONCE, 1 dose, On Sara 08/04/12 at 1415, Day of Surgery (Day of Procedure), Routine Given 08/04/2012 2:15 PM EST 1 drop documented in this encounter Active [...] 08/04/12 at 1629, Until Sara 08/04/12 at 2041, Intra-Operative (Intra-Procedure), Routine 1629 (Given - Provid er: Bruno Osorio MD - Comment: sc post op) dexamethasone (DECADRON) injection (CANCELED) ONCE PRN, Starting on Sara 08/04/12 at 1628, Until Sara 08/04/12 at 2041, Intra-Operative (Intra-Procedure), Routine 1628 (Given - Provid er: Bruno Osorio MD - Comment: sc post op) dextrose 50% injection (CANCELED) ONCE PRN, Starting on Sara 08/04/12 at 1504, Until Sara 08/04/12 at 2041, Low blood sugar, Intra-Operative (Intra-Procedure), Routine 1504 (Given - Provid er: Bruno Osorio MD - Comment: added to 500ml BSS Plus) dorzolamide-timolol (COSOPT) 2-0.5 % ophthalmic solution (CANCELED) ONCE PRN, Starting on Sara 08/04/12 at 1635, Until Sara 08/04/12 at 2041, Intra-Operative (Intra-Procedure), Routine 1635 (Given - Provid er: Bruno sOorio MD) lidocaine (XYLOCAINE) 20 mg/mL (2 %) injection (CANCELED) ONCE PRN, Starting on Sara 08/04/12 at 1631, Until Sara 08/04/12 at 204, Intra-Operative (Intra-Procedure), Routine 1631 (Given - Provid er: Bruno Osorio MD) zjgdnsat-zqzbvoele-wjiteulsrazy e (DEXACINE) 3.5-10,000-0.1 mg-unit/g-% ophthalmic ointment (CANCELED) ONCE PRN, Starting on Sara 08/04/12 at 1627, Until Sara 08/04/12 at 2041, Intra-Operative (Intra-Procedure), Routine 1627 (Given - Provid er: Bruno Osorio MD - Comment: 0.25 ml) povidone-iodine 5 % ophthalmic solution (CANCELED) ONCE PRN, Starting on Sara 08/04/12 at 1539, Until Sara 08/04/12 at 2041, Irritation, Intra-Operative (Intra-Procedure), Routine 1539 (Given - Provid er: Franklyn Guevara RN) triamcinolone acetonide (KENALOG-40) injection (CANCELED) ONCE PRN, Starting on Sara 08/04/12 at 1635, Until Sara 08/04/12 at 2041, Intra-Operative (Intra-Procedure), Routine 1635 (Given - Provid er: Bruno Osorio MD) documented in this encounter Care Teams Cutter Grinder Operator Relationship Specialty Start Date End Date Doe Jenkins PA [address] [place] [address] PCP - General 08/04/12 01/30/20 documented as of this encounter
--- OUTSIDE RECORDS SUMMARY | 2024-07-25 16:07 | XMS_ITS | Encounter Summary ---
Author Organization [facility] [place] [address] Care Team Providers Care Music Leader Name Role Phone Doe Jenkins Primary Care Provider +1- [phone] Reason for Visit * Reason Comments Post Op The patient presents for postoperative day one evaluation. She indicates that she is seen much better today than prior to surgery. CBC M.D. Post Op POD1; shared pt wit dr. fong Encounter Details Date Type Department Care Team (Late st Contact Info) Description 09/02/2012 10:00 AM EDT Office [place] [address] Arjun Lockhart MD [facility] [place] [address] Retinal detachment, left (Primary Dx); Endophthalmitis, left eye. Left eye. Vitreous . Endogenous; Hepatitis C antibody test positive; Tooth abscess following dental extraction 1-1/2 months ago per patient history; Cocaine use Discharge Disposition: Home Social History [...] Notes * Arjun Lockhart MD - 09/04/2012 7:45 PM EDT 1. Retinal detachment, left 2. Endophthalmitis, left eye. Left eye. Vitreous . Endogenous 3. Hepatitis C antibody test positive 4. Tooth abscess following dental extraction 1-1/2 months ago per patient history 5. 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 The patient underwent lensectomy vitrectomy membrane peel, 42 band placement and silicone oil placement. Pred forte and Vigamox each 4 times a day and position on right side 75% of the day for the next 7 days. Safety precautions reviewed Return one week or immediately if decrease in vision pain or other related symptoms documented in this encounter Plan of Treatment Not on file documented as of this encounter Visit Diagnoses Diagnosis Retinal detachment, left- Primary Unspecified retinal detachment Endophthalmitis, left eye. Left eye. Vitreous . Endogenous Purulent endophthalmitis, unspecified Hepatitis C antibody test positive Other and unspecified nonspecific immunological findings Tooth abscess following dental extraction 1-1/2 months ago per patient history Periapical abscess without sinus Cocaine use Cocaine abuse, unspecified documented in this encounter Care Teams Music Leader Relationship Specialty Start Date End Date Doe Jenkins PA [address] [place] [address] PCP - General 08/04/12 01/30/20 documented as of this encounter
--- OUTSIDE RECORDS SUMMARY | 2024-07-25 16:07 | XMS_ITS | Encounter Summary ---
Author Organization [facility] [place] [address] Care Team Providers Care Group Sales Representative Name Role Phone Doe Jenkins Primary Care Provider +1- [phone] Reason for Visit * Reason Onset Date Comments Patient Not Seen 09/28/2012 Encounter Details Date Type Department Care Team (Late st Contact Info) Description 09/28/2012 1:30 PM EDT Office [place] [address] Arjun Lockhart MD [facility] [place] [address] NO SHOW (Primary Dx) Discharge Disposition: Home [...] Progress Notes * Arjun Lockhart MD - 09/28/2012 9:25 PM EDT This patient was not seen in this encounter. documented in this encounter Plan of Treatment Not on file documented as of this encounter Visit Diagnoses Diagnosis PATIENT NOT SEEN- Primary documented in this encounter Care Teams Group Sales Representative Relationship Specialty Start Date End Date Doe Jenkins PA [address] [place] [address] PCP - General 08/04/12 01/30/20 documented as of this encounter
[2024-07-25 19:23] LABS: ESR 7 mm/hr (0-30)
[2024-07-25 19:59] LABS: Vitamin D 25 Total 32.4 ng/mL (30-100)
[2024-07-25 21:13] LABS: C-Reactive Protein < 0.50 mg/dL (<or=0.5)
[2024-07-26 17:59] LABS: Rheumatoid Factor <8.6 IU/mL (<12.0)
[2024-07-27 11:55] LABS: ANA Interpretation Negative (Negative)
== END 2024-07-25 15:59 | disposition home or self-care (01) ==
LOC: NCHCN 15:58
PROVIDERS: PCP Physician Assistant Medical; Visit Provider Physician Assistant Medical
DX: M25.59 Pain in other specified joint (principal)
CPT/HCPCS: 82306; 85652; 86038; 86140; 86431

== ENCOUNTER 2025-01-20 11:44 | Outpatient (CLI) | payer SELFPAY ==
--- NOTE | 2025-01-20 12:15 | DI.RAD_ITS ---
Exam(s) XR THORACIC SPINE COMPLETE EXAM: XR THORACIC SPINE COMPLETE CLINICAL HISTORY: PAIN IN THORACIC SPINE. TECHNIQUE: 2D digital imaging was performed of the thoracic spine. Three views were obtained. AP, swimmer's and lateral views were obtained. COMPARISON: No exams were available for comparison FINDINGS: BONES: There is no fracture or destructive lesion. Age-appropriate degenerative changes are present throughout the thoracic spine. DISKS:Alignment is within normal limits. Interverebral disc spaces are maintained. SOFT TISSUE: Lungs are hyperinflated with flattened diaphragms suggesting underlying COPD. IMPRESSION: 1. Cxjn-eg-gjhpennj degenerative changes are present in the thoracic spine. 2. The preliminary [facility] report was reviewed. DATA REPOSITORY: RADIATION DOSE DELIVERED:
--- NOTE | 2025-01-20 12:16 | DI.RAD_ITS ---
Exam(s) XR CERVICAL SP DEY TRAUMA 2-3V EXAM: XR CERVICAL SP DEY TRAUMA 2-3V CLINICAL HISTORY: CERVICALGIA. TECHNIQUE: 2D digital imaging was performed. Four images were obtained. AP, odontoid and lateral images were obtained. COMPARISON: No exams were available for comparison FINDINGS: The odontoid is intact. The lateral masses are well aligned. There is straightening of the normal cervical lordosis. There is disc space narrowing at C6-C7. Endplate osteophytes are seen at several levels in the lower cervical spine. No acute fracture or subluxation is present. The cervical thoracic junction is well maintained. The prevertebral soft tissues are unremarkable. Lung apices are clear. IMPRESSION: 1. Moderate cervical spondylosis. 2. The preliminary [facility] report was reviewed. DATA REPOSITORY: RADIATION DOSE DELIVERED:
--- NOTE | 2025-01-20 13:13 | DI.[facility]_ITS ---
PROCEDURE INFORMATION: Exam: XR Cervical Spine Exam date and time: 01/20/2025 12:08 PM Age: 54 years old Clinical indication: Pain; Cervicalgia; Additional info: No known trauma. Chronic pain for years TECHNIQUE: Imaging protocol: Radiologic exam of the cervical spine. Views: 2 or 3 views. COMPARISON: CR XR THORACIC SPINE COMPLETE 01/20/2025 12:04 PM FINDINGS: Bones/joints: Straightening of the normal alignment. Advanced disc degeneration C6-C7. Multilevel facet arthropathy. Soft tissues: Unremarkable. Vasculature: Left carotid artery calcifications. IMPRESSION: Advanced disc degeneration at C6-C7. Dictated and Authenticated by: Hong Nunes MD. Orderin LANA WILKES MD
--- NOTE | 2025-01-20 13:14 | DI.[facility]_ITS ---
PROCEDURE INFORMATION: Exam: XR Thoracic Spine Exam date and time: 01/20/2025 12:04 PM Age: 54 years old Clinical indication: Other: Not specified; Pain in thoracic spine. No known trauma. Chronic pain for years TECHNIQUE: Imaging protocol: Radiologic exam of the thoracic spine. Views: 3 views. COMPARISON: No relevant prior studies available. FINDINGS: Bones/joints: Diffuse spondylosis changes. Multilevel disc degeneration. No acute fracture. Normal alignment. Soft tissues: Unremarkable. IMPRESSION: No acute findings. Dictated and Authenticated by: Hong Nunes MD. Orderin LANA WILKES MD
== END 2025-01-20 12:04 ==
PROVIDERS: PCP Physician Assistant Medical; Visit Provider Nurse Practitioner Family
DX: M47.812 Spondylosis without myelopathy or radiculopathy, cervical region (principal)
CPT/HCPCS: 72040; 72072

== ENCOUNTER 2025-01-20 12:00 | Outpatient (REF) | payer SELFPAY ==
[2025-01-20 16:50] LABS: Abs Immature Grans 0.02 10^3/uL (0.0-0.06); HCT 46.2 % (36.0-46.0); HGB 14.9 g/dL (11.2-15.7); Immature Grans % 0.3 %; MCH 28.8 pg (27.0-33.0); MCHC 32.3 % (32.0-36.0); MCV 89 fL (80-95); MPV 10.2 fL (8.0-11.0); Platelet Count 216 10^3/uL (130-400); RBC 5.18 10^6/uL (3.93-5.22); RDW 13.3 % (11.7-14.6); RDW-SD 43.7 fL; WBC 5.75 10^3/uL (4.4-10.8)
[2025-01-20 17:04] LABS: C-Reactive Protein < 0.50 mg/dL (<or=0.5)
== END 2025-01-20 12:01 | disposition home or self-care (01) ==
LOC: LBN 12:00
PROVIDERS: PCP Physician Assistant Medical; Visit Provider Nurse Practitioner Family
DX: M54.2 Cervicalgia (principal)
CPT/HCPCS: 85025; 86140